=== PATIENT | male | born 1945 | race Caucasian/White ===

== ENCOUNTER 2016-11-16 14:44 | Inpatient (IN) ==
[2016-11-16] MEDS ORDERED: Ipratropium/Albuterol Neb 3 ML IH ONE (16:00)
[2016-11-16] MEDS ORDERED: HYDROcodone BIT/Homatropine 5 MG TABLET PO ONE (16:01)
[2016-11-16] MEDS ORDERED: Vancomycin 1,000 MG in D5% in Water 250 ML IVPB ONE (16:01)
[2016-11-16] MEDS ORDERED: Piperacillin/Tazobactam 4.5 GM in D5% in Water (Mini-Bag+) 100 ML IVPB ONE (16:01)
[2016-11-16] MEDS ORDERED: methylPREDNISolone 125 MG/2 ML VIAL IVP ONE (16:03)
[2016-11-16] MEDS: 0.9 % Sodium Chloride 1,000 ML IVC SCH ×2 (17:09→23:54)
[2016-11-16 17:12] LABS: Eosinophils % 0.6 %; Hemoglobin 9.9 g/dL (12.9-16.9)
[2016-11-16 17:14] LABS: Basophils % 0.6 %; Immature Granulocytes % 6.1 % (0-4); Immature Platelets 1.9 % (1.1-6.1); Lymphocytes % 45.7 %; Monocytes % 6.1 %; Segmented Neutrophils % 40.9 %
[2016-11-16 17:15] LABS: VBG HCO3 29.8 mEq/L (21-27); VBG PH 7.42 pH Units (7.32-7.42)
[2016-11-16 17:24] LABS: Lymphocytes # 1.5 K/mcL (0.6-4.6); Mean Corpuscular HGB Conc 31.9 g/dL (31.6-35.5); Mean Corpuscular Hemoglobin 29.5 pg (28.0-33.3); Mean Corpuscular Volume 92.3 fL (83.0-100.0); Mean Platelet Volume 8.3 fL (9.4-12.4); Monocytes # 0.2 K/mcL (0.0-1.3); Neutrophils # 1.4 K/mcL (1.6-8.9); Red Blood Count 3.36 M/mcL (4.19-5.50); Red Cell Distribution Width 18.1 % (11.5-14.5)
[2016-11-16 17:26] LABS: Alanine Aminotransferase 15 Units/L (0-55); Albumin 2.7 g/dL (3.5-5.0); Albumin/Globulin Ratio 0.9 (1.1-2.2); Alkaline Phosphatase 59 Units/L (38-126); Aspartate Amino Transferase 38 Units/L (5-34); BUN/Creatinine Ratio 18 (6-26); Bilirubin,Total 0.4 mg/dL (0.2-1.2); Blood Urea Nitrogen 14 mg/dL (8-26); Calcium 8.9 mg/dL (8.6-10.8); Carbon Dioxide 27 mEq/L (19-29); Chloride 101 mEq/L (98-109); Globulin 2.9 g/dL (2.4-3.5); Glucose 119 mg/dL (70-99); Osmolality,Calculated 282 (280-300); Potassium 4.7 mEq/L (3.5-4.5); Sodium 135 mEq/L (136-145); Total Protein 5.6 g/dL (6.0-8.3); eGFR For African Americans > 60 (> 60); eGFR For Non-African Americans > 60 (> 60)
[2016-11-16 17:44] LABS: Platelet Count 98 K/mcL (140-400)
[2016-11-16 17:48] LABS: Platelet Estimate Marked Decrease (Normal)
[2016-11-16] MEDS ORDERED: Naloxone 0.4 MG/ML INJ IVP PRN (21:03)
[2016-11-16] MEDS ORDERED: Ondansetron ODT 4 MG TAB.RAPDIS PO PRN (21:12)
[2016-11-16] MEDS ORDERED: Acetaminophen 325 MG TABLET PO PRN (21:12)
--- NOTE | 2016-11-16 21:25 | Internal Med History&Physical ---
<Arlette Beal - Last Filed: 11/16/16 22:18> Date of Encounter: 11/16/16 Time of Encounter: 21:23 Assessment and Plan (1) HCAP (healthcare-associated pneumonia) Current visit: Yes Status: Acute Patient with increased reductive cough, shortness of breath, chills, sweats. She does them immunosuppressed with CLL or blood cells elevated above his baseline to only 3.3, low-grade fever at 99. CT of the chest showed lobar consolidation in bilateral lower lobes, centrilobular small tree-in-bud nodules scattered throughout the lungs. called in the cancer Center and pneumonia is considered HCAP. Initiated on broad-spectrum antibiotics with vancomycin and Zosyn, will add Levaquin and Tamiflu Influenza PCR ordered IV fluids 0.9 at 125 mL per hour DuoNeb treatments 4 times a day Albuterol nebulizer every 2 when necessary Titrate O2 to maintain oxygen saturation greater than 90% Respiratory therapy consultation for CPAP as patient has diagnosis of sleep apnea De-escalate antibiotics once results of Flu PCR and cultures return (2) Sepsis Current visit: Yes Status: Acute Patient meets sepsis criteria with source of infection being pneumonia, tachycardia, and tachypnea. He should not is maintaining blood pressures 110s to 120s. Blood cultures, sputum cultures, and urine cultures were drawn and sent. Lactic acid was drawn and was normal at 1.2. Fluids were initiated at 125 mL per hour. Initiated on broad-spectrum antibiotics with vancomycin and Zosyn, will add Levaquin and Tamiflu Influenza PCR ordered. De-escalate antibiotics and tamiflu once PCR and cultures are back. Qualifiers: Sepsis type: sepsis due to unspecified organism Qualified Code(s): A41.9 - Sepsis, unspecified organism (3) Cough Current visit: No Status: Acute Patient has chronic worsening cough. Follows with Dr. marleni KIRBY before as an outpatient and has chronic bronchiectasis. The cause could be in April 2016 showed bronchiectasis with extensive mucopurulent secretions throughout the tracheobronchial tree. Bronchoalveolar lavage showed extensive reactive changes , no evidence of malignancy or infection. Pre-bronchoscopy from showed extensive reactive changes, BAL and transbronchial biopsy negative for malignancy and showed acute and chronic inflammation. continue home doses of spiriva, guaifenisin, Duoneb QID Albuterol nebulizer Q2 PRN titrate O2 to maintain saturation > 90%. (4) Bronchiectasis Current visit: No Status: Chronic Patient has chronic worsening cough. Follows with Dr. marleni KIRBY before as an outpatient and has chronic bronchiectasis. The cause could be in April 2016 showed bronchiectasis with extensive mucopurulent secretions throughout the tracheobronchial tree. Bronchoalveolar lavage showed extensive reactive changes , no evidence of malignancy or infection. Repeat bronchoscopy from 09/07 showed extensive reactive changes, BAL and transbronchial biopsy negative for malignancy and showed acute and chronic inflammation. Per the patient and family, there have been discussions about referral to [facility] or [facility] pulmonology for further work up and/or treatment. Continue home doses of spiriva, guaifenisin, Duoneb QID Albuterol nebulizer Q2 PRN titrate O2 to maintain saturation > 90%. Will put in consult to Pulmonology. Qualifiers: Bronchiectasis type: with acute exacerbation Qualified Code(s): J47.1 - Bronchiectasis with (acute) exacerbation (5) CLL (chronic lymphocytic leukemia) Current visit: No Status: Chronic Follows with Medical Oncology as an outpatient. Per oncology note: Diagnosed in 1995. Observation from [id number]. FCR 8 cycles completed in April 2003 Bone marrow biopsy November 2004 of the cytogenetic remission. Flow cytometry November 2008 showed monoclonal kappa lymphocytosis. Bendamustine plus Rituxan 4 cycles 02/07/2010-06/08/2010. Bendamustine plus Rituxan:10/23/2011-01/15/2012. Chlorambucil 0.8 mg/m day 1 and day 15 every 28 days from 10/11/2013-12/30/2013. Stopped due to intolerance with thrombocytopenia. Ibrutinib 420 mg by mouth daily started 02/11/2014. Stopped November 2014 due to disease progression. Completed 8 cycles of Obinutuzumab plus chlorambucil regimen 01/22-07/12/16. Tolerated treatment well with no unexpected side effects. Chlorambucil was stopped after 1 dose due to profound cytopenia with prolonged myelosuppression. Obinutuzumab has been on hold after completing 8 cycles on 07/12/16 with stable disease status. Gets IVIG monthly for hypoglobulinemia. Most recent CT neck, chest, abdomen, pelvis 11/05/16 showed: Stable scattered, small neck nodes. Unchanged versus previous. Diffuse mediastinal and hilar lymphadenopathy. Slightly decreased versus previous. Increase, scattered nodularity seen throughout bilateral lungs felt to indicate post inflammatory/infectious change. Increased abdominal/pelvic ascites. Stable, diffuse adenopathy throughout abdomen and pelvis. Stable splenomegaly. (6) Neutropenia Current visit: No Status: Chronic Patient has WBC of 3.3, increasing. Qualifiers: Neutropenia type: secondary to cancer chemotherapy Qualified Code(s): D70.1 - Agranulocytosis secondary to cancer chemotherapy (7) Obstructive sleep apnea of adult Current visit: No Status: Chronic Respiratory therapy consulted for CPAP (8) DVT prophylaxis Current visit: Yes Status: Acute Up to chair BID anti-embolic stockings Heparin 5,000u SQ BID Internal Medicine - H&P: HPI Chief complaint: cough, shortness of breath Admitted From: Emergency Dept Plans for Post Hospital Care: Transfer Shelter Facility History of present illness: Mr. Saravia is a 71 year old male with coronary artery disease, history of prostate cancer status post prostatectomy, CLL, hypo-gammaglobulinemia, and chronic bronchiolitis was sent to the emergency department today from the cancer center with increased cough and shortness of breath. Patient reports chronic cough, has been going on since November. He requires 3-4 L of oxygen at home. He notes increased shortness of breath and increased coughing over the last week. He also reports chills and sweats. He reports some lightheadedness in the last few days. He denies any chest pain, palpitations. He denies any abdominal pain, nausea, diarrhea. His chronic cough has been worsening over time, interferes with his daily life, he has been losing weight. He follows with Dr. Mtz in pulmonology as an outpatient, and with the cancer center for his CLL and hypogamaglobulinemia. t the 05/16/2016 showed bronchiectasis with extensive mucopurulent secretions throughout the tracheobronchial tree. Bronchoalveolar lavage showed extensive reactive changes, no evidence of malignancy or infection. Repeat bronchoscopy in August showed extensive reactive changes. BAL and transbronchial biopsy were negative for malignancy and showed acute and chronic inflammation. Evaluation in the emergency department today showed patient was tachycardic with heart rate in [id number], he was dyspneic and tachypneic. He had low-grade fever of 99, in the setting of immunosuppression. CT of the chest was obtained which showed lobar consolidation in bilateral lower lobes, centrilobular small tree-in-bud nodules scattered throughout the lungs have progressed compatible with worsening pneumonia, thoracic adenopathy compatible with lymphoma, moderate ascites and splenomegaly and upper abdominal lymphadenopathy. Patient met sepsis criteria with source of infection, tachycardia and tachypnea. Lactic acid was normal at 1.2. Blood cultures, urine cultures and sputum cultures were drawn and sent. He was initiated on broad-spectrum antibiotics with Zosyn and for vancomycin. He was started on IV fluids at 125mL/hr and given breathing treatments. On exam , patient is alert and oriented, in no acute distress. He reports his cough is improved with the breathing treatments. He continues to be tachypneic with respiratory rate in the 20s to 30s. He is satting 95-98% on 4 L nasal cannula. Heart has regular rate and rhythm. He is mildly diaphoretic. Past Med Surg Social Fam HX - Past Medical History Medical history: arthritis, cancer (CLL), COPD, coronary artery disease, GERD, hyperlipidemia, hypertension, malignancy, myocardial infarction, osteoporosis Psychiatric history: anxiety - Past Surgical History Surgical History: angioplasty/stent (Cardiac stents 2000 2004 2010), cancer surgery (Radical prostatectomy 1994.), cataract, herniorrhaphy, prostatectomy, other (Left lower lobe resection for noncaseating granulomatous disease. Tonsillectomy adenoidectomy. Penile implant 1995 removed 2000.) - Social History Smoking Status: Former smoker Smokeless Tobacco Status: No Alcohol use: none Drug use: none Occupational status: retired Current living situation: Home - Independent - Family History Mother Adopted: No Family Member Ethnicity: Non- Living Status: Hx Family Cardiac Disorders: Yes Father Family Member Ethnicity: Non- Living Status: Hx Family Cardiac Disorders: Yes Internal Medicine - H&P: Meds Aspirin [Adult Low Dose Aspirin EC] 81 mg PO DAILY 11/28/15 [History] Atorvastatin Calcium [Lipitor] 40 mg PO HS 11/28/15 [History] Cholecalciferol (D-3) [Vitamin D] 2,000 unit PO HS 11/28/15 [History] Ondansetron [Zofran] 1 tab PO Q8HR PRN #90 tablet 01/13/16 [Rx] Prochlorperazine Maleate [Compazine] 1 tab PO Q6HR PRN #60 tablet 01/13/16 [Rx] Lactose-Reduced Food [Ensure High Protein] 237 ml PO TID 02/13/16 [History] Albuterol Sulfate [Albuterol Inhaler] 2 puff IH Q4HR PRN 02/15/16 [History] Ipratropium/Albuterol Neb [Duoneb] 3 ml IH QID 02/15/16 [History] Ranitidine HCl [Zantac] 150 mg PO BID 02/15/16 [History] LORazepam [Ativan] 0.5 mg PO TID PRN #30 tablet 02/16/16 [Rx] Folic Acid 1 mg PO DAILY #90 tablet 04/04/16 [Rx] Guaifenesin/Codeine Phosphate [Guaifenesin-Codeine Syrup] 10 ml PO Q6H PRN #473 liquid 04/16/16 [Rx] Acetaminophen [Tylenol] 650 mg PO Q6HR PRN 05/16/16 [History] Calcium Carbonate/Vitamin D3 [Calcium 500-Vit D3 400 Tablet] 1 tab PO DAILY [History] Lidocaine Patch [Lidoderm 5% patch] 1 each TP DAILY 05/16/16 [History] Lidocaine/Prilocaine [Emla] 1 appl TP AD PRN 05/16/16 [History] Magic Mouthwash [Magic Mouthwash BLM] 7.5 ml PO TID PRN 05/16/16 [History] Metoprolol XL (24 HR) Succ [Toprol Xl] 12.5 mg PO DAILY 05/16/16 [History] Multivitamin [Multi-Day Vitamins] 1 tab PO DAILY 05/16/16 [History] Azelastine 0.1% Nasal Tennga [Astelin] 2 spray NS BID 08/28/16 [History] Ibrutinib [Imbruvica] 420 mg PO DAILY 08/28/16 [History] Petrolatum,White [Aloe [place]] 1 appl TP TID PRN 08/28/16 [History] Ubidecarenone [Coenzyme Q10] 100 mg PO DAILY 08/28/16 [History] Guaifenesin [Guaifenesin ER] 1,200 mg PO BID #60 tab.er.12h 11/09/16 [Rx] Cholecalciferol (Vitamin D3) [Vitamin D] 3,000 unit PO QAM 11/16/16 [History] Sod Chlor,Bicarb/Squeez Bottle [Neilmed Sinus Rinse Kit] 1 packet NS QID [History] Tiotropium [Spiriva] 18 mcg IH 0700 11/16/16 [History] Allergies flunisolide Adverse Reaction (Verified 11/16/16 19:48) See Comments va list naproxen [From Naprosyn] Adverse Reaction (Verified 11/16/16 19:48) See Comments va list All Systems PM: A 10-system review of systems was performed and is negative for pertinent findings except as documented above in the HPI. - Constitutional Constitutional: chills, fatigue, malaise, night sweats, weakness - EENT Eyes: no change in vision, no discharge, no pain, no photophobia Ears: no ear discharge, no ear pain, no tinnitus Nose, mouth and throat: no dysphagia, no nasal discharge, no neck pain, no sore throat - Cardiovascular Cardiovascular ROS IM: dyspnea, dyspnea on exertion, lightheadedness, no chest pain, no diaphoresis, no palpitations, no syncope - Respiratory Respiratory: cough, dyspnea, excessive phlegm production, no wheezing - Gastrointestinal Gastrointestinal: no abdominal pain, no diarrhea, no hematemesis, no hematochezia, no melena, no nausea, no vomiting - Musculoskeletal Musculoskeletal ROS IM: no numbness, no tingling - Integumentary Integumentary IM: no rash, no unusual bruising - Neurological Neurological ROS: no confusion, no convulsions, no focal weakness, no numbness, no tingling, no tremor(s) - Hematologic/Lymphatic Hematologic/Lymphatic: no easy bruising - Constitutional Vitals: Temp Pulse Resp BP Pulse Ox 99.1 F 103 20 114/64 95 11/16/16 14:50 11/16/16 20:14 11/16/16 20:59 11/16/16 20:59 11/16/16 20:14 General appearance: Present: A&O X 3 - Head Head exam: Present: atraumatic, normocephalic - Eye Eye exam: Present: PERRL, conjuntiva pink, sclera anicteric Pupils: Present: PERRL - Neck Neck exam general surgery: Present: supple, trachea midline. Absent: lymphadenopathy - Respiratory Respiratory exam: Present: accessory muscle use, rales, rhonchi, tachypnea. Absent: wheezes - Cardiovascular Cardiovascular exam: Present: RRR, +S1, +S2, systolic murmur. Absent: diastolic murmur, gallop, rubs - GI/Abdominal GI/Abdominal exam: Present: normal bowel sounds, soft, no peritoneal signs. Absent: distended, tenderness - Extremities Exam Extremities exam: Present: warm, radial pulses palpable and symetrical. Absent : calf tenderness, cyanotic, pedal edema - Neurological Exam Neurological exam: Present: CN II-XII intact, oriented X3, no focal deficits. Absent: facial droop, speech deficit - Skin Skin exam: Present: dry, intact Internal Med - H&P Results - Labs CBC & Chem 7: 11/16/16 17:03 11/16/16 17:03 Labs: All Lab Results (24 Hours) 11/16/16 11/16/16 11/16/16 Range/Units 17:03 17:03 17:03 WBC 3.3 L (4.3-11.1) K/mcL RBC 3.36 L (4.19-5.50) M/mcL Hgb 9.9 L (12.9-16.9) g/dL Hct 31.0 L (37.5-50.1) % MCV 92.3 (83.0-100.0) fL MCH 29.5 (28.0-33.3) pg MCHC 31.9 (31.6-35.5) g/dL RDW 18.1 H (11.5-14.5) % Plt Count 98 L (140-400) K/mcL MPV 8.3 L (9.4-12.4) fL Immature Gran % 6.1 H (0-4) % Seg Neutrophils % 40.9 % Lymphocytes % 45.7 % Monocytes % 6.1 % Eosinophils % 0.6 % Basophils % 0.6 % Neutrophils # 1.4 L (1.6-8.9) K/mcL Lymphocytes # 1.5 (0.6-4.6) K/mcL Monocytes # 0.2 (0.0-1.3) K/mcL Eosinophils # 0.0 (0.0-0.6) K/mcL Basophils # 0.0 (0.0-0.2) K/mcL Platelet Estimate Marked Decrease L (Normal) Immature Plt Fraction 1.9 (1.1-6.1) % VBG pH 7.42 (7.32-7.42) pH Units VBG pCO2 46 (41-51) mmHg VBG pO2 55 H (25-40) mmHg VBG HCO3 29.8 H (21-27) mEq/L Sodium 135 L (136-145) mEq/L Potassium 4.7 H (3.5-4.5) mEq/L Chloride 101 (98-109) mEq/L Carbon Dioxide 27 (19-29) mEq/L BUN 14 (8-26) mg/dL Creatinine 0.77 (0.72-1.25) mg/dL Est GFR ( Amer) > 60 (> 60) Est GFR (Non-Af Amer) > 60 (> 60) BUN/Creatinine Ratio 18 (6-26) Glucose 119 H (70-99) mg/dL Calculated Osmolality 282 (280-300) Lactic Acid (0.5-2.2) mmol/L Calcium 8.9 (8.6-10.8) mg/dL Total Bilirubin 0.4 (0.2-1.2) mg/dL AST 38 H (5-34) Units/L ALT 15 (0-55) Units/L Alkaline Phosphatase 59 (38-126) Units/L Serum Total Protein 5.6 L (6.0-8.3) g/dL Albumin 2.7 L (3.5-5.0) g/dL Globulin 2.9 (2.4-3.5) g/dL Albumin/Globulin Ratio 0.9 L (1.1-2.2) 11/16/16 Range/Units 17:13 WBC (4.3-11.1) K/mcL RBC (4.19-5.50) M/mcL Hgb (12.9-16.9) g/dL Hct (37.5-50.1) % MCV (83.0-100.0) fL MCH (28.0-33.3) pg MCHC (31.6-35.5) g/dL RDW (11.5-14.5) % Plt Count (140-400) K/mcL MPV (9.4-12.4) fL Immature Gran % (0-4) % Seg Neutrophils % % Lymphocytes % % Monocytes % % Eosinophils % % Basophils % % Neutrophils # (1.6-8.9) K/mcL Lymphocytes # (0.6-4.6) K/mcL Monocytes # (0.0-1.3) K/mcL Eosinophils # (0.0-0.6) K/mcL Basophils # (0.0-0.2) K/mcL Platelet Estimate (Normal) Immature Plt Fraction (1.1-6.1) % VBG pH (7.32-7.42) pH Units VBG pCO2 (41-51) mmHg VBG pO2 (25-40) mmHg VBG HCO3 (21-27) mEq/L Sodium (136-145) mEq/L Potassium (3.5-4.5) mEq/L Chloride (98-109) mEq/L Carbon Dioxide (19-29) mEq/L BUN (8-26) mg/dL Creatinine (0.72-1.25) mg/dL Est GFR ( Amer) (> 60) Est GFR (Non-Af Amer) (> 60) BUN/Creatinine Ratio (6-26) Glucose (70-99) mg/dL Calculated Osmolality (280-300) Lactic Acid 1.2 (0.5-2.2) mmol/L Calcium (8.6-10.8) mg/dL Total Bilirubin (0.2-1.2) mg/dL AST (5-34) Units/L ALT (0-55) Units/L Alkaline Phosphatase (38-126) Units/L Serum Total Protein (6.0-8.3) g/dL Albumin (3.5-5.0) g/dL Globulin (2.4-3.5) g/dL Albumin/Globulin Ratio (1.1-2.2) <Mario Waddell - Last Filed: 11/17/16 03:16> Date of Encounter: 11/17/16 All Systems PM: A 10-system review of systems was performed and is negative for pertinent findings except as documented above in the HPI. - Constitutional Vitals: Temp Pulse Resp BP Pulse Ox 98.7 F 91 19 105/58 93 L 11/16/16 23:20 11/16/16 23:20 11/16/16 23:20 11/16/16 23:20 11/16/16 23:20 General appearance: Present: mild distress, A&O X 3, answers questions appropriately - Eye Eye exam: Present: PERRL. Absent: scleral icterus - Neck Neck exam general surgery: Present: full ROM, supple - Respiratory Respiratory exam: Present: accessory muscle use, rales, respiratory distress ( mild), rhonchi, tachypnea. Absent: chest wall tenderness - Cardiovascular Cardiovascular exam: Present: RRR, +S1, +S2. Absent: systolic murmur - GI/Abdominal GI/Abdominal exam: Present: soft. Absent: tenderness - Extremities Exam Extremities exam: Present: full ROM, warm. Absent: tenderness Internal Med - H&P Results - Labs CBC & Chem 7: 11/16/16 17:03 11/16/16 17:03 - Diagnostic Studies CT scan - chest Status: image reviewed by me (BLL infiltrates noted ) - Attending Attestation I discussed the pt SOBOBA, PMH, ROS, lab data, and exam findings with Arlette Beal. I then saw and evaluated patient independently as well. Pt feels better now, but he is still a little tachypneic, SOB, and reports some subjective fevers and chills. His influenza testing came back negative, so I will stop Tamiflu. He reports to me a history of MRSA sepsis last year from an infected A-port . That A-prot was removed and he now has a new one on his left side of chest. I agree with his antibiotic choices, especially Vancomycin. Will follow his blood cultures closely. If +, he will need serial blood cultures and CARLOS. I do not appreciate a murmur on exam. Other than my comments above and noted exam findings, I agree with Arlette's assessment and plan.
[2016-11-16] MEDS ORDERED: Vancomycin 1,000 MG in D5% in Water 250 ML IVPB SCH (22:00)
[2016-11-16] MEDS ORDERED: *HR* HYDROmorphone (PF) 1 MG/ML SYRINGE IVP ONE (22:33)
[2016-11-16] MEDS: Ipratropium/Albuterol Neb 3 ML IH SCH (23:17)
[2016-11-16] MEDS: Levofloxacin 750 MG/150 ML 750 MG/150 ML BAG IVPB SCH (23:26)
--- NOTE | 2016-11-16 23:40 | Emergency Department Note ---
Disposition Clinical Impression: Pneumonia Qualifiers: Pneumonia type: due to unspecified organism Laterality: bilateral Lung location : unspecified part of lung Qualified Code(s): J18.9 - Pneumonia, unspecified organism Disposition: Admitted As Inpatient Condition: Fair General Adult HPI - General Chief complaint: ED Shortness of Breath/Dyspnea Stated complaint: cough, from cancer center Time Seen by Provider: 11/16/16 18:32 Source: patient Limitations: no limitations Nursing Notes Reviewed: Yes Vital Signs Reviewed: Yes - History of Present Illness HPI Narrative: 71-year-old male with multiple comorbidities who presents from the cancer center with complaints of ongoing dyspnea. 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 He has ongoing cancer, biologic immunotherapy treatments of the cancer center. Today at cough, bronchospasm, home health care nurse reports that his symptoms of been worsening for approximately one week. The [facility] was concerned about hypoxemia and sent the patient in for evaluation. He reports cough, fever, productive sputum for approximately one week. He does have history of MRSA septicemia. Pain Scale: 2 - Related Data Home Medications Medication Instructions Recorded Confirmed Aspirin [Adult Low Dose Aspirin EC] 81 mg PO DAILY 11/28/15 11/16/16 Atorvastatin Calcium [Lipitor] 40 mg PO HS 11/28/15 11/16/16 Cholecalciferol (D-3) [Vitamin D] 2,000 unit PO HS 11/28/15 11/16/16 Lactose-Reduced Food [Ensure High 237 ml PO TID 02/13/16 11/16/16 Protein] Albuterol Sulfate [Albuterol 2 puff IH Q4HR PRN 02/15/16 11/16/16 Inhaler] Ipratropium/Albuterol Neb [Duoneb] 3 ml IH QID 02/15/16 11/16/16 Ranitidine HCl [Zantac] 150 mg PO BID 02/15/16 11/16/16 Acetaminophen [Tylenol] 650 mg PO Q6HR PRN 05/16/16 11/16/16 Calcium Carbonate/Vitamin D3 1 tab PO DAILY 05/16/16 11/16/16 [Calcium 500-Vit D3 400 Tablet] Lidocaine Patch [Lidoderm 5% patch] 1 each TP DAILY 05/16/16 08/28/16 Lidocaine/Prilocaine [Emla] 1 appl TP AD PRN 05/16/16 11/16/16 Magic Mouthwash [Magic Mouthwash 7.5 ml PO TID PRN 05/16/16 11/16/16 BLM] Metoprolol XL (24 HR) Succ [Toprol 12.5 mg PO DAILY 05/16/16 11/16/16 Xl] Multivitamin [Multi-Day Vitamins] 1 tab PO DAILY 05/16/16 11/16/16 Azelastine 0.1% Nasal [place] 2 spray NS BID 08/28/16 11/16/16 [Astelin] Ibrutinib [Imbruvica] 420 mg PO DAILY 08/28/16 08/28/16 Petrolatum,White [Aloe [place]] 1 appl TP TID PRN 08/28/16 11/16/16 Ubidecarenone [Coenzyme Q10] 100 mg PO DAILY 08/28/16 11/16/16 Cholecalciferol (Vitamin D3) 3,000 unit PO QAM 11/16/16 11/16/16 [Vitamin D] Sod Chlor,Bicarb/Squeez Bottle 1 packet NS QID 11/16/16 11/16/16 [[employer] Sinus Rinse Kit] Tiotropium [Spiriva] 18 mcg IH 0700 11/16/16 11/16/16 Previous Rx's Medication Instructions Recorded Ondansetron [Zofran] 1 tab PO Q8HR PRN #90 tablet 01/13/16 Prochlorperazine Maleate 1 tab PO Q6HR PRN #60 tablet 01/13/16 [Compazine] LORazepam [Ativan] 0.5 mg PO TID PRN #30 tablet 02/16/16 Folic Acid 1 mg PO DAILY #90 tablet 04/04/16 Guaifenesin/Codeine Phosphate 10 ml PO Q6H PRN #473 liquid 04/16/16 [Guaifenesin-Codeine Syrup] Guaifenesin [Guaifenesin ER] 1,200 mg PO BID #60 tab.er.12h 11/09/16 Allergies Allergy/AdvReac Type Severity Reaction Status Date / Time flunisolide AdvReac See Verified 11/16/16 19:48 Comments naproxen [From Naprosyn] AdvReac See Verified 11/16/16 19:48 Comments All systems ED: reviewed and negative except as stated. Past Medical History - Past Medical History Medical history: Reports: arthritis, cancer (CLL), COPD, coronary artery disease , GERD, hyperlipidemia, hypertension, malignancy, myocardial infarction, osteoporosis Surgical history: Reports: angioplasty/stent (Cardiac stents 2000 2004 2010), cancer surgery (Radical prostatectomy 1994.), cataract, herniorrhaphy, prostatectomy, other (Left lower lobe resection for noncaseating granulomatous disease. Tonsillectomy adenoidectomy. Penile implant 1995 removed 2000.) Psychiatric history: Reports: anxiety - Social History Smoking Status: Former smoker Smokeless Tobacco Status: No Alcohol use: Reports: none Drug use: Reports: none Physical Exam Wheezing and rhonchi bilaterally - General Limitations: no limitations General appearance: alert, in no apparent distress - Head Head exam: atraumatic - Eye Eye exam: Present: normal appearance - Neck Neck exam: Present: normal inspection, full ROM - Chest Chest inspection: Present: normal inspection - Respiratory Respiratory exam: Present: other - Cardiovascular Cardiovascular exam: Present: tachycardia - Abdominal Exam Abdominal exam: Present: soft, Non-Tender - Extremities Exam Extremities exam: Present: normal inspection - Expanded Lower Extremity Exam Neurovascular/Tendon exam: Present: normal capillary refill - Back Exam Back exam: Present: normal inspection, full ROM - Neurological Exam Neurological exam: Present: alert, oriented X3, CN II-XII intact - Psychiatric Psychiatric exam: Present: normal affect - Skin Skin exam: Present: warm, dry Course Vital Signs Temperature 99.1 F 11/16/16 14:50 Pulse Rate 102 11/16/16 14:50 Respiratory Rate 22 11/16/16 14:50 Blood Pressure 125/72 11/16/16 14:50 O2 Sat by Pulse Oximetry 94 L 11/16/16 14:50 Temperature 98.7 F 11/16/16 23:20 Pulse Rate 91 11/16/16 23:20 Respiratory Rate 19 11/16/16 23:20 Blood Pressure 105/58 11/16/16 23:20 O2 Sat by Pulse Oximetry 93 L 11/16/16 23:20 Oxygen Delivery Oxygen Delivery Nasal Cannula Medical Decision Making - [facility] Narrative Medical decision making narrative: History of cancer therapy. Now with bronchospasm, concerning for pneumonia. CT of the chest shows bilateral infiltrates. Given possibility healthcare acquired pneumonia pancultures were obtained including flu specimen. Bronchodilators were administered. Steroids initiated. Broad-spectrum antibiotic coverage was initiated. 30 mL per kilo fluid bolus initiated. Patient had ongoing cough and loss expectorant as well as cough suppressant provided. Blood gas is not indicated to respiratory failure however there is concern for ongoing wheezing as well as pneumonia in the setting of complicated medical history. We will proceed with admission for antibiotic therapy. Cultures are pending. Discussed case with hospitalist team. - Lab Data Result diagrams: 11/16/16 17:03 11/16/16 17:03 Lab Results 11/16/16 11/16/16 11/16/16 Range/Units 17:03 17:03 17:03 WBC 3.3 L (4.3-11.1) K/mcL RBC 3.36 L (4.19-5.50) M/mcL Hgb 9.9 L (12.9-16.9) g/dL Hct 31.0 L (37.5-50.1) % MCV 92.3 (83.0-100.0) fL MCH 29.5 (28.0-33.3) pg MCHC 31.9 (31.6-35.5) g/dL RDW 18.1 H (11.5-14.5) % Plt Count 98 L (140-400) K/mcL MPV 8.3 L (9.4-12.4) fL Immature Gran % 6.1 H (0-4) % Seg Neutrophils % 40.9 % Lymphocytes % 45.7 % Monocytes % 6.1 % Eosinophils % 0.6 % Basophils % 0.6 % Neutrophils # 1.4 L (1.6-8.9) K/mcL Lymphocytes # 1.5 (0.6-4.6) K/mcL Monocytes # 0.2 (0.0-1.3) K/mcL Eosinophils # 0.0 (0.0-0.6) K/mcL Basophils # 0.0 (0.0-0.2) K/mcL Platelet Estimate Marked Decrease L (Normal) Immature Plt Fraction 1.9 (1.1-6.1) % VBG pH 7.42 (7.32-7.42) pH Units VBG pCO2 46 (41-51) mmHg VBG pO2 55 H (25-40) mmHg VBG HCO3 29.8 H (21-27) mEq/L Sodium 135 L (136-145) mEq/L Potassium 4.7 H (3.5-4.5) mEq/L Chloride 101 (98-109) mEq/L Carbon Dioxide 27 (19-29) mEq/L BUN 14 (8-26) mg/dL Creatinine 0.77 (0.72-1.25) mg/dL Est GFR ( Amer) > 60 (> 60) Est GFR (Non-Af Amer) > 60 (> 60) BUN/Creatinine Ratio 18 (6-26) Glucose 119 H (70-99) mg/dL Calculated Osmolality 282 (280-300) Lactic Acid (0.5-2.2) mmol/L Calcium 8.9 (8.6-10.8) mg/dL Total Bilirubin 0.4 (0.2-1.2) mg/dL AST 38 H (5-34) Units/L ALT 15 (0-55) Units/L Alkaline Phosphatase 59 (38-126) Units/L Serum Total Protein 5.6 L (6.0-8.3) g/dL Albumin 2.7 L (3.5-5.0) g/dL Globulin 2.9 (2.4-3.5) g/dL Albumin/Globulin Ratio 0.9 L (1.1-2.2) 11/16/16 Range/Units 17:13 WBC (4.3-11.1) K/mcL RBC (4.19-5.50) M/mcL Hgb (12.9-16.9) g/dL Hct (37.5-50.1) % MCV (83.0-100.0) fL MCH (28.0-33.3) pg MCHC (31.6-35.5) g/dL RDW (11.5-14.5) % Plt Count (140-400) K/mcL MPV (9.4-12.4) fL Immature Gran % (0-4) % Seg Neutrophils % % Lymphocytes % % Monocytes % % Eosinophils % % Basophils % % Neutrophils # (1.6-8.9) K/mcL Lymphocytes # (0.6-4.6) K/mcL Monocytes # (0.0-1.3) K/mcL Eosinophils # (0.0-0.6) K/mcL Basophils # (0.0-0.2) K/mcL Platelet Estimate (Normal) Immature Plt Fraction (1.1-6.1) % VBG pH (7.32-7.42) pH Units VBG pCO2 (41-51) mmHg VBG pO2 (25-40) mmHg VBG HCO3 (21-27) mEq/L Sodium (136-145) mEq/L Potassium (3.5-4.5) mEq/L Chloride (98-109) mEq/L Carbon Dioxide (19-29) mEq/L BUN (8-26) mg/dL Creatinine (0.72-1.25) mg/dL Est GFR ( Amer) (> 60) Est GFR (Non-Af Amer) (> 60) BUN/Creatinine Ratio (6-26) Glucose (70-99) mg/dL Calculated Osmolality (280-300) Lactic Acid 1.2 (0.5-2.2) mmol/L Calcium (8.6-10.8) mg/dL Total Bilirubin (0.2-1.2) mg/dL AST (5-34) Units/L ALT (0-55) Units/L Alkaline Phosphatase (38-126) Units/L Serum Total Protein (6.0-8.3) g/dL Albumin (3.5-5.0) g/dL Globulin (2.4-3.5) g/dL Albumin/Globulin Ratio (1.1-2.2)
[2016-11-17 02:17] LABS: 2009 H1N1 PCR NOT DETECTED (Not Detect); Influenza A PCR Negative (Negative); Influenza B PCR Negative (Negative)
[2016-11-17] MEDS: Piperacillin/Tazobactam 3.375 GM in D5% in Water (Mini-Bag+) 100 ML IVPB SCH ×3 (03:09→16:20)
[2016-11-17 03:45] LABS: Bilirubin,Urine Negative (Negative); Blood,Urine Negative (Negative); Clarity,Urine Clear (Clear); Color,Urine Yellow (Yellow); Glucose,Urine (UA) 500 mg/dL (Normal); Ketones,Urine Negative (Negative); Leukocyte Esterase,Urine Negative (Negative); Nitrite,Urine Negative (Negative); PH,Urine 6.5 pH Units (5.0-8.0); Protein,Urine Negative (Neg-Trace); Specific Gravity,Urine 1.017 (1.010-1.025); Urobilinogen,Urine Normal (Normal)
[2016-11-17 03:46] LABS: Hematocrit 25.9 % (37.5-50.1); Immature Platelets 2.1 % (1.1-6.1); Mean Corpuscular HGB Conc 31.7 g/dL (31.6-35.5); Mean Corpuscular Hemoglobin 29.7 pg (28.0-33.3); Mean Corpuscular Volume 93.8 fL (83.0-100.0); Mean Platelet Volume 9.4 fL (9.4-12.4); Red Blood Count 2.76 M/mcL (4.19-5.50); Red Cell Distribution Width 18.3 % (11.5-14.5)
[2016-11-17 03:47] LABS: Hemoglobin 8.2 g/dL (12.9-16.9); Platelet Count 83 K/mcL (140-400)
[2016-11-17 03:57] LABS: BUN/Creatinine Ratio 19 (6-26); Blood Urea Nitrogen 15 mg/dL (8-26); Calcium 8.3 mg/dL (8.6-10.8); Carbon Dioxide 25 mEq/L (19-29); Chloride 101 mEq/L (98-109); Glucose 231 mg/dL (70-99); Osmolality,Calculated 288 (280-300); Sodium 135 mEq/L (136-145); eGFR For African Americans > 60 (> 60); eGFR For Non-African Americans > 60 (> 60)
[2016-11-17 04:10] LABS: Lymphocytes # 1.7 K/mcL (0.6-4.6); Monocytes # 0.3 K/mcL (0.0-1.3); Neutrophils # 2.5 K/mcL (1.6-8.9); Platelet Estimate Decreased (Normal); Reactive Lymphocytes Present (Not Present); Toxic Granulation Present (Not Present)
[2016-11-17 04:11] LABS: Anisocytosis 1+ (Not Present)
[2016-11-17] MEDS: Ipratropium/Albuterol Neb 3 ML IH SCH ×5 (05:06→23:46)
[2016-11-17] MEDS: Vancomycin 1,000 MG in D5% in Water 250 ML IVPB SCH ×2 (05:08→16:20)
[2016-11-17] MEDS ORDERED: Tiotropium 18 MCG inhalation IH SCH (07:00)
[2016-11-17] MEDS ORDERED: Calcium 500-Vit D3 PO SCH (09:00)
[2016-11-17] MEDS: Folic Acid 1 MG TABLET PO SCH (09:17)
[2016-11-17] MEDS: Famotidine 20 MG TABLET PO SCH ×2 (09:17→16:30)
[2016-11-17] MEDS: Multivit/Ca/Min/Fe/FA 1 TAB TABLET PO SCH (09:17)
[2016-11-17] MEDS: Aspirin Enteric Coated 81 MG Tablet PO SCH (09:17)
[2016-11-17] MEDS: 0.9 % Sodium Chloride 1,000 ML IVC SCH (09:18)
[2016-11-17] MEDS: *HR* Heparin 5,000 UNIT/ML VIAL SQ SCH ×2 (09:19→20:41)
[2016-11-17] MEDS: Metoprolol XL (24 HR) Succ 25 MG TAB.ER.24H PO SCH ×2 (09:20→09:23)
[2016-11-17] MEDS: Azelastine 0.1% Nasal Spray 30 ML BOTTLE NS SCH ×3 (09:35→20:47)
[2016-11-17] MEDS: HYDROcodone BIT/Homatropine 5 MG TABLET PO SCH ×2 (10:31→20:41)
--- NOTE | 2016-11-17 10:43 | Pulmonology Consult Note ---
Date of Encounter: 11/17/16 Time of Encounter: 10:41 Assessment and Plan (1) Abnormal CT scan, chest Current Visit: Yes Status: Acute The abnormal chest CT findings are due to underlying CLL, bronchiectasis bronchiolitis and presumably acute bacterial pneumonia. The patient is obviously renal compromised and furthermore has documented hypogammaglobulinemia for which she receives replacement monthly immunoglobulin therapy. Perhaps it would be prudent to check immunoglobulin levels to ensure that he current dose of IVIG as appropriate. I agree with the provisions of care which include broad-spectrum antimicrobial agents pending the results of culture (sputum can be induced if necessary) and furthermore use of bronchodilator therapy as well as a flutter valve for enhanced pulmonary hygiene. Unfortunately, I do not think there is much else that can be provided for the care of this individual that will favorably impact on his overall quality of life. Code(s): R93.8 - Abnormal findings on diagnostic imaging of other specified body structures SNOMED Code(s): 366060932 History of Present Illness Consult date: 11/17/16 Chief complaint: Abnormal chest CT scan findings History of present illness: 71-year-old male has well-established history of CLL and concurrent hypogammaglobulinemia for which she reportedly receives monthly infusions of IVIG. Patient also has underlying bronchiectasis and bronchiolitis presumably related to hypogammaglobulinemia secondary to CLL. Patient has an extensive history of progressive declining clinical status, cough, chest congestion, anorexia fatigue. He has been plagued with recurrent respiratory infections despite of treatment with multiple antimicrobial agents. Patient was recently admitted to the hospital with complaints of progressive decline, cough chest congestion fatigue and anorexia. Repeat chest imaging revealed [place] mediastinal hilar adenopathy, other parenchymal findings suggestive of bronchiectasis bronchiolitis in new bibasilar airspace opacities. The patient is currently receiving empiric antibiotic therapy for treatment of presumptive pneumonia. Past Med Surg Social Fam HX - Past Medical History Medical history: arthritis, cancer, COPD, coronary artery disease, GERD, hyperlipidemia, hypertension, malignancy, myocardial infarction, osteoporosis Psychiatric history: anxiety - Past Surgical History Surgical History: angioplasty/stent, cancer surgery, cataract, herniorrhaphy, prostatectomy, other - Social History Smoking Status: Former smoker Smokeless Tobacco Status: No Alcohol use: none Drug use: none - Family History Mother Adopted: No Family Member Ethnicity: Non- Living Status: Hx Family Cardiac Disorders: Yes Father Family Member Ethnicity: Non- Living Status: Hx Family Cardiac Disorders: Yes Medications and Allergies Aspirin [Adult Low Dose Aspirin EC] 81 mg PO DAILY 11/28/15 [History] Atorvastatin Calcium [Lipitor] 40 mg PO HS 11/28/15 [History] Cholecalciferol (D-3) [Vitamin D] 2,000 unit PO HS 11/28/15 [History] Ondansetron [Zofran] 1 tab PO Q8HR PRN #90 tablet 01/13/16 [Rx] Prochlorperazine Maleate [Compazine] 1 tab PO Q6HR PRN #60 tablet 01/13/16 [Rx] Lactose-Reduced Food [Ensure High Protein] 237 ml PO TID 02/13/16 [History] Albuterol Sulfate [Albuterol Inhaler] 2 puff IH Q4HR PRN 02/15/16 [History] Ipratropium/Albuterol Neb [Duoneb] 3 ml IH QID 02/15/16 [History] Ranitidine HCl [Zantac] 150 mg PO BID 02/15/16 [History] LORazepam [Ativan] 0.5 mg PO TID PRN #30 tablet 02/16/16 [Rx] Folic Acid 1 mg PO DAILY #90 tablet 04/04/16 [Rx] Guaifenesin/Codeine Phosphate [Guaifenesin-Codeine Syrup] 10 ml PO Q6H PRN #473 liquid 04/16/16 [Rx] Acetaminophen [Tylenol] 650 mg PO Q6HR PRN 05/16/16 [History] Calcium Carbonate/Vitamin D3 [Calcium 500-Vit D3 400 Tablet] 1 tab PO DAILY [History] Lidocaine Patch [Lidoderm 5% patch] 1 each TP DAILY 05/16/16 [History] Lidocaine/Prilocaine [Emla] 1 appl TP AD PRN 05/16/16 [History] Magic Mouthwash [Magic Mouthwash BLM] 7.5 ml PO TID PRN 05/16/16 [History] Metoprolol XL (24 HR) Succ [Toprol Xl] 12.5 mg PO DAILY 05/16/16 [History] Multivitamin [Multi-Day Vitamins] 1 tab PO DAILY 05/16/16 [History] Azelastine 0.1% Nasal [place] [Astelin] 2 spray NS BID 08/28/16 [History] Ibrutinib [Imbruvica] 420 mg PO DAILY 08/28/16 [History] Petrolatum,White [Aloe [place]] 1 appl TP TID PRN 08/28/16 [History] Ubidecarenone [Coenzyme Q10] 100 mg PO DAILY 08/28/16 [History] Guaifenesin [Guaifenesin ER] 1,200 mg PO BID #60 tab.er.12h 11/09/16 [Rx] Cholecalciferol (Vitamin D3) [Vitamin D] 3,000 unit PO QAM 11/16/16 [History] Sod Chlor,Bicarb/Squeez Bottle [[employer] Sinus Rinse Kit] 1 packet NS QID [History] Tiotropium [Spiriva] 18 mcg IH 0700 11/16/16 [History] Allergies flunisolide Adverse Reaction (Verified 11/16/16 19:48) See Comments [facility] list naproxen [From Naprosyn] Adverse Reaction (Verified 11/16/16 19:48) See Comments [facility] list All Systems: A 10-system review of systems was performed and is negative for pertinent findings except as documented above in the HPI. - Constitutional Constitutional: as per HPI - Cardiovascular Cardiovascular: as per HPI - Respiratory Respiratory: as per HPI Physical Examination Vital Signs: Vital Signs, Last 4 Hours Temp Pulse Resp BP Pulse Ox 11/17/16 07:00 98.0 F 84 17 103/59 92 L General appearance: no acute distress, other (Debilitated chronically ill- appearing male) Eyes: nonicteric Mallampati (class): 2 Effort: mildly labored Auscultation: bilateral: diminished breath sounds (Crackles and rhonchi within the basilar lung zones) Cardiovascular: regular rate and rhythm Gastrointestinal: normoactive bowel sounds, non-distended Extremities: no cyanosis, no edema normal mental status, non-focal exam mood appropriate Results - Laboratory Findings CBC and BMP: 11/17/16 03:20 11/17/16 03:20 Abnormal lab findings: Abnormal lab results RBC 2.76 M/mcL (4.19-5.50) L 11/17/16 03:20 Hgb 8.2 g/dL (12.9-16.9) L D 11/17/16 03:20 Hct 25.9 % (37.5-50.1) L 11/17/16 03:20 RDW 18.3 % (11.5-14.5) H 11/17/16 03:20 Plt Count 83 K/mcL (140-400) L 11/17/16 03:20 Immature Gran % 6.1 % (0-4) H 11/16/16 17:03 Reactive Lymphocytes Present (Not Present) A 11/17/16 03:20 Toxic Granulation Present (Not Present) A 11/17/16 03:20 Platelet Estimate Decreased (Normal) L 11/17/16 03:20 Anisocytosis 1+ (Not Present) A 11/17/16 03:20 VBG pO2 55 mmHg (25-40) H 11/16/16 17:03 VBG HCO3 29.8 mEq/L (21-27) H 11/16/16 17:03 Sodium 135 mEq/L (136-145) L 11/17/16 03:20 Glucose 231 mg/dL (70-99) H 11/17/16 03:20 Calcium 8.3 mg/dL (8.6-10.8) L 11/17/16 03:20 AST 38 Units/L (5-34) H 11/16/16 17:03 Serum Total Protein 5.6 g/dL (6.0-8.3) L 11/16/16 17:03 Albumin 2.7 g/dL (3.5-5.0) L 11/16/16 17:03 Albumin/Globulin Ratio 0.9 (1.1-2.2) L 11/16/16 17:03 Urine Glucose (UA) 500 mg/dL (Normal) H 11/17/16 03:20 - Clinical Findings Intake & Output: Intake & Output 11/16/16 11/17/16 11/17/16 23:59 07:59 15:59 Intake Total 100 / 350 1350 / 1350 360 / 360 Output Total 750 / 750 400 / 400 Balance 100 / 350 600 / 600 -40 / -40 Weight 70.477 kg Consult Discharge Plan - Plan [facility]Primary Care Provider[facility] -
[2016-11-17] MEDS ORDERED: *HR* Metoprolol 5 MG/5 ML VIAL IVP ONE ×2 (17:30→17:34)
[2016-11-17] MEDS ORDERED: Furosemide 40 MG/4 ML VIAL IVP ONE (17:30)
--- NOTE | 2016-11-17 17:57 | Internal Med Progress Note ---
Date of Encounter: 11/17/16 Time of Encounter: 17:00 - Assessment and plan (1) Acute on chronic respiratory failure Current Visit: Yes Status: Acute Assessment and plan: Patient with increased productive cough, shortness of breath, chills, sweats. Patient has history of MRSA pneumonia in November 2015. Appreciate pulmonology input. Respiratory failure secondary to pneumonia, infected bronchiectasis, bronchiolitis, in the setting of underlying CLL and hypogammaglobulinemia. CT of the chest showed lobar consolidation in bilateral lower lobes, centrilobular small tree-in-bud nodules scattered throughout the lungs. Negative influenza test IV Levaquin and vancomycin DuoNeb every 4 hours Mucomyst nebs Mucinex Blood cultures taken. Check immunoglobulin levels. CPAP At bedtime. Patient has diagnoses of PABLO Qualifiers: Respiratory failure complication: hypoxia Qualified Code(s): J96.21 - Acute and chronic respiratory failure with hypoxia (2) Sepsis Current Visit: Yes Status: Acute Assessment and plan: Received IV fluid resuscitation. Continue empiric antibiotics. Blood cultures taken. Qualifiers: Sepsis type: sepsis due to unspecified organism Qualified Code(s): A41.9 - Sepsis, unspecified organism (3) Fluid overload Current Visit: Yes Status: Acute Assessment and plan: Patient became tachycardic (HR 133), lightheaded and in respiratory distress. Exam showed wheezes diffusely. SaO2 dropped to 88% and went up to 93 on 6 L nasal cannula. Stat EKG showed sinus tachycardia heart rate 133. He received IV furosemide 40 mg and IV Lopressor 5 mg. His respiratory distress resolved, heart rate 81, SaO2 went up. Echocardiogram in December 2013 showed LVEF 55%, mild LV diastolic dysfunction. Secondary to fluid Resuscitation. Stop IV fluids. laboratory monitor. 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 Qualifiers: Hypervolemia type: other Qualified Code(s): E87.79 - Other fluid overload (4) HCAP (healthcare-associated pneumonia) Current Visit: Yes Status: Acute Assessment and plan: Bacterial pneumonia. Plan as above. (5) COPD with acute exacerbation Current Visit: Yes Status: Acute Assessment and plan: Plan as above. (6) Bronchiectasis Current Visit: No Status: Chronic Assessment and plan: As above. Qualifiers: Bronchiectasis type: with acute exacerbation Qualified Code(s): J47.1 - Bronchiectasis with (acute) exacerbation (7) CLL (chronic lymphocytic leukemia) Current Visit: No Status: Chronic (8) Coronary artery disease Current Visit: No Status: Chronic Assessment and plan: Continue home meds. Stable. Qualifiers: Coronary Disease-Associated Artery/Lesion type: [place] artery [place] vs. transplanted heart: [place] heart Associated angina: without angina Qualified Code(s): I25.10 - Atherosclerotic heart disease of [place] coronary artery without angina pectoris (9) Hypogammaglobulinemia Current Visit: No Status: Chronic Assessment and plan: Check immunoglobulin levels. (10) Obstructive sleep apnea of adult Current Visit: No Status: Chronic Assessment and plan: cPAP at that time. - Subjective Interval history: heart rate went up to 130. pt feeling lightheaded. - Constitutional Vitals: Temp Pulse Resp BP Pulse Ox 97.6 F 84 16 100/61 97 11/17/16 16:48 11/17/16 16:48 11/17/16 17:20 11/17/16 17:20 11/17/16 17:20 General appearance: Present: cooperative, mild distress, A&O X 3, answers questions appropriately - Eye Eye exam: Present: PERRL, sclera anicteric - ENT ENT exam: Present: mucous membranes moist - Neck Neck exam general surgery: Present: supple, trachea midline. Absent: lymphadenopathy - Respiratory Respiratory exam: Present: decreased breath sounds, wheezes - Cardiovascular Cardiovascular exam: Present: tachycardia - GI/Abdominal GI/Abdominal exam: Present: normal bowel sounds, soft. Absent: distended, tenderness - Extremities Exam Extremities exam: Absent: pedal edema - Back Exam Back exam: Absent: CVA tenderness (L), CVA tenderness (R) - Neurological Exam Neurological exam: Present: alert, oriented X3. Absent: facial droop, speech deficit - Skin Skin exam: Present: dry Internal Medicine: Result - Labs CBC & Chem 7: 11/17/16 03:20 11/17/16 03:20 Labs: Short CBC 11/17/16 Range/Units 03:20 WBC 4.5 (4.3-11.1) K/mcL Hgb 8.2 L D (12.9-16.9) g/dL Hct 25.9 L (37.5-50.1) % Plt Count 83 L (140-400) K/mcL Neutrophils # 2.5 (1.6-8.9) K/mcL BMP 11/17/16 03:20 Sodium 135 L Potassium 4.0 Chloride 101 Carbon Dioxide 25 BUN 15 Creatinine 0.81 Glucose 231 H Calcium 8.3 L Urine 11/17/16 Range/Units 03:20 Urine Color Yellow (Yellow) Urine Clarity Clear (Clear) Urine pH 6.5 (5.0-8.0) pH Units Ur Specific [place] 1.017 (1.010-1.025) Urine Protein Negative (Neg-Trace) mg/dL Urine Glucose (UA) 500 H (Normal) mg/dL - VTE Documentation of Mechanical Device: Graduated compression elastic hosiery Consult Discharge Plan - Plan Referrals: [facility] [Primary Care Provider] -
[2016-11-17] MEDS: Cholecalciferol (D-3) 1,000 UNIT TABLET PO SCH (20:41)
[2016-11-17] MEDS: Acetylcysteine 10% 2 ML INHSOL IH SCH ×2 (20:55→23:46)
[2016-11-17] MEDS ORDERED: Budesonide Neb 0.5 MG/2 ML IH SCH (22:00)
[2016-11-17] MEDS: Levofloxacin 750 MG/150 ML 750 MG/150 ML BAG IVPB SCH (23:44)
[2016-11-18] MEDS: Piperacillin/Tazobactam 3.375 GM in D5% in Water (Mini-Bag+) 100 ML IVPB SCH ×3 (02:33→15:19)
[2016-11-18] MEDS: Acetylcysteine 10% 2 ML INHSOL IH SCH ×6 (04:18→23:00)
[2016-11-18] MEDS: Ipratropium/Albuterol Neb 3 ML IH SCH ×6 (04:18→23:00)
[2016-11-18] MEDS: Vancomycin 1,000 MG in D5% in Water 250 ML IVPB SCH (05:24)
[2016-11-18 05:52] LABS: Mean Corpuscular HGB Conc 30.9 g/dL (31.6-35.5); Red Cell Distribution Width 18.1 % (11.5-14.5)
[2016-11-18 05:55] LABS: Basophils % 0.7 %; Eosinophils # 0.1 K/mcL (0.0-0.6); Eosinophils % 3.6 %; Hematocrit 25.9 % (37.5-50.1); Immature Granulocytes % 1.4 % (0-4); Lymphocytes % 39.1 %; Mean Corpuscular Hemoglobin 29.6 pg (28.0-33.3); Mean Corpuscular Volume 95.9 fL (83.0-100.0); Mean Platelet Volume 9.3 fL (9.4-12.4); Monocytes # 0.1 K/mcL (0.0-1.3); Monocytes % 5.8 %; Neutrophils # 0.7 K/mcL (1.6-8.9); Segmented Neutrophils % 49.4 %
[2016-11-18 05:56] LABS: BUN/Creatinine Ratio 17 (6-26); Blood Urea Nitrogen 14 mg/dL (8-26); Calcium 8.4 mg/dL (8.6-10.8); Carbon Dioxide 32 mEq/L (19-29); Chloride 104 mEq/L (98-109); Glucose 104 mg/dL (70-99); Magnesium 1.5 mg/dL (1.6-2.6); Osmolality,Calculated 291 (280-300); Phosphorous 3.3 mg/dL (2.3-4.7); Potassium 3.9 mEq/L (3.5-4.5); Sodium 140 mEq/L (136-145); eGFR For African Americans > 60 (> 60); eGFR For Non-African Americans > 60 (> 60)
[2016-11-18 05:58] LABS: Lymphocytes # 0.6 K/mcL (0.6-4.6); Platelet Count 71 K/mcL (140-400)
[2016-11-18 06:00] LABS: Anisocytosis 1+ (Not Present); Platelet Estimate Decreased (Normal)
[2016-11-18] MEDS ORDERED: Magnesium Sulfate 1 GM in D5% in Water 100 ML IVPB ONE (08:10)
[2016-11-18] MEDS: Aspirin Enteric Coated 81 MG Tablet PO SCH (09:23)
[2016-11-18] MEDS: Metoprolol XL (24 HR) Succ 25 MG TAB.ER.24H PO SCH (09:23)
[2016-11-18] MEDS: HYDROcodone BIT/Homatropine 5 MG TABLET PO SCH ×2 (09:23→23:16)
[2016-11-18] MEDS: Azelastine 0.1% Nasal Spray 30 ML BOTTLE NS SCH ×2 (09:24→19:32)
[2016-11-18] MEDS: *HR* Heparin 5,000 UNIT/ML VIAL SQ SCH ×2 (09:24→18:11)
[2016-11-18] MEDS: Multivit/Ca/Min/Fe/FA 1 TAB TABLET PO SCH (09:24)
[2016-11-18] MEDS: Famotidine 20 MG TABLET PO SCH ×2 (09:24→15:20)
[2016-11-18] MEDS: Folic Acid 1 MG TABLET PO SCH (09:24)
--- NOTE | 2016-11-18 10:48 | Internal Med Progress Note ---
Date of Encounter: 11/18/16 Time of Encounter: 10:15 - Assessment and plan (1) Acute on chronic respiratory failure Current Visit: Yes Status: Acute Assessment and plan: Patient with increased productive cough, shortness of breath, chills, sweats. Patient has history of MRSA pneumonia in November 2015. Appreciate pulmonology input. Respiratory failure secondary to pneumonia, infected bronchiectasis, bronchiolitis, in the setting of underlying CLL and hypogammaglobulinemia. CT of the chest showed lobar consolidation in bilateral lower lobes, centrilobular small tree-in-bud nodules scattered throughout the lungs. Negative influenza test. blood cultures negative so far Requiring 5L high flow nansal cannula. IV Levaquin and vancomycin DuoNeb every 4 hours Mucomyst nebs Mucinex Check immunoglobulin levels. CPAP At bedtime. Patient has diagnoses of PABLO Qualifiers: Respiratory failure complication: hypoxia Qualified Code(s): J96.21 - Acute and chronic respiratory failure with hypoxia (2) Sepsis Current Visit: Yes Status: Acute Assessment and plan: Received IV fluid resuscitation. Continue empiric antibiotics. Blood cultures taken. Qualifiers: Sepsis type: sepsis due to unspecified organism Qualified Code(s): A41.9 - Sepsis, unspecified organism (3) HCAP (healthcare-associated pneumonia) Current Visit: Yes Status: Acute Assessment and plan: Bacterial pneumonia. Plan as above. (4) COPD with acute exacerbation Current Visit: Yes Status: Acute Assessment and plan: Plan as above. (5) Bronchiectasis Current Visit: No Status: Chronic Assessment and plan: As above. Qualifiers: Bronchiectasis type: with acute exacerbation Qualified Code(s): J47.1 - Bronchiectasis with (acute) exacerbation (6) CLL (chronic lymphocytic leukemia) Current Visit: No Status: Chronic Assessment and plan: WBC is 1.4 ANC 0.7. Neutropenic precautions. continue treating infection. (7) Coronary artery disease Current Visit: No Status: Chronic Assessment and plan: Continue home meds. Stable. Qualifiers: Coronary Disease-Associated Artery/Lesion type: [place] artery [place] vs. transplanted heart: [place] heart Associated angina: without angina Qualified Code(s): I25.10 - Atherosclerotic heart disease of [place] coronary artery without angina pectoris (8) Fluid overload Current Visit: Yes Status: Resolved Assessment and plan: Patient became tachycardic (HR 133), lightheaded and in respiratory distress. Exam showed wheezes diffusely. SaO2 dropped to 88% and went up to 93 on 6 L nasal cannula. Stat EKG showed sinus tachycardia heart rate 133. He received IV furosemide 40 mg and IV Lopressor 5 mg. His respiratory distress resolved, heart rate 81, SaO2 went up. Echocardiogram in December 2013 showed LVEF 55%, mild LV diastolic dysfunction. Secondary to fluid Resuscitation. 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 Qualifiers: Hypervolemia type: other Qualified Code(s): E87.79 - Other fluid overload (9) Hypogammaglobulinemia Current Visit: No Status: Chronic Assessment and plan: Check immunoglobulin levels. (10) Obstructive sleep apnea of adult Current Visit: No Status: Chronic Assessment and plan: cPAP at that time. - Subjective Interval history: Patient has no pain. he is still short of breath and requiring high flow nasal cannula 5L. - Constitutional Vitals: Temp Pulse Resp BP Pulse Ox 97.6 F 80 18 101/58 97 11/18/16 07:21 11/18/16 07:21 11/18/16 08:04 11/18/16 08:04 11/18/16 08:04 General appearance: Present: cooperative, mild distress, A&O X 3, answers questions appropriately - Eye Eye exam: Present: PERRL, sclera anicteric - Neck Neck exam general surgery: Present: supple, trachea midline. Absent: lymphadenopathy - Respiratory Respiratory exam: Present: rhonchi, wheezes - Cardiovascular Cardiovascular exam: Present: RRR - GI/Abdominal GI/Abdominal exam: Present: soft - Extremities Exam Extremities exam: Absent: pedal edema - Back Exam Back exam: Absent: CVA tenderness (L), CVA tenderness (R) - Skin Skin exam: Absent: rash Internal Medicine: Result - Labs CBC & Chem 7: 11/18/16 05:30 11/18/16 05:30 Labs: Short CBC 11/18/16 Range/Units 05:30 WBC 1.4 L D (4.3-11.1) K/mcL Hgb 8.0 L (12.9-16.9) g/dL Hct 25.9 L (37.5-50.1) % Plt Count 71 L (140-400) K/mcL Neutrophils # 0.7 L (1.6-8.9) K/mcL BMP 11/18/16 05:30 Sodium 140 Potassium 3.9 Chloride 104 Carbon Dioxide 32 H BUN 14 Creatinine 0.83 Glucose 104 H Calcium 8.4 L Cardiac Enzymes 11/17/16 11/18/16 11/18/16 Range/Units 17:45 00:10 05:30 Troponin I 0.00 0.01 0.01 (0-0.03) ng/mL - ABG Interpretation ABG results: PT/INR, D-dimer D-Dimer 1791 ng/mLFEU (0-500) H 11/17/16 17:45 - Impressions Impressions Chest X-Ray 11/17/16 17:44 IMPRESSION: Mild left basilar pneumonia and/or atelectasis. When the patient is able, a follow-up PA and lateral examination of the chest is recommended. D/ / Joselito Louis MD / Joselito Louis MD Interpreting Provider: Joselito Louis MD - VTE Documentation of Mechanical Device: Graduated compression elastic hosiery Consult Discharge Plan - Plan Referrals: [facility] [Primary Care Provider] -
--- NOTE | 2016-11-18 11:52 | Pulmonology Progress Note ---
Date of Encounter: 11/18/16 Time of Encounter: 11:40 Assessment and Plan (1) Abnormal CT scan, chest Current Visit: Yes Status: Acute The chest radiographic abnormalities are related to underlying CLL, bronchiectasis, bronchiolitis and bibasilar parenchymal infiltrates likely secondary to bacterial infection. I concur with the management of this patient from my perspective as provided by Dr. Guerin at all. The patient is to continue pulmonary hygiene measures including use of bronchodilator therapy, addition of flutter valve. I agree with the current antibiotic therapy as provided by Dr. Guerin. Overall, this patient has a poor prognosis in light of his underlying diseases, comorbidities and severely impaired performance status. Perhaps he would be a candidate to review his circumstance with the palliative care service. Code(s): R93.8 - Abnormal findings on diagnostic imaging of other specified body structures SNOMED Code(s): 146751839 Subjective Principal diagnosis: Abnormal chest CT scan Interval history: Earlier this morning, Mr. Elizalde developed worsening of his respiratory status for activities escalating FiO2 requirement) and tachycardia. Dr. Guerin provided additional interventions for treatment of possible mild hypervolemia and strokes notes an improvement of his respiratory status. The patient continues to note chest congestion and cough chest tightness. He has not expectorated purulent secretions more blood since hospitalization. Apparently, the secretion specimen was non-satisfactory for culture. Objective PUL Vital signs: Last Vital Signs Temp 97.6 F 11/18/16 07:21 Pulse 80 11/18/16 07:21 Resp 18 11/18/16 08:04 BP 101/58 11/18/16 08:04 Pulse Ox 97 11/18/16 08:04 General appearance: alert, other (Mildly to Mild use of accessory respiratory muscles (essentially unchanged in comparison to yesterday's exam)) Eyes: nonicteric ENT: oropharynx moist Neck: supple Auscultation: bilateral: diminished breath sounds, rhonchi Cardiovascular: regular rate and rhythm Gastrointestinal: normoactive bowel sounds Integumentary: normal Extremities: no cyanosis Musculoskeletal: no deformities Gait: normal posture Results - Laboratory Findings CBC and BMP: 11/18/16 05:30 11/18/16 05:30 PT/INR, D-dimer D-Dimer 1791 ng/mLFEU (0-500) H 11/17/16 17:45 Abnormal lab findings: Abnormal lab results WBC 1.4 K/mcL (4.3-11.1) L D 11/18/16 05:30 RBC 2.70 M/mcL (4.19-5.50) L 11/18/16 05:30 Hgb 8.0 g/dL (12.9-16.9) L 11/18/16 05:30 Hct 25.9 % (37.5-50.1) L 11/18/16 05:30 MCHC 30.9 g/dL (31.6-35.5) L 11/18/16 05:30 RDW 18.1 % (11.5-14.5) H 11/18/16 05:30 Plt Count 71 K/mcL (140-400) L 11/18/16 05:30 MPV 9.3 fL (9.4-12.4) L 11/18/16 05:30 Neutrophils # 0.7 K/mcL (1.6-8.9) L 11/18/16 05:30 Reactive Lymphocytes Present (Not Present) A 11/17/16 03:20 Toxic Granulation Present (Not Present) A 11/17/16 03:20 Platelet Estimate Decreased (Normal) L 11/18/16 05:30 Anisocytosis 1+ (Not Present) A 11/18/16 05:30 D-Dimer 1791 ng/mLFEU (0-500) H 11/17/16 17:45 VBG pO2 55 mmHg (25-40) H 11/16/16 17:03 VBG HCO3 29.8 mEq/L (21-27) H 11/16/16 17:03 Carbon Dioxide 32 mEq/L (19-29) H 11/18/16 05:30 Glucose 104 mg/dL (70-99) H 11/18/16 05:30 Calcium 8.4 mg/dL (8.6-10.8) L 11/18/16 05:30 Magnesium 1.5 mg/dL (1.6-2.6) L 11/18/16 05:30 AST 38 Units/L (5-34) H 11/16/16 17:03 Serum Total Protein 5.6 g/dL (6.0-8.3) L 11/16/16 17:03 Albumin 2.7 g/dL (3.5-5.0) L 11/16/16 17:03 Albumin/Globulin Ratio 0.9 (1.1-2.2) L 11/16/16 17:03 Urine Glucose (UA) 500 mg/dL (Normal) H 11/17/16 03:20 - Microbiology Findings Microbiology Findings: Microbiology, Last 48 Hours 11/17/16 03:20 Sputum Culture - Final Sputum - Clinical Findings Intake & Output: Intake & Output 11/17/16 11/18/16 11/18/16 23:59 07:59 15:59 Intake Total 2150 / 2150 100 / 100 360 / 360 Output Total 2680 / 2680 800 / 800 Balance -530 / -530 -700 / -700 360 / 360 Weight 71.1 kg - VTE Documentation of Mechanical Device: Graduated compression elastic hosiery Consult Discharge Plan - Plan Referrals: [facility] [Primary Care Provider] -
[2016-11-18] MEDS: Vancomycin 1,250 MG in D5% in Water 250 ML IVPB SCH (18:11)
[2016-11-18] MEDS: Cholecalciferol (D-3) 1,000 UNIT TABLET PO SCH (23:15)
[2016-11-18] MEDS: Levofloxacin 750 MG/150 ML 750 MG/150 ML BAG IVPB SCH (23:16)
[2016-11-19] MEDS: Piperacillin/Tazobactam 3.375 GM in D5% in Water (Mini-Bag+) 100 ML IVPB SCH ×3 (01:18→16:36)
[2016-11-19] MEDS: Acetylcysteine 10% 2 ML INHSOL IH SCH ×5 (03:22→20:44)
[2016-11-19] MEDS: Ipratropium/Albuterol Neb 3 ML IH SCH ×5 (03:22→20:44)
[2016-11-19] MEDS: Vancomycin 1,250 MG in D5% in Water 250 ML IVPB SCH ×2 (05:32→17:27)
[2016-11-19 06:33] LABS: Hemoglobin 7.7 g/dL (12.9-16.9)
[2016-11-19 06:35] LABS: Eosinophils # 0.1 K/mcL (0.0-0.6); Hematocrit 24.6 % (37.5-50.1); Lymphocytes # 0.6 K/mcL (0.6-4.6); Mean Corpuscular HGB Conc 31.3 g/dL (31.6-35.5); Mean Corpuscular Hemoglobin 29.8 pg (28.0-33.3); Mean Corpuscular Volume 95.3 fL (83.0-100.0); Mean Platelet Volume 9.3 fL (9.4-12.4); Red Blood Count 2.58 M/mcL (4.19-5.50); Red Cell Distribution Width 17.8 % (11.5-14.5)
[2016-11-19 06:43] LABS: Platelet Count 61 K/mcL (140-400)
[2016-11-19 06:50] LABS: BUN/Creatinine Ratio 18 (6-26); Blood Urea Nitrogen 15 mg/dL (8-26); Calcium 8.4 mg/dL (8.6-10.8); Carbon Dioxide 32 mEq/L (19-29); Chloride 103 mEq/L (98-109); Glucose 94 mg/dL (70-99); Magnesium 1.5 mg/dL (1.6-2.6); Osmolality,Calculated 289 (280-300); Potassium 4.2 mEq/L (3.5-4.5); Sodium 139 mEq/L (136-145); eGFR For African Americans > 60 (> 60); eGFR For Non-African Americans > 60 (> 60)
[2016-11-19 07:07] LABS: Hypersegmented Neutrophils Present (Not Present); Neutrophils # 0.8 K/mcL (1.6-8.9); Platelet Estimate Decreased (Normal); Toxic Granulation Present (Not Present)
[2016-11-19 07:08] LABS: Anisocytosis 1+ (Not Present); Macrocytosis Present (Not Present)
[2016-11-19] MEDS: Multivit/Ca/Min/Fe/FA 1 TAB TABLET PO SCH (10:26)
[2016-11-19] MEDS: *HR* Heparin 5,000 UNIT/ML VIAL SQ SCH ×2 (10:26→18:53)
[2016-11-19] MEDS: HYDROcodone BIT/Homatropine 5 MG TABLET PO SCH (10:27)
[2016-11-19] MEDS: Aspirin Enteric Coated 81 MG Tablet PO SCH (10:27)
[2016-11-19] MEDS: Famotidine 20 MG TABLET PO SCH ×2 (10:27→16:37)
[2016-11-19] MEDS: Folic Acid 1 MG TABLET PO SCH (10:27)
[2016-11-19] MEDS: Metoprolol XL (24 HR) Succ 25 MG TAB.ER.24H PO SCH (10:28)
[2016-11-19] MEDS: Azelastine 0.1% Nasal Spray 30 ML BOTTLE NS SCH ×2 (10:30→21:45)
[2016-11-19] MEDS ORDERED: Magnesium Sulfate 1 GM in D5% in Water 100 ML IVPB ONE (12:28)
[2016-11-19] MEDS ORDERED: *HR* LORazepam 0.5 MG TABLET PO PRN (12:29)
[2016-11-19] MEDS ORDERED: Sennosides/Docusate Sodium TABLET PO ONE (12:32)
[2016-11-19] MEDS ORDERED: Sennosides/Docusate Sodium TABLET PO PRN (12:32)
--- NOTE | 2016-11-19 14:52 | Electrocardiograph Report ---
[place] [id number] Test Date: 2016-11-17 Pat Name: Bradley Saravia Department: 112 Room: 2A Gender: M Parts Room Associate: : [id number] Requested By: Nanci Trejo Order Number: [id number] Reading MD: Bernard Eduardo Measurements Intervals [place] Rate: 142 P: 213 KS: 153 QRS: -18 QRSD: 104 T: 0 QT: 217 QTc: 299 Interpretive Statements SUPRAVENTRICULAR TACHYCARDIA NONSPECIFIC ST \T\ T-WAVE ABNORMALITY ABNORMAL RHYTHM ECG Electronically Signed On 11-19-2016 14:50:20 EST by Bernard Eduardo
--- NOTE | 2016-11-19 16:47 | Internal Med Progress Note ---
Date of Encounter: 11/19/16 Time of Encounter: 14:00 - Assessment and plan (1) Acute on chronic respiratory failure Current Visit: Yes Status: Acute Assessment and plan: Patient with increased productive cough, shortness of breath, chills, sweats. Patient has history of MRSA pneumonia in November 2015. Appreciate pulmonology input. Respiratory failure secondary to pneumonia, infected bronchiectasis, bronchiolitis, in the setting of underlying CLL and hypogammaglobulinemia. Required 5L high flow nasal cannula. CT of the chest showed lobar consolidation in bilateral lower lobes, centrilobular small tree-in-bud nodules scattered throughout the lungs. Negative influenza test. blood cultures negative so far Now tolerating 4L high flow nasal cannula with SAO2 96%. Continue to wean down oxygen to keep SaO2 between 88-90%. IV Levaquin and vancomycin DuoNeb every 4 hours Mucomyst nebs Mucinex Check immunoglobulin levels. CPAP At bedtime. Patient has diagnoses of PABLO Qualifiers: Respiratory failure complication: hypoxia Qualified Code(s): J96.21 - Acute and chronic respiratory failure with hypoxia (2) Sepsis Current Visit: Yes Status: Acute Assessment and plan: Received IV fluid resuscitation. Continue empiric antibiotics. Blood cultures taken. Qualifiers: Sepsis type: sepsis due to unspecified organism Qualified Code(s): A41.9 - Sepsis, unspecified organism (3) HCAP (healthcare-associated pneumonia) Current Visit: Yes Status: Acute Assessment and plan: Bacterial pneumonia. Plan as above. (4) COPD with acute exacerbation Current Visit: Yes Status: Acute Assessment and plan: Plan as above. (5) Bronchiectasis Current Visit: No Status: Chronic Assessment and plan: As above. Qualifiers: Bronchiectasis type: with acute exacerbation Qualified Code(s): J47.1 - Bronchiectasis with (acute) exacerbation (6) CLL (chronic lymphocytic leukemia) Current Visit: No Status: Chronic Assessment and plan: WBC is 1.4 ANC 0.7. Neutropenic precautions. continue treating infection. (7) Coronary artery disease Current Visit: No Status: Chronic Qualifiers: Coronary Disease-Associated Artery/Lesion type: [place] artery [place] vs. transplanted heart: [place] heart Associated angina: without angina Qualified Code(s): I25.10 - Atherosclerotic heart disease of [place] coronary artery without angina pectoris (8) Fluid overload Current Visit: Yes Status: Resolved Assessment and plan: resolved 11/17: Patient became tachycardic (HR 133), lightheaded and in respiratory distress. Exam showed wheezes diffusely. SaO2 dropped to 88% and went up to 93 on 6 L nasal cannula. Stat EKG showed sinus tachycardia heart rate 133. He received IV furosemide 40 mg and IV Lopressor 5 mg. His respiratory distress resolved, heart rate 81, SaO2 went up. Echocardiogram in December 2013 showed LVEF 55%, mild LV diastolic dysfunction. This is secondary to fluid Resuscitation. Qualifiers: Hypervolemia type: other Qualified Code(s): E87.79 - Other fluid overload (9) Hypogammaglobulinemia Current Visit: No Status: Chronic Assessment and plan: Check immunoglobulin levels. (10) Obstructive sleep apnea of adult Current Visit: No Status: Chronic Assessment and plan: cPAP at that time. - Subjective Interval history: Patient is coughing frequently. He is requiring high flow nasal cannula 4L. - Constitutional Vitals: Temp Pulse Resp BP Pulse Ox 97.9 F 87 18 110/64 96 11/19/16 15:42 11/19/16 15:42 11/19/16 16:06 11/19/16 15:42 11/19/16 16:06 General appearance: Present: cooperative, mild distress, A&O X 3, answers questions appropriately - Eye Eye exam: Present: PERRL, sclera anicteric - ENT ENT exam: Present: mucous membranes moist - Neck Neck exam general surgery: Present: supple, trachea midline. Absent: lymphadenopathy - Respiratory Respiratory exam: Present: decreased breath sounds, wheezes - Cardiovascular Cardiovascular exam: Present: RRR - GI/Abdominal GI/Abdominal exam: Present: normal bowel sounds, soft. Absent: distended, tenderness - Extremities Exam Extremities exam: Present: pedal edema - Back Exam Back exam: Absent: CVA tenderness (L), CVA tenderness (R) - Skin Skin exam: Present: dry Internal Medicine: Result - Labs CBC & Chem 7: 11/19/16 06:14 11/19/16 06:14 Labs: Short CBC 11/19/16 Range/Units 06:14 WBC 1.4 L (4.3-11.1) K/mcL Hgb 7.7 L (12.9-16.9) g/dL Hct 24.6 L (37.5-50.1) % Plt Count 61 L (140-400) K/mcL Neutrophils # 0.8 L (1.6-8.9) K/mcL BMP 11/19/16 06:14 Sodium 139 Potassium 4.2 Chloride 103 Carbon Dioxide 32 H BUN 15 Creatinine 0.83 Glucose 94 Calcium 8.4 L - ABG Interpretation ABG results: PT/INR, D-dimer D-Dimer 1791 ng/mLFEU (0-500) H 11/17/16 17:45 - VTE Documentation of Mechanical Device: Graduated compression elastic hosiery Consult Discharge Plan - Plan [facility]errals: [facility] [Primary Care Provider] -
--- NOTE | 2016-11-19 21:13 | Pulmonology Progress Note ---
Date of Encounter: 11/19/16 Time of Encounter: 08:15 Assessment and Plan (1) Acute on chronic respiratory failure Current Visit: Yes Status: Acute Keep SPO2 around 92% and treatment of pneumonia Qualifiers: Respiratory failure complication: hypoxia Qualified Code(s): J96.21 - Acute and chronic respiratory failure with hypoxia (2) Pulmonary infiltrates Current Visit: No Status: Acute This could be secondary to his underlying CLL or inflammatory versus infectious disease. He had bronchoscopy done and Dr. Mtz is follwing up with [facility] in [place] for his case to be reviewed with their specialist. Ideally patient will need open lung biopsy, however he is weak and this is invasive procedure. (3) Bronchiectasis Current Visit: No Status: Chronic Bronchial hygiene Qualifiers: Bronchiectasis type: with acute exacerbation Qualified Code(s): J47.1 - Bronchiectasis with (acute) exacerbation (4) CLL (chronic lymphocytic leukemia) Current Visit: No Status: Chronic Follow up with oncologist. Subjective Principal diagnosis: Abnormal chest CT scan Interval history: Patient feels slightly better Objective PUL Vital signs: Last Vital Signs Temp 97.8 F 11/19/16 20:54 Pulse 96 11/19/16 20:54 Resp 20 11/19/16 20:54 BP 110/67 11/19/16 20:54 Pulse Ox 99 11/19/16 20:54 General appearance: appears uncomfortable Eyes: nonicteric ENT: oropharynx dry Neck: supple Effort: mildly labored Auscultation: bilateral: rhonchi Percussion: bilateral: not dull Cardiovascular: regular rate and rhythm Gastrointestinal: normoactive bowel sounds Extremities: no cyanosis normal mental status, non-focal exam depressed Results - Laboratory Findings CBC and BMP: 11/19/16 06:14 11/19/16 06:14 PT/INR, D-dimer D-Dimer 1791 ng/mLFEU (0-500) H 11/17/16 17:45 Abnormal lab findings: Abnormal lab results WBC 1.4 K/mcL (4.3-11.1) L 11/19/16 06:14 RBC 2.58 M/mcL (4.19-5.50) L 11/19/16 06:14 Hgb 7.7 g/dL (12.9-16.9) L 11/19/16 06:14 Hct 24.6 % (37.5-50.1) L 11/19/16 06:14 MCHC 31.3 g/dL (31.6-35.5) L 11/19/16 06:14 RDW 17.8 % (11.5-14.5) H 11/19/16 06:14 Plt Count 61 K/mcL (140-400) L 11/19/16 06:14 MPV 9.3 fL (9.4-12.4) L 11/19/16 06:14 Neutrophils # 0.8 K/mcL (1.6-8.9) L 11/19/16 06:14 Hypersegmented Neuts Present (Not Present) A 11/19/16 06:14 Reactive Lymphocytes Present (Not Present) A 11/17/16 03:20 Toxic Granulation Present (Not Present) A 11/19/16 06:14 Platelet Estimate Decreased (Normal) L 11/19/16 06:14 Anisocytosis 1+ (Not Present) A 11/19/16 06:14 Macrocytosis Present (Not Present) A 11/19/16 06:14 D-Dimer 1791 ng/mLFEU (0-500) H 11/17/16 17:45 VBG pO2 55 mmHg (25-40) H 11/16/16 17:03 VBG HCO3 29.8 mEq/L (21-27) H 11/16/16 17:03 Carbon Dioxide 32 mEq/L (19-29) H 11/19/16 06:14 Calcium 8.4 mg/dL (8.6-10.8) L 11/19/16 06:14 Magnesium 1.5 mg/dL (1.6-2.6) L 11/19/16 06:14 AST 38 Units/L (5-34) H 11/16/16 17:03 Serum Total Protein 5.6 g/dL (6.0-8.3) L 11/16/16 17:03 Albumin 2.7 g/dL (3.5-5.0) L 11/16/16 17:03 Albumin/Globulin Ratio 0.9 (1.1-2.2) L 11/16/16 17:03 Urine Glucose (UA) 500 mg/dL (Normal) H 11/17/16 03:20 - Clinical Findings Intake & Output: Intake & Output 11/19/16 11/19/16 11/19/16 07:59 15:59 23:59 Intake Total 450 / 450 820 / 820 240 / 240 Output Total 770 / 770 Balance -320 / -320 820 / 820 240 / 240 Weight 72.03 kg - VTE Documentation of Mechanical Device: Graduated compression elastic hosiery Consult Discharge Plan - Plan Referrals: [facility] [Primary Care Provider] -
[2016-11-19] MEDS: Cholecalciferol (D-3) 1,000 UNIT TABLET PO SCH (21:44)
[2016-11-20] MEDS: Ipratropium/Albuterol Neb 3 ML IH SCH ×7 (00:07→23:14)
[2016-11-20] MEDS: Acetylcysteine 10% 2 ML INHSOL IH SCH ×7 (00:07→23:13)
[2016-11-20] MEDS: Piperacillin/Tazobactam 3.375 GM in D5% in Water (Mini-Bag+) 100 ML IVPB SCH ×2 (00:25→09:28)
[2016-11-20] MEDS: Vancomycin 1,250 MG in D5% in Water 250 ML IVPB SCH (05:14)
[2016-11-20 05:15] LABS: BUN/Creatinine Ratio 15 (6-26); Blood Urea Nitrogen 12 mg/dL (8-26); Calcium 8.4 mg/dL (8.6-10.8); Carbon Dioxide 32 mEq/L (19-29); Chloride 99 mEq/L (98-109); Glucose 93 mg/dL (70-99); Magnesium 1.8 mg/dL (1.6-2.6); Osmolality,Calculated 281 (280-300); Potassium 4.1 mEq/L (3.5-4.5); Sodium 136 mEq/L (136-145); eGFR For African Americans > 60 (> 60); eGFR For Non-African Americans > 60 (> 60)
[2016-11-20 05:17] LABS: Basophils % 0.9 %; Hemoglobin 8.3 g/dL (12.9-16.9); Mean Platelet Volume 9.7 fL (9.4-12.4); Monocytes % 5.1 %; Red Cell Distribution Width 17.9 % (11.5-14.5)
[2016-11-20 05:18] LABS: Eosinophils # 0.1 K/mcL (0.0-0.6); Eosinophils % 3.2 %; Hematocrit 26.7 % (37.5-50.1); Immature Granulocytes % 1.4 % (0-4); Immature Platelets 2.4 % (1.1-6.1); Lymphocytes % 38.7 %; Mean Corpuscular HGB Conc 31.1 g/dL (31.6-35.5); Mean Corpuscular Hemoglobin 29.5 pg (28.0-33.3); Monocytes # 0.1 K/mcL (0.0-1.3); Neutrophils # 1.1 K/mcL (1.6-8.9); Red Blood Count 2.81 M/mcL (4.19-5.50); Segmented Neutrophils % 50.7 %
[2016-11-20 05:24] LABS: Lymphocytes # 0.9 K/mcL (0.6-4.6); Platelet Count 80 K/mcL (140-400)
[2016-11-20 06:17] LABS: Platelet Estimate Marked Decrease (Normal)
[2016-11-20] MEDS: *HR* Heparin 5,000 UNIT/ML VIAL SQ SCH ×2 (06:28→18:45)
[2016-11-20] MEDS: Famotidine 20 MG TABLET PO SCH ×2 (06:28→17:11)
[2016-11-20] MEDS: Azelastine 0.1% Nasal Spray 30 ML BOTTLE NS SCH ×2 (09:30→21:57)
[2016-11-20] MEDS: Aspirin Enteric Coated 81 MG Tablet PO SCH (09:30)
[2016-11-20] MEDS: Multivit/Ca/Min/Fe/FA 1 TAB TABLET PO SCH (09:30)
[2016-11-20] MEDS: Metoprolol XL (24 HR) Succ 25 MG TAB.ER.24H PO SCH (09:30)
[2016-11-20] MEDS: Folic Acid 1 MG TABLET PO SCH (09:30)
--- NOTE | 2016-11-20 09:35 | Internal Med Progress Note ---
<MichelAjith cevallos - Last Filed: 11/20/16 11:42> Date of Encounter: 11/20/16 Time of Encounter: 09:34 - Assessment and plan (1) Acute on chronic respiratory failure Current Visit: Yes Status: Acute Assessment and plan: Acute pneumonia versus lymphoproliferative disorder. Patient does have a history of MRSA pneumonia. Patient had bronchoscopy in August which was nondiagnostic and attempts are being made as an outpatient to set the patient up with a specialist at the [facility] in [place]. Clinically appears to be gradually improving although his chronic cough is essentially unchanged. Continue IV antibiotics at this time. Qualifiers: Respiratory failure complication: hypoxia Qualified Code(s): J96.21 - Acute and chronic respiratory failure with hypoxia (2) HCAP (healthcare-associated pneumonia) Current Visit: Yes Status: Acute Assessment and plan: Patient has recent hospitalizations and concern for pneumonia. Continue broad- spectrum antibiotics with vancomycin and Zosyn. Blood cultures were negative and sputum culture did not be except ability requirements. (3) Sepsis Current Visit: Yes Status: Acute Assessment and plan: Received IV fluid resuscitation. Continue empiric antibiotics as discussed above. Blood cultures no growth to date. Qualifiers: Sepsis type: sepsis due to unspecified organism Qualified Code(s): A41.9 - Sepsis, unspecified organism (4) CLL (chronic lymphocytic leukemia) Current Visit: No Status: Chronic Assessment and plan: Is currently not undergoing therapy at this time. Blood counts appear stable. Continue to monitor. (5) Coronary artery disease Current Visit: No Status: Chronic Assessment and plan: Stable. Continue aspirin. Qualifiers: Coronary Disease-Associated Artery/Lesion type: [place] artery [place] vs. transplanted heart: [place] heart Associated angina: without angina Qualified Code(s): I25.10 - Atherosclerotic heart disease of [place] coronary artery without angina pectoris (6) Hypogammaglobulinemia Current Visit: No Status: Chronic Assessment and plan: Patient receives monthly IVIG infusions at the cancer center. Patient is due for his next infusion tomorrow. We will tentatively plan for this. - Subjective Interval history: Continued examined bedside. Patient states that he feels improved. He does report a productive cough that is gradually improving. Denies any fever, chills. - Constitutional Vitals: Temp Pulse Resp BP Pulse Ox 97.7 F 96 18 104/60 97 11/20/16 06:46 11/20/16 06:46 02/28/17 08:01 11/20/16 06:46 11/20/16 08:01 General appearance: Present: cooperative, A&O X 3, no acute distress, answers questions appropriately - Respiratory Respiratory exam: Present: rhonchi (Bilaterally), wheezes (Bilaterally). Absent : tachypnea - Cardiovascular Cardiovascular exam: Present: RRR. Absent: gallop, rubs, systolic murmur - GI/Abdominal GI/Abdominal exam: Present: normal bowel sounds, soft. Absent: distended, tenderness - Extremities Exam Extremities exam: Absent: pedal edema, tenderness - Neurological Exam Neurological exam: Present: alert, CN II-XII intact, oriented X3, no focal deficits Internal Medicine: Result - Labs CBC & Chem 7: 11/20/16 04:49 11/20/16 04:49 Labs: Short CBC 11/20/16 Range/Units 04:49 WBC 2.2 L D (4.3-11.1) K/mcL Hgb 8.3 L (12.9-16.9) g/dL Hct 26.7 L (37.5-50.1) % Plt Count 80 L (140-400) K/mcL Neutrophils # 1.1 L (1.6-8.9) K/mcL BMP 11/20/16 04:49 Sodium 136 Potassium 4.1 Chloride 99 Carbon Dioxide 32 H BUN 12 Creatinine 0.81 Glucose 93 Calcium 8.4 L - ABG Interpretation ABG results: PT/INR, D-dimer D-Dimer 1791 ng/mLFEU (0-500) H 11/17/16 17:45 - VTE Documentation of Mechanical Device: Graduated compression elastic hosiery Consult Discharge Plan - Plan Referrals: [facility] [Primary Care Provider] - <Ethan Talbot H - Last Filed: 11/20/16 13:57> Date of Encounter: 11/20/16 - Constitutional Vitals: Temp Pulse Resp BP Pulse Ox 98.1 F 97 18 103/63 91 L 11/20/16 10:52 11/20/16 10:52 11/20/16 10:52 11/20/16 10:52 11/20/16 10:52 Internal Medicine: Result - Labs CBC & Chem 7: 11/20/16 04:49 11/20/16 04:49 Labs: Short CBC 11/20/16 Range/Units 04:49 WBC 2.2 L D (4.3-11.1) K/mcL Hgb 8.3 L (12.9-16.9) g/dL Hct 26.7 L (37.5-50.1) % Plt Count 80 L (140-400) K/mcL Neutrophils # 1.1 L (1.6-8.9) K/mcL BMP 11/20/16 04:49 Sodium 136 Potassium 4.1 Chloride 99 Carbon Dioxide 32 H BUN 12 Creatinine 0.81 Glucose 93 Calcium 8.4 L - ABG Interpretation ABG results: PT/INR, D-dimer D-Dimer 1791 ng/mLFEU (0-500) H 11/17/16 17:45 - Attending Attestation acute hypoxia 2ry to sepsis amy to HCAP present upon admission in the setting of immunodificiency /immunoglobulin deficiency continue Vancomycin day 4 for Hx of MRSA in sputum start cefepime and levaquin discontinue zosyn IgG level pending. consider IgG infusion I examined this patient and my medical decision-making was reviewed with the COP/PA/Advanced Practice Nurse/Resident Physician. I agree with the documented findings, disposition and treatment plan as described except to the extent set forth below.
--- NOTE | 2016-11-20 13:35 | Pulmonology Progress Note ---
Date of Encounter: 11/20/16 Time of Encounter: 07:50 Assessment and Plan (1) Acute on chronic respiratory failure Current Visit: Yes Status: Acute Keep SPO2 around 92% and treatment of pneumonia Qualifiers: Respiratory failure complication: hypoxia Qualified Code(s): J96.21 - Acute and chronic respiratory failure with hypoxia (2) Pulmonary infiltrates Current Visit: No Status: Acute This could be secondary to his underlying CLL or inflammatory versus infectious disease. He had bronchoscopy done and Dr. Mtz is follwing up with [facility] in [place] for his case to be reviewed with their specialist. Ideally patient will need open lung biopsy, however he is weak and this is invasive procedure. 11/20 No new recommendations, as above. (3) Bronchiectasis Current Visit: No Status: Chronic Bronchial hygiene Qualifiers: Bronchiectasis type: with acute exacerbation Qualified Code(s): J47.1 - Bronchiectasis with (acute) exacerbation (4) CLL (chronic lymphocytic leukemia) Current Visit: No Status: Chronic Follow up with oncologist. Subjective Principal diagnosis: Abnormal chest CT scan Interval history: Patient feels has nausea today Objective PUL Vital signs: Last Vital Signs Temp 98.1 F 11/20/16 10:52 Pulse 97 11/20/16 10:52 Resp 18 11/20/16 10:52 BP 103/63 11/20/16 10:52 Pulse Ox 91 L 11/20/16 10:52 General appearance: appears uncomfortable ENT: oropharynx dry Neck: supple Auscultation: bilateral: rhonchi Percussion: bilateral: not dull Cardiovascular: regular rate and rhythm Gastrointestinal: normoactive bowel sounds Extremities: no cyanosis normal mental status, non-focal exam depressed Results - Laboratory Findings CBC and BMP: 11/20/16 04:49 11/20/16 04:49 PT/INR, D-dimer D-Dimer 1791 ng/mLFEU (0-500) H 11/17/16 17:45 Abnormal lab findings: Abnormal lab results WBC 2.2 K/mcL (4.3-11.1) L D 11/20/16 04:49 RBC 2.81 M/mcL (4.19-5.50) L 11/20/16 04:49 Hgb 8.3 g/dL (12.9-16.9) L 11/20/16 04:49 Hct 26.7 % (37.5-50.1) L 11/20/16 04:49 MCHC 31.1 g/dL (31.6-35.5) L 11/20/16 04:49 RDW 17.9 % (11.5-14.5) H 11/20/16 04:49 Plt Count 80 K/mcL (140-400) L 11/20/16 04:49 Neutrophils # 1.1 K/mcL (1.6-8.9) L 11/20/16 04:49 Hypersegmented Neuts Present (Not Present) A 11/19/16 06:14 Reactive Lymphocytes Present (Not Present) A 11/17/16 03:20 Toxic Granulation Present (Not Present) A 11/19/16 06:14 Platelet Estimate Marked Decrease (Normal) L 11/20/16 04:49 Anisocytosis 1+ (Not Present) A 11/19/16 06:14 Macrocytosis Present (Not Present) A 11/19/16 06:14 D-Dimer 1791 ng/mLFEU (0-500) H 11/17/16 17:45 VBG pO2 55 mmHg (25-40) H 11/16/16 17:03 VBG HCO3 29.8 mEq/L (21-27) H 11/16/16 17:03 Carbon Dioxide 32 mEq/L (19-29) H 11/20/16 04:49 Calcium 8.4 mg/dL (8.6-10.8) L 11/20/16 04:49 AST 38 Units/L (5-34) H 11/16/16 17:03 Serum Total Protein 5.6 g/dL (6.0-8.3) L 11/16/16 17:03 Albumin 2.7 g/dL (3.5-5.0) L 11/16/16 17:03 Albumin/Globulin Ratio 0.9 (1.1-2.2) L 11/16/16 17:03 Urine Glucose (UA) 500 mg/dL (Normal) H 11/17/16 03:20 Vancomycin Trough 21.6 mcg/mL (10-20) H* 11/20/16 04:49 - Clinical Findings Intake & Output: Intake & Output 02/27/17 02/28/17 02/28/17 23:59 07:59 15:59 Intake Total 340 / 340 360 / 360 450 / 450 Output Total 0 / 0 Balance 340 / 340 360 / 360 450 / 450 - VTE Documentation of Mechanical Device: Graduated compression elastic hosiery Consult Discharge Plan - Plan [facility]: [facility] [Primary Care Provider[facility] -
[2016-11-20] MEDS: Levofloxacin 750 MG/150 ML 750 MG/150 ML BAG IVPB SCH (15:07)
[2016-11-20] MEDS ORDERED: Vancomycin 1 EACH in D5% in Water 250 ML IVPB PRN (17:00)
[2016-11-20] MEDS: Cefepime HCl 2,000 MG in D5% in Water (Mini-Bag+) 100 ML IVPB SCH (17:11)
[2016-11-20] MEDS: Vancomycin 1,000 MG in D5% in Water 250 ML IVPB SCH (18:46)
[2016-11-20] MEDS: Cholecalciferol (D-3) 1,000 UNIT TABLET PO SCH (21:54)
[2016-11-21] MEDS: Acetylcysteine 10% 2 ML INHSOL IH SCH ×5 (04:29→20:03)
[2016-11-21] MEDS: Ipratropium/Albuterol Neb 3 ML IH SCH ×6 (04:29→23:11)
[2016-11-21 05:14] LABS: Basophils % 0.9 %; Mean Corpuscular Volume 94.3 fL (83.0-100.0)
[2016-11-21 05:16] LABS: Eosinophils # 0.1 K/mcL (0.0-0.6); Eosinophils % 2.3 %; Hematocrit 26.3 % (37.5-50.1); Hemoglobin 8.4 g/dL (12.9-16.9); Immature Granulocytes % 1.4 % (0-4); Immature Platelets 2.5 % (1.1-6.1); Lymphocytes # 0.9 K/mcL (0.6-4.6); Mean Corpuscular HGB Conc 31.9 g/dL (31.6-35.5); Mean Corpuscular Hemoglobin 30.1 pg (28.0-33.3); Mean Platelet Volume 9.7 fL (9.4-12.4); Monocytes # 0.1 K/mcL (0.0-1.3); Monocytes % 4.7 %; Red Blood Count 2.79 M/mcL (4.19-5.50); Red Cell Distribution Width 18.1 % (11.5-14.5); Segmented Neutrophils % 47.7 %
[2016-11-21 05:17] LABS: Platelet Count 74 K/mcL (140-400)
[2016-11-21 05:25] LABS: BUN/Creatinine Ratio 16 (6-26); Blood Urea Nitrogen 12 mg/dL (8-26); Calcium 8.5 mg/dL (8.6-10.8); Carbon Dioxide 33 mEq/L (19-29); Chloride 98 mEq/L (98-109); Glucose 85 mg/dL (70-99); Osmolality,Calculated 279 (280-300); Potassium 4.2 mEq/L (3.5-4.5); Sodium 135 mEq/L (136-145); eGFR For African Americans > 60 (> 60); eGFR For Non-African Americans > 60 (> 60)
[2016-11-21 06:10] LABS: Platelet Estimate Decreased (Normal)
[2016-11-21] MEDS: Cefepime HCl 2,000 MG in D5% in Water (Mini-Bag+) 100 ML IVPB SCH ×2 (06:19→18:50)
[2016-11-21] MEDS: Vancomycin 1,000 MG in D5% in Water 250 ML IVPB SCH ×2 (06:22→19:38)
[2016-11-21] MEDS: *HR* Heparin 5,000 UNIT/ML VIAL SQ SCH ×2 (06:22→18:55)
[2016-11-21 07:24] LABS: Immunoglobulin A 30 mg/dL (68-408); Immunoglobulin G 449 mg/dL (768-1632); Immunoglobulin G Subclass 1 270 mg/dL (240-1118); Immunoglobulin G Subclass 2 154 mg/dL (124-549); Immunoglobulin G Subclass 3 23 mg/dL (21-134); Immunoglobulin G Subclass 4 9 mg/dL (1-123); Immunoglobulin M <5 mg/dL (35-263)
[2016-11-21] MEDS: Metoprolol XL (24 HR) Succ 25 MG TAB.ER.24H PO SCH (07:53)
[2016-11-21] MEDS: Folic Acid 1 MG TABLET PO SCH (07:56)
[2016-11-21] MEDS: Aspirin Enteric Coated 81 MG Tablet PO SCH (07:56)
[2016-11-21] MEDS: Famotidine 20 MG TABLET PO SCH ×2 (07:56→15:39)
[2016-11-21] MEDS: Multivit/Ca/Min/Fe/FA 1 TAB TABLET PO SCH (07:56)
[2016-11-21] MEDS: Levofloxacin 750 MG/150 ML 750 MG/150 ML BAG IVPB SCH (07:56)
[2016-11-21] MEDS: Azelastine 0.1% Nasal Spray 30 ML BOTTLE NS SCH ×2 (07:58→21:29)
[2016-11-21] MEDS ORDERED: Levofloxacin 750 MG/150 ML 750 MG/150 ML BAG IVPB SCH (09:00)
--- NOTE | 2016-11-21 09:14 | Internal Med Progress Note ---
<Ajith Vazquez - Last Filed: 11/21/16 09:10> Date of Encounter: 11/21/16 Time of Encounter: 09:10 - Assessment and plan (1) Acute on chronic respiratory failure Current Visit: Yes Status: Acute Assessment and plan: Acute pneumonia versus lymphoproliferative disorder. Clinically appears to be gradually improving although his chronic cough is essentially unchanged. Continue IV antibiotics with vancomycin cefepime, Levaquin at this time. Patient takes home infusions through his port so we can continue IV antibiotics at home Qualifiers: Respiratory failure complication: hypoxia Qualified Code(s): J96.21 - Acute and chronic respiratory failure with hypoxia (2) HCAP (healthcare-associated pneumonia) Current Visit: Yes Status: Acute Assessment and plan: Patient has recent hospitalizations and concern for pneumonia. Continue broad- spectrum antibiotics with vancomycin, cefepime, Levaquin as discussed above as the patient is immunocompromised with decreased IgG. Blood cultures were negative and sputum culture did not meet acceptability requirements. (3) Sepsis Current Visit: Yes Status: Acute Assessment and plan: Patient was tachycardic and On presentation. Received IV fluid resuscitation. Continue empiric antibiotics as discussed above. Blood cultures no growth to date. Qualifiers: Sepsis type: sepsis due to unspecified organism Qualified Code(s): A41.9 - Sepsis, unspecified organism (4) CLL (chronic lymphocytic leukemia) Current Visit: No Status: Chronic Assessment and plan: Is currently not undergoing chemotherapy at this time. Blood counts appear stable. Continue to monitor. (5) Hypogammaglobulinemia Current Visit: No Status: Chronic Assessment and plan: IgG levels are low at 449. Patient receives monthly IVIG infusions at the cancer center. Patient is due for his next infusion tomorrow. Unfortunately the patient is not able to receive this as an inpatient, we will coordinate with the cancer Center to set patient up to receive this once discharged. (6) Coronary artery disease Current Visit: No Status: Chronic Assessment and plan: Stable. Continue aspirin. Qualifiers: Coronary Disease-Associated Artery/Lesion type: [place] artery [place] vs. transplanted heart: [place] heart Associated angina: without angina Qualified Code(s): I25.10 - Atherosclerotic heart disease of [place] coronary artery without angina pectoris (7) DVT prophylaxis Current Visit: Yes Status: Acute Assessment and plan: Peppard 5000 units subcutaneous twice a day. - Subjective Interval history: Continued examined bedside. Patient states that his shortness of breath and cough improved. Denies any fever, chills. - Constitutional Vitals: Temp Pulse Resp BP Pulse Ox 98.1 F 81 24 95/60 94 L 11/21/16 06:53 11/21/16 06:53 11/21/16 06:53 11/21/16 06:53 11/21/16 06:53 General appearance: Present: cooperative, A&O X 3, no acute distress, answers questions appropriately - Respiratory Respiratory exam: Present: rhonchi (Diffuse bilaterally). Absent: respiratory distress, wheezes - Cardiovascular Cardiovascular exam: Present: RRR. Absent: gallop, rubs, systolic murmur - GI/Abdominal GI/Abdominal exam: Present: normal bowel sounds, soft. Absent: distended, tenderness - Extremities Exam Extremities exam: Absent: pedal edema, tenderness - Neurological Exam Neurological exam: Present: alert, CN II-XII intact, oriented X3, no focal deficits Internal Medicine: Result - Labs CBC & Chem 7: 11/21/16 05:03 11/21/16 05:03 Labs: Short CBC 11/21/16 Range/Units 05:03 WBC 2.1 L (4.3-11.1) K/mcL Hgb 8.4 L (12.9-16.9) g/dL Hct 26.3 L (37.5-50.1) % Plt Count 74 L (140-400) K/mcL Neutrophils # 1.0 L (1.6-8.9) K/mcL BMP 11/21/16 05:03 Sodium 135 L Potassium 4.2 Chloride 98 Carbon Dioxide 33 H BUN 12 Creatinine 0.76 Glucose 85 Calcium 8.5 L - ABG Interpretation ABG results: PT/INR, D-dimer D-Dimer 1791 ng/mLFEU (0-500) H 11/17/16 17:45 - VTE Documentation of Mechanical Device: Graduated compression elastic hosiery Consult Discharge Plan - Plan [facility]errals: [facility] [Primary Care Provider] - ([place] [employer] PCP will follow up with the patient at home once discharged) <Ethan Talbot H - Last Filed: 11/21/16 10:52> Date of Encounter: 11/21/16 - Constitutional Vitals: Temp Pulse Resp BP Pulse Ox 98.1 F 81 24 95/60 94 L 11/21/16 06:53 11/21/16 06:53 11/21/16 06:53 11/21/16 06:53 11/21/16 06:53 Internal Medicine: Result - Labs CBC & Chem 7: 11/21/16 05:03 11/21/16 05:03 Labs: Short CBC 11/21/16 Range/Units 05:03 WBC 2.1 L (4.3-11.1) K/mcL Hgb 8.4 L (12.9-16.9) g/dL Hct 26.3 L (37.5-50.1) % Plt Count 74 L (140-400) K/mcL Neutrophils # 1.0 L (1.6-8.9) K/mcL BMP 11/21/16 05:03 Sodium 135 L Potassium 4.2 Chloride 98 Carbon Dioxide 33 H BUN 12 Creatinine 0.76 Glucose 85 Calcium 8.5 L - ABG Interpretation ABG results: PT/INR, D-dimer D-Dimer 1791 ng/mLFEU (0-500) H 11/17/16 17:45 - Attending Attestation vancomycin day 6 cefepim day 2 levaquin start solumedrol may dicharge in the morning if stable to get his IVIG and then to go to a rehab facility if he quilifies for one. PO/OT ordered I examined this patient and my medical decision-making was reviewed with the FINANCIAL COMPLIANCE MANAGER/PA/Advanced Practice Nurse/Resident Physician. I agree with the documented findings, disposition and treatment plan as described except to the extent set forth below.
[2016-11-21] MEDS: MethylPREDNISolone 40 MG/ML VIAL IVP SCH ×2 (11:43→15:39)
--- NOTE | 2016-11-21 12:00 | Electrocardiograph Report ---
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
[2016-11-21] MEDS: Cholecalciferol (D-3) 1,000 UNIT TABLET PO SCH (21:30)
[2016-11-22] MEDS: MethylPREDNISolone 40 MG/ML VIAL IVP SCH ×4 (03:13→23:28)
[2016-11-22] MEDS: Ipratropium/Albuterol Neb 3 ML IH SCH ×6 (03:50→21:28)
[2016-11-22 04:39] LABS: Hemoglobin 8.2 g/dL (12.9-16.9); Mean Platelet Volume 10.1 fL (9.4-12.4)
[2016-11-22 04:40] LABS: Hematocrit 25.6 % (37.5-50.1); Mean Corpuscular Hemoglobin 30.4 pg (28.0-33.3); Mean Corpuscular Volume 94.8 fL (83.0-100.0); Red Cell Distribution Width 17.6 % (11.5-14.5)
[2016-11-22 04:52] LABS: BUN/Creatinine Ratio 21 (6-26); Blood Urea Nitrogen 16 mg/dL (8-26); Calcium 8.5 mg/dL (8.6-10.8); Carbon Dioxide 31 mEq/L (19-29); Chloride 102 mEq/L (98-109); Glucose 109 mg/dL (70-99); Osmolality,Calculated 292 (280-300); Potassium 4.6 mEq/L (3.5-4.5); Sodium 140 mEq/L (136-145); eGFR For African Americans > 60 (> 60); eGFR For Non-African Americans > 60 (> 60)
[2016-11-22 05:02] LABS: Platelet Count 61 K/mcL (140-400)
[2016-11-22 05:24] LABS: Anisocytosis 1+ (Not Present); Hypersegmented Neutrophils Present (Not Present); Lymphocytes # 0.7 K/mcL (0.6-4.6); Neutrophils # 0.9 K/mcL (1.6-8.9); Platelet Estimate Marked Decrease (Normal); Reactive Lymphocytes Present (Not Present); Toxic Vacuolation Present (Not Present)
[2016-11-22] MEDS: Multivit/Ca/Min/Fe/FA 1 TAB TABLET PO SCH (07:56)
[2016-11-22] MEDS: Folic Acid 1 MG TABLET PO SCH (07:56)
[2016-11-22] MEDS: Levofloxacin 750 MG/150 ML 750 MG/150 ML BAG IVPB SCH (07:56)
[2016-11-22] MEDS: Famotidine 20 MG TABLET PO SCH ×2 (07:56→16:19)
[2016-11-22] MEDS: Aspirin Enteric Coated 81 MG Tablet PO SCH (07:56)
[2016-11-22] MEDS: Cefepime HCl 2,000 MG in D5% in Water (Mini-Bag+) 100 ML IVPB SCH ×2 (07:58→18:21)
[2016-11-22] MEDS: Azelastine 0.1% Nasal Spray 30 ML BOTTLE NS SCH ×3 (07:58→23:28)
[2016-11-22] MEDS: Metoprolol XL (24 HR) Succ 25 MG TAB.ER.24H PO SCH (07:58)
[2016-11-22] MEDS: *HR* Heparin 5,000 UNIT/ML VIAL SQ SCH ×2 (07:59→18:21)
--- NOTE | 2016-11-22 11:24 | Internal Med Progress Note ---
<MichelAjith cevallos - Last Filed: 11/22/16 11:27> Date of Encounter: 11/22/16 Time of Encounter: 11:17 - Assessment and plan (1) Acute on chronic respiratory failure Current Visit: Yes Status: Acute Assessment and plan: Acute pneumonia versus lymphoproliferative disorder. Clinically stable today, patient does have significant dyspnea conversationally. Continue IV antibiotics with vancomycin cefepime, Levaquin at this time. Patient takes home infusions through his port so we can continue IV antibiotics at home or at ECF. Patient would likely benefit from stay at ECF. Qualifiers: Respiratory failure complication: hypoxia Qualified Code(s): J96.21 - Acute and chronic respiratory failure with hypoxia (2) HCAP (healthcare-associated pneumonia) Current Visit: Yes Status: Acute Assessment and plan: Patient has recent hospitalizations and concern for pneumonia. Continue broad- spectrum antibiotics with vancomycin, cefepime, Levaquin as discussed above as the patient is immunocompromised with decreased IgG. Blood cultures were negative and sputum culture did not meet acceptability requirements. (3) Sepsis Current Visit: Yes Status: Acute Assessment and plan: Patient was tachycardic and tachypneic on presentation. Received IV fluid resuscitation. Continue empiric antibiotics as discussed above. Blood cultures no growth to date. Qualifiers: Sepsis type: sepsis due to unspecified organism Qualified Code(s): A41.9 - Sepsis, unspecified organism (4) CLL (chronic lymphocytic leukemia) Current Visit: No Status: Chronic Assessment and plan: Is currently not undergoing chemotherapy at this time. Blood counts appear stable. Continue to monitor. (5) Hypogammaglobulinemia Current Visit: No Status: Chronic Assessment and plan: IgG levels are low at 449. Patient receives monthly IVIG infusions at the cancer center. Patient is due for his next infusion tomorrow. Unfortunately the patient is not able to receive this as an inpatient, we will coordinate with the cancer Center to set patient up to receive this once discharged. (6) Coronary artery disease Current Visit: No Status: Chronic Assessment and plan: Stable. Continue aspirin. Qualifiers: Coronary Disease-Associated Artery/Lesion type: [place] artery [place] vs. transplanted heart: [place] heart Associated angina: without angina Qualified Code(s): I25.10 - Atherosclerotic heart disease of [place] coronary artery without angina pectoris (7) DVT prophylaxis Current Visit: Yes Status: Acute Assessment and plan: Peppard 5000 units subcutaneous twice a day. - Subjective Interval history: Continued examined bedside. Patient states that his shortness of breath and cough improved but gets significantly fatigued when moving from the bed to the chair. Denies any fever, chills. - Constitutional Vitals: Temp Pulse Resp BP Pulse Ox 97.9 F 86 16 113/68 95 11/22/16 07:44 11/22/16 07:44 11/22/16 11:01 11/22/16 07:44 11/22/16 11:01 General appearance: Present: cooperative, A&O X 3, no acute distress, answers questions appropriately - Respiratory Respiratory exam: Present: respiratory distress (mild), rhonchi, tachypnea - Cardiovascular Cardiovascular exam: Present: RRR. Absent: gallop, rubs, systolic murmur - Extremities Exam Extremities exam: Absent: pedal edema, tenderness - Neurological Exam Neurological exam: Present: alert, CN II-XII intact, oriented X3, no focal deficits Internal Medicine: Result - Labs CBC & Chem 7: 11/22/16 04:15 11/22/16 04:15 Labs: Short CBC 11/22/16 Range/Units 04:15 WBC 1.6 L (4.3-11.1) K/mcL Hgb 8.2 L (12.9-16.9) g/dL Hct 25.6 L (37.5-50.1) % Plt Count 61 L (140-400) K/mcL Neutrophils # 0.9 L (1.6-8.9) K/mcL BMP 11/22/16 04:15 Sodium 140 Potassium 4.6 H Chloride 102 Carbon Dioxide 31 H BUN 16 Creatinine 0.78 Glucose 109 H Calcium 8.5 L - ABG Interpretation ABG results: PT/INR, D-dimer D-Dimer 1791 ng/mLFEU (0-500) H 11/17/16 17:45 - VTE Documentation of Mechanical Device: Graduated compression elastic hosiery Consult Discharge Plan - Plan [facility]errals: [facility] [Primary Care Provider] - ([place] [employer], [place] PCP will follow up with the patient at home once discharged... [facility] Tab Norman MD [Partnered Physician] - 11/30/16 2:30 pm <Ethan Talbot H - Last Filed: 11/22/16 15:22> Date of Encounter: 11/22/16 - Constitutional Vitals: Temp Pulse Resp BP Pulse Ox 97.9 F 86 16 113/68 95 11/22/16 07:44 11/22/16 07:44 11/22/16 11:01 11/22/16 07:44 11/22/16 11:01 Internal Medicine: Result - Labs CBC & Chem 7: 11/22/16 04:15 11/22/16 04:15 Labs: Short CBC 11/22/16 Range/Units 04:15 WBC 1.6 L (4.3-11.1) K/mcL Hgb 8.2 L (12.9-16.9) g/dL Hct 25.6 L (37.5-50.1) % Plt Count 61 L (140-400) K/mcL Neutrophils # 0.9 L (1.6-8.9) K/mcL BMP 11/22/16 04:15 Sodium 140 Potassium 4.6 H Chloride 102 Carbon Dioxide 31 H BUN 16 Creatinine 0.78 Glucose 109 H Calcium 8.5 L - ABG Interpretation ABG results: PT/INR, D-dimer D-Dimer 1791 ng/mLFEU (0-500) H 11/17/16 17:45 - Attending Attestation day 7 of antibiotics, vanc , cefepime and levaquin I examined this patient and my medical decision-making was reviewed with the [employer] SKI MAKER/PA/Advanced Practice Nurse/Resident Physician. I agree with the documented findings, disposition and treatment plan as described except to the extent set forth below.
[2016-11-22] MEDS: Cholecalciferol (D-3) 1,000 UNIT TABLET PO SCH (20:34)
[2016-11-23] MEDS: Ipratropium/Albuterol Neb 3 ML IH SCH ×3 (03:55→16:35)
[2016-11-23] MEDS: Cefepime HCl 2,000 MG in D5% in Water (Mini-Bag+) 100 ML IVPB SCH (06:08)
[2016-11-23] MEDS: *HR* Heparin 5,000 UNIT/ML VIAL SQ SCH (06:14)
[2016-11-23] MEDS: Famotidine 20 MG TABLET PO SCH (06:16)
[2016-11-23] MEDS: Folic Acid 1 MG TABLET PO SCH (09:32)
[2016-11-23] MEDS: Aspirin Enteric Coated 81 MG Tablet PO SCH (09:32)
[2016-11-23] MEDS: Levofloxacin 750 MG/150 ML 750 MG/150 ML BAG IVPB SCH (09:33)
[2016-11-23] MEDS: Multivit/Ca/Min/Fe/FA 1 TAB TABLET PO SCH (09:33)
[2016-11-23] MEDS: Metoprolol XL (24 HR) Succ 25 MG TAB.ER.24H PO SCH (09:33)
[2016-11-23] MEDS: MethylPREDNISolone 40 MG/ML VIAL IVP SCH (09:33)
[2016-11-23] MEDS: Azelastine 0.1% Nasal Spray 30 ML BOTTLE NS SCH (09:34)
--- NOTE | 2016-11-23 10:49 | Discharge Summary ---
Date of Encounter: 11/23/16 Time of Encounter: 10:47 - Discharge Diagnosis (1) Acute on chronic respiratory failure Priority: Primary Status: Acute Comments: Acute on chronic hypoxic respiratory failure secondary to acute COPD exacerbation from sepsis due to healthcare associated pneumonia possibly MRSA pneumonia he grew MRSA in sputum in the past in the setting of immunosuppression Qualifiers: Respiratory failure complication: hypoxia Qualified Code(s): J96.21 - Acute and chronic respiratory failure with hypoxia (2) HCAP (healthcare-associated pneumonia) Priority: Primary Status: Acute (3) Sepsis Priority: Primary Status: Acute Qualifiers: Sepsis type: sepsis due to unspecified organism Qualified Code(s): A41.9 - Sepsis, unspecified organism (4) Fluid overload Priority: Secondary Status: Resolved Qualifiers: Hypervolemia type: other Qualified Code(s): E87.79 - Other fluid overload (5) CLL (chronic lymphocytic leukemia) Priority: Secondary Status: Chronic (6) Coronary artery disease Priority: Secondary Status: Chronic Qualifiers: Coronary Disease-Associated Artery/Lesion type: absent[place] artery [place] vs. transplanted heart: absent[place] heart Associated angina: without angina Qualified Code(s): I25.10 - Atherosclerotic heart disease of [place] coronary artery without angina pectoris (7) GERD (gastroesophageal reflux disease) Priority: Secondary Status: Chronic Qualifiers: Esophagitis presence: without esophagitis Qualified Code(s): K21.9 - Gastro -esophageal reflux disease without esophagitis (8) Gout Priority: Secondary Status: Chronic Qualifiers: Gout site: unspecified site Encounter type: subsequent encounter Chronicity: chronic Presence of tophus: without tophus Qualified Code(s): T56.0X1D - Toxic effect of lead and its compounds, accidental (unintentional), subsequent encounter; [id number] - Lead-induced chronic gout, unspecified site, without tophus (tophi) (9) Hypogammaglobulinemia, acquired Priority: Secondary Status: Chronic Comments: IgG levels are low at 449. Patient receives monthly IVIG infusions at the cancer center. Next appointment is scheduled for November 30 (10) Neutropenia Priority: Secondary Status: Chronic Comments: Secondary to CLL Qualifiers: Neutropenia type: secondary to cancer chemotherapy Qualified Code(s): D70.1 - Agranulocytosis secondary to cancer chemotherapy (11) Pancytopenia Priority: Secondary Status: Chronic - Discharge Medications Prescriptions: LORazepam [Ativan] 0.5 mg PO TID PRN #30 tablet PRN Reason: Anxiety PredniSONE 10 mg PO DAILY 20 Days Home Medications: Aspirin [Adult Low Dose Aspirin EC] 81 mg PO DAILY 11/28/15 [History] Atorvastatin Calcium [Lipitor] 40 mg PO HS 11/28/15 [History] Cholecalciferol (D-3) [Vitamin D] 2,000 unit PO HS 11/28/15 [History] Ondansetron [Zofran] 1 tab PO Q8HR PRN #90 tablet 01/13/16 [Rx] Prochlorperazine Maleate [Compazine] 1 tab PO Q6HR PRN #60 tablet 01/13/16 [Rx] Lactose-Reduced Food [Ensure High Protein] 237 ml PO TID 02/13/16 [History] Albuterol Sulfate [Albuterol Inhaler] 2 puff IH Q4HR PRN 02/15/16 [History] Ipratropium/Albuterol Neb [Duoneb] 3 ml IH QID 02/15/16 [History] Ranitidine HCl [Zantac] 150 mg PO BID 02/15/16 [History] Folic Acid 1 mg PO DAILY #90 tablet 04/04/16 [Rx] Guaifenesin/Codeine Phosphate [Guaifenesin-Codeine Syrup] 10 ml PO Q6H PRN #473 liquid 04/16/16 [Rx] Acetaminophen [Tylenol] 650 mg PO Q6HR PRN 05/16/16 [History] Calcium Carbonate/Vitamin D3 [Calcium 500-Vit D3 400 Tablet] 1 tab PO DAILY [History] Lidocaine Patch [Lidoderm 5% patch] 1 each TP DAILY 05/16/16 [History] Lidocaine/Prilocaine [Emla] 1 appl TP AD PRN 05/16/16 [History] Magic Mouthwash [Magic Mouthwash BLM] 7.5 ml PO TID PRN 05/16/16 [History] Metoprolol XL (24 HR) Succ [Toprol Xl] 12.5 mg PO DAILY 05/16/16 [History] Multivitamin [Multi-Day Vitamins] 1 tab PO DAILY 05/16/16 [History] Azelastine 0.1% Nasal [place] [Astelin] 2 spray NS BID 08/28/16 [History] Ibrutinib [Imbruvica] 420 mg PO DAILY 08/28/16 [History] Petrolatum,White [Aloe [place]] 1 appl TP TID PRN 08/28/16 [History] Ubidecarenone [Coenzyme Q10] 100 mg PO DAILY 08/28/16 [History] Guaifenesin [Guaifenesin ER] 1,200 mg PO BID #60 tab.er.12h 11/09/16 [Rx] Cholecalciferol (Vitamin D3) [Vitamin D3] 3,000 unit PO QAM 11/16/16 [History] Sod Chlor,Bicarb/Squeez Bottle [Neilmed Sinus Rinse Kit] 1 packet NS QID [History] Tiotropium [Spiriva] 18 mcg IH 0700 11/16/16 [History] LORazepam [Ativan] 0.5 mg PO TID PRN #30 tablet 11/23/16 [Rx] PredniSONE 10 mg PO DAILY 20 Days 11/23/16 [Rx] Allergies/Adverse Reactions: Allergies flunisolide Adverse Reaction (Verified 11/16/16 19:48) See Comments [facility] list naproxen [From Naprosyn] Adverse Reaction (Verified 11/16/16 19:48) See Comments [facility] list Procedures/tests Complete & Pending: Procedures Performed prior 72 hours Category Date Time Status ECG 12 lead ECG [ECG] Routine Y 11/20/16 21:20 Completed Date of admission: 11/16/16 21:03 Primary care physician: PCP [facility] Consults: 11/16/16 22:07 Consult to Pulmonology [CONS] Routine Consulting Provider: [facility] [place] Reason for Consult: Chronic bronchiectasis, admitted with HCAP Call Completed: No 11/16/16 22:08 Consult to Nutrition [CONS] Routine Comment: Consulting Provider: NUTRITION Reason for Dietary Consult: Supplemental Nutrition 11/17/16 00:30 Consult to Nutrition [CONS] Routine Comment: Consulting Provider: NUTRITION Reason for Dietary Consult: MST Score 11/18/16 08:00 Consult to Respiratory Therapy [CONS] Routine Reason for Consult: pulmonary toileting Call Completed: No 11/21/16 10:49 Consult to Occupational Therapy [CONS] Routine Comment: Evaluate, develop and implement POC Consult to Physical Therapy [CONS] Routine Comment: Evaluate, develop and implement POC 11/22/16 15:14 Consult to Palliative Care [CONS] Routine Comment: Consulting Provider: Palliative Care Jennifer - Patient Status Disposition: Transfer SNF Condition: Fair Overall status at discharge: patient is progressing back to baseline - Discharge Instructions Follow Up With: [facility] [Primary Care Provider] - (Patient will follow up with PCP at the [facility]) Tab Norman MD [Partnered Physician] - 11/30/16 2:30 pm Forms: ED Satisfaction Letter Additional Instructions: Follow with primary care physician within the next 7 days. Continue oxygen therapy, continue prednisone taper. Follow with oncology to receive his monthly dose of IVIG. Neutropenic diet, no salads or uncooked food - Diet and Activity Activity: increase activity as tolerated Diet: low fat, low cholesterol (Neutropenic diet, no salads or uncooked food) Hospital course: Mr. Saravia is a 71 year old male with coronary artery disease, history of prostate cancer status post prostatectomy, CLL, hypo-gammaglobulinemia requiring monthly IVIG, and chronic bronchiolitis was sent to the emergency department from the cancer center with increased cough and shortness of breath. Patient reported a chronic cough. He required 3-4 L of oxygen at home. He noted increased shortness of breath and increased coughing over the last week prior to admission. He also reported chills and sweats with lightheadedness in the last few days. He follows with Dr. Mtz in pulmonology as an outpatient, and with the [facility] center for his CLL and hypogamaglobulinemia. CT scan of the chest on showed bronchiectasis with extensive mucopurulent secretions throughout the tracheobronchial tree. Bronchoalveolar lavage showed extensive reactive changes, no evidence of malignancy or infection. Repeat bronchoscopy in August showed extensive reactive changes. BAL and transbronchial biopsy were negative for malignancy and showed acute and chronic inflammation. CT of the chest was obtained which showed lobar consolidation in bilateral lower lobes, centrilobular small tree-in-bud nodules scattered throughout the lungs have progressed compatible with worsening pneumonia, thoracic adenopathy compatible with lymphoma, moderate ascites and splenomegaly and upper abdominal lymphadenopathy. Patient met sepsis criteria with source of infection, tachycardia and tachypnea. Lactic acid was normal at 1.2. He was initiated on broad-spectrum antibiotics with Zosyn and for vancomycin as he grew MRSA in sputum in the past. The patient was started on Solu-Medrol IV, Zosyn was switched to cefepime, Levaquin was started and vancomycin was continued. The patient has completed 7 days of antibiotics, feels better and is ready to be discharged to an extended care facility. The patient is a DNR CC arrest . The patient was maintained on neutropenic precautions as his neutrophils were 0.9. Remained pancytopenic what blood cell count 1.6 hemoglobin stable at 8.2 and platelets 61. - Time Spent with Patient Total time spent providing and/or coordinating discharge services: Greater than 30 minutes (40 minutes) - Constitutional Vitals: Temp Pulse Resp BP Pulse Ox 97.8 F 75 22 116/63 96 11/23/16 06:58 11/23/16 06:58 11/23/16 06:58 11/23/16 06:58 11/23/16 09:47 General appearance: Present: cachectic, cooperative, A&O X 3, no acute distress , answers questions appropriately - Head Head exam: Present: atraumatic, normocephalic - Eye Eye exam: Present: PERRL, conjuntiva pink, sclera anicteric Pupils: Present: PERRL - Neck Neck exam general surgery: Present: supple, trachea midline. Absent: lymphadenopathy - Respiratory Respiratory exam: Present: decreased breath sounds (Very diminished breath sounds), CTAB. Absent: accessory muscle use, rales, rhonchi, wheezes - Cardiovascular Cardiovascular exam: Present: RRR, +S1, +S2. Absent: diastolic murmur, gallop, rubs, systolic murmur - GI/Abdominal GI/Abdominal exam: Present: normal bowel sounds, soft, no peritoneal signs. Absent: distended, tenderness - Extremities Exam Extremities exam: Present: warm, radial pulses palpable and symetrical. Absent : calf tenderness, cyanotic, pedal edema - Neurological Exam Neurological exam: Present: CN II-XII intact, oriented X3, no focal deficits. Absent: pronater drift, facial droop, speech deficit - Skin Skin exam: Present: dry, intact - VTE Documentation of Mechanical Device: Graduated compression elastic hosiery
[2016-11-23] MEDS ORDERED: Vancomycin 1,500 MG in D5% in Water 250 ML IVPB ONE (11:00)
--- NOTE | 2016-11-23 11:04 | Physician Discharge Referral ---
ExtendedCare Referral Info Provider in Charge after Transfer: PCP Institutional Level of Care: Skilled - Diagnosis (1) Acute on chronic respiratory failure Status: Acute (2) HCAP (healthcare-associated pneumonia) Status: Acute (3) Sepsis Status: Acute (4) Fluid overload Status: Resolved (5) CLL (chronic lymphocytic leukemia) Status: Chronic (6) Coronary artery disease Status: Chronic (7) GERD (gastroesophageal reflux disease) Status: Chronic (8) Gout Status: Chronic (9) Hypogammaglobulinemia, acquired Status: Chronic (10) Neutropenia Status: Chronic (11) Pancytopenia Status: Chronic - Transfer Medications Prescriptions: LORazepam [Ativan] 0.5 mg PO TID PRN #30 tablet PRN Reason: Anxiety PredniSONE 10 mg PO DAILY 20 Days Home Medications: Aspirin [Adult Low Dose Aspirin EC] 81 mg PO DAILY 11/28/15 [History] Atorvastatin Calcium [Lipitor] 40 mg PO HS 11/28/15 [History] Cholecalciferol (D-3) [Vitamin D] 2,000 unit PO HS 11/28/15 [History] Ondansetron [Zofran] 1 tab PO Q8HR PRN #90 tablet 01/13/16 [Rx] Prochlorperazine Maleate [Compazine] 1 tab PO Q6HR PRN #60 tablet 01/13/16 [Rx] Lactose-Reduced Food [Ensure High Protein] 237 ml PO TID 02/13/16 [History] Albuterol Sulfate [Albuterol Inhaler] 2 puff IH Q4HR PRN 02/15/16 [History] Ipratropium/Albuterol Neb [Duoneb] 3 ml IH QID 02/15/16 [History] Ranitidine HCl [Zantac] 150 mg PO BID 02/15/16 [History] Folic Acid 1 mg PO DAILY #90 tablet 04/04/16 [Rx] Guaifenesin/Codeine Phosphate [Guaifenesin-Codeine Syrup] 10 ml PO Q6H PRN #473 liquid 04/16/16 [Rx] Acetaminophen [Tylenol] 650 mg PO Q6HR PRN 05/16/16 [History] Calcium Carbonate/Vitamin D3 [Calcium 500-Vit D3 400 Tablet] 1 tab PO DAILY [History] Lidocaine Patch [Lidoderm 5% patch] 1 each TP DAILY 05/16/16 [History] Lidocaine/Prilocaine [Emla] 1 appl TP AD PRN 05/16/16 [History] Magic Mouthwash [Magic Mouthwash BLM] 7.5 ml PO TID PRN 05/16/16 [History] Metoprolol XL (24 HR) Succ [Toprol Xl] 12.5 mg PO DAILY 05/16/16 [History] Multivitamin [Multi-Day Vitamins] 1 tab PO DAILY 05/16/16 [History] Azelastine 0.1% Nasal [place] [Astelin] 2 spray NS BID 08/28/16 [History] Ibrutinib [Imbruvica] 420 mg PO DAILY 08/28/16 [History] Petrolatum,White [Aloe [place]] 1 appl TP TID PRN 08/28/16 [History] Ubidecarenone [Coenzyme Q10] 100 mg PO DAILY 08/28/16 [History] Guaifenesin [Guaifenesin ER] 1,200 mg PO BID #60 tab.er.12h 11/09/16 [Rx] Cholecalciferol (Vitamin D3) [Vitamin D3] 3,000 unit PO QAM 11/16/16 [History] Sod Chlor,Bicarb/Squeez Bottle [Neilmed Sinus Rinse Kit] 1 packet NS QID [History] Tiotropium [Spiriva] 18 mcg IH 0700 11/16/16 [History] LORazepam [Ativan] 0.5 mg PO TID PRN #30 tablet 11/23/16 [Rx] PredniSONE 10 mg PO DAILY 20 Days 11/23/16 [Rx] Allergies/Adverse Reactions: Allergies flunisolide Adverse Reaction (Verified 11/16/16 19:48) See Comments va list naproxen [From Naprosyn] Adverse Reaction (Verified 11/16/16 19:48) See Comments va list - Respiratory Orders Oxygen / L per min (3 L continuously) Smoking Cessation: Smoking cessation has been advised. For more information, call the [place] Tobacco Quit Line at 8-983-PWHG-NOW. - Advance Directives Code Status: DNR-Arrest - Rehabiliation Orders Rehab Orders: Evaluation for Physical Therapy - Treatments List/Other: Follow with primary care physician within the next 7 days. Continue oxygen therapy, continue prednisone taper. Follow with oncology to receive his monthly dose of IVIG. Neutropenic diet, no salads or uncooked food CERTIFICATION: I certify that the transfer of the above named patient to an Extended Care Facility is necessary for the continuing treatment of the diagnosis listed. The above information is true and accurate reflection of patient's current condition. Confidential - Redisclosure prohibited without a patient's written consent.
[2016-11-23 11:08] VITALS: BP 126/70
--- NOTE | 2016-11-23 13:19 | Palliative - Consult Note ---
Date of Encounter: 11/23/16 Time of Encounter: 10:00 - Assessment and Plan (1) Dyspnea Current Visit: Yes Status: Acute Assessment and plan: The patient has chronic dyspnea which is severe and at rest. Patient does meet hospice criteria for this. Patient is not interested in hospice at this time but now understands what fits in the chart of his illness. Qualifiers: Dyspnea type: unspecified Qualified Code(s): R06.00 - Dyspnea, unspecified (2) Goals of care, counseling/discussion Current Visit: Yes Status: Acute Assessment and plan: CODE STATUS is DNR CCA, patient is okay with short-term intubation and he supposedly has discussed this with his son who understands that he would not want to have a trach or a PEG tube placed. The patient admitted although that he had given a great deal of thought to cardiac arrest he had never considered the possibility of his lungs becoming such a problem that she would require intubation. He is therefore considering possible changes in his CODE STATUS but will discuss this further with his family. (3) COPD with acute exacerbation Current Visit: Yes Status: Acute Assessment and plan: The patient has completed treatment for COPD and healthcare acquired pneumonia and will be transferred to [facility] for pulmonary rehabilitation. (4) Full code status Current Visit: No Status: Acute Assessment and plan: The patient's CODE STATUS had already been changed to DNR CCA patient request. States that he had not previously considered the possibility of his breathing requiring intubation. He still okay with this, but does not wish to have long- term intubation would not want to have a tracheostomy or a PEG tube placed. He assures me that he is discussing this with his son who is his medical power of criminal attorney. He is also reconsidering whether or not he wishes to be intubated in the event of sitting breathing but will discuss this further with his pain with his family. (5) CLL (chronic lymphocytic leukemia) Current Visit: No Status: Chronic Palliative-CN HPI - Data of Consult Patient: new to practice Requesting Physician: Ethan Talbot Primary Care Provider[facility] - Consult Narrative Palliative Care/Comfort Measures: Palliative care Reason for consult: Goals of care, CODE STATUS, hospice questions. History of present illness: Mr. Saravia is a 71 year old male Was originally admitted for healthcare associated pneumonia, sepsis bronchiectasis. The patient had a history of a worsening cough had been followed for bronchiectasis in the past. His bronchoscopy had shown extensive mucopurulent secretions throughout the tracheobronchial tree. These were positive for inflammation but negative for malignancy. Abdomen discussions in the past about transfer to [facility] or [facility] for further workup. She states that this time he is still conflicted about this. Patient states that he has been fighting this since early 1999 when he was diagnosed with CLL. He has been through multiple rounds of chemotherapy for this seemed to be doing well as of approximately a month ago. Over the last year he has been having a great deal of difficulty more and more with his breathing. He lives at home with a caregiver through the OR providing his care. Noticed that over the last year and worse over the last 6 months is getting more and more short of breath with less and less and less exertion. So taking him much longer to recover from shortness of breath spells. Last couple of months even gets breathless at rest and with talking a small amount. Although this does wax and wane, it has definitely worsened over the last several months. The patient is deathly showing a downward course with this. Patient is on 4 L of oxygen at home. Cough is not associated with any pain, however he can cough so hard that he feels like he vomits up flame this is definitely flame, and not vomitus. He states he does not have any diarrhea but does have constipation with bowel movements approximately every 3-4 days and then stool come out. Lately he has been coughing bringing up sputum now having what he refers to as a tickle in his throat that causes him to cough and makes him quite short of breath. The patient also has a history of prostate cancer, is post-prostatectomy CLL as already mentioned which appears to be his time. He also has hypogammaglobulinemia which requires monthly IVIG L as the chronic bronchial bronchiolitis. The patient has finished his antibiotics out at this point in time is felt to be stable to go out for rehabilitation at a [facility]. This is been arranged and the patient will be discharged today. Of care was consult regarding goals of care and CODE STATUS. The patient opted leave his CODE STATUS where it is, he does have a medical power of criminal attorney his son Adal who lives in [place] sure his me that he has discussed his desires with his son. Please see the assessment and plan. CC: Ethan H Kam-[place]velle Shortness of breath, cough Past Med Surg Social Fam HX - Past Medical History Medical history: arthritis, cancer, COPD, coronary artery disease, GERD, hyperlipidemia, hypertension, malignancy, myocardial infarction, osteoporosis Psychiatric history: anxiety - Past Surgical History Surgical History: angioplasty/stent, cancer surgery, cataract, herniorrhaphy, prostatectomy, other - Social History Smoking Status: Former smoker Smokeless Tobacco Status: No Alcohol use: none Drug use: none - Family History Mother Adopted: No Family Member Ethnicity: Non- Living Status: Hx Family Cardiac Disorders: Yes Father Family Member Ethnicity: Non- Living Status: Hx Family Cardiac Disorders: Yes Medications and Allergies Aspirin [Adult Low Dose Aspirin EC] 81 mg PO DAILY 11/28/15 [History] Atorvastatin Calcium [Lipitor] 40 mg PO HS 11/28/15 [History] Cholecalciferol (D-3) [Vitamin D] 2,000 unit PO HS 11/28/15 [History] Ondansetron [Zofran] 1 tab PO Q8HR PRN #90 tablet 01/13/16 [Rx] Prochlorperazine Maleate [Compazine] 1 tab PO Q6HR PRN #60 tablet 01/13/16 [Rx] Lactose-Reduced Food [Ensure High Protein] 237 ml PO TID 02/13/16 [History] Albuterol Sulfate [Albuterol Inhaler] 2 puff IH Q4HR PRN 02/15/16 [History] Ipratropium/Albuterol Neb [Duoneb] 3 ml IH QID 02/15/16 [History] Ranitidine HCl [Zantac] 150 mg PO BID 02/15/16 [History] Folic Acid 1 mg PO DAILY #90 tablet 04/04/16 [Rx] Guaifenesin/Codeine Phosphate [Guaifenesin-Codeine Syrup] 10 ml PO Q6H PRN #473 liquid 04/16/16 [Rx] Acetaminophen [Tylenol] 650 mg PO Q6HR PRN 05/16/16 [History] Calcium Carbonate/Vitamin D3 [Calcium 500-Vit D3 400 Tablet] 1 tab PO DAILY [History] Lidocaine Patch [Lidoderm 5% patch] 1 each TP DAILY 05/16/16 [History] Lidocaine/Prilocaine [Emla] 1 appl TP AD PRN 05/16/16 [History] Magic Mouthwash [Magic Mouthwash BLM] 7.5 ml PO TID PRN 05/16/16 [History] Metoprolol XL (24 HR) Succ [Toprol Xl] 12.5 mg PO DAILY 05/16/16 [History] Multivitamin [Multi-Day Vitamins] 1 tab PO DAILY 05/16/16 [History] Azelastine 0.1% Nasal [place] [Astelin] 2 spray NS BID 08/28/16 [History] Ibrutinib [Imbruvica] 420 mg PO DAILY 08/28/16 [History] Petrolatum,White [Aloe [place]] 1 appl TP TID PRN 08/28/16 [History] Ubidecarenone [Coenzyme Q10] 100 mg PO DAILY 08/28/16 [History] Guaifenesin [Guaifenesin ER] 1,200 mg PO BID #60 tab.er.12h 11/09/16 [Rx] Cholecalciferol (Vitamin D3) [Vitamin D3] 3,000 unit PO QAM 11/16/16 [History] Sod Chlor,Bicarb/Squeez Bottle [Neilmed Sinus Rinse Kit] 1 packet NS QID [History] Tiotropium [Spiriva] 18 mcg IH 0700 11/16/16 [History] LORazepam [Ativan] 0.5 mg PO TID PRN #30 tablet 11/23/16 [Rx] PredniSONE 10 mg PO DAILY 20 Days 11/23/16 [Rx] Allergies flunisolide Adverse Reaction (Verified 11/16/16 19:48) See Comments [facility] list naproxen [From Naprosyn] Adverse Reaction (Verified 11/16/16 19:48) See Comments [facility] list - Constitutional Constitutional ROS PAL: decreased appetite, anorexia - EENT Eyes: no discharge, no pain Ears: no ear discharge, no ear pain Ears, nose, mouth, throat: no mouth pain, no nasal congestion, no neck pain, no nose pain - Cardiovascular Cardiovascular ROS: dyspnea on exertion, no chest pain, no chest pain at rest, no chest pain with activity, no edema - Respiratory Respiratory: cough, dyspnea, dyspnea on exertion, chest congestion, excessive phlegm production, change in phlegm color, no pain on inspiration, no pain with cough - Gastrointestinal Gastrointestinal: constipation, nausea, vomiting (With coughing), no diarrhea - Genitourinary Genitourinary ROS male: no urinary frequency, no urinary hesitancy, no urinary incontinence - Musculoskeletal Musculoskeletal ROS IM: muscle weakness (His overall weakness secondary to his breathing), no myalgias, no neck pain - Integumentary ROS Integumentary: no rash, no skin pain, no skin ulcer - Neurological Neurological ROS: no behavioral changes, no burning sensations, no disequilibrium, no dizziness, no focal weakness - Psychiatric Psychiatric general PM: no change in appetite, no depression, no homicidal ideation, no hopelessness, no suicidal ideation - Endocrine Endocrine IM: other (No thyroid or diabetes issues.) Palliative Care-Exam - Constitutional Vitals: Temp Pulse Resp BP Pulse Ox 97.6 F 98 22 126/70 95 11/23/16 11:03 11/23/16 11:03 11/23/16 11:03 11/23/16 11:03 11/23/16 11:03 General appearance: Present: mild distress (secondary to shortness of breath). Absent: no acute distress - Eye Eye exam: Present: EOMI, normal appearance, PERRL - ENT ENT exam: Present: mucous membranes moist, normal exam, normal oropharynx - Respiratory Respiratory exam: Present: decreased breath sounds. Absent: accessory muscle use, chest wall tenderness - Cardiovascular Cardiovascular exam: Present: RRR - GI/Abdominal Exam GI/Abdominal exam: Present: normal bowel sounds, soft. Absent: tenderness - Extremities Exam Extremities exam: Present: normal inspection. Absent: pedal edema, tenderness - Neurological Exam Neurological exam: Present: alert, CN II-XII intact, oriented X3 - Psychiatric Psychiatric exam: Present: normal affect, normal mood. Absent: agitated, anxious - Skin Skin exam: Present: dry, warm Internal Medicine - CN: Reslt - Labs CBC & Chem 7: 11/22/16 04:15 11/22/16 04:15 - ABG Interpretation ABG results: PT/INR, D-dimer D-Dimer 1791 ng/mLFEU (0-500) H 11/17/16 17:45 Consult Discharge Plan - Plan Instructions: Lorazepam (By mouth), Prednisone (By mouth), Sepsis (DC), Pneumonia (DC) Additional Instructions: Follow with primary care physician within the next 7 days. Continue oxygen therapy, continue prednisone taper. Follow with oncology to receive his monthly dose of IVIG. Neutropenic diet, no salads or uncooked food [facility]errals: [facility] Care Provider[facility] - (Patient will follow up with PCP at the [facility]) Tab Norman MD [Partnered Physician] - 11/30/16 2:30 pm Prescriptions: LORazepam [Ativan] 0.5 mg PO TID PRN #30 tablet PRN Reason: Anxiety PredniSONE 10 mg PO DAILY 20 Days Palliative Quality Palliative Quality: Screen for Code Status: Yes, Screen for Goals of Care: Yes, Screen for Pain: Yes, If Pain Regimen Started, Initiate Bowel Regimen: NA, Screen for Nausea/Vomitting: Yes
[2016-11-23] MEDS ORDERED: Aminoglycoside Consult 1 EACH MC ONE (16:54)
== END 2016-11-23 16:55 | DRG 871 ==
LOC: EMEROO 14:44 → 2ANU 14:44 → SUATTDRO 21:03 → 2ANU 22:50
PROVIDERS: ADMIT Pediatrics; ATTEND Internal Medicine

== ENCOUNTER 2016-12-14 09:01 | Inpatient (IN) ==
[2016-12-14 09:39] LABS: Hemoglobin 10.6 g/dL (12.9-16.9); Red Cell Distribution Width 18.7 % (11.5-14.5)
[2016-12-14 09:40] LABS: Hematocrit 33.5 % (37.5-50.1); Immature Platelets 4.1 % (1.1-6.1); Mean Corpuscular HGB Conc 31.6 g/dL (31.6-35.5); Mean Corpuscular Hemoglobin 30.6 pg (28.0-33.3); Mean Corpuscular Volume 96.8 fL (83.0-100.0); Mean Platelet Volume 9.7 fL (9.4-12.4); Red Blood Count 3.46 M/mcL (4.19-5.50)
[2016-12-14 09:41] LABS: Eosinophils # 0.1 K/mcL (0.0-0.6)
[2016-12-14 09:42] LABS: Prothrombin Time 10.5 Seconds (9.4-12.1)
[2016-12-14 09:44] LABS: Activated Partial Thrombo Time 32.6 Seconds (26.0-36.0)
[2016-12-14 09:48] LABS: BUN/Creatinine Ratio 16 (6-26); Blood Urea Nitrogen 13 mg/dL (8-26); Calcium 10.1 mg/dL (8.6-10.8); Carbon Dioxide 31 mEq/L (19-29); Chloride 100 mEq/L (98-109); Glucose 92 mg/dL (70-99); Osmolality,Calculated 288 (280-300); Sodium 139 mEq/L (136-145); eGFR For African Americans > 60 (> 60); eGFR For Non-African Americans > 60 (> 60)
[2016-12-14] MEDS ORDERED: Aminoglycoside Consult 1 EACH MC ONE (09:48)
--- NOTE | 2016-12-14 09:54 | Emergency Department Note ---
Disposition Clinical Impression: Healthcare-associated pneumonia Interstitial edema Qualifiers: Edema type: unspecified Qualified Code(s): R60.9 - Edema, unspecified Disposition: Admitted As Inpatient Condition: Fair Referrals: NO,PCP [Primary Care Provider] - Forms: ED Satisfaction Letter General Adult HPI - General Chief complaint: ED Chest Pain Stated complaint: chest pain Time Seen by Provider: 12/14/16 09:09 Source: patient, EMS Mode of arrival: EMS Limitations: no limitations Nursing Notes Reviewed: Yes Vital Signs Reviewed: Yes - History of Present Illness HPI Narrative: 71-year-old male history of CAD, CLL last treatment in June 2016, previous admission for pneumonia with placement in nursing facility for rehabilitation who presents to the ER with chief complaint of shortness of breath, concern for vital signs at home. Patient reports that he was checking his blood pressure and heart rate this morning and noticed that his heart rate Going up his blood pressure Going down. He reports that when he woke up he had a little bit of chest pain that resolved but he felt weak as well. Patient reports that he was just recently sent home after a stent at the rehabilitation facility. He reports that he continue to have a cough with yellow sputum production. He denies a history of DVT or PE. His last treatment with chemotherapy was in June 2016 for his CLL. No sick contacts. No other complaints. Pt Subjective Complaint: Shortness of breath Onset (ago): hour(s) Location: chest Radiation: non-radiation Pain Severity: mild Pain Scale: 1 Improves with: nothing Worsens with: nothing Associated symptoms: Reports: chest pain (Now resolved), cough (Productive), shortness of breath. Denies: nausea/vomiting Treatments Prior to Arrival: none - Related Data Home Medications Medication Instructions Recorded Confirmed Aspirin [Adult Low Dose Aspirin EC] 81 mg PO DAILY 11/28/15 12/14/16 Atorvastatin Calcium [Lipitor] 40 mg PO HS 11/28/15 12/14/16 Lactose-Reduced Food [Ensure High 237 ml PO TID 02/13/16 12/14/16 Protein] Albuterol Sulfate [Albuterol 2 puff IH Q4HR PRN 02/15/16 12/14/16 Inhaler] Ipratropium/Albuterol Neb [Duoneb] 3 ml IH QID 02/15/16 12/14/16 Ranitidine HCl [Zantac] 150 mg PO BID 02/15/16 12/14/16 Acetaminophen [Tylenol] 650 mg PO Q6HR PRN 05/16/16 12/14/16 Calcium Carbonate/Vitamin D3 1 tab PO DAILY 05/16/16 12/14/16 [Calcium 500-Vit D3 400 Tablet] Lidocaine Patch [Lidoderm 5% patch] 1 each TP DAILY 05/16/16 12/14/16 Lidocaine/Prilocaine [Emla] 1 appl TP AD PRN 05/16/16 12/14/16 Magic Mouthwash [Magic Mouthwash 7.5 ml PO TID PRN 05/16/16 12/14/16 BLM] Metoprolol XL (24 HR) Succ [Toprol 12.5 mg PO DAILY 05/16/16 12/14/16 Xl] Multivitamin [Multi-Day Vitamins] 1 tab PO DAILY 05/16/16 12/14/16 Azelastine 0.1% Nasal [place] 2 spray NS BID 08/28/16 12/14/16 [Astelin] Ibrutinib [Imbruvica] 420 mg PO DAILY 08/28/16 12/14/16 Petrolatum,White [Aloe [place]] 1 appl TP TID PRN 08/28/16 12/14/16 Ubidecarenone [Coenzyme Q10] 100 mg PO DAILY 08/28/16 12/14/16 Tiotropium [Spiriva] 2 puff IH DAILY 11/16/16 12/14/16 Cholecalciferol (Vitamin D3) 3,000 unit PO HS 12/03/16 12/14/16 [Vitamin D3] Previous Rx's Medication Instructions Recorded Ondansetron [Zofran] 1 tab PO Q8HR PRN #90 tablet 01/13/16 Prochlorperazine Maleate 1 tab PO Q6HR PRN #60 tablet 01/13/16 [Compazine] Folic Acid 1 mg PO DAILY #90 tablet 04/04/16 Guaifenesin [Guaifenesin ER] 1,200 mg PO BID #60 tab.er.12h 11/09/16 LORazepam [Ativan] 0.5 mg PO TID PRN #30 tablet 11/23/16 PredniSONE 10 mg PO DAILY 20 Days 11/23/16 Allergies Allergy/AdvReac Type Severity Reaction Status Date / Time flunisolide AdvReac See Verified 11/16/16 19:48 Comments naproxen [From Naprosyn] AdvReac See Verified 11/16/16 19:48 Comments All systems ED: reviewed and negative except as stated. Constitutional: Denies: fever Cardiovascular: Reports: chest pain Respiratory: Reports: cough, dyspnea. Denies: wheezes Gastrointestinal: Denies: abdominal pain, nausea, vomiting, diarrhea Musculoskeletal: Denies: neck pain Past Medical History - Past Medical History Attestation: Yes The following information was validated with the patient. Source: patient Medical history: Reports: arthritis, cancer, COPD, coronary artery disease, GERD , hyperlipidemia, hypertension, malignancy, myocardial infarction, osteoporosis Surgical history: Reports: angioplasty/stent, cancer surgery, cataract, herniorrhaphy, prostatectomy, other Psychiatric history: Reports: anxiety - Social History Smoking Status: Former smoker Smokeless Tobacco Status: No Alcohol use: Reports: none Drug use: Reports: none Physical Exam - General Limitations: no limitations General appearance: alert, in no apparent distress - Head Head exam: atraumatic, normocephalic, normal inspection - Eye Eye exam: Present: normal appearance, EOMI - ENT ENT exam: normal exam - Neck Neck exam: Present: normal inspection - Chest Chest inspection: Present: normal inspection, symmetric chest wall rise - Respiratory Respiratory exam: Present: other (Patient is to tachypnic on exam with belly breathing. Coarse breath sounds on the right.) - Cardiovascular Cardiovascular exam: Present: regular rate, normal rhythm, normal heart sounds - Abdominal Exam Abdominal exam: Present: soft, Non-Tender. Absent: tenderness - Extremities Exam Extremities exam: Present: normal inspection, full ROM - Expanded Upper Extremity Exam Shoulder exam: Present: normal inspection, full ROM Arm exam: Present: normal inspection, full ROM Elbow exam: Present: normal inspection, full ROM Forearm/Wrist exam: Present: normal inspection, full ROM Hand exam: Present: normal inspection, full ROM - Expanded Lower Extremity Exam Hip/Pelvis exam: Present: normal inspection, full ROM Upper leg exam: Present: normal inspection, full ROM Knee exam: Present: normal inspection, full ROM Lower leg exam: Present: normal inspection, full ROM Ankle exam: Present: normal inspection, full ROM Foot/toe exam: Present: normal inspection, full ROM - Neurological Exam Neurological exam: Present: alert - Psychiatric Psychiatric exam: Present: normal affect, normal mood - Skin Skin exam: Present: warm, dry, intact, normal color Course Course Narrative: Patient seen and examined. Vital signs reviewed. He is to Make in the room with O2 sat 95-96% on his usual 4 L. We will get an EKG as well as a chest x- ray. Suspicion for PE given his malignancy. We will obtain a CT of the chest once his renal function comes back. - Reevaluation(s) Reevaluation #1: Discussed results of imaging and lab with the patient and family. Vital Signs Temperature 97.5 F L 12/14/16 09:02 Pulse Rate 100 12/14/16 09:02 Respiratory Rate 36 12/14/16 09:02 Blood Pressure 100/68 12/14/16 09:02 O2 Sat by Pulse Oximetry 96 12/14/16 09:02 Temperature 97.5 F L 12/14/16 09:02 Pulse Rate 89 12/14/16 12:00 Respiratory Rate 28 12/14/16 12:00 Blood Pressure 98/65 12/14/16 12:00 O2 Sat by Pulse Oximetry 99 12/14/16 12:00 Oxygen Delivery Oxygen Delivery Nasal Cannula Medical Decision Making - MDM Narrative Medical decision making narrative: 71-year-old male presents to the ER due to shortness of breath and productive cough. History of CLL last chemotherapy was in June. He reports productive cough with yellow sputum. He is satting well here on 4 L nasal cannula. Patient is to tachypneic in the department. CTA demonstrates no PE however there is some interstitial edema. Patient given 20 mg of Lasix. He has been slightly hypotensive here. We also covered him with HCAP Antibiotics. Patient admitted to the hospitalist service for further management. - Lab Data Lab results reviewed: Yes I reviewed the patient's lab results. Result diagrams: 12/14/16 09:29 12/14/16 09:29 Lab Results 12/14/16 12/14/16 12/14/16 Range/Units 09:29 09:29 09:29 WBC 3.0 L (4.3-11.1) K/mcL RBC 3.46 L (4.19-5.50) M/mcL Hgb 10.6 L (12.9-16.9) g/dL Hct 33.5 L (37.5-50.1) % MCV 96.8 (83.0-100.0) fL MCH 30.6 (28.0-33.3) pg MCHC 31.6 (31.6-35.5) g/dL RDW 18.7 H (11.5-14.5) % Plt Count 64 L (140-400) K/mcL MPV 9.7 (9.4-12.4) fL Seg Neutrophils % 14.0 % Lymphocytes % 84.0 % Eosinophils % 2.0 % Neutrophils # 0.4 L (1.6-8.9) K/mcL Lymphocytes # 2.5 (0.6-4.6) K/mcL Eosinophils # 0.1 (0.0-0.6) K/mcL Reactive Lymphocytes Present A (Not Present) Platelet Estimate Decreased L (Normal) Immature Plt Fraction 4.1 (1.1-6.1) % Macrocytosis Present A (Not Present) PT 10.5 (9.4-12.1) Seconds INR 1.0 APTT 32.6 (26.0-36.0) Seconds Sodium 139 (136-145) mEq/L Potassium 4.0 (3.5-4.5) mEq/L Chloride 100 (98-109) mEq/L Carbon Dioxide 31 H (19-29) mEq/L BUN 13 (8-26) mg/dL Creatinine 0.83 (0.72-1.25) mg/dL Est GFR ( Amer) > 60 (> 60) Est GFR (Non-Af Amer) > 60 (> 60) BUN/Creatinine Ratio 16 (6-26) Glucose 92 (70-99) mg/dL Calculated Osmolality 288 (280-300) Calcium 10.1 (8.6-10.8) mg/dL Troponin I (0-0.03) ng/mL B-Natriuretic Peptide (0-100) pg/mL 12/14/16 12/14/16 Range/Units 09:29 09:29 WBC (4.3-11.1) K/mcL RBC (4.19-5.50) M/mcL Hgb (12.9-16.9) g/dL Hct (37.5-50.1) % MCV (83.0-100.0) fL MCH (28.0-33.3) pg MCHC (31.6-35.5) g/dL RDW (11.5-14.5) % Plt Count (140-400) K/mcL MPV (9.4-12.4) fL Seg Neutrophils % % Lymphocytes % % Eosinophils % % Neutrophils # (1.6-8.9) K/mcL Lymphocytes # (0.6-4.6) K/mcL Eosinophils # (0.0-0.6) K/mcL Reactive Lymphocytes (Not Present) Platelet Estimate (Normal) Immature Plt Fraction (1.1-6.1) % Macrocytosis (Not Present) PT (9.4-12.1) Seconds INR APTT (26.0-36.0) Seconds Sodium (136-145) mEq/L Potassium (3.5-4.5) mEq/L Chloride (98-109) mEq/L Carbon Dioxide (19-29) mEq/L BUN (8-26) mg/dL Creatinine (0.72-1.25) mg/dL Est GFR ( Amer) (> 60) Est GFR (Non-Af Amer) (> 60) BUN/Creatinine Ratio (6-26) Glucose (70-99) mg/dL Calculated Osmolality (280-300) Calcium (8.6-10.8) mg/dL Troponin I 0.01 (0-0.03) ng/mL B-Natriuretic Peptide 112 H (0-100) pg/mL - Radiology Data Radiology results reviewed: Yes I reviewed the patient's radiology results. Chest X-Ray 12/14/16 09:12 IMPRESSION: 1. Left-sided chest port unchanged in position. 2. Relatively unchanged prominence of the interstitial markings bilaterally possibly due to COPD. 3. Mild bibasilar opacification, which may represent atelectasis versus airspace disease. D/ / Trevon Duvall MD / Trevon Duvall MD Interpreting Provider: Trevon Duvall MD Chest CTA 12/14/16 09:51 IMPRESSION: 1. No acute pulmonary embolism. 2. Extensive mediastinal and bilateral hilar lymphadenopathy with minimal increased since the recent CT scan 11/16/2016. Upper abdominal lymphadenopathy is partially assessed. 3. Increased bilateral interstitial markings could be due to interstitial edema, but could also be lymphangitic spread of tumor. 4. Trace pleural effusions. Large abdominal ascites. D/ / Khris Arrieta MD / Khris Arrieta MD Interpreting Provider: Khris Arrieta MD - EKG Data EKG #1 EKG attestation: Yes I reviewed and interpreted this EKG. EKG results narrative: EKG demonstrates normal sinus rhythm with a rate of 98 bpm. Normal axis. VT interval 147 QRS duration 107 QTc 386 T wave flattening in lead 3. No ST elevations or depressions. No acute ischemic findings. No significant changes from previous EKG dated 11/20/16. S.B.A.[facility] - [place] Situation: Demographics, MOA Background: Presenting Complaint, Relevant PMH, Meds, & Allergies Assessment: Vital Signs, Course and respsone to treatment, Exam Concerns, Patient/Family Expectation, Pertinant Lab Results, Outstanding Labs Recommendation: Barrier(s) to disposition, Recommendation based on pending studies, treatments, or consults S.B.A.RIza Report Given to: Jackeline Mitchell Repor Time: 12:34 Attestation Statement - Attestation Attestation: I personally interviewed and examined this patient and my medical decision- making was reviewed with the ED Resident Physician, Dr. Tellez. I agree with the documented findings, disposition and treatment plan as described in the documentation. Patient is a 71-year-old white male with a history of CLL and prior pneumonia who presents to the emergency department with shortness of breath and productive cough. Patient on 4 L nasal cannula oxygen at all times. Patient was tachycardic and hypoxic on arrival to the emergency department. Patient with mild respiratory distress on arrival with conversational dyspnea and frequent hoarse sounding cough. Patient also has been complaining of intermittent chest pain although here he is mostly experiencing discomfort associated with his harsh coughing. Patient's laboratory evaluation is fairly unremarkable. Will obtain CT imaging to rule out PE as patient's symptoms and vital signs are concerning for such with his history of CLL. CT scan is negative for PE, CT does show extensive mediastinal lymphadenopathy, and interstitial edema. No evidence of pleural effusion. Troponin negative, EKG unchanged from prior. We will admit patient for further evaluation and treatment of his current respiratory distress. We will treat with diuretics and cover with antibiotics.
[2016-12-14 09:56] LABS: Platelet Count 64 K/mcL (140-400)
[2016-12-14 10:07] LABS: Lymphocytes # 2.5 K/mcL (0.6-4.6); Neutrophils # 0.4 K/mcL (1.6-8.9)
[2016-12-14 10:08] LABS: Platelet Estimate Decreased (Normal); Reactive Lymphocytes Present (Not Present)
[2016-12-14 10:09] LABS: Macrocytosis Present (Not Present)
[2016-12-14] MEDS ORDERED: Furosemide 20 MG/2 ML VIAL IVP ONE (11:06)
[2016-12-14] MEDS ORDERED: Levofloxacin 750 MG/150 ML 750 MG/150 ML BAG IVPB ONE (11:07)
[2016-12-14] MEDS ORDERED: Piperacillin/Tazobactam 3.375 GM in D5% in Water (Mini-Bag+) 100 ML IVPB ONE (11:07)
[2016-12-14] MEDS ORDERED: Vancomycin 1,000 MG in D5% in Water 250 ML IVPB ONE (11:07)
[2016-12-14] MEDS ORDERED: Naloxone 0.4 MG/ML INJ IVP PRN (15:15)
[2016-12-14] MEDS ORDERED: MAGIC MOUTHWASH PO PRN (15:20)
[2016-12-14] MEDS ORDERED: *HR* LORazepam 0.5 MG TABLET PO PRN (15:20)
[2016-12-14] MEDS ORDERED: Acetaminophen 325 MG TABLET PO PRN (15:20)
[2016-12-14] MEDS ORDERED: Ondansetron ODT 4 MG TAB.RAPDIS PO PRN (15:20)
[2016-12-14] MEDS ORDERED: Albuterol 2.5 MG/3 ML NEBULIZER IH PRN (15:29)
[2016-12-14] MEDS ORDERED: Piperacillin/Tazobactam 3.375 GM in D5% in Water (Mini-Bag+) 100 ML IVPB SCH ×2 (16:00→19:00)
[2016-12-14] MEDS ORDERED: Vancomycin 1,000 MG in D5% in Water 250 ML IVPB SCH ×2 (16:00→23:00)
[2016-12-14] MEDS: Ipratropium/Albuterol Neb 3 ML IH SCH ×2 (16:19→20:15)
[2016-12-14] MEDS: *HR* Heparin 5,000 UNIT/ML VIAL SQ SCH (18:50)
--- NOTE | 2016-12-14 20:23 | Internal Med History&Physical ---
<Arlette Beal - Last Filed: 12/15/16 00:57> Date of Encounter: 12/14/16 Time of Encounter: 20:22 Assessment and Plan (1) Chest pain Current visit: Yes Status: Acute Patient reporting bilateral shoulder pain with left arm numbness on and off earlier today. EKG showed sinus tachycardia. Troponin 0.01. CTA negative for PE, but showed increased interstitial fluid. BNP elevated to 112. 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 Qualifiers: Chest pain type: other chest pain Qualified Code(s): R07.89 - Other chest pain; R07.8 - Other chest pain (2) Congestive heart failure Current visit: Yes Status: Acute Patient with increased interstitial fluid seen on CTA, BNP elevated to 112 from 26. No history of CHF. Patient given 20mg IVP lasix to diurese fluid Echocardiogram tomorrow. Qualifiers: Congestive heart failure type: unspecified congestive heart failure type Congestive heart failure chronicity: unspecified congestive heart failure chronicity Qualified Code(s): I50.9 - Heart failure, unspecified (3) Chronic respiratory failure Current visit: Yes Status: Acute Follows with Dr. Mtz as an outpatient and has chronic bronchiectasis. Bronchoscopy in April 2016 showed bronchiectasis with extensive mucopurulent secretions throughout the tracheobronchial tree. Bronchoalveolar lavage showed extensive reactive changes, no evidence of malignancy or infection. Second bronchoscopy from 08/2016 showed extensive reactive changes, BAL and transbronchial biopsy negative for malignancy and showed acute and chronic inflammation. Patient has an appointment with pulmonology at [facility] in early January. continue home doses of spiriva, guaifenisin, Duoneb QID Albuterol nebulizer Q2 PRN titrate O2 to maintain saturation > 90%. Qualifiers: Respiratory failure complication: hypoxia Qualified Code(s): J96.11 - Chronic respiratory failure with hypoxia (4) Obstructive sleep apnea of adult Current visit: No Status: Chronic Respiratory therapy consulted for CPAP (5) CLL (chronic lymphocytic leukemia) Current visit: No Status: Chronic Follows with Medical Oncology as an outpatient. Per oncology note: Diagnosed in 1995. Observation from [id number]. FCR 8 cycles completed in April 2003 Bone marrow biopsy November 2004 of the cytogenetic remission. Flow cytometry November 2008 showed monoclonal kappa lymphocytosis. Bendamustine plus Rituxan 4 cycles 02/07/2010-06/08/2010. Bendamustine plus Rituxan:10/23/2011-01/15/2012. Chlorambucil 0.8 mg/m day 1 and day 15 every 28 days from 10/11/2013-12/30/2013. Stopped due to intolerance with thrombocytopenia. Ibrutinib 420 mg by mouth daily started 02/11/2014. Stopped November 2014 due to disease progression. Completed 8 cycles of Obinutuzumab plus chlorambucil regimen 01/22-07/12/16. Tolerated treatment well with no unexpected side effects. Chlorambucil was stopped after 1 dose due to profound cytopenia with prolonged myelosuppression. Obinutuzumab has been on hold after completing 8 cycles on 07/12/16 with stable disease status. Gets IVIG monthly for hypoglobulinemia. Most recent CT neck, chest, abdomen, pelvis 11/05/16 showed: Stable scattered, small neck nodes. Unchanged versus previous. Diffuse mediastinal and hilar lymphadenopathy. Slightly decreased versus previous. Increase, scattered nodularity seen throughout bilateral lungs felt to indicate post inflammatory/infectious change. Increased abdominal/pelvic ascites. Stable, diffuse adenopathy throughout abdomen and pelvis. Stable splenomegaly. (6) Ascites Current visit: Yes Status: Acute CT Chest showed large ascites in abdomen, likely malignant and related to patient's CLL. Qualifiers: Ascites type: malignant Qualified Code(s): R18.0 - Malignant ascites (7) DVT prophylaxis Current visit: No Status: Acute ambulate with assistance anti-embolic stockings. PLT count 64, consistent with previous results. Heparin 5000u SQ BID Internal Medicine - H&P: HPI Chief complaint: SOB, cough, Admitted From: Emergency Dept Plans for Post Hospital Care: Home History of present illness: Mr. Saravia is a 71 year old male with coronary artery disease, history of prostate cancer status post prostatectomy, CLL, hypo-gammaglobulinemia, and chronic bronchiolitis presented to the emergency department today from home with complaints of low blood pressure and elevated heart rate, as well as increased sputum production. He reports he had some pain in bilateral shoulders as well as left arm numbness, and so decided to call the squad. He also endorses chills, sweats, weakness and fatigue, though these are chronic. He follows with Dr. Mtz as an outpatient for his bronchiectasis and he requires 4 L of oxygen at home. He denies any chest pain, palpitations, abdominal pain, nausea, diarrhea. His chronic cough has been worsening over time, interferes with his daily life, he has been losing weight. He follows with the cancer center for his CLL and hypogamaglobulinemia. Evaluation in the ED included a CXR which showed unchanged prominence of bilateral interstitial markings, mild bibasilar opacification atelectasis vs. airspace disease. CT of the chest was negative for PE and showed increased bilateral interstitial markings could be due to interstitial edema or lymphangitic spread of tumor, as well as persistent Lymphadenopathy, and large abdominal ascites. Lactic acid was normal at 1.4. BNP elevated to 112 from previous of 26. WBC at baseline of 3.0, Plt at baseline of 64. EKG showed sinsu tach, Troponin was negative at 0.01. Blood cultures were drawn and sent. He was initiated on broad -spectrum antibiotics with Zosyn and vancomycin. He was given breathing treatments, a small dose of lasix. On exam, patient is alert and oriented, in no acute distress. He reports his cough, shortness of breath and sputum production are near baseline for him. He is satting 95-98% on 4 L nasal cannula, which is his baseline. Heart has regular rate and rhythm. Past Med Surg Social Fam HX - Past Medical History Medical history: arthritis, cancer, COPD, coronary artery disease, GERD, hyperlipidemia, hypertension, malignancy, myocardial infarction, osteoporosis Psychiatric history: anxiety - Past Surgical History Surgical History: angioplasty/stent, cancer surgery, cataract, herniorrhaphy, prostatectomy, other - Social History Smoking Status: Former smoker Smokeless Tobacco Status: No Alcohol use: none Drug use: none - Family History Mother Adopted: No Family Member Ethnicity: Non- Living Status: Hx Family Cardiac Disorders: Yes Father Family Member Ethnicity: Non- Living Status: Hx Family Cardiac Disorders: Yes Internal Medicine - H&P: Meds Aspirin [Adult Low Dose Aspirin EC] 81 mg PO DAILY 11/28/15 [History] Atorvastatin Calcium [Lipitor] 40 mg PO HS 11/28/15 [History] Ondansetron [Zofran] 1 tab PO Q8HR PRN #90 tablet 01/13/16 [Rx] Prochlorperazine Maleate [Compazine] 1 tab PO Q6HR PRN #60 tablet 01/13/16 [Rx] Lactose-Reduced Food [Ensure High Protein] 237 ml PO TID 02/13/16 [History] Albuterol Sulfate [Albuterol Inhaler] 2 puff IH Q4HR PRN 02/15/16 [History] Ipratropium/Albuterol Neb [Duoneb] 3 ml IH QID 02/15/16 [History] Ranitidine HCl [Zantac] 150 mg PO BID 02/15/16 [History] Folic Acid 1 mg PO DAILY #90 tablet 04/04/16 [Rx] Acetaminophen [Tylenol] 650 mg PO Q6HR PRN 05/16/16 [History] Calcium Carbonate/Vitamin D3 [Calcium 500-Vit D3 400 Tablet] 1 tab PO DAILY [History] Lidocaine Patch [Lidoderm 5% patch] 1 each TP DAILY 05/16/16 [History] Lidocaine/Prilocaine [Emla] 1 appl TP AD PRN 05/16/16 [History] Magic Mouthwash [Magic Mouthwash BLM] 7.5 ml PO TID PRN 05/16/16 [History] Metoprolol XL (24 HR) Succ [Toprol Xl] 12.5 mg PO DAILY 05/16/16 [History] Multivitamin [Multi-Day Vitamins] 1 tab PO DAILY 05/16/16 [History] Azelastine 0.1% Nasal [place] [Astelin] 2 spray NS BID 08/28/16 [History] Ibrutinib [Imbruvica] 420 mg PO DAILY 08/28/16 [History] Petrolatum,White [Aloe [place]] 1 appl TP TID PRN 08/28/16 [History] Ubidecarenone [Coenzyme Q10] 100 mg PO DAILY 08/28/16 [History] Guaifenesin [Guaifenesin ER] 1,200 mg PO BID #60 tab.er.12h 11/09/16 [Rx] Tiotropium [Spiriva] 2 puff IH DAILY 11/16/16 [History] LORazepam [Ativan] 0.5 mg PO TID PRN #30 tablet 11/23/16 [Rx] PredniSONE 10 mg PO DAILY 20 Days 11/23/16 [Rx] Cholecalciferol (Vitamin D3) [Vitamin D3] 3,000 unit PO HS 12/03/16 [History] Allergies flunisolide Adverse Reaction (Verified 11/16/16 19:48) See Comments va list naproxen [From Naprosyn] Adverse Reaction (Verified 11/16/16 19:48) See Comments va list All Systems PM: A 10-system review of systems was performed and is negative for pertinent findings except as documented above in the HPI. - Constitutional Constitutional: chills, night sweats, no fever(s) - EENT Eyes: no change in vision, no discharge, no pain, no photophobia Ears: no ear discharge, no ear pain, no tinnitus Nose, mouth and throat: no dysphagia, no nasal discharge, no neck pain, no sore throat - Cardiovascular Cardiovascular ROS IM: no chest pain, no diaphoresis, no dyspnea, no lightheadedness, no palpitations, no syncope - Respiratory Respiratory: cough (chronic), dyspnea (chronic), dyspnea on exertion, excessive phlegm production, no wheezing - Gastrointestinal Gastrointestinal: no abdominal pain, no diarrhea, no hematemesis, no hematochezia, no melena, no nausea, no vomiting - Musculoskeletal Musculoskeletal ROS IM: numbness (left arm), no tingling - Integumentary Integumentary IM: no rash, no unusual bruising - Neurological Neurological ROS: numbness (left arm), no confusion, no convulsions, no focal weakness, no tingling, no tremor(s) - Hematologic/Lymphatic Hematologic/Lymphatic: no easy bruising - Constitutional Vitals: Temp Pulse Resp BP Pulse Ox 98.9 F 102 22 104/62 97 12/14/16 19:26 12/14/16 19:26 12/14/16 19:26 12/14/16 19:26 12/14/16 19:26 General appearance: Present: A&O X 3, pleasant, no acute distress - Head Head exam: Present: atraumatic, normocephalic - Eye Eye exam: Present: PERRL, conjuntiva pink, sclera anicteric Pupils: Present: PERRL - Neck Neck exam general surgery: Present: supple, trachea midline. Absent: lymphadenopathy - Respiratory Respiratory exam: Present: rhonchi. Absent: accessory muscle use, rales, wheezes - Cardiovascular Cardiovascular exam: Present: RRR, +S1, +S2. Absent: diastolic murmur, gallop, rubs, systolic murmur - GI/Abdominal GI/Abdominal exam: Present: hernia (left lateral abdominal), normal bowel sounds , soft, no peritoneal signs. Absent: distended, tenderness - Extremities Exam Extremities exam: Present: warm, radial pulses palpable and symetrical. Absent : calf tenderness, cyanotic, pedal edema - Neurological Exam Neurological exam: Present: CN II-XII intact, oriented X3, no focal deficits. Absent: facial droop, speech deficit - Skin Skin exam: Present: dry, intact Internal Med - H&P Results - Labs CBC & Chem 7: 12/14/16 09:29 12/14/16 09:29 Labs: Cardiac Enzymes All Lab Results (24 Hours) 12/14/16 12/14/16 12/14/16 Range/Units 09:29 09:29 09:29 WBC (4.3-11.1) K/mcL RBC 3.46 L (4.19-5.50) M/mcL Hgb 10.6 L (12.9-16.9) g/dL Hct 33.5 L (37.5-50.1) % MCV 96.8 (83.0-100.0) fL MCH 30.6 (28.0-33.3) pg MCHC 31.6 (31.6-35.5) g/dL RDW 18.7 H (11.5-14.5) % Plt Count 64 L (140-400) K/mcL MPV 9.7 (9.4-12.4) fL Seg Neutrophils % 14.0 % Lymphocytes % 84.0 % Eosinophils % 2.0 % Neutrophils # 0.4 L (1.6-8.9) K/mcL Lymphocytes # 2.5 (0.6-4.6) K/mcL Eosinophils # 0.1 (0.0-0.6) K/mcL Reactive Lymphocytes Present A (Not Present) Platelet Estimate Decreased L (Normal) Immature Plt Fraction 4.1 (1.1-6.1) % Macrocytosis Present A (Not Present) Smear Path Review See Below PT 10.5 (9.4-12.1) Seconds INR 1.0 APTT 32.6 (26.0-36.0) Seconds Sodium 139 (136-145) mEq/L Potassium 4.0 (3.5-4.5) mEq/L Chloride 100 (98-109) mEq/L Carbon Dioxide 31 H (19-29) mEq/L BUN 13 (8-26) mg/dL Creatinine 0.83 (0.72-1.25) mg/dL Est GFR ( Amer) > 60 (> 60) Est GFR (Non-Af Amer) > 60 (> 60) BUN/Creatinine Ratio 16 (6-26) Glucose 92 (70-99) mg/dL Calculated Osmolality 288 (280-300) Lactic Acid (0.5-2.2) mmol/L Calcium 10.1 (8.6-10.8) mg/dL Troponin I (0-0.03) ng/mL B-Natriuretic Peptide (0-100) pg/mL 12/14/16 12/14/16 12/14/16 Range/Units 09:29 09:29 16:00 WBC (4.3-11.1) K/mcL RBC (4.19-5.50) M/mcL Hgb (12.9-16.9) g/dL Hct (37.5-50.1) % MCV (83.0-100.0) fL MCH (28.0-33.3) pg MCHC (31.6-35.5) g/dL RDW (11.5-14.5) % Plt Count (140-400) K/mcL MPV (9.4-12.4) fL Seg Neutrophils % % Lymphocytes % % Eosinophils % % Neutrophils # (1.6-8.9) K/mcL Lymphocytes # (0.6-4.6) K/mcL Eosinophils # (0.0-0.6) K/mcL Reactive Lymphocytes (Not Present) Platelet Estimate (Normal) Immature Plt Fraction (1.1-6.1) % Macrocytosis (Not Present) Smear Path Review PT (9.4-12.1) Seconds INR APTT (26.0-36.0) Seconds Sodium (136-145) mEq/L Potassium (3.5-4.5) mEq/L Chloride (98-109) mEq/L Carbon Dioxide (19-29) mEq/L BUN (8-26) mg/dL Creatinine (0.72-1.25) mg/dL Est GFR ( Amer) (> 60) Est GFR (Non-Af Amer) (> 60) BUN/Creatinine Ratio (6-26) Glucose (70-99) mg/dL Calculated Osmolality (280-300) Lactic Acid (0.5-2.2) mmol/L Calcium (8.6-10.8) mg/dL Troponin I 0.01 0.02 (0-0.03) ng/mL B-Natriuretic Peptide 112 H (0-100) pg/mL 12/14/16 Range/Units 19:50 WBC (4.3-11.1) K/mcL RBC (4.19-5.50) M/mcL Hgb (12.9-16.9) g/dL Hct (37.5-50.1) % MCV (83.0-100.0) fL MCH (28.0-33.3) pg MCHC (31.6-35.5) g/dL RDW (11.5-14.5) % Plt Count (140-400) K/mcL MPV (9.4-12.4) fL Seg Neutrophils % % Lymphocytes % % Eosinophils % % Neutrophils # (1.6-8.9) K/mcL Lymphocytes # (0.6-4.6) K/mcL Eosinophils # (0.0-0.6) K/mcL Reactive Lymphocytes (Not Present) Platelet Estimate (Normal) Immature Plt Fraction (1.1-6.1) % Macrocytosis (Not Present) Smear Path Review PT (9.4-12.1) Seconds INR APTT (26.0-36.0) Seconds Sodium (136-145) mEq/L Potassium (3.5-4.5) mEq/L Chloride (98-109) mEq/L Carbon Dioxide (19-29) mEq/L BUN (8-26) mg/dL Creatinine (0.72-1.25) mg/dL Est GFR ( Amer) (> 60) Est GFR (Non-Af Amer) (> 60) BUN/Creatinine Ratio (6-26) Glucose (70-99) mg/dL Calculated Osmolality (280-300) Lactic Acid 1.4 (0.5-2.2) mmol/L Calcium (8.6-10.8) mg/dL Troponin I (0-0.03) ng/mL B-Natriuretic Peptide (0-100) pg/mL - Diagnostic Studies Chest x-ray Additional comments: Chest X-Ray 12/14/16 09:12 IMPRESSION: 1. Left-sided chest port unchanged in position. 2. Relatively unchanged prominence of the interstitial markings bilaterally possibly due to COPD. 3. Mild bibasilar opacification, which may represent atelectasis versus airspace disease. D/ / Trevon Duvall MD / Trevon Duvall MD Interpreting Provider: Trevon Duvall MD CT scan - chest Additional comments: Chest CTA 12/14/16 09:51 IMPRESSION: 1. No acute pulmonary embolism. 2. Extensive mediastinal and bilateral hilar lymphadenopathy with minimal increased since the recent CT scan 11/16/2016. Upper abdominal lymphadenopathy is partially assessed. 3. Increased bilateral interstitial markings could be due to interstitial edema, but could also be lymphangitic spread of tumor. 4. Trace pleural effusions. Large abdominal ascites. D/ / Khris Arrieta MD / Khris Arrieta MD Interpreting Provider: Khris Arrieta MD <Zander Del Valle - Last Filed: 12/15/16 05:02> Internal Medicine - H&P: HPI History of present illness: Mr. Saravia is a 71 year old male All Systems PM: A 10-system review of systems was performed and is negative for pertinent findings except as documented above in the HPI. - Constitutional Vitals: Temp Pulse Resp BP Pulse Ox 98.2 F 97 16 108/65 97 12/15/16 04:18 12/15/16 04:18 12/15/16 04:18 12/15/16 04:18 12/15/16 04:18 Internal Med - H&P Results - Labs CBC & Chem 7: 12/14/16 09:29 12/14/16 09:29 Labs: Cardiac Enzymes 12/14/16 12/14/16 Range/Units 16:00 21:34 Troponin I 0.02 0.02 (0-0.03) ng/mL - Attending Attestation I examined this patient and my medical decision-making was reviewed with the EMERGENCY RESPONSE COORDINATOR/PA/Advanced Practice Nurse/Resident Physician. I agree with the documented findings, disposition and treatment plan as described except to the extent set forth below. No evidence of pneumonia, continue current management. Continue with antibiotics. Oxygen therapy.
[2016-12-14] MEDS: Famotidine 20 MG TABLET PO SCH (22:01)
[2016-12-14] MEDS: Azelastine 0.1% Nasal Spray 30 ML BOTTLE NS SCH (22:13)
[2016-12-15] MEDS ORDERED: *HR* Enoxaparin 40 MG/0.4 ML SYRINGE SQ SCH (06:00)
[2016-12-15] MEDS: *HR* Heparin 5,000 UNIT/ML VIAL SQ SCH ×2 (06:12→17:04)
[2016-12-15 07:52] LABS: Basophils % 0.6 %; Eosinophils # 0.1 K/mcL (0.0-0.6); Eosinophils % 3.6 %; Hematocrit 27.5 % (37.5-50.1); Hemoglobin 8.9 g/dL (12.9-16.9); Immature Granulocytes % 0.6 % (0-4); Immature Platelets 4.9 % (1.1-6.1); Lymphocytes # 2.8 K/mcL (0.6-4.6); Lymphocytes % 78.7 %; Mean Corpuscular HGB Conc 32.4 g/dL (31.6-35.5); Mean Corpuscular Volume 95.8 fL (83.0-100.0); Mean Platelet Volume 10.7 fL (9.4-12.4); Monocytes # 0.1 K/mcL (0.0-1.3); Monocytes % 3.9 %; Neutrophils # 0.5 K/mcL (1.6-8.9); Red Blood Count 2.87 M/mcL (4.19-5.50); Red Cell Distribution Width 18.8 % (11.5-14.5); Segmented Neutrophils % 12.6 %
[2016-12-15 08:01] LABS: Platelet Count 56 K/mcL (140-400)
[2016-12-15 08:06] LABS: BUN/Creatinine Ratio 14 (6-26); Blood Urea Nitrogen 14 mg/dL (8-26); Calcium 9.5 mg/dL (8.6-10.8); Carbon Dioxide 34 mEq/L (19-29); Chloride 98 mEq/L (98-109); Glucose 80 mg/dL (70-99); Osmolality,Calculated 283 (280-300); Potassium 4.1 mEq/L (3.5-4.5); Sodium 137 mEq/L (136-145); eGFR For African Americans > 60 (> 60); eGFR For Non-African Americans > 60 (> 60)
[2016-12-15] MEDS: predniSONE 10 MG TABLET PO SCH (08:27)
[2016-12-15] MEDS: Famotidine 20 MG TABLET PO SCH ×2 (08:27→19:57)
[2016-12-15] MEDS: Folic Acid 1 MG TABLET PO SCH (08:27)
[2016-12-15] MEDS: Aspirin Enteric Coated 81 MG Tablet PO SCH (08:27)
[2016-12-15] MEDS: Metoprolol XL (24 HR) Succ 25 MG TAB.ER.24H PO SCH (08:27)
[2016-12-15] MEDS: Multivit/Ca/Min/Fe/FA 1 TAB TABLET PO SCH (08:28)
[2016-12-15] MEDS: Azelastine 0.1% Nasal Spray 30 ML BOTTLE NS SCH ×2 (08:30→19:57)
--- NOTE | 2016-12-15 08:54 | Internal Med Progress Note ---
<Radha Fang - Last Filed: 12/15/16 14:20> Date of Encounter: 12/15/16 Time of Encounter: 08:51 - Assessment and plan (1) Congestive heart failure Current Visit: Yes Status: Acute Assessment and plan: Patient with increased interstitial fluid seen on CTA, BNP elevated to 112 from 26. Patient given 20mg IVP lasix to diurese fluid. ECHO 12/15/15: LVEF 55%, mildly dilated LV, normal LV systolic function. Mild LV diastolic dysfunction. Normal RV structure and function. Moderately dilated LA. No significant valvular dysfunction. Patient has diffuse rhonchi/rales in the setting of chronic lung disease. State lower extremity edema yesterday, no edema noted on exam today. ECHO: LVEF 50-55%. Regional Wall motion abnormalities: mild inferior, basal inferior and mid inferior lateral rose were hypokinetic Mild LV diastolic dysfunction, normal RV, Mild MR Plan: -Will get Nuc Med Stress Test Qualifiers: Congestive heart failure type: unspecified congestive heart failure type Congestive heart failure chronicity: unspecified congestive heart failure chronicity Qualified Code(s): I50.9 - Heart failure, unspecified (2) Chest pain Current Visit: Yes Status: Acute Assessment and plan: Patient denies chest pain currently. Troponins 0.01, 0.02, 0.02. CTA negative for PE, EKG on admission sinus tach. Patient has had a regular rate overnight. Most likely pain related to CHF exacerbation in the setting of elevated BNP, increased interstitial fluid on CTA vs ACS. Plan: -Nuc Med stress test -Continue cardiac monitoring. Qualifiers: Chest pain type: other chest pain Qualified Code(s): R07.89 - Other chest pain; R07.8 - Other chest pain (3) Chronic respiratory failure Current Visit: Yes Status: Acute Assessment and plan: Patient states that [facility] who has Agent [place] exposure. He follows with Dr. Mtz as an outpatient and has chronic bronchiectasis. Bronchoscopy in April 2016 showed bronchiectasis with extensive mucopurulent secretions throughout the tracheobronchial tree. Bronchoalveolar lavage showed extensive reactive changes, no evidence of malignancy or infection. Second bronchoscopy from 08/2016 showed extensive reactive changes, BAL and transbronchial biopsy negative for malignancy and showed acute and chronic inflammation. Patient has an appointment with pulmonology at [facility] in early January. Plan: -Continue home doses of spiriva, guaifenisin, -Duoneb QID -Albuterol nebulizer Q2 PRN -Titrate O2 to maintain saturation > 90%. Qualifiers: Respiratory failure complication: hypoxia Qualified Code(s): J96.11 - Chronic respiratory failure with hypoxia (4) CLL (chronic lymphocytic leukemia) Current Visit: No Status: Chronic Assessment and plan: Follows with Medical Oncology as an outpatient. Per oncology note: Diagnosed in 1995. Observation from 1204-3035. FCR 8 cycles completed in April 2003. Bone marrow biopsy November 2004 of the cytogenetic remission. Flow cytometry November 2008 showed monoclonal kappa lymphocytosis. Bendamustine plus Rituxan 4 cycles 02/07/2010-06/08/2010. Bendamustine plus Rituxan:10/23/2011-01/15/2012. Chlorambucil 0.8 mg/m day 1 and day 15 every 28 days from 10/11/2013-12/30/2013. Stopped due to intolerance with thrombocytopenia. Ibrutinib 420 mg by mouth daily started 02/11/2014. Stopped November 2014 due to disease progression. Completed 8 cycles of Obinutuzumab plus chlorambucil regimen 01/22-07/12/16. Tolerated treatment well with no unexpected side effects. Chlorambucil was stopped after 1 dose due to profound cytopenia with prolonged myelosuppression. Obinutuzumab has been on hold after completing 8 cycles on with stable disease status. Gets IVIG monthly for hypoglobulinemia. Most recent CT neck, chest, abdomen, pelvis 11/05/16 showed Stable scattered, small neck nodes. Unchanged versus previous. Diffuse mediastinal and hilar lymphadenopathy. Slightly decreased versus previous. Increase, scattered nodularity seen throughout bilateral lungs felt to indicate post inflammatory/ infectious change. Increased abdominal/pelvic ascites. Stable, diffuse adenopathy throughout abdomen and pelvis. Stable splenomegaly. (5) Obstructive sleep apnea of adult Current Visit: No Status: Chronic Assessment and plan: CPAP at night (6) Ascites Current Visit: Yes Status: Acute Assessment and plan: CT chest showed ascites in abdomen, although has been present on prior CT. Most likely secondary to CLL. Qualifiers: Ascites type: malignant Qualified Code(s): R18.0 - Malignant ascites (7) DVT prophylaxis Current Visit: No Status: Acute Assessment and plan: Hep SQ - Subjective Interval history: Patient seen and examined. States that his palpitations started while he was at rest yesterday, but have resolved. He states that he has chronic SOB secondary to lung disease resulting from Agent [place] exposure. He also notes that he has CLL. He states that he had pneumonia a month ago that he was treated for. He did have lower leg swelling yesterday. He denies chest pain, abdominal pain, fevers. - Constitutional Vitals: Temp Pulse Resp BP Pulse Ox 98.4 F 88 18 100/64 96 12/15/16 07:04 12/15/16 07:04 12/15/16 07:04 12/15/16 07:04 12/15/16 07:04 General appearance: Present: A&O X 3, pleasant, no acute distress, answers questions appropriately - Head Head exam: Present: atraumatic, normocephalic - Eye Eye exam: Present: EOMI, PERRL, conjuntiva pink, sclera anicteric Pupils: Present: PERRL - Neck Neck exam general surgery: Present: lymphadenopathy, supple, trachea midline. Absent: tenderness - Respiratory Respiratory exam: Present: rales, rhonchi. Absent: accessory muscle use, respiratory distress - Cardiovascular Cardiovascular exam: Present: RRR, +S1, +S2. Absent: diastolic murmur, gallop, rubs, systolic murmur - GI/Abdominal GI/Abdominal exam: Present: normal bowel sounds, soft, no peritoneal signs. Absent: distended, tenderness - Extremities Exam Extremities exam: Present: warm, radial pulses palpable and symetrical. Absent : calf tenderness, cyanotic, pedal edema - Neurological Exam Neurological exam: Present: alert, oriented X3, no focal deficits. Absent: motor sensory deficit, facial droop, speech deficit - Psychiatric Psychiatric exam: Present: normal affect, normal mood - Skin Skin exam: Present: dry, intact Internal Medicine: Result - Labs CBC & Chem 7: 12/15/16 06:33 12/15/16 06:33 Labs: Short CBC 12/15/16 Range/Units 06:33 WBC 3.6 L (4.3-11.1) K/mcL Hgb 8.9 L D (12.9-16.9) g/dL Hct 27.5 L (37.5-50.1) % Plt Count 56 L (140-400) K/mcL Neutrophils # 0.5 L (1.6-8.9) K/mcL BMP 12/15/16 06:33 Sodium 137 Potassium 4.1 Chloride 98 Carbon Dioxide 34 H BUN 14 Creatinine 1.01 Glucose 80 Calcium 9.5 Cardiac Enzymes 12/14/16 12/14/16 Range/Units 16:00 21:34 Troponin I 0.02 0.02 (0-0.03) ng/mL - ABG Interpretation ABG results: PT/INR, D-dimer PT 10.5 Seconds (9.4-12.1) 12/14/16 09:29 Consult Discharge Plan - Plan Referrals: NO,PCP [Primary Care Provider] - <Floyd Butler - Last Filed: 12/15/16 16:43> - Assessment and plan (1) Acute and chronic respiratory failure with hypoxia Current Visit: Yes Status: Acute Assessment and plan: Supportive care and oxygen supplementation. (2) Congestive heart failure Current Visit: Yes Status: Acute Qualifiers: Congestive heart failure type: diastolic Congestive heart failure chronicity: acute on chronic Qualified Code(s): I50.33 - Acute on chronic diastolic (congestive) heart failure (3) Bronchiectasis Current Visit: No Status: Chronic Qualifiers: Bronchiectasis type: with acute exacerbation Qualified Code(s): J47.1 - Bronchiectasis with (acute) exacerbation (4) Coronary artery disease Current Visit: No Status: Chronic Qualifiers: Coronary Disease-Associated Artery/Lesion type: [place] artery [place] vs. transplanted heart: [place] heart Associated angina: without angina Qualified Code(s): I25.10 - Atherosclerotic heart disease of [place] coronary artery without angina pectoris (5) Chest pain Current Visit: Yes Status: Acute Qualifiers: Chest pain type: other chest pain Qualified Code(s): R07.89 - Other chest pain; R07.8 - Other chest pain (6) CLL (chronic lymphocytic leukemia) Current Visit: No Status: Chronic - Constitutional Vitals: Temp Pulse Resp BP Pulse Ox 98.3 F 92 18 96/61 100 12/15/16 11:00 12/15/16 11:00 12/15/16 16:25 12/15/16 11:00 12/15/16 16:25 Internal Medicine: Result - Labs CBC & Chem 7: 12/15/16 06:33 12/15/16 06:33 Labs: Short CBC 12/15/16 Range/Units 06:33 WBC 3.6 L (4.3-11.1) K/mcL Hgb 8.9 L D (12.9-16.9) g/dL Hct 27.5 L (37.5-50.1) % Plt Count 56 L (140-400) K/mcL Neutrophils # 0.5 L (1.6-8.9) K/mcL BMP 12/15/16 06:33 Sodium 137 Potassium 4.1 Chloride 98 Carbon Dioxide 34 H BUN 14 Creatinine 1.01 Glucose 80 Calcium 9.5 Cardiac Enzymes 12/14/16 Range/Units 21:34 Troponin I 0.02 (0-0.03) ng/mL - ABG Interpretation ABG results: PT/INR, D-dimer PT 10.5 Seconds (9.4-12.1) 12/14/16 09:29 - Attending Attestation I examined this patient and my medical decision-making was reviewed with the Resident Physician on 12/15/16. I agree with the documented findings, disposition and treatment plan as described except to the extent set forth below. Mr. Saravia is currently is currently admitted for acute exac CHF and chest pain. He is moderate to high risk due to potential for worsening cardiac and respiratory status. Mr Saravia is feeling OK. He has no new symptoms. He is coughing but is chronic. No GI symptoms. Exam Alert. comfortable Heart reg Rhonchi present I/P 1. Acute on chronic resp failure 2. Bronchiectasis 3. Chest pain - hypokinetic area on echo - stress ordered 4. CLL Further diagnoses and plan as above.
[2016-12-15] MEDS: Ipratropium/Albuterol Neb 3 ML IH SCH ×4 (10:09→23:31)
[2016-12-15] MEDS: Tiotropium 18 MCG inhalation IH SCH (10:10)
--- NOTE | 2016-12-15 10:25 | ECHO - Doppler Report ---
Echocardiogram Name: Bradley Saravia Date of Study: 12/15/2016 Date: 1945 Ht: 66.0 in Medical Record#: [id number] Age: 71 Wt: 158.0 lb Gender: Male BSA: 1.81 Order #: [id number] Location: [facility] Room #: 2A14 Reading Physician: Ajith Prater MD, [facility] Awning Maker And Installer: Umm Avendano Ordering Physician: Arlette Beal CNP Primary Physician: [facility] Indications: Congestive heart failure Impressions: LVEF 50-55%. There are regional wall motion abnormalities, see diagram below. Mild left ventricular diastolic dysfunction. Normal right ventricular size and function. Moderate-severely dilated left atrium. Mild mitral regurgitation. No evidence of pulmonary hypertension. Borderline dilated aortic root, measuring 4.0 cm at the sinuses of Valsalva. Left Ventricular Wall Motion: Rest Echo Findings The mid inferior, basal inferior and mid inferior lateral rose were hypokinetic. All other wall segments showed normal motion. Findings: Study Quality * Technically adequate exam. ECG Findings * Normal sinus rhythm. Left Ventricle * LVEF 50-55%. There are regional wall motion abnormalities, see diagram below. * Normal LV chamber size and wall thickness. * Mild left ventricular diastolic dysfunction. Right Ventricle * Normal right ventricular size and function. Left Atrium * Moderate-severely dilated left atrium. Right Atrium * Normal right atrial size. Aorta * Borderline dilated aortic root, measuring 4.0 cm at the sinuses of Valsalva. Pericardium * There is no pericardial effusion present. IVC * The IVC is not well evaluated. Aortic Valve * Aortic valve not well visualized. Appears trileaflet. * No aortic stenosis. * Trace aortic regurgitation. Mitral Valve * Normal mitral valve structure. * No mitral stenosis. * Mild mitral regurgitation. Tricuspid Valve * Normal tricuspid valve structure. * No tricuspid stenosis. * Trace tricuspid regurgitation. * No evidence of pulmonary hypertension. Pulmonic Valve * Pulmonic valve not well visualized. * No pulmonic stenosis. * Trace pulmonic regurgitation. History Hypertension Hypercholesteremia Years 20 Packs 1 History of CAD/PTCA Myocardial Infarction Congestive Heart Failure 12/15/2015 a Previous Echo was performed. Measurements: BP: 100/ 64 2D Normal Values RVIDd: 3.80 cm IVSd: .90 cm 0.6 - 1.0 cm LVIDd: 5.10 cm 3.7 - 5.6 cm LVPWd: 1.10 cm 0.6 - 1.1 cm LVIDs: 3.10 cm 1.5 - 3.6 cm AO: 4.00 cm < 4.0 cm LA volume: 81 Mitral Valve Peak E:.87 m/sec Peak A:1.12 m/sec E/A Ratio:0.8 Peak E' Lat Yusef:6.43 cm/s Peak E' Med Yusef:6.24 cm/s E/E' Lat Ratio:13.5 E/E' Med Ratio:13.9 Tricuspid Valve TV Regurg Peak Grad: 27.00mmHg TV Regurg Peak Yusef: 2.62m/sec Updated by Ajith Prater MD, [facility] on 12/15/2016 10:18:37 AM electronically signed on 12/15/2016 10:19:29 AM with status of Final Wall Motion Kamara: 1=Normal, 2=Hypokinesis, 3=Akinesis, 4=Dyskinesis, 5=Aneurysmal, 6=Hyperkinetic, X=Not Visualized (Blank)=Missing
[2016-12-15] MEDS: CALCIUM CARBONATE PO SCH (10:41)
[2016-12-15] MEDS: VITAMIN D3 PO SCH (10:41)
[2016-12-15] MEDS: Levofloxacin 750 MG/150 ML 750 MG/150 ML BAG IVPB SCH (11:07)
[2016-12-16] MEDS: Ipratropium/Albuterol Neb 3 ML IH SCH ×5 (04:36→23:24)
[2016-12-16] MEDS: *HR* Heparin 5,000 UNIT/ML VIAL SQ SCH ×2 (05:02→17:22)
[2016-12-16] MEDS ORDERED: Regadenoson 0.4 MG/5 ML SYRINGE IVP ONE (06:42)
--- NOTE | 2016-12-16 07:38 | Electrocardiograph Report ---
[place] [id number] Test Date: 2016-12-14 Pat Name: Bradley Saravia Department: 104 Room: 2A Gender: M Vending Manager: GEORGETTE : 1945 Requested By: Regino Tellez Order Number: [id number] Reading MD: Palomo Capps MD Measurements Intervals [place] Rate: 98 P: 37 DC: 147 QRS: -19 QRSD: 107 T: 32 QT: 331 QTc: 386 Interpretive Statements SINUS RHYTHM Electronically Signed On 12-16-2016 7:36:08 EDT by Palomo Capps MD
[2016-12-16 07:50] LABS: Hemoglobin 8.6 g/dL (12.9-16.9); Mean Corpuscular Volume 96.4 fL (83.0-100.0)
[2016-12-16 07:52] LABS: Hematocrit 26.7 % (37.5-50.1); Immature Platelets 3.1 % (1.1-6.1); Lymphocytes # 1.4 K/mcL (0.6-4.6); Mean Corpuscular HGB Conc 32.2 g/dL (31.6-35.5); Mean Platelet Volume 10.6 fL (9.4-12.4); Red Blood Count 2.77 M/mcL (4.19-5.50); Red Cell Distribution Width 18.3 % (11.5-14.5)
[2016-12-16 07:58] LABS: Platelet Count 49 K/mcL (140-400)
[2016-12-16 08:00] LABS: BUN/Creatinine Ratio 16 (6-26); Blood Urea Nitrogen 16 mg/dL (8-26); Calcium 9.6 mg/dL (8.6-10.8); Carbon Dioxide 33 mEq/L (19-29); Chloride 101 mEq/L (98-109); Glucose 93 mg/dL (70-99); Osmolality,Calculated 293 (280-300); Potassium 4.1 mEq/L (3.5-4.5); Sodium 141 mEq/L (136-145); eGFR For African Americans > 60 (> 60); eGFR For Non-African Americans > 60 (> 60)
[2016-12-16 08:20] LABS: Anisocytosis 1+ (Not Present); Macrocytosis Present (Not Present); Monocytes # 0.2 K/mcL (0.0-1.3); Neutrophils # 0.5 K/mcL (1.6-8.9); Platelet Estimate Decreased (Normal)
--- NOTE | 2016-12-16 09:10 | Internal Med Progress Note ---
<Radha Fang - Last Filed: 12/16/16 14:09> Date of Encounter: 12/16/16 Time of Encounter: 12:31 - Assessment and plan (1) Abnormal stress test Current Visit: Yes Status: Acute Assessment and plan: Patient denies chest pain currently. Troponins 0.01, 0.02, 0.02. CTA negative for PE, EKG on admission sinus tach. Patient has had a regular rate since admission. Echo 12/15: EF 50-55%, regional wall motion abnormalities (mid inferior, basal inferior and mid inferior lateral rose hypokinetic), mild diastolic dysfunction , moderate-severely dilated left atrium, mild MR, borderline dilated aortic root , 4.0 cm. Patient had abnormal stress test today. Gated EF 63%. Small-moderate sized, moderate intensity, predominantly reversible perfusion defect consistent with moderate reversible ischemia in basal mid inferolateral wall. Cardiology has evaluated the patient. Given his complicated medical status with CLL, low platelet count, hgb with preserved EF they recommend medical management at this time. Plan: -Continue Aspiring and metoprolol -Start Imdur 30mg daily (2) Chest pain Current Visit: Yes Status: Acute Assessment and plan: See above Qualifiers: Chest pain type: other chest pain Qualified Code(s): R07.89 - Other chest pain; R07.8 - Other chest pain (3) Congestive heart failure Current Visit: Yes Status: Acute Assessment and plan: Patient with increased interstitial fluid seen on CTA, BNP elevated to 112 from 26. Patient given 20mg IVP lasix to diurese fluid. ECHO 12/15/15: LVEF 55%, mildly dilated LV, normal LV systolic function. Mild LV diastolic dysfunction. Normal RV structure and function. Moderately dilated LA. No significant valvular dysfunction. Patient has diffuse rhonchi/rales in the setting of chronic lung disease. No lower extremity edema. ECHO: LVEF 50-55%. Regional Wall motion abnormalities: mild inferior, basal inferior and mid inferior lateral rose were hypokinetic Mild LV diastolic dysfunction, normal RV, Mild MR Nuc Med stress test positive, cardiology is evaluating patient. Plan: -Continue medical therapy Qualifiers: Congestive heart failure type: diastolic Congestive heart failure chronicity: acute on chronic Qualified Code(s): I50.33 - Acute on chronic diastolic (congestive) heart failure (4) Chronic respiratory failure Current Visit: Yes Status: Acute Assessment and plan: Patient states that [facility] is a [facility] who has Agent [place] exposure. He follows with Dr. Mtz as an outpatient and has chronic bronchiectasis. Bronchoscopy in April 2016 showed bronchiectasis with extensive mucopurulent secretions throughout the tracheobronchial tree. Bronchoalveolar lavage showed extensive reactive changes, no evidence of malignancy or infection. Second bronchoscopy from 08/2016 showed extensive reactive changes, BAL and transbronchial biopsy negative for malignancy and showed acute and chronic inflammation. Patient has an appointment with pulmonology at [facility] in early January. Plan: -Continue home doses of spiriva, guaifenisin, -Duoneb QID -Albuterol nebulizer Q2 PRN -Titrate O2 to maintain saturation > 90%. Qualifiers: Respiratory failure complication: hypoxia Qualified Code(s): J96.11 - Chronic respiratory failure with hypoxia (5) CLL (chronic lymphocytic leukemia) Current Visit: No Status: Chronic Assessment and plan: Follows with Medical Oncology as an outpatient. Per oncology note: Diagnosed in 1995. Observation from [id number]. FCR 8 cycles completed in April 2003. Bone marrow biopsy November 2004 of the cytogenetic remission. Flow cytometry November 2008 showed monoclonal kappa lymphocytosis. Bendamustine plus Rituxan 4 cycles 02/07/2010-06/08/2010. Bendamustine plus Rituxan:10/23/2011-01/15/2012. Chlorambucil 0.8 mg/m day 1 and day 15 every 28 days from 10/11/2013-12/30/2013. Stopped due to intolerance with thrombocytopenia. Ibrutinib 420 mg by mouth daily started 02/11/2014. Stopped November 2014 due to disease progression. Completed 8 cycles of Obinutuzumab plus chlorambucil regimen 01/22-07/12/16. Tolerated treatment well with no unexpected side effects. Chlorambucil was stopped after 1 dose due to profound cytopenia with prolonged myelosuppression. Obinutuzumab has been on hold after completing 8 cycles on with stable disease status. Gets IVIG monthly for hypoglobulinemia. Most recent CT neck, chest, abdomen, pelvis 11/05/16 showed Stable scattered, small neck nodes. Unchanged versus previous. Diffuse mediastinal and hilar lymphadenopathy. Slightly decreased versus previous. Increase, scattered nodularity seen throughout bilateral lungs felt to indicate post inflammatory/ infectious change. Increased abdominal/pelvic ascites. Stable, diffuse adenopathy throughout abdomen and pelvis. Stable splenomegaly. (6) Obstructive sleep apnea of adult Current Visit: No Status: Chronic Assessment and plan: CPAP at night (7) Ascites Current Visit: Yes Status: Acute Assessment and plan: CT chest showed ascites in abdomen, although has been present on prior CT. Most likely secondary to CLL. Qualifiers: Ascites type: malignant Qualified Code(s): R18.0 - Malignant ascites (8) DVT prophylaxis Current Visit: No Status: Acute Assessment and plan: Hep SQ - Subjective Interval history: Patient seen and examined. He has mild SOB with a productive cough. He denies chest pain, abdominal pain, fevers. - Constitutional Vitals: Temp Pulse Resp BP Pulse Ox 98.4 F 82 18 91/52 96 12/16/16 07:00 12/16/16 07:00 12/16/16 07:00 12/16/16 07:00 12/16/16 07:00 General appearance: Present: A&O X 3, pleasant, no acute distress, answers questions appropriately - Head Head exam: Present: atraumatic, normocephalic - Eye Eye exam: Present: EOMI, PERRL, conjuntiva pink, sclera anicteric Pupils: Present: PERRL - Respiratory Respiratory exam: Present: rales, rhonchi. Absent: accessory muscle use, respiratory distress - Cardiovascular Cardiovascular exam: Present: RRR, +S1, +S2. Absent: diastolic murmur, gallop, rubs, systolic murmur - GI/Abdominal GI/Abdominal exam: Present: normal bowel sounds, soft, no peritoneal signs. Absent: distended, tenderness - Extremities Exam Extremities exam: Present: normal capillary refill, warm, radial pulses palpable and symetrical. Absent: calf tenderness, cyanotic, pedal edema - Neurological Exam Neurological exam: Present: oriented X3, no focal deficits. Absent: facial droop, speech deficit - Psychiatric Psychiatric exam: Present: normal affect, normal mood - Skin Skin exam: Present: dry, intact Internal Medicine: Result - Labs CBC & Chem 7: 12/16/16 07:14 12/16/16 07:14 Labs: Short CBC 12/16/16 Range/Units 07:14 WBC 2.2 L (4.3-11.1) K/mcL Hgb 8.6 L (12.9-16.9) g/dL Hct 26.7 L (37.5-50.1) % Plt Count 49 L (140-400) K/mcL Neutrophils # 0.5 L (1.6-8.9) K/mcL BMP 12/16/16 07:14 Sodium 141 Potassium 4.1 Chloride 101 Carbon Dioxide 33 H BUN 16 Creatinine 0.98 Glucose 93 Calcium 9.6 - ABG Interpretation ABG results: PT/INR, D-dimer PT 10.5 Seconds (9.4-12.1) 12/14/16 09:29 Consult Discharge Plan - Plan Referrals: NO,PCP [Primary Care Provider] - <Floyd Butler - Last Filed: 12/16/16 15:22> - Assessment and plan (1) Acute and chronic respiratory failure with hypoxia Current Visit: Yes Status: Acute (2) Congestive heart failure Current Visit: Yes Status: Acute Qualifiers: Congestive heart failure type: diastolic Congestive heart failure chronicity: acute on chronic Qualified Code(s): I50.33 - Acute on chronic diastolic (congestive) heart failure (3) Bronchiectasis Current Visit: No Status: Chronic Qualifiers: Bronchiectasis type: with acute exacerbation Qualified Code(s): J47.1 - Bronchiectasis with (acute) exacerbation (4) Coronary artery disease Current Visit: No Status: Chronic Qualifiers: Coronary Disease-Associated Artery/Lesion type: [place] artery [place] vs. transplanted heart: [place] heart Associated angina: with stable angina Qualified Code(s): I25.118 - Atherosclerotic heart disease of [place] coronary artery with other forms of angina pectoris (5) Chest pain Current Visit: Yes Status: Acute Qualifiers: Chest pain type: other chest pain Qualified Code(s): R07.89 - Other chest pain; R07.8 - Other chest pain (6) CLL (chronic lymphocytic leukemia) Current Visit: No Status: Chronic - Constitutional Vitals: Temp Pulse Resp BP Pulse Ox 98.4 F 82 18 91/52 96 12/16/16 07:00 12/16/16 07:00 12/16/16 07:00 12/16/16 07:00 12/16/16 07:00 Internal Medicine: Result - Labs CBC & Chem 7: 12/16/16 07:14 12/16/16 07:14 Labs: Short CBC 12/16/16 Range/Units 07:14 WBC 2.2 L (4.3-11.1) K/mcL Hgb 8.6 L (12.9-16.9) g/dL Hct 26.7 L (37.5-50.1) % Plt Count 49 L (140-400) K/mcL Neutrophils # 0.5 L (1.6-8.9) K/mcL BMP 12/16/16 07:14 Sodium 141 Potassium 4.1 Chloride 101 Carbon Dioxide 33 H BUN 16 Creatinine 0.98 Glucose 93 Calcium 9.6 - ABG Interpretation ABG results: PT/INR, D-dimer PT 10.5 Seconds (9.4-12.1) 12/14/16 09:29 - Attending Attestation I examined this patient and my medical decision-making was reviewed with the Resident Physician on 12/16/16. I agree with the documented findings, disposition and treatment plan as described except to the extent set forth below. Mr. Saravia is currently admitted for acute exac CHF and chest pain. He has abnl stress test today. He is moderate to high risk due to potential for worsening respiratory and cardiac issues. Mr. Saravia is back from stress test. It was abnormal. Medical management to be pursued. Overall he feels about the same. Still with some dyspnea. No fever or chills. No worsening of cough. Exam Alert. Comfortable Heart reg Rhonchi bilaterally. Rales in bases I/P 1. Resp failure 2. CHF 3. CAD with abnl stress test - appreciate cardiology input. 4. CLL Further diagnoses and plan as above. Possible discharge tomorrow.
[2016-12-16] MEDS: Tiotropium 18 MCG inhalation IH SCH (10:32)
[2016-12-16] MEDS: Azelastine 0.1% Nasal Spray 30 ML BOTTLE NS SCH ×2 (12:04→21:53)
[2016-12-16] MEDS: CALCIUM CARBONATE PO SCH (12:04)
[2016-12-16] MEDS: VITAMIN D3 PO SCH (12:04)
[2016-12-16] MEDS: Famotidine 20 MG TABLET PO SCH ×2 (12:04→21:53)
--- NOTE | 2016-12-16 12:20 | Nuclear Medicine Stress Report ---
Regadenoson Nuclear Stress Name: Bradley Saravia Date of Study: 12/16/2016 Date: 1945 Ht: 66.0 in Medical Record#: [id number] Age: 71 Wt: 158.0 lb Gender: Male Order #: [id number] Location: [facility] Room: [facility] Supervising Provider: Edgardo Prabhakar CNP Reading Physician: Ajith Prater MD, [facility] Ordering Physician: Floyd Butler DO Primary Care Physician: [facility] Stress Technologist: Shaila Henao RRT,[facility] Aircraft Design Engineer: Giovanny Charles Indications: Shortness of breath Impression: No significant ECG changes with regadenoson. Gated LVEF = 63%. There is a small-medium sized, moderate intensity, predominantly reversible perfusion defect in the basal-mid inferolateral wall. Findings are consistent with moderate reversible ischemia in the basal-mid inferolateral wall. Abnormal results were discussed with the ordering physician. History: Hypertension Hypercholesteremia Prior PCI Stress Test Summary: Stress Test Type: Treadmill Regadenoson 0.4mg/5ml given IV Baseline Information: Initial Heart Rate: 87 Blood Pressure: 102/54 Stress Information: Test Terminated Due to (primary): As per protocol Maximum Blood Pressure: 108/50 Maximum Heart Rate: 100 Percent Maximum Heart Rate Achieved: 67 Double Product: [id number] Symptoms: Shortness of breath Nuclear Summary: SPECT myocardial perfusion imaging using [id number] Sestamibi given intravenously was performed at rest and following cardiac stress testing. The resting images were obtained following initial dose of 10.0 mCi. Following stress an additional dose of 30.8 mCi was given at peak exercise or 30 seconds post regadenoson infusion. Findings: Stress Note * Resting ECG demonstrated sinus rhythm, moderate IVCD. * No baseline arrhythmias were noted. * Patient had no chest pain during stress. * Occasional PACs noted during stress. * No significant ECG changes with regadenoson. Hemodynamic responses * Normal hemodynamic responses to pharmacologic stress. Study Quality * Study quality is good. Gated EF % * Gated LVEF = 63%. Left Ventricle * The left ventricle is not dilated. * There is a small-medium sized, moderate intensity, predominantly reversible perfusion defect in the basal-mid inferolateral wall. * Findings are consistent with moderate reversible ischemia in the basal-mid inferolateral wall. * All other segmental perfusion normal in rest and stress. TID * No evidence of transient ischemic dilatation. Updated by Ajith Prater MD, [facility] on 12/16/2016 12:14:37 PM electronically signed on 12/16/2016 12:15:11 PM with status of Final
[2016-12-16] MEDS: Multivit/Ca/Min/Fe/FA 1 TAB TABLET PO SCH (12:23)
[2016-12-16] MEDS: Metoprolol XL (24 HR) Succ 25 MG TAB.ER.24H PO SCH (12:23)
[2016-12-16] MEDS: predniSONE 10 MG TABLET PO SCH (12:23)
[2016-12-16] MEDS: Aspirin Enteric Coated 81 MG Tablet PO SCH (12:23)
[2016-12-16] MEDS: Levofloxacin 750 MG/150 ML 750 MG/150 ML BAG IVPB SCH (12:24)
[2016-12-16] MEDS: Folic Acid 1 MG TABLET PO SCH (12:24)
--- NOTE | 2016-12-16 12:28 | Cardiology Consult Note ---
Date of Encounter: 12/16/16 Time of Encounter: 12:24 Assessment and Plan (1) Abnormal stress test Current Visit: Yes Status: Acute Stress test resulted--Gated EF 63%. Small-moderate sized, moderate intensity, predominantly reversible perfusion defect consistent with moderate reversible ischemia in basal mid inferolateral wall. Echo--EF 50-55%, regional wall motion abnormalities (mid inferior, basal inferior and mid inferior lateral rose hypokinetic), mild diastolic dysfunction , moderate-severely dilated left atrium, mild MR, borderline dilated aortic root , 4.0 cm. Hx of CAD and PCI in remote past. Pt reports bilateral shoulder pain prior to admission, none since. Complicated by his CLL with pancytopenia--platelet count is only 49. Chronic anemia, HGB 8.6. Pt is DNR-CCA, although reports he is willing to revoke code status in order to have LHC. Given his platelet count, anemia, and preserved EF, would recommend medical management as initial treatment. He is on ASA, Statin, BB. Will add Imdur. Will discuss with Dr. Prater and have him discuss with pt as well. (2) Coronary artery disease Current Visit: No Status: Chronic Hx of PCI in remote past. ASA, Statin, BB. Add Imdur. Qualifiers: Coronary Disease-Associated Artery/Lesion type: [place] artery [place] vs. transplanted heart: [place] heart Associated angina: without angina Qualified Code(s): I25.10 - Atherosclerotic heart disease of [place] coronary artery without angina pectoris Discussion w patient/family: The assessment and plan as outlined above was discussed with the patient and/or family members who expressed understanding and agreement. All questions were answered. Thank you for involving us in the care of your patient. Please call with any questions. I will discuss all the above with Dr. Prater and make changes as necessary. History of Present Illness Consult date: 12/16/16 Requesting physician: Floyd Butler Consult reason: Abnormal stress Chief complaint: shoulder pain History of present illness: Mr. 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 He presented to ED with complaints of low blood pressure and elevated heart rate, as well as increased sputum production, pain in bilateral shoulders as well as left arm numbness, and so decided to call the squad. Follows with Dr. Mtz as an outpatient for his bronchiectasis and he requires 4 L of oxygen at home. He follows with the cancer center for his CLL and hypogamaglobulinemia. Evaluation in the ED included a CXR which showed unchanged prominence of bilateral interstitial markings, mild bibasilar opacification atelectasis vs. airspace disease. CT of the chest was negative for PE. Echo resulted--EF 50-55%, regional wall motion abnormalities (mid inferior, basal inferior and mid inferior lateral rose hypokinetic), mild diastolic dysfunction, moderate-severely dilated left atrium, mild MR, borderline dilated aortic root, 4.0 cm. Stress test resulted--Gated EF 63%. Small-moderate sized, moderate intensity, predominantly reversible perfusion defect consistent with moderate reversible ischemia in basal mid inferolateral wall. Past Med Surg Social Fam HX - Past Medical History Medical history: arthritis, cancer, COPD, coronary artery disease, GERD, hyperlipidemia, hypertension, malignancy, myocardial infarction, osteoporosis Psychiatric history: anxiety - Past Surgical History Surgical History: angioplasty/stent, cancer surgery, cataract, herniorrhaphy, prostatectomy, other - Social History Smoking Status: Former smoker Smokeless Tobacco Status: No Alcohol use: none Drug use: none - Family History Mother Adopted: No Family Member Ethnicity: Non- Living Status: Hx Family Cardiac Disorders: Yes Father Family Member Ethnicity: Non- Living Status: Hx Family Cardiac Disorders: Yes Medications and Allergies Aspirin [Adult Low Dose Aspirin EC] 81 mg PO DAILY 11/28/15 [History] Atorvastatin Calcium [Lipitor] 40 mg PO HS 11/28/15 [History] Ondansetron [Zofran] 1 tab PO Q8HR PRN #90 tablet 01/13/16 [Rx] Prochlorperazine Maleate [Compazine] 1 tab PO Q6HR PRN #60 tablet 01/13/16 [Rx] Lactose-Reduced Food [Ensure High Protein] 237 ml PO TID 02/13/16 [History] Albuterol Sulfate [Albuterol Inhaler] 2 puff IH Q4HR PRN 02/15/16 [History] Ipratropium/Albuterol Neb [Duoneb] 3 ml IH QID 02/15/16 [History] Ranitidine HCl [Zantac] 150 mg PO BID 02/15/16 [History] Folic Acid 1 mg PO DAILY #90 tablet 04/04/16 [Rx] Acetaminophen [Tylenol] 650 mg PO Q6HR PRN 05/16/16 [History] Calcium Carbonate/Vitamin D3 [Calcium 500-Vit D3 400 Tablet] 1 tab PO DAILY [History] Lidocaine Patch [Lidoderm 5% patch] 1 each TP DAILY 05/16/16 [History] Lidocaine/Prilocaine [Emla] 1 appl TP AD PRN 05/16/16 [History] Magic Mouthwash [Magic Mouthwash BLM] 7.5 ml PO TID PRN 05/16/16 [History] Metoprolol XL (24 HR) Succ [Toprol Xl] 12.5 mg PO DAILY 05/16/16 [History] Multivitamin [Multi-Day Vitamins] 1 tab PO DAILY 05/16/16 [History] Azelastine 0.1% Nasal [place] [Astelin] 2 spray NS BID 08/28/16 [History] Ibrutinib [Imbruvica] 420 mg PO DAILY 08/28/16 [History] Petrolatum,White [Aloe [place]] 1 appl TP TID PRN 08/28/16 [History] Ubidecarenone [Coenzyme Q10] 100 mg PO DAILY 08/28/16 [History] Guaifenesin [Guaifenesin ER] 1,200 mg PO BID #60 tab.er.12h 11/09/16 [Rx] Tiotropium [Spiriva] 2 puff IH DAILY 11/16/16 [History] LORazepam [Ativan] 0.5 mg PO TID PRN #30 tablet 11/23/16 [Rx] PredniSONE 10 mg PO DAILY 20 Days 11/23/16 [Rx] Cholecalciferol (Vitamin D3) [Vitamin D3] 3,000 unit PO HS 12/03/16 [History] Allergies flunisolide Adverse Reaction (Verified 11/16/16 19:48) See Comments va list naproxen [From Naprosyn] Adverse Reaction (Verified 11/16/16 19:48) See Comments va list All Systems Review: A 10-system review of systems was performed and is negative for pertinent findings except as documented above in the HPI. - Cardiovascular Cardiovascular: as per HPI, dyspnea at rest, dyspnea on exertion, radiating jaw , neck or arm pain - Respiratory Respiratory: cough, dyspnea Physical Examination Vital Signs Temp Pulse Resp BP Pulse Ox 12/16/16 07:00 98.4 F 82 18 91/52 96 12/16/16 04:36 19 97 12/16/16 03:54 98.2 F 86 19 110/55 97 12/16/16 00:04 98.3 F 92 18 134/53 92 L 12/15/16 23:32 20 97 12/15/16 20:10 98 F 92 20 102/63 97 12/15/16 20:07 98 12/15/16 17:09 97.8 F 86 18 98/59 99 12/15/16 16:25 18 100 Intake and Output 12/15/16 12/16/16 12/16/16 23:59 07:59 15:59 Intake Total 0 / 0 Output Total 1000 / 1000 Balance -1000 / -1000 Intake: Oral 0 / 0 Output: Urine 1000 / 1000 Other: Weight 72.1 kg Patient Weight 12/16/16 23:59 Weight 72.1 kg General: Conversant, No Apparent Distress HEENT: Atraumatic, Normocephaly, Mucus Membranes Moist Neck: No JVD, Normal carotid pulses Cardiac: Reg Rate and Rhythm, Normal S1 and S2, No Murmur Lungs: Other (rhonchi, wheezes) Neuro: Alert and responsive, No focal deficits noted Abdomen: Soft, Non-Tender Skin: No rashes noted on visualized skin Musculoskeletal: No Chest Wall Tenderness Extremities: No Clubbing, No Cyanosis, No Edema, Normal Pulses Results 12/16/16 07:14 12/16/16 07:14 Lab Results 12/16/16 12/16/16 07:14 07:14 WBC 2.2 L Hgb 8.6 L Hct 26.7 L Plt Count 49 L Sodium 141 Potassium 4.1 Chloride 101 Carbon Dioxide 33 H BUN 16 Creatinine 0.98 Glucose 93 Calcium 9.6 Short CBC 12/16/16 Range/Units 07:14 WBC 2.2 L (4.3-11.1) K/mcL Hgb 8.6 L (12.9-16.9) g/dL Hct 26.7 L (37.5-50.1) % Plt Count 49 L (140-400) K/mcL Neutrophils # 0.5 L (1.6-8.9) K/mcL BMP 12/16/16 Range/Units 07:14 Sodium 141 (136-145) mEq/L Potassium 4.1 (3.5-4.5) mEq/L Chloride 101 (98-109) mEq/L Carbon Dioxide 33 H (19-29) mEq/L BUN 16 (8-26) mg/dL Creatinine 0.98 (0.72-1.25) mg/dL Glucose 93 (70-99) mg/dL Calcium 9.6 (8.6-10.8) mg/dL Active Medications Acetaminophen (Tylenol) 650 mg PO Q6HR PRN PRN Reason: Pain Stop: 06/15/17 15:21 Albuterol Sulfate (Proventil Neb) 2.5 mg IH Q2H PRN PRN Reason: Shortness Of Breath/Wheezing Stop: 06/15/17 15:30 Albuterol/Ipratropium (Duoneb) 3 ml IH QIDR ELVIRA PRN Reason: Protocol Stop: 06/16/17 17:01 Last Admin: 12/16/16 10:38 Dose: Not Given Aspirin (Aspirin Ec) 81 mg PO DAILY [facility] Stop: 06/16/17 09:01 Last Admin: 12/15/16 08:27 Dose: 81 mg Atorvastatin Calcium (Lipitor) 40 mg PO HS [facility] Stop: 06/15/17 21:01 Last Admin: 12/15/16 19:57 Dose: 40 mg Azelastine HCl (Astelin) 2 spray NS BID [facility] Stop: 06/15/17 21:01 Last Admin: 12/16/16 12:04 Dose: Not Given Famotidine (Pepcid) 20 mg PO BID [facility] Stop: 06/15/17 21:01 Last Admin: 12/16/16 12:04 Dose: Not Given Folic Acid (Folic Acid) 1 mg PO DAILY [facility] Stop: 06/16/17 09:01 Last Admin: 12/15/16 08:27 Dose: 1 mg Guaifenesin (Mucinex) 1,200 mg PO BID [facility] Stop: 06/15/17 21:01 Last Admin: 12/16/16 12:04 Dose: Not Given Heparin Sodium (Porcine) (Heparin) 5,000 unit SQ Q12HCO [facility] Stop: 06/15/17 18:01 Last Admin: 03/26/17 05:02 Dose: 5,000 unit Levofloxacin/Dextrose (Levaquin 750mg/150 Ml) 750 mg in 150 mls @ 100 mls/hr IVPB Q24H ELVIRA PRN Reason: Protocol Stop: 06/16/17 12:01 Last Admin: 12/15/16 11:07 Dose: 100 mls/hr Lidocaine HCl (Lidoderm 5% Patch) 1 each TP DAILY PRN PRN Reason: Moderate Pain Stop: 06/16/17 09:01 Lorazepam (Ativan) 0.5 mg PO TID PRN PRN Reason: Anxiety Stop: 06/15/17 15:21 Metoprolol Succinate (Toprol Xl) 12.5 mg PO DAILY [facility] Stop: 06/16/17 09:01 Last Admin: 12/15/16 08:27 Dose: 12.5 mg Multivitamins/Calcium (Thera M Plus) 1 tab PO DAILY [facility] Stop: 06/16/17 09:01 Last Admin: 12/15/16 08:28 Dose: 1 tab Naloxone HCl (Narcan) 0.4 mg IVP Q2MIN PRN PRN Reason: Opioid Reversal Stop: 06/15/17 15:16 Ondansetron HCl (Zofran Odt) 8 mg PO Q8HR PRN PRN Reason: Nausea Pharmacy Profile Note (Patient Taking Own Medication) 0 each PO DAILY [facility] Stop: 06/16/17 09:01 Last Admin: 12/16/16 12:04 Dose: Not Given Pharmacy Profile Note (Patient Taking Own Medication) 0 each PO TID PRN PRN Reason: Mouth Sores Prednisone (Prednisone) 10 mg PO DAILY [facility] Stop: 06/16/17 09:01 Last Admin: 12/15/16 08:27 Dose: 10 mg Prochlorperazine Maleate (Compazine) 10 mg PO Q6HR PRN PRN Reason: Nausea Stop: 06/15/17 15:21 Tiotropium [place] (Spiriva) 18 mcg IH DAILY ELVIRA PRN Reason: Protocol Stop: 06/16/17 09:01 Last Admin: 12/16/16 10:32 Dose: Not Given - Imaging and Cardiology Stress Test: report reviewed Echo: report reviewed - EKG Interpretation EKG results cardiology: other (24 hour tele AVG HR 87, SR.) Consult Discharge Plan - Plan Referrals: NO,PCP [Primary Care Provider] -
[2016-12-17] MEDS ORDERED: *HR* Amiodarone 200 MG TABLET PO ONE (01:54)
[2016-12-17] MEDS ORDERED: *HR* Amiodarone 150 MG/3 ML VIAL IVPB ONE (01:57)
[2016-12-17] MEDS ORDERED: 0.9 % Sodium Chloride 1,000 ML ONE (01:57)
[2016-12-17] MEDS ORDERED: 0.9 % Sodium Chloride 500 ML ONE (01:57)
[2016-12-17] MEDS ORDERED: Amiodarone 150 MG in D5% in Water 100 ML IVPB ONE ×2 (01:59→02:15)
[2016-12-17] MEDS ORDERED: methylPREDNISolone 125 MG/2 ML VIAL IVP ONE (02:42)
[2016-12-17] MEDS: Ipratropium/Albuterol Neb 3 ML IH SCH ×5 (04:26→23:11)
[2016-12-17] MEDS: *HR* Heparin 5,000 UNIT/ML VIAL SQ SCH ×2 (05:25→16:48)
[2016-12-17 05:44] LABS: Hemoglobin 8.4 g/dL (12.9-16.9); Red Cell Distribution Width 18.4 % (11.5-14.5)
[2016-12-17 05:46] LABS: Basophils % 0.9 %; Eosinophils # 0.1 K/mcL (0.0-0.6); Eosinophils % 3.6 %; Hematocrit 26.9 % (37.5-50.1); Immature Granulocytes % 0.9 % (0-4); Lymphocytes # 1.3 K/mcL (0.6-4.6); Lymphocytes % 58.2 %; Mean Corpuscular HGB Conc 31.2 g/dL (31.6-35.5); Mean Corpuscular Hemoglobin 30.7 pg (28.0-33.3); Mean Corpuscular Volume 98.2 fL (83.0-100.0); Mean Platelet Volume 9.8 fL (9.4-12.4); Monocytes # 0.4 K/mcL (0.0-1.3); Monocytes % 17.3 %; Neutrophils # 0.4 K/mcL (1.6-8.9); Red Blood Count 2.74 M/mcL (4.19-5.50); Segmented Neutrophils % 19.1 %
[2016-12-17 06:01] LABS: Alanine Aminotransferase 25 Units/L (0-55); Albumin 2.6 g/dL (3.5-5.0); Albumin/Globulin Ratio 1.2 (1.1-2.2); Alkaline Phosphatase 57 Units/L (38-126); Aspartate Amino Transferase 47 Units/L (5-34); BUN/Creatinine Ratio 18 (6-26); Bilirubin,Total 0.4 mg/dL (0.2-1.2); Blood Urea Nitrogen 17 mg/dL (8-26); Calcium 8.9 mg/dL (8.6-10.8); Carbon Dioxide 31 mEq/L (19-29); Chloride 104 mEq/L (98-109); Globulin 2.1 g/dL (2.4-3.5); Glucose 97 mg/dL (70-99); Magnesium 1.4 mg/dL (1.6-2.6); Osmolality,Calculated 289 (280-300); Sodium 139 mEq/L (136-145); Total Protein 4.7 g/dL (6.0-8.3); eGFR For African Americans > 60 (> 60); eGFR For Non-African Americans > 60 (> 60)
[2016-12-17 06:03] LABS: Platelet Count 50 K/mcL (140-400)
[2016-12-17 06:05] LABS: Platelet Estimate Decreased (Normal)
[2016-12-17 06:07] LABS: Poikilocytosis 1+ (Not Present)
--- NOTE | 2016-12-17 08:16 | Internal Med Progress Note ---
<Radha Fang - Last Filed: 12/17/16 09:34> Date of Encounter: 12/17/16 Time of Encounter: 08:16 - Assessment and plan (1) Abnormal stress test Current Visit: Yes Status: Acute Assessment and plan: Patient denies chest pain currently. Troponins 0.01, 0.02, 0.02. CTA negative for PE, EKG on admission sinus tach. Patient has had a regular rate since admission. Echo 12/15: EF 50-55%, regional wall motion abnormalities (mid inferior, basal inferior and mid inferior lateral rose hypokinetic), mild diastolic dysfunction , moderate-severely dilated left atrium, mild MR, borderline dilated aortic root , 4.0 cm. Patient had abnormal stress test today. Gated EF 63%. Small-moderate sized, moderate intensity, predominantly reversible perfusion defect consistent with moderate reversible ischemia in basal mid inferolateral wall. Cardiology has evaluated the patient. Given his complicated medical status with CLL, low platelet count, hgb with preserved EF they recommend medical management at this time. 12/17: Overnight the patient had an episode of tachycardia with HR sustained in the 140's. The patient states he had been coughing, but was otherwise asymptomatic at the time. The hospitalist overnight assessed the patient and pushed 150mg IVPB and 125mg methylprednisone. It also appears that imdur was discontinued at that time as well. Patient remains asymptomatic this morning. Have asked Cardio to re-evaluate tele strips and provide recommendations. Patient may discharge this afternoon, otherwise anticipate discharge tomorrow. Plan: -Continue Aspiring and metoprolol -Continue Imdur 30mg daily per Cardiology recommendations. (2) Chest pain Current Visit: Yes Status: Acute Assessment and plan: See above Qualifiers: Chest pain type: other chest pain Qualified Code(s): R07.89 - Other chest pain; R07.8 - Other chest pain (3) Congestive heart failure Current Visit: Yes Status: Acute Assessment and plan: Patient with increased interstitial fluid seen on CTA, BNP elevated to 112 from 26. Patient given 20mg IVP lasix to diurese fluid. ECHO 12/15/15: LVEF 55%, mildly dilated LV, normal LV systolic function. Mild LV diastolic dysfunction. Normal RV structure and function. Moderately dilated LA. No significant valvular dysfunction. Patient has diffuse rhonchi/rales in the setting of chronic lung disease. No lower extremity edema. ECHO: LVEF 50-55%. Regional Wall motion abnormalities: mild inferior, basal inferior and mid inferior lateral rose were hypokinetic Mild LV diastolic dysfunction, normal RV, Mild MR Nuc Med stress test positive, cardiology is recommends medical management Plan: -Continue medical therapy Qualifiers: Congestive heart failure type: diastolic Congestive heart failure chronicity: acute on chronic Qualified Code(s): I50.33 - Acute on chronic diastolic (congestive) heart failure (4) Chronic respiratory failure Current Visit: Yes Status: Acute Assessment and plan: Patient states that [facility] is [facility] who has [place] exposure. He follows with Dr. Mtz as an outpatient and has chronic bronchiectasis. Bronchoscopy in April 2016 showed bronchiectasis with extensive mucopurulent secretions throughout the tracheobronchial tree. Bronchoalveolar lavage showed extensive reactive changes, no evidence of malignancy or infection. Second bronchoscopy from 08/2016 showed extensive reactive changes, BAL and transbronchial biopsy negative for malignancy and showed acute and chronic inflammation. Patient has an appointment with pulmonology at [facility] in early January. Plan: -Continue home doses of spiriva, guaifenisin, -Duoneb QID -Albuterol nebulizer Q2 PRN -Titrate O2 to maintain saturation > 90%. Qualifiers: Respiratory failure complication: hypoxia Qualified Code(s): J96.11 - Chronic respiratory failure with hypoxia (5) CLL (chronic lymphocytic leukemia) Current Visit: No Status: Chronic Assessment and plan: Follows with Medical Oncology as an outpatient. Per oncology note: Diagnosed in 1995. Observation from [id number]. FCR 8 cycles completed in April 2003. Bone marrow biopsy November 2004 of the cytogenetic remission. Flow cytometry November 2008 showed monoclonal kappa lymphocytosis. Bendamustine plus Rituxan 4 cycles 02/07/2010-06/08/2010. Bendamustine plus Rituxan:10/23/2011-01/15/2012. Chlorambucil 0.8 mg/m day 1 and day 15 every 28 days from 10/11/2013-12/30/2013. Stopped due to intolerance with thrombocytopenia. Ibrutinib 420 mg by mouth daily started 02/11/2014. Stopped November 2014 due to disease progression. Completed 8 cycles of Obinutuzumab plus chlorambucil regimen 01/22-07/12/16. Tolerated treatment well with no unexpected side effects. Chlorambucil was stopped after 1 dose due to profound cytopenia with prolonged myelosuppression. Obinutuzumab has been on hold after completing 8 cycles on with stable disease status. Gets IVIG monthly for hypoglobulinemia. Most recent CT neck, chest, abdomen, pelvis 11/05/16 showed Stable scattered, small neck nodes. Unchanged versus previous. Diffuse mediastinal and hilar lymphadenopathy. Slightly decreased versus previous. Increase, scattered nodularity seen throughout bilateral lungs felt to indicate post inflammatory/ infectious change. Increased abdominal/pelvic ascites. Stable, diffuse adenopathy throughout abdomen and pelvis. Stable splenomegaly. (6) Obstructive sleep apnea of adult Current Visit: No Status: Chronic Assessment and plan: CPAP at night (7) Ascites Current Visit: Yes Status: Acute Assessment and plan: CT chest showed ascites in abdomen, although has been present on prior CT. Most likely secondary to CLL. Qualifiers: Ascites type: malignant Qualified Code(s): R18.0 - Malignant ascites (8) DVT prophylaxis Current Visit: No Status: Acute Assessment and plan: Hep SQ - Subjective Interval history: Patient seen and examined. He has mild SOB with a productive cough. Discussed the event he had overnight with tachycardia (HR sustained in the 140's). The patient states that he was having trouble sleeping at that time because every time he laid down he began to cough. He had just sat up on the edge of the bed when he was told his HR was high. He states he had no symptoms at that time (no chest pain, palpitations, nausea, diaphoresis). He denies chest pain, abdominal pain, fevers. - Constitutional Vitals: Temp Pulse Resp BP Pulse Ox 98.1 F 89 19 108/57 95 12/17/16 07:52 12/17/16 07:52 12/17/16 07:52 12/17/16 07:52 12/17/16 07:52 General appearance: Present: cooperative, A&O X 3, pleasant, no acute distress, answers questions appropriately - Head Head exam: Present: atraumatic, normocephalic - Eye Eye exam: Present: PERRL, conjuntiva pink, sclera anicteric Pupils: Present: PERRL - Respiratory Respiratory exam: Present: rales, rhonchi. Absent: accessory muscle use, respiratory distress, tachypnea - Cardiovascular Cardiovascular exam: Present: RRR, +S1, +S2. Absent: diastolic murmur, gallop, rubs, systolic murmur - GI/Abdominal GI/Abdominal exam: Present: normal bowel sounds, soft, no peritoneal signs. Absent: distended, tenderness - Extremities Exam Extremities exam: Present: warm, radial pulses palpable and symetrical. Absent : calf tenderness, cyanotic, pedal edema - Neurological Exam Neurological exam: Present: oriented X3, no focal deficits. Absent: motor sensory deficit, facial droop, speech deficit - Psychiatric Psychiatric exam: Present: normal affect, normal mood - Skin Skin exam: Present: dry, intact. Absent: cyanosis, diaphoretic, erythema Internal Medicine: Result - Labs CBC & Chem 7: 12/17/16 05:22 12/17/16 05:22 Labs: Short CBC 12/16/16 12/17/16 Range/Units 07:14 05:22 WBC 2.2 L (4.3-11.1) K/mcL Hgb 8.4 L (12.9-16.9) g/dL Hct 26.9 L (37.5-50.1) % Plt Count 50 L (140-400) K/mcL Neutrophils # 0.5 L 0.4 L (1.6-8.9) K/mcL BMP 12/17/16 05:22 Sodium 139 Potassium 4.0 Chloride 104 Carbon Dioxide 31 H BUN 17 Creatinine 0.92 Glucose 97 Calcium 8.9 Liver Function 12/17/16 Range/Units 05:22 Total Bilirubin 0.4 (0.2-1.2) mg/dL AST 47 H (5-34) Units/L ALT 25 (0-55) Units/L Alkaline Phosphatase 57 (38-126) Units/L Albumin 2.6 L (3.5-5.0) g/dL - ABG Interpretation ABG results: PT/INR, D-dimer PT 10.5 Seconds (9.4-12.1) 12/14/16 09:29 - Impressions Impressions Chest X-Ray 12/17/16 02:04 IMPRESSION: Mild pulmonary edema. D/ / Mitchell Hoang MD / Mitchell Hoang MD Interpreting Provider: Mitchell Hoang MD Consult Discharge Plan - Plan [facility]errals: [facility]Primary Care Provider[facility] - <Floyd Butler A - Last Filed: 12/17/16 14:28> - Assessment and plan (1) Acute and chronic respiratory failure with hypoxia Current Visit: Yes Status: Acute (2) Congestive heart failure Current Visit: Yes Status: Acute Qualifiers: Congestive heart failure type: diastolic Congestive heart failure chronicity: acute on chronic Qualified Code(s): I50.33 - Acute on chronic diastolic (congestive) heart failure (3) Bronchiectasis Current Visit: No Status: Chronic Qualifiers: Bronchiectasis type: with acute exacerbation Qualified Code(s): J47.1 - Bronchiectasis with (acute) exacerbation (4) Coronary artery disease Current Visit: No Status: Chronic Qualifiers: Coronary Disease-Associated Artery/Lesion type: [place] artery [place] vs. transplanted heart: [place] heart Associated angina: with stable angina Qualified Code(s): I25.118 - Atherosclerotic heart disease of [place] coronary artery with other forms of angina pectoris (5) Chest pain Current Visit: Yes Status: Acute Qualifiers: Chest pain type: other chest pain Qualified Code(s): R07.89 - Other chest pain; R07.8 - Other chest pain (6) CLL (chronic lymphocytic leukemia) Current Visit: No Status: Chronic (7) SVT (supraventricular tachycardia) Current Visit: Yes Status: Resolved - Constitutional Vitals: Temp Pulse Resp BP Pulse Ox 98.2 F 90 18 111/54 94 L 12/17/16 11:53 12/17/16 11:53 12/17/16 11:53 12/17/16 11:53 12/17/16 11:53 Internal Medicine: Result - Labs CBC & Chem 7: 12/17/16 05:22 12/17/16 05:22 Labs: Short CBC 12/17/16 Range/Units 05:22 WBC 2.2 L (4.3-11.1) K/mcL Hgb 8.4 L (12.9-16.9) g/dL Hct 26.9 L (37.5-50.1) % Plt Count 50 L (140-400) K/mcL Neutrophils # 0.4 L (1.6-8.9) K/mcL BMP 12/17/16 05:22 Sodium 139 Potassium 4.0 Chloride 104 Carbon Dioxide 31 H BUN 17 Creatinine 0.92 Glucose 97 Calcium 8.9 Liver Function 12/17/16 Range/Units 05:22 Total Bilirubin 0.4 (0.2-1.2) mg/dL AST 47 H (5-34) Units/L ALT 25 (0-55) Units/L Alkaline Phosphatase 57 (38-126) Units/L Albumin 2.6 L (3.5-5.0) g/dL - ABG Interpretation ABG results: PT/INR, D-dimer PT 10.5 Seconds (9.4-12.1) 12/14/16 09:29 - Impressions Impressions Chest X-Ray 12/17/16 02:04 IMPRESSION: Mild pulmonary edema. D/ / Mitchell Hoang MD / Mitchell Hoang MD Interpreting Provider: Mitchell Hoang MD - Attending Attestation I examined this patient and my medical decision-making was reviewed with the Resident Physician on 12/17/16. I agree with the documented findings, disposition and treatment plan as described except to the extent set forth below. Mr. Saravia is currently admitted for chest pain and acute exac diastolic heart failure. He is moderate to high risk due to potential for worsening respiratory and cardiac status. Mr. Saravia had episode of SVT last night. Amio given and converted. No further issues. No further chest pain. Coughing a lot but related to his bronchiectasis. No fever or chills. Exam Alert. Comfortable Heart reg - not tachy Rhonchi bilaterally Abd soft I/P 1. SVT - resolved 2. Abnl stress test - medical management 3. Remove carty Further diagnoses and plan as above. Anticipate d/c in next 24 -48 hours.
[2016-12-17] MEDS ORDERED: Isosorbide MONOnitrate (24 HR) 30 MG TAB.ER.24H PO SCH (09:00)
[2016-12-17] MEDS: Famotidine 20 MG TABLET PO SCH ×2 (09:10→19:59)
[2016-12-17] MEDS: Folic Acid 1 MG TABLET PO SCH (09:10)
[2016-12-17] MEDS: predniSONE 10 MG TABLET PO SCH (09:10)
[2016-12-17] MEDS: Multivit/Ca/Min/Fe/FA 1 TAB TABLET PO SCH (09:10)
[2016-12-17] MEDS: Aspirin Enteric Coated 81 MG Tablet PO SCH (09:10)
[2016-12-17] MEDS: VITAMIN D3 PO SCH (09:11)
[2016-12-17] MEDS: CALCIUM CARBONATE PO SCH (09:11)
[2016-12-17] MEDS: Metoprolol XL (24 HR) Succ 25 MG TAB.ER.24H PO SCH (09:11)
[2016-12-17] MEDS: Azelastine 0.1% Nasal Spray 30 ML BOTTLE NS SCH ×2 (09:11→23:47)
[2016-12-17] MEDS ORDERED: Magnesium Sulfate 2 GM in D5% in Water 100 ML IVPB ONE (10:34)
[2016-12-17] MEDS: Tiotropium 18 MCG inhalation IH SCH (10:40)
[2016-12-17] MEDS ORDERED: levoFLOXacin 500 MG TABLET PO SCH (10:45)
[2016-12-17] MEDS: levoFLOXacin 500 MG TABLET PO SCH (11:05)
--- NOTE | 2016-12-17 12:37 | Cardiology Progress Note ---
Date of Encounter: 12/17/16 Time of Encounter: 11:45 Assessment and Plan (1) SVT (supraventricular tachycardia) Current Visit: Yes Status: Acute EKG reviewed with Dr. Villavicencio- AYAAN, HR 138bpm. Reports history of tachycardia. No reason to continue amiodarone. Continue beta-rogerio and increase as tolerated. Magnesium being replaced. Out-pt follow-up will be scheduled by [facility]. (2) Abnormal stress test Current Visit: Yes Status: Acute Per cardiology: Stress test resulted--Gated EF 63%. Small-moderate sized, moderate intensity, predominantly reversible perfusion defect consistent with moderate reversible ischemia in basal mid inferolateral wall. Echo--EF 50-55%, regional wall motion abnormalities (mid inferior, basal inferior and mid inferior lateral rsoe hypokinetic), mild diastolic dysfunction , moderate-severely dilated left atrium, mild MR, borderline dilated aortic root , 4.0 cm. Hx of CAD and PCI in remote past. Pt reports bilateral shoulder pain prior to admission, none since. Atypical pain. Complicated by his CLL with pancytopenia--platelet count is only 49. Chronic anemia, HGB 8.6. Pt is DNR-CCA. Given platelet count, anemia, and preserved EF, would recommend medical management as initial treatment. He is on ASA, Statin, BB. Imdur added. Denies recurrent pain. (3) Coronary artery disease Current Visit: No Status: Chronic Hx of PCI in remote past. ASA, Statin, BB. Add Imdur. Qualifiers: Coronary Disease-Associated Artery/Lesion type: [place] artery [place] vs. transplanted heart: [place] heart Associated angina: with stable angina Qualified Code(s): I25.118 - Atherosclerotic heart disease of [place] coronary artery with other forms of angina pectoris Discussion w patient/family: The assessment and plan as outlined above was discussed with the patient and/or family members who expressed understanding and agreement. All questions were answered. Thank you for involving us in the care of your patient. Please call with any questions. Subjective Principal diagnosis: SVT, abnormal stress Interval history: Cardiology reconsulted for tachycardia early this morning. He received amiodarone and converted to NSR. He reports history of tachycardia in the past and he had SVT during recent hospitalization. he was asymptomatic. Objective Vital Signs, Last 4 Hours Temp Pulse Resp BP Pulse Ox 12/17/16 11:53 98.2 F 90 18 111/54 94 L 12/17/16 09:14 90 L General: Conversant, No Apparent Distress HEENT: Atraumatic, Normocephaly, Mucus Membranes Moist Neck: No JVD, Normal carotid pulses Cardiac: Reg Rate and Rhythm, Normal S1 and S2, No Murmur Lungs: Other (Respirations labored, rhonci and wheezes scattered throughout. ) Neuro: Alert and responsive, No focal deficits noted Abdomen: Soft, Non-Tender Skin: No rashes noted on visualized skin Musculoskeletal: No Chest Wall Tenderness Extremities: No Clubbing, No Cyanosis, No Edema, Normal Pulses Results 12/17/16 05:22 12/17/16 05:22 Lab Results 12/17/16 12/17/16 05:22 05:22 WBC 2.2 L Hgb 8.4 L Hct 26.9 L Plt Count 50 L Sodium 139 Potassium 4.0 Chloride 104 Carbon Dioxide 31 H BUN 17 Creatinine 0.92 Glucose 97 Calcium 8.9 Magnesium 1.4 L Total Bilirubin 0.4 AST 47 H ALT 25 Alkaline Phosphatase 57 - Imaging and Cardiology Stress Test: report reviewed Echo: report reviewed - EKG Interpretation EKG results cardiology: personally reviewed (Reviewed with Dr. Villavicencio, svt, HR [address] changes.), other (24 hour telemetry review shows avg hr 89bpm. Maximum HR was [address] No SVT or afib seen.) Consult Discharge Plan - Plan Referrals: [facility] [Non-Partnered Physician] -
[2016-12-17] MEDS ORDERED: Metoprolol XL (24 HR) Succ 25 MG TAB.ER.24H PO ONE (13:00)
[2016-12-18] MEDS: Ipratropium/Albuterol Neb 3 ML IH SCH ×2 (04:07→10:14)
[2016-12-18] MEDS: *HR* Heparin 5,000 UNIT/ML VIAL SQ SCH (06:01)
[2016-12-18 07:13] VITALS: BP 114/68
[2016-12-18 07:45] LABS: Alanine Aminotransferase 30 Units/L (0-55); Albumin 2.6 g/dL (3.5-5.0); Albumin/Globulin Ratio 1.2 (1.1-2.2); Alkaline Phosphatase 56 Units/L (38-126); Aspartate Amino Transferase 47 Units/L (5-34); BUN/Creatinine Ratio 25 (6-26); Bilirubin,Total 0.3 mg/dL (0.2-1.2); Blood Urea Nitrogen 21 mg/dL (8-26); Carbon Dioxide 32 mEq/L (19-29); Chloride 104 mEq/L (98-109); Globulin 2.2 g/dL (2.4-3.5); Glucose 87 mg/dL (70-99); Magnesium 1.6 mg/dL (1.6-2.6); Osmolality,Calculated 296 (280-300); Potassium 4.2 mEq/L (3.5-4.5); Sodium 142 mEq/L (136-145); Total Protein 4.8 g/dL (6.0-8.3); eGFR For African Americans > 60 (> 60); eGFR For Non-African Americans > 60 (> 60)
--- NOTE | 2016-12-18 08:19 | Electrocardiograph Report ---
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
[2016-12-18] MEDS: Famotidine 20 MG TABLET PO SCH (08:42)
[2016-12-18] MEDS: levoFLOXacin 500 MG TABLET PO SCH (08:42)
[2016-12-18] MEDS: Multivit/Ca/Min/Fe/FA 1 TAB TABLET PO SCH (08:43)
[2016-12-18] MEDS: Azelastine 0.1% Nasal Spray 30 ML BOTTLE NS SCH (08:43)
[2016-12-18] MEDS: predniSONE 10 MG TABLET PO SCH (08:43)
[2016-12-18] MEDS: Aspirin Enteric Coated 81 MG Tablet PO SCH (08:43)
[2016-12-18] MEDS: Folic Acid 1 MG TABLET PO SCH (08:43)
[2016-12-18] MEDS ORDERED: Metoprolol XL (24 HR) Succ 25 MG TAB.ER.24H PO SCH (09:00)
--- NOTE | 2016-12-18 10:29 | Discharge Summary ---
Date of Encounter: 12/18/16 Time of Encounter: 10:18 - Discharge Diagnosis (1) Abnormal stress test Priority: Primary Status: Acute (2) SVT (supraventricular tachycardia) Priority: Primary Status: Resolved (3) Coronary artery disease Priority: Secondary Status: Chronic Qualifiers: Coronary Disease-Associated Artery/Lesion type: [place] artery [place] vs. transplanted heart: [place] heart Associated angina: with stable angina Qualified Code(s): I25.118 - Atherosclerotic heart disease of [place] coronary artery with other forms of angina pectoris - Discharge Medications Prescriptions: Isosorbide MONOnitrate (24 HR) [Imdur] 30 mg PO DAILY 30 Days Levofloxacin [Levaquin] 500 mg PO DAILY #14 tablet Metoprolol XL (24 HR) Succ [Toprol Xl] 25 mg PO DAILY #60 tab.er.24h PredniSONE 10 mg PO DAILY 10 Days Home Medications: Aspirin [Adult Low Dose Aspirin EC] 81 mg PO DAILY 11/28/15 [History] Atorvastatin Calcium [Lipitor] 40 mg PO HS 11/28/15 [History] Ondansetron [Zofran] 1 tab PO Q8HR PRN #90 tablet 01/13/16 [Rx] Prochlorperazine Maleate [Compazine] 1 tab PO Q6HR PRN #60 tablet 01/13/16 [Rx] Lactose-Reduced Food [Ensure High Protein] 237 ml PO TID 02/13/16 [History] Albuterol Sulfate [Albuterol Inhaler] 2 puff IH Q4HR PRN 02/15/16 [History] Ipratropium/Albuterol Neb [Duoneb] 3 ml IH QID 02/15/16 [History] Ranitidine HCl [Zantac] 150 mg PO BID 02/15/16 [History] Folic Acid 1 mg PO DAILY #90 tablet 04/04/16 [Rx] Acetaminophen [Tylenol] 650 mg PO Q6HR PRN 05/16/16 [History] Calcium Carbonate/Vitamin D3 [Calcium 500-Vit D3 400 Tablet] 1 tab PO DAILY [History] Lidocaine Patch [Lidoderm 5% patch] 1 each TP DAILY 05/16/16 [History] Lidocaine/Prilocaine [Emla] 1 appl TP AD PRN 05/16/16 [History] Magic Mouthwash [Magic Mouthwash BLM] 7.5 ml PO TID PRN 05/16/16 [History] Multivitamin [Multi-Day Vitamins] 1 tab PO DAILY 05/16/16 [History] Azelastine 0.1% Nasal [place] [Astelin] 2 spray NS BID 08/28/16 [History] Ibrutinib [Imbruvica] 420 mg PO DAILY 08/28/16 [History] Petrolatum,White [[place]] 1 appl TP TID PRN 08/28/16 [History] Ubidecarenone [Coenzyme Q10] 100 mg PO DAILY 08/28/16 [History] Guaifenesin [Guaifenesin ER] 1,200 mg PO BID #60 tab.er.12h 11/09/16 [Rx] Tiotropium [Spiriva] 2 puff IH DAILY 11/16/16 [History] LORazepam [Ativan] 0.5 mg PO TID PRN #30 tablet 11/23/16 [Rx] Cholecalciferol (Vitamin D3) [Vitamin D3] 3,000 unit PO HS 12/03/16 [History] Isosorbide MONOnitrate (24 HR) [Imdur] 30 mg PO DAILY 30 Days 12/18/16 [Rx] Levofloxacin [Levaquin] 500 mg PO DAILY #14 tablet 12/18/16 [Rx] Metoprolol XL (24 HR) Succ [Toprol Xl] 25 mg PO DAILY #60 tab.er.24h 12/18/16 [ Rx] PredniSONE 10 mg PO DAILY 10 Days 12/18/16 [Rx] Allergies/Adverse Reactions: Allergies flunisolide Adverse Reaction (Verified 11/16/16 19:48) See Comments [facility] list naproxen [From Naprosyn] Adverse Reaction (Verified 11/16/16 19:48) See Comments [facility] list Procedures/tests Complete & Pending: Procedures Performed prior 72 hours Category Date Time Status NM talat perf SPECT multi [NM] Routine Exams 12/15/16 11:59 Taken ECG 12 lead ECG [ECG] Routine Y 12/16/16 Completed EV echocardiogram Routine Y 12/15/16 21:06 Completed SP pharm nuclear stress Routine Y 12/15/16 11:58 Completed Date of admission: 12/14/16 15:15 [facility] care physician: [facility] Consults: 12/16/16 12:40 Consult to Cardiology [CONS] Routine Comment: Consulting Provider: Arlyn Rodriguez Reason for Consult: Postive Stress Test Time Notified: 12:00 Call Completed: Yes 12/18/16 08:44 PT [Consult to Physical Therapy] [CONS] Routine Comment: Evaluate, develop and implement POC 12/18/16 08:45 OT [Consult to Occupational Therapy] [CONS] Routine Comment: Evaluate, develop and implement POC Discharging clinician: Torie Glasgow Anticipated date of discharge: 12/18/16 - Patient Status Disposition: Home, Self-Care Condition: Fair Functional capacity at discharge: uses cane/walker Overall status at discharge: patient is back to baseline - Discharge Instructions Instructions: Pneumonia (DC) Follow Up With: [facility] [Primary Care Provider] - (Patient is a [employer], PCP will follow up with patient ) - Diet and Activity Activity: resume usual activities as tolerated, wear oxygen at all times Diet: advance to your usual diet Interval History: Mr. 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 He presented to ED with complaints of low blood pressure and elevated heart rate, as well as increased sputum production, pain in bilateral shoulders as well as left arm numbness, and so decided to call the squad. Follows with Dr. Mtz as an outpatient for his bronchiectasis and he requires 4 L of oxygen at home. He follows with the cancer center for his CLL and hypogamaglobulinemia. Evaluation in the ED included a CXR which showed unchanged prominence of bilateral interstitial markings, mild bibasilar opacification atelectasis vs. airspace disease. CT of the chest was negative for PE. Echo resulted--EF 50-55%, regional wall motion abnormalities (mid inferior, basal inferior and mid inferior lateral rose hypokinetic), mild diastolic dysfunction, moderate-severely dilated left atrium, mild MR, borderline dilated aortic root, 4.0 cm. Stress test resulted--Gated EF 63%. Small-moderate sized, moderate intensity, predominantly reversible perfusion defect consistent with moderate reversible ischemia in basal mid inferolateral wall. cardio was consulted, Given his platelet count, anemia, and preserved EF, cardiology recommend medical management as initial treatment. He is on ASA, Statin, BB. have added Imdur. BP remained stable, he had pne episode of SVT with HR of 138, reasssesed by cardio and metoprolol was increased. HR stable at the time of discharge.He will follow-up in cardiology clinic in 1-2 weeks. he also has f/u with Dr. Owens for his bronchiectasis and referral to [facility]. He is being discharged in stable condition today. Hospital course: Mr. Saravia is a 71 year old male Time spent discussing smoking cessation with patient: more than 10 minutes - Time Spent with Patient Total time spent providing and/or coordinating discharge services: Greater than 30 minutes - Constitutional Vitals: Temp Pulse Resp BP Pulse Ox 98.0 F 88 18 114/68 96 12/18/16 07:00 12/18/16 07:00 12/18/16 07:00 12/18/16 07:00 12/18/16 08:48 General appearance: Present: cooperative, A&O X 3, pleasant, no acute distress, answers questions appropriately Exam: HEENT: Atraumatic, Normocephaly, Mucus Membranes Moist Neck: No JVD, Normal carotid pulses Cardiac: Reg Rate and Rhythm, Normal S1 and S2, No Murmur Lungs: Occasional wheezing bilateral. Neuro: Alert and responsive, No focal deficits noted Abdomen: Soft, Non-Tender Skin: No rashes noted on visualized skin Musculoskeletal: No Chest Wall Tenderness Extremities: No Clubbing, No Cyanosis, No Edema, Normal Pulses - VTE Documentation of Mechanical Device: Graduated compression elastic hosiery
== END 2016-12-18 12:09 | disposition home or self-care (01) | DRG 291 ==
LOC: EMEROO 09:01 → 2ANU 09:01
PROVIDERS: ADMIT Nurse Practitioner Acute Care; ATTEND Internal Medicine

== ENCOUNTER 2017-01-06 00:50 | Inpatient (IN) ==
[2017-01-06 01:38] LABS: Basophils % 0.1 %; Mean Corpuscular Volume 98.8 fL (83.0-100.0); Nucleated Red Blood Cells 0.1 /100 WBC (0); Red Cell Distribution Width 17.8 % (11.5-14.5); Segmented Neutrophils % 10.1 %
[2017-01-06 01:40] LABS: Immature Granulocytes % 1.1 % (0-4); Immature Platelets 3.5 % (1.1-6.1); Lymphocytes % 76.9 %; Mean Corpuscular HGB Conc 31.3 g/dL (31.6-35.5); Mean Corpuscular Hemoglobin 30.9 pg (28.0-33.3); Mean Platelet Volume 9.6 fL (9.4-12.4); Monocytes # 2.7 K/mcL (0.0-1.3); Monocytes % 11.8 %; Neutrophils # 2.3 K/mcL (1.6-8.9); Red Blood Count 3.24 M/mcL (4.19-5.50)
[2017-01-06 01:41] LABS: Lymphocytes # 17.8 K/mcL (0.6-4.6); Platelet Count 73 K/mcL (140-400)
[2017-01-06 01:43] LABS: Prothrombin Time 11.1 Seconds (9.4-12.1)
[2017-01-06 01:46] LABS: Activated Partial Thrombo Time 29.3 Seconds (26.0-36.0)
[2017-01-06 01:53] LABS: Albumin 3.1 g/dL (3.5-5.0); Albumin/Globulin Ratio 1.5 (1.1-2.2); Bilirubin,Direct 0.2 mg/dL (0.0-0.5); Bilirubin,Indirect 0.3 mg/dL (0.0-1.2); Bilirubin,Total 0.5 mg/dL (0.2-1.2); Globulin 2.1 g/dL (2.4-3.5); Total Protein 5.2 g/dL (6.0-8.3)
[2017-01-06 01:55] LABS: Alanine Aminotransferase 50 Units/L (0-55); Albumin/Globulin Ratio 1.4 (1.1-2.2); Alkaline Phosphatase 57 Units/L (38-126); Aspartate Amino Transferase 50 Units/L (5-34); BUN/Creatinine Ratio 35 (6-26); Bilirubin,Total 0.5 mg/dL (0.2-1.2); Blood Urea Nitrogen 28 mg/dL (8-26); Calcium 9.1 mg/dL (8.6-10.8); Carbon Dioxide 36 mEq/L (19-29); Chloride 97 mEq/L (98-109); Globulin 2.2 g/dL (2.4-3.5); Glucose 158 mg/dL (70-99); Lipase 29 Units/L (8-78); Osmolality,Calculated 297 (280-300); Potassium 4.8 mEq/L (3.5-4.5); Sodium 139 mEq/L (136-145); Total Protein 5.2 g/dL (6.0-8.3); eGFR For African Americans > 60 (> 60); eGFR For Non-African Americans > 60 (> 60)
[2017-01-06 01:56] LABS: Bilirubin,Urine Negative (Negative); Blood,Urine Large (Negative); Clarity,Urine Cloudy (Clear); Color,Urine Dark Yellow (Yellow); Glucose,Urine (UA) Normal (Normal); Ketones,Urine Negative (Negative); Leukocyte Esterase,Urine Small (Negative); Nitrite,Urine Negative (Negative); PH,Urine 6.5 pH Units (5.0-8.0); Protein,Urine 100 mg/dL (Neg-Trace); Specific Gravity,Urine 1.023 (1.010-1.025); Urobilinogen,Urine Normal (Normal)
[2017-01-06 01:58] LABS: Platelet Estimate Decreased (Normal)
[2017-01-06 01:59] LABS: Bacteria,Urine None Seen per hpf (None-Few)
[2017-01-06 02:00] LABS: Smudge Cells Present (Not Present)
[2017-01-06 02:01] LABS: Anisocytosis 1+ (Not Present); Macrocytosis Present (Not Present)
[2017-01-06 02:06] LABS: RBC,Urine TNTC per hpf (0-3)
[2017-01-06 02:07] LABS: Calcium Oxalate Crystals,Urine Present; Squamous Epithelial Cell,Urine Few per lpf (None-Few); Yeast,Urine Many per hpf (None Seen)
[2017-01-06] MEDS ORDERED: Piperacillin/Tazobactam 3.375 GM in D5% in Water (Mini-Bag+) 100 ML IVPB ONE (02:29)
[2017-01-06] MEDS ORDERED: Vancomycin 1,000 MG in D5% in Water 250 ML IVPB ONE (02:29)
[2017-01-06] MEDS: Pantoprazole 40 MG in 0.9 % Sodium Chloride Mini Bag 100 ML IVC SCH ×5 (02:31→23:16)
--- NOTE | 2017-01-06 02:48 | Emergency Department Note ---
Disposition Clinical Impression: Lymphoma, small lymphocytic, HCAP (healthcare-associated pneumonia) Pneumonia Qualifiers: Pneumonia type: due to unspecified organism Laterality: bilateral Lung location : lower lobe of lung Qualified Code(s): J18.9 - Pneumonia, unspecified organism Hematemesis Qualifiers: Nausea presence: with nausea Qualified Code(s): K92.0 - Hematemesis Disposition: Admitted As Inpatient Condition: Fair Time of Disposition: 02:53 General Adult HPI - General Chief complaint: ED Nausea/Vomiting/Diarrhea Stated complaint: N/V (Blood In Emesis) Time Seen by Provider: 01/06/17 00:57 Source: patient, EMS Limitations: no limitations Nursing Notes Reviewed: Yes Vital Signs Reviewed: Yes - History of Present Illness HPI Narrative: Patient presents by EMS to our facility for evaluation dark-colored emesis. Several months prior to coming to our ER today. Patient has multiple other medical conditions and is currently been being treated at the [facility] for pneumonia. No other acute issues noted this time. Patient stable. Paperwork transported with him. No complications during transport. Onset (ago): Just WINDOWS ARCHITECT Radiation: non-radiation Pain Severity: mild Pain Scale: 0 Treatments Prior to Arrival: none - Related Data Home Medications Medication Instructions Recorded Confirmed Aspirin [Adult Low Dose Aspirin EC] 81 mg PO DAILY 11/28/15 12/26/16 Atorvastatin Calcium [Lipitor] 40 mg PO HS 11/28/15 12/26/16 Lactose-Reduced Food [Ensure High 237 ml PO TID 02/13/16 12/26/16 Protein] Albuterol Sulfate [Albuterol 2 puff IH Q4HR PRN 02/15/16 12/26/16 Inhaler] Ipratropium/Albuterol Neb [Duoneb] 3 ml IH QID 02/15/16 12/26/16 Ranitidine HCl [Zantac] 150 mg PO BID 02/15/16 12/26/16 Acetaminophen [Tylenol] 650 mg PO Q6HR PRN 05/16/16 12/26/16 Calcium Carbonate/Vitamin D3 1 tab PO DAILY 05/16/16 12/26/16 [Calcium 500-Vit D3 400 Tablet] Magic Mouthwash [Magic Mouthwash 7.5 ml PO TID PRN 05/16/16 12/26/16 BLM] Multivitamin [Multi-Day Vitamins] 1 tab PO DAILY 05/16/16 12/26/16 Azelastine 0.1% Nasal [place] 2 spray NS BID 08/28/16 12/26/16 [Astelin] Petrolatum,White [Aloe [place]] 1 appl TP TID PRN 08/28/16 12/26/16 Ubidecarenone [Coenzyme Q10] 100 mg PO DAILY 08/28/16 12/26/16 Tiotropium [Spiriva] 1 cap IH DAILY 11/16/16 12/26/16 Cholecalciferol (Vitamin D3) 3,000 unit PO HS 12/03/16 12/26/16 [Vitamin D3] Tamsulosin [Flomax] 0.8 mg PO DAILY 12/28/16 12/28/16 Previous Rx's Medication Instructions Recorded Folic Acid 1 mg PO DAILY #90 tablet 04/04/16 Guaifenesin [Guaifenesin ER] 1,200 mg PO BID #60 tab.er.12h 11/09/16 LORazepam [Ativan] 0.5 mg PO TID PRN #30 tablet 11/23/16 Isosorbide MONOnitrate (24 HR) 30 mg PO DAILY 30 Days 12/18/16 [Imdur] Metoprolol XL (24 HR) Succ [Toprol 25 mg PO DAILY #60 tab.er.24h 12/18/16 Xl] PredniSONE 10 mg PO DAILY 10 Days 12/18/16 Venetoclax [Venclexta Starting 1 each PO AD #1 tab.ds.pk 12/26/16 Pack] Allopurinol [Zyloprim] 300 mg PO DAILY #30 tablet 12/28/16 Allergies Allergy/AdvReac Type Severity Reaction Status Date / Time flunisolide AdvReac See Verified 11/16/16 19:48 Comments naproxen [From Naprosyn] AdvReac See Verified 11/16/16 19:48 Comments All systems ED: reviewed and negative except as stated. Constitutional: Denies: fever, chills Cardiovascular: Denies: chest pain, palpitations, dyspnea on exertion Respiratory: Denies: cough, dyspnea, wheezes, hemoptysis, sputum production Gastrointestinal: Reports: nausea, vomiting, hematemesis. Denies: abdominal pain, hematochezia Genitourinary: Denies: dysuria, frequency Musculoskeletal: Denies: back pain, neck pain Neurological: Denies: headache Past Medical History - Past Medical History Attestation: Yes The following information was validated with the patient. Source: patient, old records reviewed Medical history: Reports: arthritis, cancer, COPD, coronary artery disease, GERD , hyperlipidemia, hypertension, liver disease, malignancy, myocardial infarction , osteoporosis Surgical history: Reports: angioplasty/stent, cancer surgery, cataract, herniorrhaphy, prostatectomy, other Psychiatric history: Reports: anxiety - Social History Smoking Status: Former smoker Smokeless Tobacco Status: No Alcohol use: Reports: none Drug use: Reports: none Physical Exam - General Limitations: no limitations General appearance: alert - Head Head exam: atraumatic, normocephalic, normal inspection - Chest Chest inspection: Present: normal inspection, symmetric chest wall rise. Absent : tenderness - Respiratory Respiratory exam: Present: normal lung sounds bilaterally. Absent: respiratory distress, wheezes, accessory muscle use - Cardiovascular Cardiovascular exam: Present: regular rate, normal rhythm, normal heart sounds - Abdominal Exam Abdominal exam: Present: soft, Non-Tender, normal bowel sounds, other (Mild distention with fluid). Absent: tenderness, distention, guarding, rebound, rigidity, Escalona's sign, Rovsing's sign, tenderness at McBurney's Point - Extremities Exam Extremities exam: Present: normal inspection - Neurological Exam Neurological exam: Present: alert, oriented X3, CN II-XII intact - Psychiatric Psychiatric exam: Present: normal affect - Skin Skin exam: Present: warm, dry, intact, normal color Course Course Narrative: patient seen and examined at the time of arrival. See history of present illness. 71-year-old with what is described as hematemesis. Patient is currently being treated at the [facility] for pneumonia and urinary tract infection. Sent over here today with several episodes of emesis with dark brown color. Patient has multiple medical issues including being treated at this time for leukemia and lymphoma with chemotherapy. Patient also has fluid inside of his abdomen with unknown liver pathology. No other complaints at this time for the patient except that he just does not feel well. Patient is stable vital signs on presentation. Workup and treatment course to be completed. Physical exam patient is mentating appropriately answering questions. Lungs are clear heart is regular. Has port in the left chest wall is stable and no signs of redness. Abdomen is distended but no acute peritoneal -like symptoms no guarding no rigidity. There is positive. Patient moves extremities without any difficulty as a Peterson catheter in place. No other acute findings during my initial evaluation and treatment course. Patient will be evaluated for septic-like presentation. Patient to have CT of the chest and abdomen, urinalysis, EKG, labs, blood cultures, troponin ammonia and liver function test. Patient does have a slight color jaundice to the skin. Otherwise no other acute issues. Disposition will most likely be medical admission for definitive management. Etiology of this time is unknown. We will continue to monitor. Protonic, octreotide, fluids to be given as needed. We will continue to monitor his treatment course is completed - Reevaluation(s) Reevaluation #1: Patient found to have bilateral pneumonia that is persistent with interval progression. IV vancomycin and Zosyn added on for healthcare acquired pneumonia. Patient's urine is stable the rest of his labs appear to be within normal limits. Multiple derangements noted but at least at baseline. Patient is stable admission process to be completed at this time with what appears to be pneumonia that is failing treatment along with underlying possible hematemesis. Patient will be observed here in the emergency room and admission process is completed Time: 02:49 Reevaluation #2: Patient discussed with the hospitalist Dr. Humphrey. We reviewed the patient's presentation symptoms of medical intervention. He had no other recommendations at this time. Patient will be admitted for what appears to be coffee-ground emesis along with bilateral pneumonia and chronic lymphoma and leukemia. Otherwise no other acute abnormalities noted this point. We will continue to monitor as treatment course is completed. Patient will be observed here in the emergency room until admission is completed Time: 03:59 Vital Signs Temperature 98.5 F 01/06/17 00:52 Pulse Rate 97 01/06/17 00:52 Respiratory Rate 20 01/06/17 00:52 Blood Pressure 110/74 01/06/17 00:52 O2 Sat by Pulse Oximetry 92 01/06/17 00:52 Temperature 98.5 F 01/06/17 00:52 Pulse Rate 88 01/06/17 03:37 Respiratory Rate 20 01/06/17 03:37 Blood Pressure 135/85 01/06/17 03:37 O2 Sat by Pulse Oximetry 91 01/06/17 03:37 Oxygen Delivery Oxygen Delivery Nasal Cannula Medical Decision Making - MDM Narrative Medical decision making narrative: Bilateral pneumonia, hematemesis, lymphoma, leukemia, chemotherapy treatment - Medical Records Medical records reviewed: Yes I reviewed the patient's medical records. - Lab Data Lab results reviewed: Yes I reviewed the patient's lab results. Result diagrams: 01/06/17 01:30 01/06/17 01:30 Lab Results 01/06/17 01/06/17 01/06/17 Range/Units 01:30 01:30 01:30 WBC 23.1 H (4.3-11.1) K/mcL RBC 3.24 L (4.19-5.50) M/mcL Hgb 10.0 L (12.9-16.9) g/dL Hct 32.0 L (37.5-50.1) % MCV 98.8 (83.0-100.0) fL MCH 30.9 (28.0-33.3) pg MCHC 31.3 L (31.6-35.5) g/dL RDW 17.8 H (11.5-14.5) % Plt Count 73 L (140-400) K/mcL MPV 9.6 (9.4-12.4) fL Immature Gran % 1.1 (0-4) % Seg Neutrophils % 10.1 % Lymphocytes % 76.9 % Monocytes % 11.8 % Eosinophils % 0.0 % Basophils % 0.1 % Neutrophils # 2.3 (1.6-8.9) K/mcL Lymphocytes # 17.8 H (0.6-4.6) K/mcL Monocytes # 2.7 H (0.0-1.3) K/mcL Eosinophils # 0.0 (0.0-0.6) K/mcL Basophils # 0.0 (0.0-0.2) K/mcL Nucleated RBCs/100 WBC 0.1 H (0) /100 WBC Smudge Cells Present A (Not Present) Platelet Estimate Decreased L (Normal) Immature Plt Fraction 3.5 (1.1-6.1) % Anisocytosis 1+ A (Not Present) Macrocytosis Present A (Not Present) PT 11.1 (9.4-12.1) Seconds INR 1.0 APTT 29.3 (26.0-36.0) Seconds Sodium 139 (136-145) mEq/L Potassium 4.8 H (3.5-4.5) mEq/L Chloride 97 L (98-109) mEq/L Carbon Dioxide 36 H (19-29) mEq/L BUN 28 H (8-26) mg/dL Creatinine 0.80 (0.72-1.25) mg/dL Est GFR ( Amer) > 60 (> 60) Est GFR (Non-Af Amer) > 60 (> 60) BUN/Creatinine Ratio 35 H (6-26) Glucose 158 H (70-99) mg/dL Calculated Osmolality 297 (280-300) Calcium 9.1 (8.6-10.8) mg/dL Total Bilirubin 0.5 (0.2-1.2) mg/dL Direct Bilirubin (0.0-0.5) mg/dL Indirect Bilirubin (0.0-1.2) mg/dL AST 50 H (5-34) Units/L ALT 50 (0-55) Units/L Alkaline Phosphatase 57 (38-126) Units/L Ammonia (18-72) mcmol/L Serum Total Protein 5.2 L (6.0-8.3) g/dL Albumin 3.0 L (3.5-5.0) g/dL Globulin 2.2 L (2.4-3.5) g/dL Albumin/Globulin Ratio 1.4 (1.1-2.2) Lipase 29 (8-78) Units/L Urine Color (Yellow) Urine Clarity (Clear) Urine pH (5.0-8.0) pH Units Ur Specific [place] (1.010-1.025) Urine Protein (Neg-Trace) mg/dL Urine Glucose (UA) (Normal) mg/dL Urine Ketones (Negative) mg/dL Urine Blood (Negative) Urine Nitrite (Negative) Urine Bilirubin (Negative) Urine Urobilinogen (Normal) mg/dL Ur Leukocyte Esterase (Negative) Urine Microscopic RBC (0-3) per hpf Urine Microscopic WBC (0-3) per hpf Ur Squamous Epith Cells (None-Few) per lpf Calcium Oxalate Crystal Urine Bacteria (None-Few) per hpf Hyaline Casts Urine Yeast (None Seen) per hpf Ur Culture Indicated? (NO) 01/06/17 01/06/17 01/06/17 Range/Units 01:30 01:30 01:35 WBC (4.3-11.1) K/mcL RBC (4.19-5.50) M/mcL Hgb (12.9-16.9) g/dL Hct (37.5-50.1) % MCV (83.0-100.0) fL MCH (28.0-33.3) pg MCHC (31.6-35.5) g/dL RDW (11.5-14.5) % Plt Count (140-400) K/mcL MPV (9.4-12.4) fL Immature Gran % (0-4) % Seg Neutrophils % % Lymphocytes % % Monocytes % % Eosinophils % % Basophils % % Neutrophils # (1.6-8.9) K/mcL Lymphocytes # (0.6-4.6) K/mcL Monocytes # (0.0-1.3) K/mcL Eosinophils # (0.0-0.6) K/mcL Basophils # (0.0-0.2) K/mcL Nucleated RBCs/100 WBC (0) /100 WBC Smudge Cells (Not Present) Platelet Estimate (Normal) Immature Plt Fraction (1.1-6.1) % Anisocytosis (Not Present) Macrocytosis (Not Present) PT (9.4-12.1) Seconds INR APTT (26.0-36.0) Seconds Sodium (136-145) mEq/L Potassium (3.5-4.5) mEq/L Chloride (98-109) mEq/L Carbon Dioxide (19-29) mEq/L BUN (8-26) mg/dL Creatinine (0.72-1.25) mg/dL Est GFR ( Amer) (> 60) Est GFR (Non-Af Amer) (> 60) BUN/Creatinine Ratio (6-26) Glucose (70-99) mg/dL Calculated Osmolality (280-300) Calcium (8.6-10.8) mg/dL Total Bilirubin 0.5 (0.2-1.2) mg/dL Direct Bilirubin 0.2 (0.0-0.5) mg/dL Indirect Bilirubin 0.3 (0.0-1.2) mg/dL AST 50 H (5-34) Units/L ALT 51 (0-55) Units/L Alkaline Phosphatase 57 (38-126) Units/L Ammonia 48 (18-72) mcmol/L Serum Total Protein 5.2 L (6.0-8.3) g/dL Albumin 3.1 L (3.5-5.0) g/dL Globulin 2.1 L (2.4-3.5) g/dL Albumin/Globulin Ratio 1.5 (1.1-2.2) Lipase (8-78) Units/L Urine Color Dark Yellow (Yellow) Urine Clarity Cloudy A (Clear) Urine pH 6.5 (5.0-8.0) pH Units Ur Specific [place] 1.023 (1.010-1.025) Urine Protein 100 H (Neg-Trace) mg/dL Urine Glucose (UA) Normal (Normal) mg/dL Urine Ketones Negative (Negative) mg/dL Urine Blood Large H (Negative) Urine Nitrite Negative (Negative) Urine Bilirubin Negative (Negative) Urine Urobilinogen Normal (Normal) mg/dL Ur Leukocyte Esterase Small H (Negative) Urine Microscopic RBC TNTC H (0-3) per hpf Urine Microscopic WBC 5-15 H (0-3) per hpf Ur Squamous Epith Cells Few (None-Few) per lpf Calcium Oxalate Crystal Present Urine Bacteria None Seen (None-Few) per hpf Hyaline Casts Test Not Performed Urine Yeast Many H (None Seen) per hpf Ur Culture Indicated? YES A (NO) - Radiology Data Radiology results reviewed: Yes I reviewed the patient's radiology results. CT of the chest and abdomen show interval progression of bilateral pneumonia or pleural effusion. No other acute pathology - EKG Data EKG #1 EKG attestation: Yes I reviewed and interpreted this EKG. EKG shows normal: sinus rhythm, axis, intervals, QRS complexes, ST-T waves Rate: tachycardia Rhythm: NSR, PVC's [place]/QRS: normal When compared to previous EKG there are: no significant changes Interpretation: no acute changes, unchanged when compared to prior tracing (date ) () Attestation Statement - Attestation Attestation: I, Leon Aviles MD, personally evaluated this patient and discussed their management with the resident physician. I reviewed the resident's note and agree with the documented findings, medical decision making, and plan of care. 71-year-old male transferred here from the local [facility] for further evaluation of upper GI bleed. Patient was an inpatient at the [place] and being treated for pneumonia and UTI. This evening he had some vomiting of some dark brown coffee ground emesis. No bright red blood. Patient reports that he vomited about 4 times since 8 PM and it was brown liquid. On examination patient is a well-developed well-nourished elderly male in no acute distress. He is alert and oriented 3 and answers questions appropriately. There is no cyanosis or diaphoresis. He does appear somewhat pale. Breath sounds are equal bilaterally. Heart regular rate and rhythm. Abdomen is soft with bowel sounds present. Distended with ascites. Labs reviewed. CT of the chest shows bilateral pleural effusions which have developed since previous CT with increasing bilateral lower lobe pneumonia. Bilateral upper lobe groundglass opacities which may represent edema, infection , or inflammation. Grossly stable adenopathy. CT of the abdomen showed a large volume of ascites with diffuse body wall edema liver nodularity suggests cirrhosis. Splenomegaly could be caused by portal hypertension or leukemia. Grossly stable adenopathy. The hospitalist, Dr. Humphrey, was consulted and accepted admission of the patient.
[2017-01-06] MEDS ORDERED: Ondansetron 4 MG/2 ML VIAL IV ONE (03:57)
[2017-01-06] MEDS ORDERED: Ketorolac 30 MG/ML VIAL IVP PRN (04:19)
[2017-01-06] MEDS ORDERED: *HR* Morphine 2 MG/ML SYRINGE IVP PRN (04:19)
[2017-01-06] MEDS ORDERED: Pantoprazole 80 MG in 0.9 % Sodium Chloride 50 ML IVPB ONE (04:19)
[2017-01-06] MEDS ORDERED: Naloxone 0.4 MG/ML INJ IVP PRN (04:19)
[2017-01-06] MEDS ORDERED: Octreotide 50 MCG/ML SYRINGE IVP ONE (04:19)
[2017-01-06] MEDS ORDERED: Ondansetron 4 MG/2 ML VIAL IVP PRN (04:19)
[2017-01-06] MEDS ORDERED: 0.9 % Sodium Chloride 1,000 ML IVC SCH (04:30)
--- NOTE | 2017-01-06 05:11 | Internal Med History&Physical ---
<Mook Aragon - Last Filed: 01/06/17 05:20> Date of Encounter: 01/06/17 Time of Encounter: 04:30 Assessment and Plan (1) Hematemesis Current visit: Yes Status: Acute - With coffee ground emesis. - Likely secondary esophageal varcies - IV protonix and octreotide. - NPO. - Will consult general surgery for EGD. - Closely monitor H&H. Qualifiers: Nausea presence: with nausea Qualified Code(s): K92.0 - Hematemesis; R11.0 - Nausea (2) Healthcare-associated pneumonia Current visit: Yes Status: Acute - CT chest showed bilateral lower lobe pneumonia with bilateral pleural effusion. - Continue vancomycin and Zosyn and add levofloxacin for broader coverage given patient is immunocomprised (chemo & hypo-gammaglobulinemia). Will de-escalate later based on clinical and culture result. (3) Cirrhosis of liver Current visit: Yes Status: Chronic - CT A/P showed liver nodularity with large volume of ascites. - Liver cirrhosis and associated portal hypertension likely causes esophageal varices which can contribute to his current coffee ground emesis. - Will check viral hepatitis panel. Qualifiers: Hepatic cirrhosis type: unspecified hepatic cirrhosis Ascites presence: with ascites Qualified Code(s): K74.60 - Unspecified cirrhosis of liver (4) Anemia Current visit: No Status: Acute - Hgb 10.0 today, stable from previous one at 10.1 on 12/28/16. - Likely secondary to CLL. - Closely monitor H&H. Qualifiers: Anemia type: unspecified type Qualified Code(s): D64.9 - Anemia, unspecified (5) UTI (urinary tract infection) Current visit: Yes Status: Acute - UA found small leukocyte esterase with 5-15 WBC. - Pending urine culture. - Continue current antibiotic regimen. Qualifiers: Urinary tract infection type: site unspecified Hematuria presence: with hematuria Qualified Code(s): N39.0 - Urinary tract infection, site not specified; R31.9 - Hematuria, unspecified (6) Ascites Current visit: No Status: Acute - Malignant ascites vs. cirrhotic - Patient may benefit from diagnostic and therapeutic paracentesis. Qualifiers: Ascites type: malignant Qualified Code(s): R18.0 - Malignant ascites (7) CLL (chronic lymphocytic leukemia) Current visit: No Status: Chronic - Patient has been seeing Dr. Norman with Venetoclax started on 12/27/16 for CLL/SLL progression Internal Medicine - H&P: HPI Chief complaint: Hematemesis Admitted From: Emergency Dept Plans for Post Hospital Care: Home History of present illness: Mr. Saravia is a 71 year old male with PMH of CAD s/p multiple PCIs in remote past , hx of prostate ca s/p prostatectomy, CLL on chemotherapy, hypo- gammaglobulinemia, and chronic bronchiolitis on home O2. Patient had sudden onset of nausea and vomiting of coffee ground emesis at 8 pm last night and was sent from [place] to [place] ED. Patient also has worsening ascites but patient reports no known diagnosis of cirrhosis nor paracentesis. Patient also has worsening bilateral lower extremity edema. Patient denies abdominal pain, chest pain, dyspnea, lightheadedness, syncope, fever, chills, diarrhea, hematochezia, melena, hematuria, dysuria. Patient denies frequent alcohol use or diagnosis of viral hepatitis. Patient still wants "normal" resuscitation and he also mentions his son has the paper work about his code status. Past Med Surg Social Fam HX - Past Medical History Medical history: arthritis, cancer, COPD, coronary artery disease, GERD, hyperlipidemia, hypertension, liver disease, malignancy, myocardial infarction, osteoporosis Psychiatric history: anxiety - Past Surgical History Surgical History: angioplasty/stent, cancer surgery, cataract, herniorrhaphy, prostatectomy, other - Social History Smoking Status: Former smoker Smokeless Tobacco Status: No Alcohol use: none Drug use: none - Family History Mother Adopted: No Family Member Ethnicity: Non- Living Status: Hx Family Cardiac Disorders: Yes Father Family Member Ethnicity: Non- Living Status: Hx Family Cardiac Disorders: Yes Internal Medicine - H&P: Meds Aspirin [Adult Low Dose Aspirin EC] 81 mg PO DAILY 11/28/15 [History] Atorvastatin Calcium [Lipitor] 40 mg PO HS 11/28/15 [History] Lactose-Reduced Food [Ensure High Protein] 237 ml PO TID 02/13/16 [History] Albuterol Sulfate [Albuterol Inhaler] 2 puff IH Q4HR PRN 02/15/16 [History] Ipratropium/Albuterol Neb [Duoneb] 3 ml IH QID 02/15/16 [History] Ranitidine HCl [Zantac] 150 mg PO BID 02/15/16 [History] Folic Acid 1 mg PO DAILY #90 tablet 04/04/16 [Rx] Acetaminophen [Tylenol] 650 mg PO Q6HR PRN 05/16/16 [History] Calcium Carbonate/Vitamin D3 [Calcium 500-Vit D3 400 Tablet] 1 tab PO DAILY [History] Magic Mouthwash [Magic Mouthwash BLM] 7.5 ml PO TID PRN 05/16/16 [History] Multivitamin [Multi-Day Vitamins] 1 tab PO DAILY 05/16/16 [History] Azelastine 0.1% Nasal [place] [Astelin] 2 spray NS BID 08/28/16 [History] Petrolatum,White [[place]] 1 appl TP TID PRN 08/28/16 [History] Ubidecarenone [Coenzyme Q10] 100 mg PO DAILY 08/28/16 [History] Tiotropium [Spiriva] 1 cap IH DAILY 11/16/16 [History] Cholecalciferol (Vitamin D3) [Vitamin D3] 3,000 unit PO HS 12/03/16 [History] Isosorbide MONOnitrate (24 HR) [Imdur] 30 mg PO DAILY 30 Days 12/18/16 [Rx] Metoprolol XL (24 HR) Succ [Toprol Xl] 25 mg PO DAILY #60 tab.er.24h 12/18/16 [ Rx] PredniSONE 10 mg PO DAILY 10 Days 12/18/16 [Rx] Venetoclax [Venclexta Starting Pack] 1 each PO AD #1 tab.ds.pk 12/26/16 [Rx] Tamsulosin [Flomax] 0.4 mg PO DAILY 12/28/16 [History] Guaifenesin [Guaifenesin ER] mg PO BID 01/06/17 [History] Allergies flunisolide Adverse Reaction (Verified 11/16/16 19:48) See Comments va list naproxen [From Naprosyn] Adverse Reaction (Verified 11/16/16 19:48) See Comments va list All Systems PM: A 10-system review of systems was performed and is negative for pertinent findings except as documented above in the HPI. - Constitutional Constitutional: anorexia, fatigue, weight loss, no chills, no fever(s) - EENT Eyes: no change in vision Ears: no decreased hearing Nose, mouth and throat: no dysphagia, no odynophagia - Cardiovascular Cardiovascular ROS IM: edema, no chest pain, no lightheadedness, no palpitations , no syncope - Respiratory Respiratory: cough, excessive phlegm production (Most time clear but occasional landa color.), no dyspnea, no hemoptysis - Gastrointestinal Gastrointestinal: as per HPI - Genitourinary Genitourinary ROS male: no difficulty urinating, no dysuria, no hematuria - Musculoskeletal Musculoskeletal ROS IM: no arthralgias, no myalgias - Integumentary Integumentary IM: skin ulcer (tailbone area per patient), no pruritus, no rash - Neurological Neurological ROS: no focal weakness, no numbness, no tingling - Hematologic/Lymphatic Hematologic/Lymphatic: easy bruising, no easy bleeding - Constitutional Vitals: Temp Pulse Resp BP Pulse Ox 98.5 F 88 20 135/85 91 01/06/17 00:52 01/06/17 03:37 01/06/17 03:37 01/06/17 03:37 01/06/17 03:37 General appearance: Present: cooperative, A&O X 3, no acute distress, answers questions appropriately - Head Head exam: Present: atraumatic, normocephalic - Eye Eye exam: Present: PERRL, conjuntiva pink, sclera anicteric - Neck Neck exam general surgery: Present: supple, trachea midline. Absent: lymphadenopathy - Respiratory Respiratory exam: Present: rales (Bibasilar), wheezes (few). Absent: accessory muscle use, rhonchi - Cardiovascular Cardiovascular exam: Present: RRR, +S1, +S2. Absent: diastolic murmur, gallop, rubs, systolic murmur - GI/Abdominal GI/Abdominal exam: Present: distended (Positive wave test), normal bowel sounds , soft, no peritoneal signs. Absent: tenderness - Extremities Exam Extremities exam: Present: pedal edema (Moderate BLE edema), warm, radial pulses palpable and symetrical. Absent: calf tenderness, cyanotic - Neurological Exam Neurological exam: Present: CN II-XII intact, oriented X3, no focal deficits. Absent: pronater drift, facial droop, speech deficit - Skin Skin exam: Present: dry, warm Internal Med - H&P Results - Labs CBC & Chem 7: 01/06/17 01:30 01/06/17 01:30 <IsaiahTrever Dalton - Last Filed: 01/06/17 08:34> Date of Encounter: 01/06/17 Internal Medicine - H&P: HPI Admitted From: Emergency Dept Plans for Post Hospital Care: Home History of present illness: Mr. Saravia is a 71 year old male [facility] patient significant history of CAD/ PTCAstents/AMIs, PAD, h/o DVT, hypertension, dyslipidemia, prostate cancer s/p TURP, non-Hodgkin's lymphoma/chronic lymphocytic leukemia B-cell type, undergoing chemotherapy and radiation therapy, non-familial hypogammaglobulinemia, COPD/chronic hypoxic respiratory failure/bronchiectasis on home oxygen therapy, PABLO, hypothyroidism, osteoarthritis/hyperuricemia/gout arthropathy, osteoporosis, CKD III, former smoker, etc. Patient was admitted to [facility] as a hospital transfer from the [facility] presenting via EMS services with reports of blood in emesis and episodic nausea and vomiting. He presents up from the [place] hospital. Admitted for management of health-care associated pneumonia. In their care the patient had episodes of coffee-ground emesis. Transfer was completed to expedite subspecialty intervention if warranted. Evaluations also revealed evidence for a large volume ascites in a patient with no prior history of liver pathology. However given his known diffuse history of CLL and non-Hodgkin's lymphoma as well as prostate CA malignancies potential for malignant ascites is high. He does not present acutely septic or toxic and the parents decreasing concern for possible spontaneous bacterial peritonitis/ascites in the setting of long- standing hypogammaglobulinemia. The patient is currently continuing on chemotherapy under the guidance of his oncology team for his lymphoid malignancies and hypogammaglobulinemia. Findings in the ED: Vital signs are stable. Patient was afebrile. Resting hypoxia at 91-92% noted on 2 L per nasal cannula. WBC 23.1 hemoglobin 10 platelets 73,000. RDW 17.8. Differential showed an increase in lymphocytes and monocytes. PT 11.1 INR 1 PTT 29.3. Comprehensive metabolic panel noted a potassium of 4.8. Chloride 97. Carbon dioxide 36. BUN 28 creatinine 0.8. Glucose 158 osm 297. LFTs noted a AST of 50. Albumin 3.0 protein 5.2. Lipase 29. Preliminary impressions suggest coffee-ground emesis/hematemesis secondary to acute upper gastrointestinal bleed. 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 Healthcare associated pneumonia and urinary tract infections coincide with this transfer. At the time of presentation dictation however does not meet serious/sepsis criteria upon admission. Absolute neutrophil count 2.3 with a percentage of segmented neutrophils at 10.1 is of concern. 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 The patient presents at increased risk for further acute clinical decline, and morbidity. Workup and treatments will proceed comprehensively. The patient was visited and interviewed and examined. I examined this patient and my medical decision-making was reviewed with the PRINTING SCREEN ASSEMBLER/PA/Advanced Practice Nurse/Resident Physician, Dr. Mook Aragon. For this encounter, I have reviewed the documentation, treatment plan, and medical decision making. Cumulative laboratory and radiographic database was reviewed and considered and discussed. I agree with the documented findings, disposition and treatment plan as described except to the extent set forth below. Given the patient's presenting concerns, past medical history, clinical findings and symptoms, he is admitted at this time to undergo further evaluation and disposition. Orders written. Past Med Surg Social Fam HX - Past Medical History Source: old records reviewed Medical history: arthritis (Osteoarthritis. Gout. Lumbar spinal stenosis. Spondylosis without myelopathy or radiculopathy, lumbar.), cancer (Non-Hodgkin' s lymphoma. Chronic lymphocytic leukemia B-cell type.), cirrhosis, CHF ( Diastolic congestive heart failure.), COPD (Bronchiectasis. Chronic respiratory failure with hypoxia. Obstructive sleep apnea. Dependence on supplemental oxygen therapy.), coronary artery disease, DVT, GERD, hyperlipidemia, hypertension, liver disease, malignancy, myocardial infarction, osteoporosis, peripheral artery disease, renal disease (CK D stage III.), SVT, thyroid disease, other (Nonfamilial hypogammaglobulinemia. Iron deficiency anemia.) Psychiatric history: anxiety, other - Past Surgical History Surgical History: angioplasty/stent, cancer surgery, cataract, herniorrhaphy, prostatectomy, other - Social History Smoking Status: Former smoker Smokeless Tobacco Status: No Alcohol use: none, unknown Drug use: none, unknown Occupational status: retired Current living situation: Home, With Family Activity Level: Independent ambulation, Mostly sedentary Recent Out of Country Travel Within the Last 8 Weeks: No Exposure or Possible Exposure to Illness During Travel: No All Systems PM: A 10-system review of systems was performed and is negative for pertinent findings except as documented above in the HPI. - Constitutional Constitutional: as per HPI - EENT Eyes: as per HPI Ears: as per HPI Nose, mouth and throat: as per HPI - Cardiovascular Cardiovascular ROS IM: as per HPI - Respiratory Respiratory: as per HPI - Gastrointestinal Gastrointestinal: as per HPI - Genitourinary Genitourinary ROS male: as per HPI - Musculoskeletal Musculoskeletal ROS IM: as per HPI - Integumentary Integumentary IM: as per HPI - Neurological Neurological ROS: as per HPI - Psychiatric Psychiatric: as per HPI - Endocrine Endocrine IM: as per HPI - Hematologic/Lymphatic Hematologic/Lymphatic: as per HPI - Allergic/Immunologic Allergic/Immunologic: as per HPI - Constitutional Vitals: Temp Pulse Resp BP Pulse Ox 98.1 F 88 16 128/78 100 01/06/17 07:14 01/06/17 07:14 01/06/17 07:14 01/06/17 07:14 01/06/17 07:14 Vital Signs Temp Pulse Resp BP Pulse Ox 01/06/17 07:14 98.1 F 88 16 128/78 100 01/06/17 05:50 98.2 F 90 17 123/75 93 01/06/17 05:09 18 127/93 01/06/17 03:37 88 20 135/85 91 01/06/17 02:03 69 20 125/82 94 01/06/17 00:58 92 01/06/17 00:52 98.5 F 97 20 110/74 92 Intake and Output 01/05/17 01/06/17 01/06/17 23:59 07:59 15:59 Intake Total 200 / 200 Output Total 500 / 500 Balance -300 / -300 Intake: IV Fluids 200 / 200 Protonix 40 MG In 0.9 % 100 / 100 Sodium Chloride (Mini-Bag +) 100 ML @ 20 mls/hr IVC .Q5H COUNTS INCLUDE 234 BEDS AT THE [facility] Rx#: [id number] Zosyn 3.375 GM In 100 / 100 Dextrose 5% (Minibag+) 100 ML 100 ML @ 25 mls/hr IVPB ONCE ONE Rx#: [id number] Oral 0 / 0 Output: Catheter 500 / 500 Other: Stool Characteristics Normal for Patient Weight 84.056 kg Patient Weight 01/06/17 23:59 Weight 84.056 kg Internal Med - H&P Results - Labs CBC & Chem 7: 01/06/17 05:08 01/06/17 01:30 Labs: Short CBC 01/06/17 Range/Units 05:08 Hgb 9.7 L (12.9-16.9) g/dL Hct 31.0 L (37.5-50.1) % Short CBC 01/06/17 01/06/17 Range/Units 05:08 01:30 WBC 23.1 H (4.3-11.1) K/mcL Hgb 9.7 L 10.0 L (12.9-16.9) g/dL Hct 31.0 L 32.0 L (37.5-50.1) % Plt Count 73 L (140-400) K/mcL Neutrophils # 2.3 (1.6-8.9) K/mcL BMP 01/06/17 Range/Units 01:30 Sodium 139 (136-145) mEq/L Potassium 4.8 H (3.5-4.5) mEq/L Chloride 97 L (98-109) mEq/L Carbon Dioxide 36 H (19-29) mEq/L BUN 28 H (8-26) mg/dL Creatinine 0.80 (0.72-1.25) mg/dL Glucose 158 H (70-99) mg/dL Calcium 9.1 (8.6-10.8) mg/dL Liver Function 01/06/17 01/06/17 Range/Units 01:30 01:30 Total Bilirubin 0.5 0.5 (0.2-1.2) mg/dL Direct Bilirubin 0.2 (0.0-0.5) mg/dL AST 50 H 50 H (5-34) Units/L ALT 51 50 (0-55) Units/L Alkaline Phosphatase 57 57 (38-126) Units/L Albumin 3.1 L 3.0 L (3.5-5.0) g/dL Urine 01/06/17 Range/Units 01:35 Urine Color Dark Yellow (Yellow) Urine Clarity Cloudy A (Clear) Urine pH 6.5 (5.0-8.0) pH Units Ur Specific [place] 1.023 (1.010-1.025) Urine Protein 100 H (Neg-Trace) mg/dL Urine Glucose (UA) Normal (Normal) mg/dL Abnormal lab results WBC 23.1 K/mcL (4.3-11.1) H 01/06/17 01:30 RBC 3.24 M/mcL (4.19-5.50) L 01/06/17 01:30 Hgb 9.7 g/dL (12.9-16.9) L 01/06/17 05:08 Hct 31.0 % (37.5-50.1) L 01/06/17 05:08 MCHC 31.3 g/dL (31.6-35.5) L 01/06/17 01:30 RDW 17.8 % (11.5-14.5) H 01/06/17 01:30 Plt Count 73 K/mcL (140-400) L 01/06/17 01:30 Lymphocytes # 17.8 K/mcL (0.6-4.6) H 01/06/17 01:30 Monocytes # 2.7 K/mcL (0.0-1.3) H 01/06/17 01:30 Nucleated RBCs/100 WBC 0.1 /100 WBC (0) H 01/06/17 01:30 Smudge Cells Present (Not Present) A 01/06/17 01:30 Platelet Estimate Decreased (Normal) L 01/06/17 01:30 Anisocytosis 1+ (Not Present) A 01/06/17 01:30 Macrocytosis Present (Not Present) A 01/06/17 01:30 Potassium 4.8 mEq/L (3.5-4.5) H 01/06/17 01:30 Chloride 97 mEq/L (98-109) L 01/06/17 01:30 Carbon Dioxide 36 mEq/L (19-29) H 01/06/17 01:30 BUN 28 mg/dL (8-26) H 01/06/17 01:30 BUN/Creatinine Ratio 35 (6-26) H 01/06/17 01:30 Glucose 158 mg/dL (70-99) H 01/06/17 01:30 AST 50 Units/L (5-34) H 01/06/17 01:30 Serum Total Protein 5.2 g/dL (6.0-8.3) L 01/06/17 01:30 Albumin 3.0 g/dL (3.5-5.0) L 01/06/17 01:30 Globulin 2.2 g/dL (2.4-3.5) L 01/06/17 01:30 Urine Clarity Cloudy (Clear) A 01/06/17 01:35 Urine Protein 100 mg/dL (Neg-Trace) H 01/06/17 01:35 Urine Blood Large (Negative) H 01/06/17 01:35 Ur Leukocyte Esterase Small (Negative) H 01/06/17 01:35 Urine Microscopic RBC TNTC per hpf (0-3) H 01/06/17 01:35 Urine Microscopic WBC 5-15 per hpf (0-3) H 01/06/17 01:35 Urine Yeast Many per hpf (None Seen) H 01/06/17 01:35 Ur Culture Indicated? YES (NO) A 01/06/17 01:35 Laboratory Results WBC 23.1 K/mcL (4.3-11.1) H 01/06/17 01:30 RBC 3.24 M/mcL (4.19-5.50) L 01/06/17 01:30 Hgb 9.7 g/dL (12.9-16.9) L 01/06/17 05:08 Hct 31.0 % (37.5-50.1) L 01/06/17 05:08 MCV 98.8 fL (83.0-100.0) 01/06/17 01:30 MCH 30.9 pg (28.0-33.3) 01/06/17 01:30 MCHC 31.3 g/dL (31.6-35.5) L 01/06/17 01:30 RDW 17.8 % (11.5-14.5) H 01/06/17 01:30 Plt Count 73 K/mcL (140-400) L 01/06/17 01:30 MPV 9.6 fL (9.4-12.4) 01/06/17 01:30 Immature Gran % 1.1 % (0-4) 01/06/17 01:30 Seg Neutrophils % 10.1 % 01/06/17 01:30 Lymphocytes % 76.9 % 01/06/17 01:30 Monocytes % 11.8 % 01/06/17 01:30 Eosinophils % 0.0 % 01/06/17 01:30 Basophils % 0.1 % 01/06/17 01:30 Neutrophils # 2.3 K/mcL (1.6-8.9) 01/06/17 01:30 Lymphocytes # 17.8 K/mcL (0.6-4.6) H 01/06/17 01:30 Monocytes # 2.7 K/mcL (0.0-1.3) H 01/06/17 01:30 Eosinophils # 0.0 K/mcL (0.0-0.6) 01/06/17 01:30 Basophils # 0.0 K/mcL (0.0-0.2) 01/06/17 01:30 Nucleated RBCs/100 WBC 0.1 /100 WBC (0) H 01/06/17 01:30 Smudge Cells Present (Not Present) A 01/06/17 01:30 Platelet Estimate Decreased (Normal) L 01/06/17 01:30 Immature Plt Fraction 3.5 % (1.1-6.1) 01/06/17 01:30 Anisocytosis 1+ (Not Present) A 01/06/17 01:30 Macrocytosis Present (Not Present) A 01/06/17 01:30 PT 11.1 Seconds (9.4-12.1) 01/06/17 01:30 INR 1.0 01/06/17 01:30 APTT 29.3 Seconds (26.0-36.0) 01/06/17 01:30 Sodium 139 mEq/L (136-145) 01/06/17 01:30 Potassium 4.8 mEq/L (3.5-4.5) H 01/06/17 01:30 Chloride 97 mEq/L (98-109) L 01/06/17 01:30 Carbon Dioxide 36 mEq/L (19-29) H 01/06/17 01:30 BUN 28 mg/dL (8-26) H 01/06/17 01:30 Creatinine 0.80 mg/dL (0.72-1.25) 01/06/17 01:30 Est GFR ( Amer) > 60 (> 60) 01/06/17 01:30 Est GFR (Non-Af Amer) > 60 (> 60) 01/06/17 01:30 BUN/Creatinine Ratio 35 (6-26) H 01/06/17 01:30 Glucose 158 mg/dL (70-99) H 01/06/17 01:30 Calculated Osmolality 297 (280-300) 01/06/17 01:30 Calcium 9.1 mg/dL (8.6-10.8) 01/06/17 01:30 Total Bilirubin 0.5 mg/dL (0.2-1.2) 01/06/17 01:30 Direct Bilirubin 0.2 mg/dL (0.0-0.5) 01/06/17 01:30 Indirect Bilirubin 0.3 mg/dL (0.0-1.2) 01/06/17 01:30 AST 50 Units/L (5-34) H 01/06/17 01:30 ALT 50 Units/L (0-55) 01/06/17 01:30 Alkaline Phosphatase 57 Units/L (38-126) 01/06/17 01:30 Ammonia 48 mcmol/L (18-72) 01/06/17 01:30 Serum Total Protein 5.2 g/dL (6.0-8.3) L 01/06/17 01:30 Albumin 3.0 g/dL (3.5-5.0) L 01/06/17 01:30 Globulin 2.2 g/dL (2.4-3.5) L 01/06/17 01:30 Albumin/Globulin Ratio 1.4 (1.1-2.2) 01/06/17 01:30 Lipase 29 Units/L (8-78) 01/06/17 01:30 Urine Color Dark Yellow (Yellow) 01/06/17 01:35 Urine Clarity Cloudy (Clear) A 01/06/17 01:35 Urine pH 6.5 pH Units (5.0-8.0) 01/06/17 01:35 Ur Specific [place] 1.023 (1.010-1.025) 01/06/17 01:35 Urine Protein 100 mg/dL (Neg-Trace) H 01/06/17 01:35 Urine Glucose (UA) Normal mg/dL (Normal) 01/06/17 01:35 Urine Ketones Negative mg/dL (Negative) 01/06/17 01:35 Urine Blood Large (Negative) H 01/06/17 01:35 Urine Nitrite Negative (Negative) 01/06/17 01:35 Urine Bilirubin Negative (Negative) 01/06/17 01:35 Urine Urobilinogen Normal mg/dL (Normal) 01/06/17 01:35 Ur Leukocyte Esterase Small (Negative) H 01/06/17 01:35 Urine Microscopic RBC TNTC per hpf (0-3) H 01/06/17 01:35 Urine Microscopic WBC 5-15 per hpf (0-3) H 01/06/17 01:35 Ur Squamous Epith Cells Few per lpf (None-Few) 01/06/17 01:35 Calcium Oxalate Crystal Present 01/06/17 01:35 Urine Bacteria None Seen per hpf (None-Few) 01/06/17 01:35 Hyaline Casts Test Not Performed 01/06/17 01:35 Urine Yeast Many per hpf (None Seen) H 01/06/17 01:35 Ur Culture Indicated? YES (NO) A 01/06/17 01:35 Blood Type O NEGATIVE 01/06/17 05:08 Antibody Screen NEGATIVE 01/06/17 05:08 Impressions Abdomen/Pelvis CT 01/06/17 01:14 IMPRESSION: 1. Large volume of ascites with diffuse body wall edema. 2. Liver nodularity suggests cirrhosis. Splenomegaly could be caused by portal hypertension or leukemia. 3. Grossly stable adenopathy. D/ / Allen Carpio MD / Allen Carpio MD Interpreting Provider: Allen Carpio MD Chest CT 01/06/17 01:14 IMPRESSION: 1. Bilateral pleural effusions have developed with increasing bilateral lower lobe pneumonia. 2. Bilateral upper lobe ground-glass opacities may represent edema, infection or inflammation. 3. Grossly stable adenopathy. D/ / Allen Carpio MD / Allen Carpio MD Interpreting Provider: Allen Carpio MD - Attending Attestation My signature below is to certify that this patient is under my care and that I, or the Resident Physician working with me, has had a [id number] encounter with this patient.
[2017-01-06] MEDS: Octreotide 400 MCG in 0.9 % Sodium Chloride 100 ML IVC SCH ×2 (06:28→21:29)
[2017-01-06] MEDS ORDERED: Vancomycin 1,250 MG in D5% in Water 250 ML IVPB SCH (07:00)
[2017-01-06 07:07] LABS: Hemoglobin 9.7 g/dL (12.9-16.9)
[2017-01-06] MEDS ORDERED: Ipratropium/Albuterol Neb 3 ML IH PRN (07:48)
[2017-01-06] MEDS ORDERED: Albumin 25% 25gram/100mL 25 GM/100 ML IV.SOLN IVPB ONE (07:56)
[2017-01-06] MEDS: Metoprolol XL (24 HR) Succ 25 MG TAB.ER.24H PO SCH (09:42)
[2017-01-06] MEDS: Furosemide 40 MG/4 ML VIAL IVP SCH ×2 (09:42→17:01)
[2017-01-06] MEDS: Levofloxacin 750 MG/150 ML 750 MG/150 ML BAG IVPB SCH (09:43)
--- NOTE | 2017-01-06 10:02 | Oncology Inp Consult Note ---
Date of Encounter: 01/06/17 Time of Encounter: 09:00 Assessment and Plan (1) CLL (chronic lymphocytic leukemia) Status: Chronic Assessment and plan: Patient with adverse cytogenetic features on treatment with venetoclax, held due to hospitalization to [facility] for pneumonia. He has hx of gammaglobulin anemia, and had received IVIG, last dose in November 2016. Will be scheduled to receive IVIG next week. Coffee ground vomitus, hemoglobin hematocrit at his baseline range at his direct Aysha was negative in the past. Monitor for signs of bleeding GI intervention for endoscopy is necessary. Consider paracentesis and fluid analysis, for comfort Pneumonia, bilateral, immunosuppression started antibiotics at the [facility] on levofloxacin. Adenopathy likely from CLL and unchanged in imaging. He is on home oxygen history of bronchiectasis. MIld hyperkalemia, no evidence of tumor lysis in labs Will continue to follow. Patient was discussed above plan of care bedside. - Data of Consult Requesting Physician: Nanci Trejo Primary Care Provider: [facility]CP [facility] - Consult Narrative Reason for consult: CLL, anemia, hematemesis History of present illness: Mr. 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 Infection/pneumonia. Patient was transferred here as he had coffee ground vomitus for further evaluation. Patient reports that he had 3 such episodes. He has not moved his bowels since Saturday and denies any melena. Denies any abdominal pain. A CT scan of the abdomen that did not show any worsening lymphadenopathy but has arthritis,? liver cirrhosis. History of COPD, bronchitis, bronchiectasis on home oxygen. Is fatigued, denies SOB. Hgb around 8-10gms, today at 9.7gm. He reports no further episodes of vomiting. He had received last dose of IVIG 12/07/16 Past Med Surg Social Fam HX - Past Medical History Medical history: arthritis (Osteoarthritis. Gout. Lumbar spinal stenosis. Spondylosis without myelopathy or radiculopathy, lumbar.), cancer (Non-Hodgkin' s lymphoma. Chronic lymphocytic leukemia B-cell type.), cirrhosis, CHF ( Diastolic congestive heart failure.), COPD (Bronchiectasis. Chronic respiratory failure with hypoxia. Obstructive sleep apnea. Dependence on supplemental oxygen therapy.), coronary artery disease, DVT, GERD, hyperlipidemia, hypertension, liver disease, malignancy, myocardial infarction, osteoporosis, peripheral artery disease, renal disease (CK D stage III.), SVT, thyroid disease, other (Nonfamilial hypogammaglobulinemia. Iron deficiency anemia.) Psychiatric history: anxiety, other - Past Surgical History Surgical History: angioplasty/stent, cancer surgery, cataract, herniorrhaphy, prostatectomy, other - Social History Smoking Status: Former smoker Smokeless Tobacco Status: No Alcohol use: none, unknown Drug use: none, unknown - Family History Mother Adopted: No Family Member Ethnicity: Non- Living Status: Hx Family Cardiac Disorders: Yes Father Family Member Ethnicity: Non- Living Status: Hx Family Cardiac Disorders: Yes Medications and Allergies Aspirin [Adult Low Dose Aspirin EC] 81 mg PO DAILY 11/28/15 [History] Atorvastatin Calcium [Lipitor] 40 mg PO HS 11/28/15 [History] Lactose-Reduced Food [Ensure High Protein] 237 ml PO TID 02/13/16 [History] Albuterol Sulfate [Albuterol Inhaler] 2 puff IH Q4HR PRN 02/15/16 [History] Ipratropium/Albuterol Neb [Duoneb] 3 ml IH QID 02/15/16 [History] Ranitidine HCl [Zantac] 150 mg PO BID 02/15/16 [History] Folic Acid 1 mg PO DAILY #90 tablet 04/04/16 [Rx] Acetaminophen [Tylenol] 650 mg PO Q6HR PRN 05/16/16 [History] Calcium Carbonate/Vitamin D3 [Calcium 500-Vit D3 400 Tablet] 1 tab PO DAILY [History] Magic Mouthwash [Magic Mouthwash BLM] 7.5 ml PO TID PRN 05/16/16 [History] Multivitamin [Multi-Day Vitamins] 1 tab PO DAILY 05/16/16 [History] Azelastine 0.1% Nasal [place] [Astelin] 2 spray NS BID 08/28/16 [History] Petrolatum,White [Aloe [place]] 1 appl TP TID PRN 08/28/16 [History] Ubidecarenone [Coenzyme Q10] 100 mg PO DAILY 08/28/16 [History] Tiotropium [Spiriva] 1 cap IH DAILY 11/16/16 [History] Cholecalciferol (Vitamin D3) [Vitamin D3] 3,000 unit PO HS 12/03/16 [History] Isosorbide MONOnitrate (24 HR) [Imdur] 30 mg PO DAILY 30 Days 12/18/16 [Rx] Metoprolol XL (24 HR) Succ [Toprol Xl] 25 mg PO DAILY #60 tab.er.24h 12/18/16 [ Rx] PredniSONE 10 mg PO DAILY 10 Days 12/18/16 [Rx] Venetoclax [Venclexta Starting Pack] 1 each PO AD #1 tab.ds.pk 12/26/16 [Rx] Tamsulosin [Flomax] 0.4 mg PO DAILY 12/28/16 [History] Guaifenesin [Guaifenesin ER] mg PO BID 01/06/17 [History] Allergies flunisolide Adverse Reaction (Verified 11/16/16 19:48) See Comments [facility] list naproxen [From Naprosyn] Adverse Reaction (Verified 11/16/16 19:48) See Comments [facility] list Review of systems: as in HPI Oncology - Exam - Constitutional Vitals: Temp Pulse Resp BP Pulse Ox 98.1 F 88 16 128/78 100 01/06/17 07:14 01/06/17 07:14 01/06/17 07:14 01/06/17 07:14 01/06/17 07:14 General appearance: mild distress, obese - Head Head exam: Present: atraumatic - Eye Eye exam: Present: EOMI - ENT ENT exam: Present: mucous membranes moist - Neck Neck exam: Present: full ROM - Respiratory Respiratory exam: Present: CTAB - Cardiovascular Cardiovascular exam: Present: +S1, +S2 - GI/Abdominal GI/Abdominal exam: Present: distended, normal bowel sounds, soft Additional comments: bruising - Extremities Exam Extremities exam: Present: pedal edema - Neurological Exam Neurological exam: Present: alert, CN II-XII intact, oriented X3, no focal deficits - Psychiatric Psychiatric exam: Present: normal affect Oncology - Results - Labs Labs: Short CBC 01/06/17 Range/Units 05:08 Hgb 9.7 L (12.9-16.9) g/dL Hct 31.0 L (37.5-50.1) % - Imaging and Cardiology CT scan - chest Status: image reviewed by me CT scan - abdomen Status: image reviewed by me Consult Discharge Plan - Plan [facility]: [facility] [Primary Care Provider] -
[2017-01-06 10:29] LABS: Hemoglobin 9.7 g/dL (12.9-16.9)
--- NOTE | 2017-01-06 12:42 | General Surgery Consult Note ---
Date of Encounter: 01/06/17 Time of Encounter: 12:40 Assessment and Plan (1) Coffee ground emesis Current Visit: Yes Status: Acute Currently the patient does not show any signs of hemodynamic instability in the form of hypotension or tachycardia. He does not have any further emesis since his arrival. I discussed with the patient that I do not perform banding for therapy of esophageal varices therefore I would consider waiting until Dr Giuseppe zamora for a potential banding procedure. He is in agreement. History of Present Illness Consult date: 01/06/17 (Coffee-ground emesis) History of present illness: This is a 71-year-old male presents to the hospital from an outlying facility with coffee-ground emesis. He has a known history of cirrhosis and esophageal varices. He states that he has not vomited since his arrival at [place]. He denies any abdominal pain. He does admit to being bloated however he feels is likely due to his cirrhosis and the fluid on his abdomen. Past Med Surg Social Fam HX - Past Medical History Medical history: arthritis (Osteoarthritis. Gout. Lumbar spinal stenosis. Spondylosis without myelopathy or radiculopathy, lumbar.), cancer (Non-Hodgkin' s lymphoma. Chronic lymphocytic leukemia B-cell type.), cirrhosis, CHF ( Diastolic congestive heart failure.), COPD (Bronchiectasis. Chronic respiratory failure with hypoxia. Obstructive sleep apnea. Dependence on supplemental oxygen therapy.), coronary artery disease, DVT, GERD, hyperlipidemia, hypertension, liver disease, malignancy, myocardial infarction, osteoporosis, peripheral artery disease, renal disease (CK D stage III.), SVT, thyroid disease, other (Nonfamilial hypogammaglobulinemia. Iron deficiency anemia.) Psychiatric history: anxiety, other - Past Surgical History Surgical History: angioplasty/stent, cancer surgery, cataract, herniorrhaphy, prostatectomy, other - Social History Smoking Status: Former smoker Smokeless Tobacco Status: No Alcohol use: none, unknown Drug use: none, unknown - Family History Mother Adopted: No Family Member Ethnicity: Non- Living Status: Hx Family Cardiac Disorders: Yes Father Family Member Ethnicity: Non- Living Status: Hx Family Cardiac Disorders: Yes Medications and Allergies Aspirin [Adult Low Dose Aspirin EC] 81 mg PO DAILY 11/28/15 [History] Atorvastatin Calcium [Lipitor] 40 mg PO HS 11/28/15 [History] Lactose-Reduced Food [Ensure High Protein] 237 ml PO TID 02/13/16 [History] Albuterol Sulfate [Albuterol Inhaler] 2 puff IH Q4HR PRN 02/15/16 [History] Ipratropium/Albuterol Neb [Duoneb] 3 ml IH QID 02/15/16 [History] Ranitidine HCl [Zantac] 150 mg PO BID 02/15/16 [History] Folic Acid 1 mg PO DAILY #90 tablet 04/04/16 [Rx] Acetaminophen [Tylenol] 650 mg PO Q6HR PRN 05/16/16 [History] Calcium Carbonate/Vitamin D3 [Calcium 500-Vit D3 400 Tablet] 1 tab PO DAILY [History] Magic Mouthwash [Magic Mouthwash BLM] 7.5 ml PO TID PRN 05/16/16 [History] Multivitamin [Multi-Day Vitamins] 1 tab PO DAILY 05/16/16 [History] Azelastine 0.1% Nasal [place] [Astelin] 2 spray NS BID 08/28/16 [History] Petrolatum,White [Aloe [place]] 1 appl TP TID PRN 08/28/16 [History] Ubidecarenone [Coenzyme Q10] 100 mg PO DAILY 08/28/16 [History] Tiotropium [Spiriva] 1 cap IH DAILY 11/16/16 [History] Cholecalciferol (Vitamin D3) [Vitamin D3] 3,000 unit PO HS 12/03/16 [History] Isosorbide MONOnitrate (24 HR) [Imdur] 30 mg PO DAILY 30 Days 12/18/16 [Rx] Metoprolol XL (24 HR) Succ [Toprol Xl] 25 mg PO DAILY #60 tab.er.24h 12/18/16 [ Rx] PredniSONE 10 mg PO DAILY 10 Days 12/18/16 [Rx] Venetoclax [Venclexta Starting Pack] 1 each PO AD #1 tab.ds.pk 12/26/16 [Rx] Tamsulosin [Flomax] 0.4 mg PO DAILY 12/28/16 [History] Guaifenesin [Guaifenesin ER] mg PO BID 01/06/17 [History] Allergies flunisolide Adverse Reaction (Verified 11/16/16 19:48) See Comments [facility] list naproxen [From Naprosyn] Adverse Reaction (Verified 11/16/16 19:48) See Comments [facility] list Review of Systems All systems PM: reviewed and no additional remarkable complaints except as stated All systems PM: A 10-system review of systems was performed and is negative for pertinent findings except as documented above in the HPI. General Surgery Exam Initial Vital Signs Temp Pulse Resp BP Pulse Ox 98.5 F 97 20 110/74 92 01/06/17 00:52 01/06/17 00:52 01/06/17 00:52 01/06/17 00:52 01/06/17 00:52 - General physical appearance no distress - Eyes PERRL - Neck trachea midline - Cardiovascular Cardiovascular exam: Present: NR - Abdomen Abdomen general surgery: Present: soft, distended - Integumentary Integumentary general surgery: Present: no abnormal pigmentation - Musculoskeletal Present: normal posture Exam Initial Vital Signs Temp Pulse Resp BP Pulse Ox 98.5 F 97 20 110/74 92 01/06/17 00:52 01/06/17 00:52 01/06/17 00:52 01/06/17 00:52 01/06/17 00:52 Results - Labs 01/06/17 10:20 01/06/17 01:30 Abnormal lab results WBC 23.1 K/mcL (4.3-11.1) H 01/06/17 01:30 RBC 3.24 M/mcL (4.19-5.50) L 01/06/17 01:30 Hgb 9.7 g/dL (12.9-16.9) L 01/06/17 10:20 Hct 31.0 % (37.5-50.1) L 01/06/17 10:20 MCHC 31.3 g/dL (31.6-35.5) L 01/06/17 01:30 RDW 17.8 % (11.5-14.5) H 01/06/17 01:30 Plt Count 73 K/mcL (140-400) L 01/06/17 01:30 Lymphocytes # 17.8 K/mcL (0.6-4.6) H 01/06/17 01:30 Monocytes # 2.7 K/mcL (0.0-1.3) H 01/06/17 01:30 Nucleated RBCs/100 WBC 0.1 /100 WBC (0) H 01/06/17 01:30 Smudge Cells Present (Not Present) A 01/06/17 01:30 Platelet Estimate Decreased (Normal) L 01/06/17 01:30 Anisocytosis 1+ (Not Present) A 01/06/17 01:30 Macrocytosis Present (Not Present) A 01/06/17 01:30 Potassium 4.8 mEq/L (3.5-4.5) H 01/06/17 01:30 Chloride 97 mEq/L (98-109) L 01/06/17 01:30 Carbon Dioxide 36 mEq/L (19-29) H 01/06/17 01:30 BUN 28 mg/dL (8-26) H 01/06/17 01:30 BUN/Creatinine Ratio 35 (6-26) H 01/06/17 01:30 Glucose 158 mg/dL (70-99) H 01/06/17 01:30 AST 50 Units/L (5-34) H 01/06/17 01:30 Serum Total Protein 5.2 g/dL (6.0-8.3) L 01/06/17 01:30 Albumin 3.0 g/dL (3.5-5.0) L 01/06/17 01:30 Globulin 2.2 g/dL (2.4-3.5) L 01/06/17 01:30 Urine Clarity Cloudy (Clear) A 01/06/17 01:35 Urine Protein 100 mg/dL (Neg-Trace) H 01/06/17 01:35 Urine Blood Large (Negative) H 01/06/17 01:35 Ur Leukocyte Esterase Small (Negative) H 01/06/17 01:35 Urine Microscopic RBC TNTC per hpf (0-3) H 01/06/17 01:35 Urine Microscopic WBC 5-15 per hpf (0-3) H 01/06/17 01:35 Urine Yeast Many per hpf (None Seen) H 01/06/17 01:35 Ur Culture Indicated? YES (NO) A 01/06/17 01:35 All other labs normal. Consult Discharge Plan - Plan [facility]errals: [facility] [Primary Care Provider] -
[2017-01-06] MEDS: Piperacillin/Tazobactam 3.375 GM in D5% in Water (Mini-Bag+) 100 ML IVPB SCH ×2 (15:26→23:19)
[2017-01-06] MEDS: Vancomycin 1,250 MG in D5% in Water 250 ML IVPB SCH (17:01)
[2017-01-06] MEDS ORDERED: VENETOCLAX PO SCH (18:00)
[2017-01-06 18:09] LABS: Hematocrit 28.9 % (37.5-50.1)
[2017-01-06] MEDS: VENETOCLAX 10 MG PO SCH (19:01)
[2017-01-06 21:55] LABS: Hematocrit 28.8 % (37.5-50.1); Hemoglobin 8.9 g/dL (12.9-16.9)
[2017-01-07] MEDS: Pantoprazole 40 MG in 0.9 % Sodium Chloride Mini Bag 100 ML IVC SCH ×5 (04:24→21:33)
[2017-01-07 04:44] LABS: Hematocrit 27.7 % (37.5-50.1); Hemoglobin 8.6 g/dL (12.9-16.9); Mean Corpuscular Hemoglobin 31.5 pg (28.0-33.3); Mean Corpuscular Volume 101.5 fL (83.0-100.0); Red Blood Count 2.73 M/mcL (4.19-5.50); Red Cell Distribution Width 17.9 % (11.5-14.5)
[2017-01-07 04:51] LABS: Platelet Count 39 K/mcL (140-400)
[2017-01-07] MEDS: Vancomycin 1,250 MG in D5% in Water 250 ML IVPB SCH ×2 (04:55→17:54)
[2017-01-07 04:56] LABS: Alanine Aminotransferase 40 Units/L (0-55); Albumin 2.9 g/dL (3.5-5.0); Albumin/Globulin Ratio 1.6 (1.1-2.2); Alkaline Phosphatase 48 Units/L (38-126); Aspartate Amino Transferase 39 Units/L (5-34); BUN/Creatinine Ratio 32 (6-26); Blood Urea Nitrogen 31 mg/dL (8-26); Chloride 94 mEq/L (98-109); Globulin 1.8 g/dL (2.4-3.5); Glucose 100 mg/dL (70-99); Magnesium 1.8 mg/dL (1.6-2.6); Osmolality,Calculated 293 (280-300); Potassium 4.2 mEq/L (3.5-4.5); Sodium 138 mEq/L (136-145); Total Protein 4.7 g/dL (6.0-8.3); eGFR For African Americans > 60 (> 60); eGFR For Non-African Americans > 60 (> 60)
[2017-01-07 05:03] LABS: Carbon Dioxide 41 mEq/L (19-29)
[2017-01-07 05:19] LABS: Lymphocytes # 5.9 K/mcL (0.6-4.6); Monocytes # 0.2 K/mcL (0.0-1.3); Neutrophils # 1.9 K/mcL (1.6-8.9); Platelet Estimate Marked Decrease (Normal); Smudge Cells Present (Not Present)
[2017-01-07 05:20] LABS: Basophilic Stippling 1+ (Not Present); Hypochromasia Present (Not Present); Polychromasia 1+ (Not Present)
[2017-01-07] MEDS: Furosemide 40 MG/4 ML VIAL IVP SCH ×2 (08:49→17:53)
[2017-01-07] MEDS: Levofloxacin 750 MG/150 ML 750 MG/150 ML BAG IVPB SCH (09:01)
[2017-01-07] MEDS: Metoprolol XL (24 HR) Succ 25 MG TAB.ER.24H PO SCH (09:10)
[2017-01-07 10:09] LABS: Hepatitis A Antibody IgM Nonreactive (Nonreactive); Hepatitis B Core IgM Nonreactive (Nonreactive); Hepatitis B Surface Antigen Nonreactive (Nonreactive); Hepatitis C Virus Antibody Nonreactive (Nonreactive)
[2017-01-07] MEDS: Piperacillin/Tazobactam 3.375 GM in D5% in Water (Mini-Bag+) 100 ML IVPB SCH ×2 (10:41→15:52)
--- NOTE | 2017-01-07 11:03 | Internal Med Progress Note ---
Date of Encounter: 01/07/17 Time of Encounter: 10:00 - Assessment and plan (1) Healthcare-associated pneumonia Current Visit: Yes Status: Acute Assessment and plan: On broad-spectrum antibiotics. Moderate risk for complications. (2) Anemia Current Visit: Yes Status: Acute Assessment and plan: Acute on chronic. Likely related to hematemesis. Hemoglobin 8.6 today. We will continue to monitor. Qualifiers: Anemia type: unspecified type Qualified Code(s): D64.9 - Anemia, unspecified (3) Ascites Current Visit: No Status: Chronic Assessment and plan: Consider paracentesis after acute conditions stabilize. Qualifiers: Ascites type: other type Qualified Code(s): R18.8 - Other ascites (4) Cirrhosis of liver Current Visit: Yes Status: Chronic Assessment and plan: supportive care. Will start patient on thiamine, folic acid. Qualifiers: Hepatic cirrhosis type: unspecified hepatic cirrhosis Ascites presence: with ascites Qualified Code(s): K74.60 - Unspecified cirrhosis of liver (5) CLL (chronic lymphocytic leukemia) Current Visit: Yes Status: Chronic Assessment and plan: Oncology consulted on patient. Will follow recommendations. (6) Hematemesis Current Visit: Yes Status: Acute Qualifiers: Nausea presence: with nausea Qualified Code(s): K92.0 - Hematemesis; R11.0 - Nausea (7) UTI (urinary tract infection) Current Visit: Yes Status: Acute Assessment and plan: Urine culture growing yeast species. Patient asymptomatic. Will hold off on any antifungal agents at this time. Qualifiers: Urinary tract infection type: site unspecified Hematuria presence: with hematuria Qualified Code(s): N39.0 - Urinary tract infection, site not specified; R31.9 - Hematuria, unspecified (8) DVT prophylaxis Current Visit: No Status: Acute (9) COPD (chronic obstructive pulmonary disease) Current Visit: No Status: Chronic Assessment and plan: On bronchodilator nebs as needed. Will continue. Qualifiers: COPD type: chronic bronchitis Chronic bronchitis type: mucopurulent Qualified Code(s): J41.1 - Mucopurulent chronic bronchitis - Subjective Interval history: Patient is awake and alert. Doing well overall. No new episodes of hematemesis. No chest pain. Complains of some shortness of breath. - Constitutional Vitals: Temp Pulse Resp BP Pulse Ox 97.9 F 74 16 99/60 93 04/17/17 06:50 01/07/17 06:50 01/07/17 06:50 01/07/17 06:50 01/07/17 06:50 General appearance: Present: cooperative, mild distress, A&O X 3, answers questions appropriately - Respiratory Respiratory exam: Present: prolonged expiratory phase, wheezes. Absent: accessory muscle use, rales, rhonchi - Cardiovascular Cardiovascular exam: Present: RRR, +S1, +S2. Absent: diastolic murmur, gallop, rubs, systolic murmur - GI/Abdominal GI/Abdominal exam: Present: normal bowel sounds, soft, no peritoneal signs. Absent: distended, tenderness - Extremities Exam Extremities exam: Present: warm, radial pulses palpable and symetrical. Absent : calf tenderness, cyanotic, pedal edema - Neurological Exam Neurological exam: Present: alert, oriented X3, no focal deficits. Absent: facial droop, speech deficit - Skin Skin exam: Present: dry, intact, pallor Internal Medicine: Result - Labs CBC & Chem 7: 01/07/17 04:15 01/07/17 04:15 Labs: Short CBC 01/06/17 01/06/17 01/07/17 Range/Units 18:04 21:50 04:15 WBC 7.9 D (4.3-11.1) K/mcL Hgb 9.0 L 8.9 L 8.6 L (12.9-16.9) g/dL Hct 28.9 L 28.8 L 27.7 L (37.5-50.1) % Plt Count 39 L (140-400) K/mcL Neutrophils # 1.9 (1.6-8.9) K/mcL BMP 01/07/17 04:15 Sodium 138 Potassium 4.2 Chloride 94 L Carbon Dioxide 41 H* BUN 31 H Creatinine 0.97 Glucose 100 H Calcium 9.0 Liver Function 01/07/17 Range/Units 04:15 Total Bilirubin 1.0 D (0.2-1.2) mg/dL AST 39 H (5-34) Units/L ALT 40 (0-55) Units/L Alkaline Phosphatase 48 (38-126) Units/L Albumin 2.9 L (3.5-5.0) g/dL - ABG Interpretation ABG results: PT/INR, D-dimer PT 11.1 Seconds (9.4-12.1) 01/06/17 01:30 - VTE Documentation of Mechanical Device: Intermittent pneumatic compression device Consult Discharge Plan - Plan [facility]errals: [facility] [Primary Care Provider] - - Attending Attestation This document has been at least partially created by [employer] recognition technology by Dr. Chau. Errors in grammar, wording or other phrases may exist. If errors are found after the documentation is signed, they will be addressed individually in the addendum section of this document when appropriate.
--- NOTE | 2017-01-07 11:44 | Gastroenterology Consult Note ---
<Ajith Salcido Unique - Last Filed: 01/07/17 11:40> Date of Encounter: 01/07/17 Time of Encounter: 10:30 - Assessment and plan (1) Anemia Current Visit: Yes Status: Acute Assessment and plan: Secondary to hematemesis. Hgb stable. Hgb 8.9 on admission and this AM 8.6. Continue to monitor CBC and transfuse PRBC as needed. Qualifiers: Anemia type: unspecified type Qualified Code(s): D64.9 - Anemia, unspecified (2) Ascites Current Visit: No Status: Chronic Qualifiers: Ascites type: other type Qualified Code(s): R18.8 - Other ascites (3) Hematemesis Current Visit: Yes Status: Acute Assessment and plan: Concern for esophageal varices. Plan for EGD tomorrow, keep NPO at midnight. Will need platelet transfusion to keep Plts >50 for procedure. Qualifiers: Nausea presence: with nausea Qualified Code(s): K92.0 - Hematemesis; R11.0 - Nausea (4) Cirrhosis of liver Current Visit: Yes Status: Chronic Assessment and plan: Noted on CT with large volume of ascites. May require paracentesis. No alcohol use. Complete liver workup with ultrasound and EGD. Qualifiers: Hepatic cirrhosis type: unspecified hepatic cirrhosis Ascites presence: with ascites Qualified Code(s): K74.60 - Unspecified cirrhosis of liver (5) Thrombocytopenia Current Visit: No Status: Chronic Assessment and plan: Secondary to cirrhosis. Transfuse Plts to keep >50 for EGD tomorrow. (6) CLL (chronic lymphocytic leukemia) Current Visit: Yes Status: Chronic - Time Spent With Patient Total time spent is greater than 50% in coordination of care (as documented) at patient's floor/unit and/or counseling patient: GI History of Present Illness - Data of Consult Patient: new to practice Consult date: 01/07/17 Requesting Physician: Frantz Chau MD - Consult Narrative Reason for consult: Hematemesis History of present illness: Mr. Saravia is a 71 year old male with PMHx of COPD, CAD, GERD, HLD, HTN, cirrhosis , CLL, prostates cancer s/p prostatectomy, MA, who [facility] He was started on IV Protonix and Octreotide. CT A/P with subtle nodularity of liver suggestive of cirrhosis, large volume of ascites. Hgb on admission was 10 and this AM Hgb 8.6. Pt with no known diagnosis of cirrhosis or paracentesis. He denies fever, chills, chest pain, abdominal pain, diarrhea, hematochezia, or melena. He denies alcohol use. No further episodes of hematemesis. Procedures: EGD 10/22/2008 Dr. Thayer NSAIDs: ASA Anticoagulation: None Past Med Surg Social Fam HX - Past Medical History Medical history: arthritis (Osteoarthritis. Gout. Lumbar spinal stenosis. Spondylosis without myelopathy or radiculopathy, lumbar.), cancer (Non-Hodgkin' s lymphoma. Chronic lymphocytic leukemia B-cell type.), cirrhosis, CHF ( Diastolic congestive heart failure.), COPD (Bronchiectasis. Chronic respiratory failure with hypoxia. Obstructive sleep apnea. Dependence on supplemental oxygen therapy.), coronary artery disease, DVT, GERD, hyperlipidemia, hypertension, liver disease, malignancy, myocardial infarction, osteoporosis, peripheral artery disease, renal disease (CK D stage III.), SVT, thyroid disease, other (Nonfamilial hypogammaglobulinemia. Iron deficiency anemia.) Psychiatric history: anxiety, other - Past Surgical History Surgical History: angioplasty/stent, cancer surgery, cataract, herniorrhaphy, prostatectomy, other - Social History Smoking Status: Former smoker Smokeless Tobacco Status: No Alcohol use: none, unknown Drug use: none, unknown - Family History Mother Adopted: No Family Member Ethnicity: Non- Living Status: Hx Family Cardiac Disorders: Yes Father Family Member Ethnicity: Non- Living Status: Hx Family Cardiac Disorders: Yes - Gastrointestinal Gastrointestinal: Present: as per HPI - Constitutional Constitutional: as per HPI - EENT Eyes: as per HPI Ears: Present: as per HPI Nose, mouth and throat: Present: as per HPI - Cardiovascular Cardiovascular ROS: Present: as per HPI - Respiratory Respiratory IM: Present: as per HPI - Genitourinary Genitourinary: Absent: change in color, Urinary frequency - Neurological ROS Neurological GI: Present: as per HPI - Hematologic/Lymphatic Hematologic/Lymphatic pediatric: Present: as per HPI - Musculoskeletal Musculoskeletal ROS GI: Present: as per HPI - Integumentary Integumentary GI: Present: as per HPI - Psychiatric ROS Psychiatric GI: Present: as per HPI - Endocrine Endocrine IM: Present: as per HPI - Constitutional Vitals: Temp Pulse Resp BP Pulse Ox 98.3 F 81 20 92/60 93 01/07/17 11:00 01/07/17 11:00 01/07/17 11:00 01/07/17 11:00 01/07/17 11:00 General appearance: Present: cooperative, A&O X 3, no acute distress, answers questions appropriately - Head Head exam: Present: atraumatic, normocephalic - Eye Eye exam: Present: normal appearance, sclera anicteric - ENT ENT exam: Present: mucous membranes dry - Neck Neck exam general surgery: Present: normal inspection, trachea midline - Respiratory Respiratory exam: Present: wheezes. Absent: rales, rhonchi - Cardiovascular Cardiovascular exam: Present: RRR, +S1, +S2 - GI/Abdominal GI/Abdominal exam: Present: soft, no peritoneal signs. Absent: distended, firm , guarding, tenderness - Rectal Rectal exam: Present: deferred - Extremities Exam Extremities exam: Present: warm - Neurological Exam Neurological exam: Present: no focal deficits - Psychiatric Psychiatric exam: Present: normal affect, normal mood - Skin Skin exam: Present: dry, intact, normal color, warm Results - Labs CBC & Chem 7: 01/07/17 04:15 01/07/17 04:15 Labs: Last Result Calcium 9.0 mg/dL (8.6-10.8) 01/07/17 04:15 Entire Visit Hgb 8.6 g/dL (12.9-16.9) L 01/07/17 04:15 Hct 27.7 % (37.5-50.1) L 01/07/17 04:15 PT 11.1 Seconds (9.4-12.1) 01/06/17 01:30 Total Bilirubin 1.0 mg/dL (0.2-1.2) D 01/07/17 04:15 AST 39 Units/L (5-34) H 01/07/17 04:15 ALT 40 Units/L (0-55) 01/07/17 04:15 Ammonia 48 mcmol/L (18-72) 01/06/17 01:30 Lipase 29 Units/L (8-78) 01/06/17 01:30 - ABG ABG results: PT/INR, D-dimer PT 11.1 Seconds (9.4-12.1) 01/06/17 01:30 Consult Discharge Plan - Plan [facility]errals: [facility]Primary Care Provider[facility] - <Sarath Chin - Last Filed: 01/07/17 17:40> Date of Encounter: 01/07/17 Time of Encounter: 15:00 - Time Spent With Patient Total time spent is greater than 50% in coordination of care (as documented) at patient's floor/unit and/or counseling patient: GI History of Present Illness - Data of Consult Requesting Physician: Frantz Chau MD - Consult Narrative History of present illness: Mr. Saravia is a 71 year old male - Constitutional Vitals: Temp Pulse Resp BP Pulse Ox 98.3 F 81 20 102/62 94 01/07/17 15:29 01/07/17 15:29 01/07/17 15:29 01/07/17 15:29 01/07/17 15:29 Results - Labs CBC & Chem 7: 01/07/17 04:15 01/07/17 04:15 Labs: Last Result Calcium 9.0 mg/dL (8.6-10.8) 01/07/17 04:15 Entire Visit Hgb 8.6 g/dL (12.9-16.9) L 01/07/17 04:15 Hct 27.7 % (37.5-50.1) L 01/07/17 04:15 PT 11.1 Seconds (9.4-12.1) 01/06/17 01:30 Total Bilirubin 1.0 mg/dL (0.2-1.2) D 01/07/17 04:15 AST 39 Units/L (5-34) H 01/07/17 04:15 ALT 40 Units/L (0-55) 01/07/17 04:15 Ammonia 48 mcmol/L (18-72) 01/06/17 01:30 Lipase 29 Units/L (8-78) 01/06/17 01:30 - ABG ABG results: PT/INR, D-dimer PT 11.1 Seconds (9.4-12.1) 01/06/17 01:30 - Attending Attestation I examined this patient and my medical decision-making was reviewed with the PERFORMANCE MANAGEMENT CONSULTANT/PA/Advanced Practice Nurse/Resident Physician. I agree with the documented findings, disposition and treatment plan as described except to the extent set forth below.
[2017-01-07] MEDS: Octreotide 400 MCG in 0.9 % Sodium Chloride 100 ML IVC SCH (14:22)
[2017-01-07] MEDS: VENETOCLAX 10 MG PO SCH (18:11)
--- NOTE | 2017-01-07 21:31 | Electrocardiograph Report ---
[place] [id number] Test Date: 2017-01-06 Pat Name: Bradley Saravia Department: 104 Room: 3A12 Gender: M Emergency Medcl Emt: : 1945 Requested By: Frantz Chau Order Number: [id number] Reading MD: Palomo Capps MD Measurements Intervals [place] Rate: 102 P: 2 ND: 166 QRS: -15 QRSD: 104 T: 10 QT: 320 QTc: 379 Interpretive Statements SINUS TACHYCARDIA WITH OCCASIONAL SUPRAVENTRICULAR PREMATURE COMPLEXES Poor R wave progression Electronically Signed On 01-07-2017 21:29:26 EDT by Palomo Capps MD
[2017-01-08] MEDS: Piperacillin/Tazobactam 3.375 GM in D5% in Water (Mini-Bag+) 100 ML IVPB SCH ×3 (01:58→17:09)
[2017-01-08] MEDS: Pantoprazole 40 MG in 0.9 % Sodium Chloride Mini Bag 100 ML IVC SCH ×2 (02:48→09:24)
[2017-01-08] MEDS: Vancomycin 1,250 MG in D5% in Water 250 ML IVPB SCH ×2 (04:45→17:08)
[2017-01-08] MEDS: Octreotide 400 MCG in 0.9 % Sodium Chloride 100 ML IVC SCH ×2 (05:22→22:16)
[2017-01-08] MEDS ORDERED: Levofloxacin 750 MG/150 ML 750 MG/150 ML BAG IVPB SCH (07:00)
[2017-01-08] MEDS: Folic Acid 1 MG TABLET PO SCH ×2 (09:10→09:28)
[2017-01-08] MEDS: Chlorhexidine Rinse 15 ML MOUTHWASH MM SCH ×2 (09:11→09:27)
[2017-01-08] MEDS: Metoprolol XL (24 HR) Succ 25 MG TAB.ER.24H PO SCH (09:11)
[2017-01-08] MEDS: Furosemide 40 MG/4 ML VIAL IVP SCH ×2 (09:12→17:11)
[2017-01-08] MEDS: Thiamine (B-1) 100 MG TABLET PO SCH ×2 (09:21→09:28)
[2017-01-08 09:39] LABS: Hematocrit 25.7 % (37.5-50.1); Hemoglobin 8.3 g/dL (12.9-16.9); Immature Platelets 4.1 % (1.1-6.1); Mean Corpuscular HGB Conc 32.3 g/dL (31.6-35.5); Mean Corpuscular Hemoglobin 31.4 pg (28.0-33.3); Mean Corpuscular Volume 97.3 fL (83.0-100.0); Mean Platelet Volume 10.2 fL (9.4-12.4); Red Blood Count 2.64 M/mcL (4.19-5.50); Red Cell Distribution Width 17.5 % (11.5-14.5)
[2017-01-08] MEDS: Tiotropium 18 MCG inhalation IH SCH (09:43)
[2017-01-08] MEDS ORDERED: *HR* Propofol 200 MG/20 ML VIAL IVP ONE (10:00)
[2017-01-08] MEDS ORDERED: 0.9 % Sodium Chloride 250 ML ONE (12:12)
--- NOTE | 2017-01-08 13:29 | Anesthesia Evaluation PreOp ---
Date of Encounter: 01/08/17 Time of Encounter: 13:27 - Past History Planned Operation: EGD Cardiac History: OR, HTN, Hyperlipidemia, Cardiac Stent (stents x 3) Pulmonary History: Former smoker (quit 17 years ago, smoked for 20 years), COPD (O2 dependent), PABLO Dx, Other (chronic respiratory failure with hypoxia) GLASS[employer] SELECTOR History: Other (lumbar spinal stenosis) Other Medical History: Hepatic (cirrhosis), Renal (stage 3 CKD), Diabetes Type II, GERD, Other (non-Hodgkin's lymphoma, CLL S/P chemo) Anesthesia History: Past Anesthesia Alcohol Use: none Drug use: none Medications and Allergies Aspirin [Adult Low Dose Aspirin EC] 81 mg PO DAILY 11/28/15 [History] Atorvastatin Calcium [Lipitor] 40 mg PO HS 11/28/15 [History] Lactose-Reduced Food [Ensure High Protein] 237 ml PO TID 02/13/16 [History] Albuterol Sulfate [Albuterol Inhaler] 2 puff IH Q4HR PRN 02/15/16 [History] Ipratropium/Albuterol Neb [Duoneb] 3 ml IH QID 02/15/16 [History] Ranitidine HCl [Zantac] 150 mg PO BID 02/15/16 [History] Folic Acid 1 mg PO DAILY #90 tablet 04/04/16 [Rx] Acetaminophen [Tylenol] 650 mg PO Q6HR PRN 05/16/16 [History] Calcium Carbonate/Vitamin D3 [Calcium 500-Vit D3 400 Tablet] 1 tab PO DAILY [History] Magic Mouthwash [Magic Mouthwash BLM] 7.5 ml PO TID PRN 05/16/16 [History] Multivitamin [Multi-Day Vitamins] 1 tab PO DAILY 05/16/16 [History] Azelastine 0.1% Nasal [place] [Astelin] 2 spray NS BID 08/28/16 [History] Petrolatum,White [Aloe [place]] 1 appl TP TID PRN 08/28/16 [History] Ubidecarenone [Coenzyme Q10] 100 mg PO DAILY 08/28/16 [History] Tiotropium [Spiriva] 1 cap IH DAILY 11/16/16 [History] Cholecalciferol (Vitamin D3) [Vitamin D3] 3,000 unit PO HS 12/03/16 [History] Isosorbide MONOnitrate (24 HR) [Imdur] 30 mg PO DAILY 30 Days 12/18/16 [Rx] Metoprolol XL (24 HR) Succ [Toprol Xl] 25 mg PO DAILY #60 tab.er.24h 12/18/16 [ Rx] Venetoclax [Venclexta Starting Pack] 1 each PO AD #1 tab.ds.pk 12/26/16 [Rx] Tamsulosin [Flomax] 0.4 mg PO DAILY 12/28/16 [History] Chlorhexidine Rinse 15 ml MM DAILY 01/06/17 [History] Ciprofloxacin [Cipro] 500 mg PO BID 01/06/17 [History] Allergies flunisolide Adverse Reaction (Verified 01/06/17 16:48) See Comments [facility] naproxen [From Naprosyn] Adverse Reaction (Verified 01/06/17 16:48) See Comments [facility] - Meds/Allergy Pre-op Review Medications Reviewed: Yes Allergies Reviewed: Yes Beta Blockers on Current Med List: Yes (held for low BP) Anesthesia Results - Labs 01/08/17 09:15 01/07/17 04:15 - Imaging EKG: report reviewed (01/06/2017 ST, occasional SPVC's) Additional studies: 12/16/2016 Stress no significant ECG changes with regadenoson LVEF 63% small medium sized, moderate intensity predominantly reversible perfusion defect in basal-mid inferolateral wall findings are c/w moderate reversible ischemia in the basal mid inferolateral wall 12/15/2016 Echo LVEF 50-55% mild LV diastolic dysfunction moderate-severely dilated LA mild MR Anesthesia Exam Vital Signs/O2 Sat/Glucose, Most Recent Temp Pulse Resp BP Pulse Ox 97.6 F 78 18 105/63 96 01/08/17 12:42 01/08/17 12:42 01/08/17 12:42 01/08/17 12:42 01/08/17 12:42 Blood Glucose* 115 Height: 5'6''/1.68 m Weight: 184 lbs/83.809 kg NPO (# of Hours): 8 Pain Scale: 0 Pain Scale Used: Numeric (1 - 10) - HEENT Pupil (Motor): EOMI Mallampati: II Teeth: Edentulous Oral Opening: Greater than 3 - GLASS[employer] SELECTOR LOC: Oriented [employer] SELECTOR Motor: Normal RUE, Normal LUE, Normal RLE, Normal LLE, Normal Face [employer]OR Sensory: Normal: RUE, LUE, RLE, LLE, Face - Cardiac Rhythm: Regular Murmur: None - Pulmonary Breath Sounds: bilateral Rhonchi Respiratory Effort: Symmetrical Anesthesia Assess/Plan ASA Score: 4 Modified [place] Scale for Level of Consciousness: Cooperative, oriented, and tranquil Anesthetic Plan: MAC Monitoring Plan: Standard Monitors
--- NOTE | 2017-01-08 14:18 | Anesthesia Evaluation Post Op ---
Date of Encounter: 01/08/17 Time of Encounter: 14:16 - Vital Signs Vital Signs: Vital Signs/O2 Sat, Most Current 1420 BP 143/76 HR 82 RR 18 SPO2 95 - Lungs Lungs: Clear Ascult./Percussion - Airway Airway: Non-obstructed - Cardiovascular Regular Rate - Mental Status Mental Status: Alert & Oriented, Answers Appropriately - Pain Pain Scale: 0 - Nausea Vomiting Nausea Vomiting: Not Present - Hydration Hydration: NPO, Peterson catheter
--- NOTE | 2017-01-08 16:59 | Oncology Inp Progress Note ---
Date of Encounter: 01/08/17 Time of Encounter: 16:57 (1) CLL (chronic lymphocytic leukemia) Current Visit: Yes Status: Chronic Assessment and plan: Patient is s/p multiple lines of therapy and was recently started on venetoclax. Will recommend holding Ventoclax until his acute condition resolves. His present condition is not related to his therapy with Ventoclax. His labs do not indicate tumor lysis syndrome. As he has CLL he is more prone to infections. Please check immunoglobulin levels. (2) Ascites Current Visit: Yes Status: Acute Assessment and plan: Most likely related to liver cirrhosis. Will recommend paracentesis for symptomatic relief and will also need fluid sent for cytology to r/o malignant ascites, though less likely. Qualifiers: Ascites type: other type Qualified Code(s): R18.8 - Other ascites (3) Healthcare-associated pneumonia Current Visit: Yes Status: Acute Assessment and plan: He is on broad spectrum antibiotics with Vancomycin, zosyn and levaquin. Management as per primary team. Will check immunoglobulin. (4) Anemia Current Visit: Yes Status: Acute Assessment and plan: Multifactorial. Transfuse for HB less than 8 or for symptomatic anemia. Qualifiers: Anemia type: unspecified type Qualified Code(s): D64.9 - Anemia, unspecified (5) Pleural effusion Current Visit: Yes Status: Acute Assessment and plan: ?? secondary to fluid overload. Also has bilateral pneumonia. Recommend thoracocentesis to r/o parapneumoic effusion. (6) Pedal edema Current Visit: Yes Status: Acute Assessment and plan: Most likely secondary to hypoalbuminemia and liver cirrhosis. Obtain Dopplers to r/o DVT. Oncology: Subj Interval history: Patient is feeling miserable. He continues to report cough and shortness of breath. Abd distension persists. - Constitutional Vitals: Vital Signs Temp Pulse Resp BP Pulse Ox 01/08/17 14:47 98.2 F 78 18 97 01/08/17 14:10 77 18 125/69 94 01/08/17 14:05 80 16 143/80 94 01/08/17 13:36 76 22 102/64 95 01/08/17 12:42 97.6 F 78 18 105/63 96 01/08/17 12:25 97.7 F 75 18 99/57 01/08/17 11:10 18 96 01/08/17 10:00 98.3 F 75 16 99/59 96 01/08/17 06:43 98.3 F 69 18 92/56 91 01/08/17 03:22 98.2 F 77 16 93/55 92 01/08/17 01:18 98.4 F 74 17 94/58 97 01/07/17 19:35 98.3 F 80 16 92/61 93 Intake and Output 01/08/17 01/08/17 01/08/17 07:59 15:59 23:59 Intake Total 565 / 565 558 / 558 Output Total 1900 / 1900 1350 / 1350 Balance -1335 / -1335 -792 / -792 Intake: IV Fluids 565 / 565 350 / 350 SandoSTATIN 400 MCG In 0. 115 / 115 9 % Sodium Chloride 100 ML @ 25 MCG/HR 6.5 mls/hr IVC .Q16H [facility] Rx#: [id number] Protonix 40 MG In 0.9 % 100 / 100 100 / 100 Sodium Chloride (Mini-Bag +) 100 ML @ 20 mls/hr IVC .Q5H [facility] Rx#: [id number] Levaquin 750mg/150 mL 750 150 / 150 mg In 150 ml @ 100 mls/ hr IVPB Q24H [facility] Rx#: [id number] Zosyn 3.375 GM In 100 / 100 100 / 100 Dextrose 5% (Minibag+) 100 ML 100 ML @ 25 mls/hr IVPB Q8HR [facility] Rx#: [id number] Vancocin 1,250 MG In 250 / 250 Dextrose 5% 250 ML @ 166. 67 mls/hr IVPB Q12H [facility] Rx#:[id number] Oral 0 / 0 Blood Product 208 / 208 Platelet Pheresis Lp Irr 208 / 208 3rd Unit [id number] Output: Catheter 1900 / 1900 1350 / 1350 Other: Meal npo Weight 83.809 kg Blood Glucose* 123 115 Patient Weight 01/08/17 23:59 Weight 83.809 kg General appearance: average body habitus, no febrile - Head Head exam: Present: atraumatic, normal inspection - Eye Eye exam: Present: normal appearance - ENT ENT exam: Present: mucous membranes moist - Respiratory Respiratory exam: Present: respiratory distress (mild) - Cardiovascular Cardiovascular exam: Present: +S1, +S2 - GI/Abdominal GI/Abdominal exam: Present: distended, organomegaly - Additional comments: carty catheter in place - Extremities Exam Extremities exam: Present: pedal edema Oncology: Obj Data - Labs CBC & Chem 7: 01/08/17 09:15 01/07/17 04:15 Labs: Laboratory Results - last 24 hr 01/06/17 01/08/17 01/08/17 05:08 01:14 05:50 WBC RBC Hgb Hct MCV MCH MCHC RDW Plt Count MPV Immature Plt Fraction POC Glucose 123 H 123 H Blood Type O NEGATIVE Antibody Screen NEGATIVE 01/08/17 01/08/17 09:15 12:18 WBC 6.5 RBC 2.64 L Hgb 8.3 L Hct 25.7 L MCV 97.3 MCH 31.4 MCHC 32.3 RDW 17.5 H Plt Count 44 L MPV 10.2 Immature Plt Fraction 4.1 POC Glucose 115 H Blood Type Antibody Screen - Impressions Impressions Liver Ultrasound 01/07/17 17:00 IMPRESSION: 1. Slight limited due to overlying bowel gas. The left lateral hepatic lobe is not well visualized. The liver is otherwise courses slightly nodular suggestive of cirrhosis. No focal liver lesions identified. 2. Large volume ascites. 3. Small amount of gallbladder sludge. Otherwise no evidence of cholecystitis. D/ / Davide Gutierrez MD / Davide Gutierrez MD Interpreting Provider: Davide Gutierrez MD - ABG Interpretation ABG results: PT/INR, D-dimer PT 11.1 Seconds (9.4-12.1) 01/06/17 01:30 Consult Discharge Plan - Plan [facility]errals: [facility] [Primary Care Provider] -
[2017-01-08] MEDS: VENETOCLAX 10 MG PO SCH (17:20)
--- NOTE | 2017-01-08 18:20 | Internal Med Progress Note ---
Date of Encounter: 01/08/17 Time of Encounter: 15:00 - Assessment and plan (1) Pneumonia Current Visit: Yes Status: Ruled-out Assessment and plan: Patient has been started on broad-spectrum IV antibiotics due to possible pneumonia and underlying immunocompromise. However, review of previous medical records and previous imaging studies show similar pulmonary infiltrates and patient is being followed by pulmonology as an outpatient and is also being referred to pulmonology at [facility] in [place]. He has completed at least 2 courses of IV antibiotics in the recent past. We will discontinue IV antibiotics at this time and continue supplemental oxygen and supportive care. Qualifiers: Pneumonia type: due to unspecified organism Laterality: bilateral Lung location: unspecified part of lung Qualified Code(s): J18.9 - Pneumonia, unspecified organism (2) Cirrhosis of liver Current Visit: Yes Status: Acute Assessment and plan: CT abdomen/pelvis shows cirrhotic liver along with ascites, esophageal varices. Patient and family unaware and this is a new diagnosis for them. GI on board , underwent EGD with banding today. We will start IV diuretics and beta rogerio and monitor closely. Fluid restriction. Plan for large volume paracentesis in a.m. Case has been discussed with GI, recommend outpatient follow-up, other recommendations to follow. Viral hepatitis serologies so far negative. Qualifiers: Hepatic cirrhosis type: unspecified hepatic cirrhosis Ascites presence: with ascites Qualified Code(s): K74.60 - Unspecified cirrhosis of liver (3) Upper GI bleed Current Visit: Yes Status: Acute Assessment and plan: Resolved hematemesis. Status post EGD with variceal banding. Continue to monitor hemoglobin closely. (4) Hypogammaglobulinemia Current Visit: Yes Status: Chronic (5) History of prostate cancer Current Visit: Yes Status: Chronic (6) Chronic bronchitis with productive mucopurulent cough Current Visit: Yes Status: Chronic Assessment and plan: Patient's family at bedside reports that patient has had issues with chronic productive cough with mucus sputum; he underwent bronchoscopy, BAL with no specific diagnosis and is being referred to the [facility] in [place] for higher level of care. Continue when necessary antitussives; (7) Coronary artery disease Current Visit: Yes Status: Chronic Qualifiers: Coronary Disease-Associated Artery/Lesion type: mcgrath artery [place] vs. transplanted heart: mcgrath heart Associated angina: with stable angina Qualified Code(s): I25.118 - Atherosclerotic heart disease of mcgrath coronary artery with other forms of angina pectoris (8) CLL (chronic lymphocytic leukemia) Current Visit: Yes Status: Chronic Assessment and plan: Follows with oncology as outpatient. Recently started on a new medication. - Subjective Interval history: Reports generalized weakness, abdominal distention, leg swelling and shortness of breath. Underwent EGD today and received banding. - Constitutional Vitals: Temp Pulse Resp BP Pulse Ox 98.2 F 78 18 125/69 97 01/08/17 14:47 01/08/17 14:47 01/08/17 14:47 01/08/17 14:10 01/08/17 14:47 General appearance: Present: cooperative, mild distress, A&O X 3, answers questions appropriately - Respiratory Respiratory exam: Present: CTAB (Coarse breath sounds bilaterally). Absent: accessory muscle use, rales, rhonchi, wheezes - Cardiovascular Cardiovascular exam: Present: RRR, +S1, +S2. Absent: diastolic murmur, gallop, rubs, systolic murmur - GI/Abdominal GI/Abdominal exam: Present: distended (Positive fluid thrill, ascites noted), normal bowel sounds, soft, no peritoneal signs. Absent: tenderness - Extremities Exam Extremities exam: Present: full ROM, pedal edema (3+ pitting pedal edema bilaterally), warm, radial pulses palpable and symetrical. Absent: calf tenderness, cyanotic - Neurological Exam Neurological exam: Present: CN II-XII intact, oriented X3, no focal deficits. Absent: pronater drift, facial droop, speech deficit - Skin Skin exam: Present: dry, intact Internal Medicine: Result - Labs CBC & Chem 7: 01/08/17 09:15 01/07/17 04:15 Labs: Short CBC 01/08/17 Range/Units 09:15 WBC 6.5 (4.3-11.1) K/mcL Hgb 8.3 L (12.9-16.9) g/dL Hct 25.7 L (37.5-50.1) % Plt Count 44 L (140-400) K/mcL - ABG Interpretation ABG results: PT/INR, D-dimer PT 11.1 Seconds (9.4-12.1) 01/06/17 01:30 - Impressions Impressions Liver Ultrasound 01/07/17 17:00 IMPRESSION: 1. Slight limited due to overlying bowel gas. The left lateral hepatic lobe is not well visualized. The liver is otherwise courses slightly nodular suggestive of cirrhosis. No focal liver lesions identified. 2. Large volume ascites. 3. Small amount of gallbladder sludge. Otherwise no evidence of cholecystitis. D/ / Davide Gutierrez MD / Davide Gutierrez MD Interpreting Provider: Davide Gutierrez MD - VTE Documentation of Mechanical Device: Intermittent pneumatic compression device Consult Discharge Plan - Plan [facility]errals: [facility] [Primary Care Provider] -
[2017-01-09 03:21] LABS: Basophils % 0.1 %; Eosinophils % 0.2 %; Hemoglobin 8.5 g/dL (12.9-16.9)
[2017-01-09 03:23] LABS: Hematocrit 25.8 % (37.5-50.1); Immature Granulocytes % 0.6 % (0-4); Immature Platelets 4.5 % (1.1-6.1); Lymphocytes # 5.9 K/mcL (0.6-4.6); Mean Corpuscular HGB Conc 32.9 g/dL (31.6-35.5); Mean Corpuscular Hemoglobin 31.7 pg (28.0-33.3); Mean Corpuscular Volume 96.3 fL (83.0-100.0); Mean Platelet Volume 9.7 fL (9.4-12.4); Monocytes # 1.3 K/mcL (0.0-1.3); Monocytes % 15.7 %; Neutrophils # 0.8 K/mcL (1.6-8.9); Red Blood Count 2.68 M/mcL (4.19-5.50); Red Cell Distribution Width 17.4 % (11.5-14.5); Segmented Neutrophils % 10.4 %
[2017-01-09 03:26] LABS: INR 1.1; Prothrombin Time 12.1 Seconds (9.4-12.1)
[2017-01-09 03:32] LABS: BUN/Creatinine Ratio 25 (6-26); Blood Urea Nitrogen 24 mg/dL (8-26); Calcium 8.4 mg/dL (8.6-10.8); Chloride 91 mEq/L (98-109); Glucose 142 mg/dL (70-99); Osmolality,Calculated 288 (280-300); Potassium 3.5 mEq/L (3.5-4.5); Sodium 136 mEq/L (136-145); eGFR For African Americans > 60 (> 60); eGFR For Non-African Americans > 60 (> 60)
[2017-01-09 03:40] LABS: Carbon Dioxide 40 mEq/L (19-29)
[2017-01-09] MEDS ORDERED: 0.9 % Sodium Chloride 1,000 ML IVC ONE (03:56)
[2017-01-09 04:05] LABS: Platelet Count 53 K/mcL (140-400)
[2017-01-09 04:06] LABS: Anisocytosis 1+ (Not Present); Platelet Estimate Decreased (Normal)
[2017-01-09 04:07] LABS: Macrocytosis Present (Not Present); Microcytosis Present (Not Present); Polychromasia 1+ (Not Present)
[2017-01-09 05:05] LABS: ABG HCO3 46.9 mEQ/L (21-27); ABG Oxygen Saturation 93 % (95-98); ABG PCO2 63 mmHg (35-45); ABG PH 7.48 pH Units (7.32-7.45); ABG PO2 63 mmHg (85-104); ABG TCO2 48.8 mEq/L (20-26)
[2017-01-09 05:07] LABS: Blood Gas FiO2 32 %
[2017-01-09 07:56] LABS: AFP Tumor Marker Non-Pregnant 2 ng/mL (0-9); Alpha-1-Antitrypsin 108 mg/dL (90-200); Ceruloplasmin 27 mg/dL (17-54); Myeloperoxidase Ab 3 AU/mL (0-19); Serine Protease-3 Antibody 0 AU/mL (0-19)
[2017-01-09 08:00] LABS: ANA IgG by ELISA NONE DETECTED (None Detected); F-Actin (sm muscle) Ab IgG 3 Units (0-19)
[2017-01-09] MEDS ORDERED: Aminoglycoside Consult 1 EACH MC ONE (08:37)
--- NOTE | 2017-01-09 09:56 | IR Procedure Note ---
Date of procedure: 01/09/17 Consent Obtained: Written consent Timeout: Correct patient and procedure verified, Time out performed, Skin prep completed Local anesthetic: Lidocaine 1% Indications: Ascites Procedure Performed: paracentesis Results/Findings: Sample to path Complications: None; Tolerated procedure well (Monitor on floor)
[2017-01-09] MEDS: Tiotropium 18 MCG inhalation IH SCH (09:58)
--- NOTE | 2017-01-09 10:54 | Venous Imaging Report ---
LE Venous Duplex Patient Name:Bradley Saravia Order Number:[id number] Procedure Date:01/08/2017 Date:1945ge:71 yrs Gender:Male Location:[facility] Room #: 3A12 Lead Technical Architect:Whit Langford Referring MD:Teresa Altamirano lace winder:[facility] Reading MD:Ray Lino MD Primary Indications:Bilateral pitting pedal edema Secondary Indications: Risk Factors Yes/No Anticoagulants Yes Impressions: Bilateral lower extremity: normal superficial and deep exam. Recommendations: After imaging the patient returned to their room. Findings Venous Duplex Results: Right: Venous imaging of the lower extremity reveals full patency and normal vessel compressibility of the right distal iliac, right common femoral, right superficial femoral, right popliteal, right posterior tibial, right peroneal, right great saphenous and right lesser saphenous. Doppler signals in the evaluated veins were normal. Left: Venous imaging of the lower extremity reveals full patency and normal vessel compressibility of the left distal iliac, left common femoral, left superficial femoral, left popliteal, left posterior tibial, left peroneal, left great saphenous and left lesser saphenous. Doppler signals in the evaluated veins were normal. Prior Study: No prior study available for comparison. Lower Extremity Venous Duplex Side Vein Compress Spontaneous Flow Augment Diameter (cm) Depth (cm) Right Distal Iliac Normal Yes Phasic Yes Right Common Femoral Normal Yes Phasic Yes Right Superficial Femoral Normal Yes Phasic Yes Right Popliteal Normal Yes Phasic Yes Right Posterior Tibial Normal Yes Phasic Yes Right Peroneal Normal Yes Phasic Yes Right Great Saphenous Normal Yes Phasic Yes Right Lesser Saphenous Normal Yes Phasic Yes Left Distal Iliac Normal Yes Phasic Yes Left Common Femoral Normal Yes Phasic Yes Left Superficial Femoral Normal Yes Phasic Yes Left Popliteal Normal Yes Phasic Yes Left Posterior Tibial Normal Yes Phasic Yes Left Peroneal Normal Yes Phasic Yes Left Great Saphenous Normal Yes Phasic Yes Left Lesser Saphenous Normal Yes Phasic Yes Updated by Ray Lino MD on 01/09/2017 10:49:39 AM electronically signed on 01/09/2017 10:50:18 AM with status of Final
[2017-01-09] MEDS: Chlorhexidine Rinse 15 ML MOUTHWASH MM SCH (11:41)
[2017-01-09] MEDS: Furosemide 40 MG/4 ML VIAL IVP SCH ×2 (11:42→18:20)
[2017-01-09] MEDS: Folic Acid 1 MG TABLET PO SCH (11:42)
[2017-01-09] MEDS: Thiamine (B-1) 100 MG TABLET PO SCH (11:42)
[2017-01-09] MEDS: Metoprolol XL (24 HR) Succ 25 MG TAB.ER.24H PO SCH (11:42)
[2017-01-09] MEDS: Octreotide 400 MCG in 0.9 % Sodium Chloride 100 ML IVC SCH (15:45)
--- NOTE | 2017-01-09 17:19 | Internal Med Progress Note ---
Date of Encounter: 01/09/17 Time of Encounter: 12:30 - Assessment and plan (1) Pneumonia Current Visit: Yes Status: Ruled-out Qualifiers: Pneumonia type: due to unspecified organism Laterality: bilateral Lung location: unspecified part of lung Qualified Code(s): J18.9 - Pneumonia, unspecified organism (2) Cirrhosis of liver Current Visit: Yes Status: Acute Assessment and plan: CT abdomen/pelvis shows cirrhotic liver along with ascites, esophageal varices. GI on board, underwent EGD with banding. We will change Lasix to oral form and continue beta rogerio. Fluid restriction. Underwent large volume paracentesis today, we will give IV albumin. Viral hepatitis serologies so far negative. Autoimmune panel for cirrhosis negative. Outpatient GI follow-up. Qualifiers: Hepatic cirrhosis type: unspecified hepatic cirrhosis Ascites presence: with ascites Qualified Code(s): K74.60 - Unspecified cirrhosis of liver (3) Upper GI bleed Current Visit: Yes Status: Acute (4) Hypogammaglobulinemia Current Visit: Yes Status: Chronic (5) History of prostate cancer Current Visit: Yes Status: Chronic (6) Chronic bronchitis with productive mucopurulent cough Current Visit: Yes Status: Chronic Assessment and plan: Patient's family at bedside reports that patient has had issues with chronic productive cough with mucus sputum; he underwent bronchoscopy, BAL with no specific diagnosis and is being referred to the [facility] in [place] for higher level of care. Continue when necessary antitussives; CT chest shows trace bilateral pleural effusions, that probably cannot be drained. Less likely parapneumonic effusions, will discuss with pulmonology for further treatment. (7) Coronary artery disease Current Visit: Yes Status: Chronic Qualifiers: Coronary Disease-Associated Artery/Lesion type: [place] artery [place] vs. transplanted heart: [place] heart Associated angina: with stable angina Qualified Code(s): I25.118 - Atherosclerotic heart disease of [place] coronary artery with other forms of angina pectoris (8) CLL (chronic lymphocytic leukemia) Current Visit: Yes Status: Chronic - Subjective Interval history: Feels better today. Improved abdominal distention and shortness of breath, underwent paracentesis. - Constitutional Vitals: Temp Pulse Resp BP Pulse Ox 98.2 F 83 18 110/64 93 01/09/17 14:00 01/09/17 14:00 01/09/17 14:00 01/09/17 14:00 01/09/17 14:00 General appearance: Present: A&O X 3, answers questions appropriately - Respiratory Respiratory exam: Present: rales (Coarse bibasal crackles). Absent: accessory muscle use, rhonchi, wheezes - Cardiovascular Cardiovascular exam: Present: RRR, +S1, +S2. Absent: diastolic murmur, gallop, rubs, systolic murmur - GI/Abdominal GI/Abdominal exam: Present: normal bowel sounds, soft, no peritoneal signs. Absent: distended, tenderness - Extremities Exam Extremities exam: Present: full ROM, pedal edema, warm, radial pulses palpable and symetrical. Absent: calf tenderness, cyanotic Internal Medicine: Result - Labs CBC & Chem 7: 01/09/17 03:15 01/09/17 03:15 Labs: Short CBC 01/09/17 Range/Units 03:15 WBC 8.1 (4.3-11.1) K/mcL Hgb 8.5 L (12.9-16.9) g/dL Hct 25.8 L (37.5-50.1) % Plt Count 53 L (140-400) K/mcL Neutrophils # 0.8 L (1.6-8.9) K/mcL BMP 01/09/17 03:15 Sodium 136 Potassium 3.5 Chloride 91 L Carbon Dioxide 40 H* BUN 24 Creatinine 0.95 Glucose 142 H Calcium 8.4 L - ABG Interpretation ABG results: ABG ABG pH 7.48 pH Units (7.32-7.45) H 01/09/17 04:54 ABG pCO2 63 mmHg (35-45) H 01/09/17 04:54 ABG pO2 63 mmHg (85-104) L 01/09/17 04:54 ABG O2 Saturation 93 % (95-98) L 01/09/17 04:54 PT/INR, D-dimer PT 12.1 Seconds (9.4-12.1) 01/09/17 03:15 - Impressions Impressions Paracentesis Ultrasound 01/09/17 06:53 IMPRESSION: 1. Successful ultrasound guided paracentesis. D/ / Wes Wilde MD / Wes Wilde MD Interpreting Provider: Wes Wilde MD - VTE Documentation of Mechanical Device: Intermittent pneumatic compression device Consult Discharge Plan - Plan [facility] [Primary Care Provider[facility] -
[2017-01-09] MEDS: Albumin 25% 25gram/100mL 25 GM/100 ML IV.SOLN IVPB SCH ×2 (18:21→23:30)
--- NOTE | 2017-01-09 19:00 | Oncology Inp Progress Note ---
Date of Encounter: 01/09/17 Time of Encounter: 21:24 (1) CLL (chronic lymphocytic leukemia) Current Visit: Yes Status: Chronic Assessment and plan: Patient is s/p multiple lines of therapy and was recently started on venetoclax. Will recommend holding Ventoclax until his acute condition resolves. His present condition is not related to his therapy with Ventoclax. His labs do not indicate tumor lysis syndrome. As he has CLL he is more prone to infections. awaiting immunoglobulin levels (2) Ascites Current Visit: Yes Status: Acute Assessment and plan: Most likely related to liver cirrhosis.he underwent paracentesis and is symptomatically improved> awaiting cytology Qualifiers: Ascites type: other type Qualified Code(s): R18.8 - Other ascites (3) Healthcare-associated pneumonia Current Visit: Yes Status: Acute Assessment and plan: antibiotic discontinued> mgt as per primary team (4) Anemia Current Visit: Yes Status: Acute Assessment and plan: Multifactorial. Transfuse for HB less than 8 or for symptomatic anemia. Qualifiers: Anemia type: unspecified type Qualified Code(s): D64.9 - Anemia, unspecified (5) Pedal edema Current Visit: Yes Status: Acute Assessment and plan: Most likely secondary to hypoalbuminemia and liver cirrhosis. Dopplers negative for dvt Oncology: Subj Interval history: Patient is doing better since he underwent paracentesis> His shortness of breath is much improved - Constitutional Vitals: Vital Signs Temp Pulse Resp BP Pulse Ox 01/09/17 14:00 98.2 F 83 18 110/64 93 01/09/17 08:27 97.8 F 78 18 107/60 94 01/09/17 04:00 97.8 F 78 17 121/67 98 01/09/17 00:00 98.2 F 74 17 110/62 90 01/08/17 20:00 98.0 F 87 20 108/66 92 Intake and Output 01/09/17 01/09/17 01/09/17 07:59 15:59 23:59 Intake Total 100 / 100 704 / 704 Output Total 400 / 400 600 / 600 Balance -300 / -300 104 / 104 Intake: IV Fluids 104 / 104 SandoSTATIN 400 MCG In 0. 104 / 104 9 % Sodium Chloride 100 ML @ 25 MCG/HR 6.5 mls/hr IVC .Q16H ELVIRA Rx#: [id number] Oral 100 / 100 600 / 600 Output: Urine 100 / 100 Catheter 400 / 400 500 / 500 Other: Meal Lunch Percent of Meal Consumed 100% Weight 83.7 kg Blood Glucose* 122 Patient Weight 01/09/17 23:59 Weight 83.7 kg General appearance: average body habitus - Head Head exam: Present: normal inspection - Eye Eye exam: Present: EOMI, normal appearance - ENT ENT exam: Present: mucous membranes moist - Respiratory Respiratory exam: Present: CTAB - Cardiovascular Cardiovascular exam: Present: RRR, +S1, +S2 - GI/Abdominal GI/Abdominal exam: Present: soft, tenderness. Absent: rebound, rigid Additional comments: improvement in distension - Neurological Exam Neurological exam: Present: alert, oriented X3 Oncology: Obj Data - Labs CBC & Chem 7: 01/09/17 03:15 01/09/17 03:15 Labs: Laboratory Results - last 24 hr 01/07/17 01/09/17 01/09/17 09:13 01:09 03:15 WBC 8.1 RBC 2.68 L Hgb 8.5 L Hct 25.8 L MCV 96.3 MCH 31.7 MCHC 32.9 RDW 17.4 H Plt Count 53 L MPV 9.7 Immature Gran % 0.6 Seg Neutrophils % 10.4 Lymphocytes % 73.0 Monocytes % 15.7 Eosinophils % 0.2 Basophils % 0.1 Neutrophils # 0.8 L Lymphocytes # 5.9 H Monocytes # 1.3 Eosinophils # 0.0 Basophils # 0.0 Platelet Estimate Decreased L Immature Plt Fraction 4.5 Polychromasia 1+ A Anisocytosis 1+ A Microcytosis Present A Macrocytosis Present A PT INR ABG pH ABG pCO2 ABG pO2 ABG HCO3 ABG Total CO2 ABG O2 Saturation ABG Base Excess Blood Gas Modality Inspired O2 Sodium Potassium Chloride Carbon Dioxide BUN Creatinine Est GFR ( Amer) Est GFR (Non-Af Amer) BUN/Creatinine Ratio Glucose POC Glucose 122 H Calculated Osmolality Calcium Iggof-5-Ewvldipvlkp 108 Ceruloplasmin 27 Tumor Marker AFP 2 TOSIN Screen NONE DETECTED Myeloperoxidase Ab 3 Mitochondria M2 IgG Ab 7.3 F-Actin IgG Antibody 3 Serine Protease 3 Ab 0 01/09/17 01/09/17 01/09/17 03:15 03:15 04:54 WBC RBC Hgb Hct MCV MCH MCHC RDW Plt Count MPV Immature Gran % Seg Neutrophils % Lymphocytes % Monocytes % Eosinophils % Basophils % Neutrophils # Lymphocytes # Monocytes # Eosinophils # Basophils # Platelet Estimate Immature Plt Fraction Polychromasia Anisocytosis Microcytosis Macrocytosis PT 12.1 INR 1.1 ABG pH 7.48 H ABG pCO2 63 H ABG pO2 63 L ABG HCO3 46.9 H ABG Total CO2 48.8 H ABG O2 Saturation 93 L ABG Base Excess 21.0 H Blood Gas Modality NC Inspired O2 32 Sodium 136 Potassium 3.5 Chloride 91 L Carbon Dioxide 40 H* BUN 24 Creatinine 0.95 Est GFR ( Amer) > 60 Est GFR (Non-Af Amer) > 60 BUN/Creatinine Ratio 25 Glucose 142 H POC Glucose Calculated Osmolality 288 Calcium 8.4 L Balpd-0-Rfvsabkmugr Ceruloplasmin Tumor Marker AFP TOSIN Screen Myeloperoxidase Ab Mitochondria M2 IgG Ab F-Actin IgG Antibody Serine Protease 3 Ab - Impressions Impressions Paracentesis Ultrasound 01/09/17 06:53 IMPRESSION: 1. Successful ultrasound guided paracentesis. D/ / Wes Wilde MD / Wes Wilde MD Interpreting Provider: Wes Wilde MD - ABG Interpretation ABG results: ABG ABG pH 7.48 pH Units (7.32-7.45) H 01/09/17 04:54 ABG pCO2 63 mmHg (35-45) H 01/09/17 04:54 ABG pO2 63 mmHg (85-104) L 01/09/17 04:54 ABG O2 Saturation 93 % (95-98) L 01/09/17 04:54 PT/INR, D-dimer PT 12.1 Seconds (9.4-12.1) 01/09/17 03:15 Consult Discharge Plan - Plan [facility]: [facility] [Primary Care Provider[facility] -
[2017-01-09] MEDS: VENETOCLAX 10 MG PO SCH (23:24)
[2017-01-09] MEDS: VENCLEXTA PO SCH (23:24)
[2017-01-10] MEDS: Albumin 25% 25gram/100mL 25 GM/100 ML IV.SOLN IVPB SCH ×2 (05:28→11:55)
[2017-01-10] MEDS: Metoprolol XL (24 HR) Succ 25 MG TAB.ER.24H PO SCH (07:32)
[2017-01-10] MEDS: Furosemide 40 MG/4 ML VIAL IVP SCH (07:36)
[2017-01-10] MEDS: Chlorhexidine Rinse 15 ML MOUTHWASH MM SCH (07:37)
[2017-01-10] MEDS: Thiamine (B-1) 100 MG TABLET PO SCH (07:37)
[2017-01-10] MEDS: Folic Acid 1 MG TABLET PO SCH (07:37)
[2017-01-10] MEDS: VENCLEXTA PO SCH (07:38)
[2017-01-10] MEDS: Tiotropium 18 MCG inhalation IH SCH (08:04)
[2017-01-10] MEDS: Octreotide 400 MCG in 0.9 % Sodium Chloride 100 ML IVC SCH (11:55)
--- NOTE | 2017-01-10 11:59 | Gastroenterology Progress Note ---
<Ajith Salcido - Last Filed: 01/10/17 12:08> Date of Encounter: 01/10/17 Time of Encounter: 10:30 - Assessment and plan (1) Anemia Status: Acute Assessment and plan: Secondary to hematemesis. Hgb stable. Continue to monitor CBC and transfuse PRBC as needed. Qualifiers: Anemia type: unspecified type Qualified Code(s): D64.9 - Anemia, unspecified (2) Ascites Status: Acute Assessment and plan: Paracentesis completed yesterday with 4750 ml removed. Qualifiers: Ascites type: other type Qualified Code(s): R18.8 - Other ascites (3) Hematemesis Status: Acute Assessment and plan: EGD with grade III varices, banded. Follow up with Dr. Chin 2 weeks after discharge. Qualifiers: Nausea presence: with nausea Qualified Code(s): K92.0 - Hematemesis; R11.0 - Nausea (4) Cirrhosis of liver Status: Acute Assessment and plan: Noted on CT with large volume of ascites. No alcohol use. Liver workup negative. AFP 2. EGD with grade III esophageal varices. Liver ultrasound c/w cirrhosis. Qualifiers: Hepatic cirrhosis type: unspecified hepatic cirrhosis Ascites presence: with ascites Qualified Code(s): K74.60 - Unspecified cirrhosis of liver (5) Thrombocytopenia Status: Chronic Assessment and plan: Secondary to cirrhosis. (6) CLL (chronic lymphocytic leukemia) Status: Chronic - Time Spent With Patient Total time spent is greater than 50% in coordination of care (as documented) at patient's floor/unit and/or counseling patient: - Subjective Interval history: Pt is feeling better today. He states his breathing is improved and well as abdominal discomfort following paracentesis yesterday. - Constitutional Vitals: Temp Pulse Resp BP Pulse Ox 98.4 F 76 16 95/53 99 01/10/17 10:14 01/10/17 10:14 01/10/17 10:14 01/10/17 10:14 01/10/17 10:14 General appearance: Present: cooperative, A&O X 3, no acute distress, answers questions appropriately - Head Head exam: Present: atraumatic, normocephalic - Eye Eye exam: Present: normal appearance, sclera anicteric - ENT ENT exam: Present: mucous membranes moist - Neck Neck exam general surgery: Present: normal inspection, trachea midline - Respiratory Respiratory exam: Present: decreased breath sounds, wheezes - Cardiovascular Cardiovascular exam: Present: RRR, +S1, +S2 - GI/Abdominal GI/Abdominal exam: Present: normal bowel sounds, soft, no peritoneal signs - Rectal Rectal exam: Present: deferred - Extremities Exam Extremities exam: Present: warm - Neurological Exam Neurological exam: Present: no focal deficits - Psychiatric Psychiatric exam: Present: normal affect, normal mood - Skin Skin exam: Present: dry, intact, normal color, warm Results - Labs CBC & Chem 7: 01/09/17 03:15 01/09/17 03:15 Labs: Last Result Calcium 8.4 mg/dL (8.6-10.8) L 01/09/17 03:15 Entire Visit Hgb 8.5 g/dL (12.9-16.9) L 01/09/17 03:15 Hct 25.8 % (37.5-50.1) L 01/09/17 03:15 PT 12.1 Seconds (9.4-12.1) 01/09/17 03:15 Total Bilirubin 1.0 mg/dL (0.2-1.2) D 01/07/17 04:15 AST 39 Units/L (5-34) H 01/07/17 04:15 ALT 40 Units/L (0-55) 01/07/17 04:15 Ammonia 48 mcmol/L (18-72) 01/06/17 01:30 Ybnfv-8-Fnlegabrcsd 108 mg/dL (90-200) 01/07/17 09:13 Ceruloplasmin 27 mg/dL (17-54) 01/07/17 09:13 Lipase 29 Units/L (8-78) 01/06/17 01:30 F-Actin IgG Antibody 3 Units (0-19) 01/07/17 09:13 - ABG ABG results: ABG ABG pH 7.48 pH Units (7.32-7.45) H 01/09/17 04:54 ABG pCO2 63 mmHg (35-45) H 01/09/17 04:54 ABG pO2 63 mmHg (85-104) L 01/09/17 04:54 ABG O2 Saturation 93 % (95-98) L 01/09/17 04:54 PT/INR, D-dimer PT 12.1 Seconds (9.4-12.1) 01/09/17 03:15 - VTE Documentation of Mechanical Device: Intermittent pneumatic compression device Consult Discharge Plan - Plan Instructions: Anemia (GEN) Additional Instructions: F/up with /Jennifer DAVIS in 2 weeks [facility]errals: [facility] [Primary Care Provider[facility] - Sarath Chin MD [Partnered Physician] - Prescriptions: Furosemide [Lasix] 40 mg PO DAILY #30 tablet <Sarath Chin - Last Filed: 01/15/17 09:34> Date of Encounter: 01/10/17 Time of Encounter: 14:00 - Time Spent With Patient Total time spent is greater than 50% in coordination of care (as documented) at patient's floor/unit and/or counseling patient: - Constitutional Vitals: Temp Pulse Resp BP Pulse Ox 98.9 F 82 18 100/46 94 01/10/17 13:56 01/10/17 13:56 01/10/17 13:56 01/10/17 13:56 01/10/17 13:56 Results - Labs CBC & Chem 7: 01/09/17 03:15 01/09/17 03:15 Labs: Last Result Calcium 8.4 mg/dL (8.6-10.8) L 01/09/17 03:15 Entire Visit Hgb 8.5 g/dL (12.9-16.9) L 01/09/17 03:15 Hct 25.8 % (37.5-50.1) L 01/09/17 03:15 PT 12.1 Seconds (9.4-12.1) 01/09/17 03:15 Total Bilirubin 1.0 mg/dL (0.2-1.2) D 01/07/17 04:15 AST 39 Units/L (5-34) H 01/07/17 04:15 ALT 40 Units/L (0-55) 01/07/17 04:15 Ammonia 48 mcmol/L (18-72) 01/06/17 01:30 Xmina-6-Jwlesmfdumx 108 mg/dL (90-200) 01/07/17 09:13 Ceruloplasmin 27 mg/dL (17-54) 01/07/17 09:13 Lipase 29 Units/L (8-78) 01/06/17 01:30 F-Actin IgG Antibody 3 Units (0-19) 01/07/17 09:13 - ABG ABG results: ABG ABG pH 7.48 pH Units (7.32-7.45) H 01/09/17 04:54 ABG pCO2 63 mmHg (35-45) H 01/09/17 04:54 ABG pO2 63 mmHg (85-104) L 01/09/17 04:54 ABG O2 Saturation 93 % (95-98) L 01/09/17 04:54 PT/INR, D-dimer PT 12.1 Seconds (9.4-12.1) 01/09/17 03:15 - Attending Attestation I examined this patient and my medical decision-making was reviewed with the CORPORATE STRATEGIST/PA/Advanced Practice Nurse/Resident Physician. I agree with the documented findings, disposition and treatment plan as described except to the extent set forth below.
--- NOTE | 2017-01-10 12:37 | Discharge Summary ---
Date of Encounter: 01/10/17 Time of Encounter: 12:34 - Discharge Diagnosis (1) Cirrhosis of liver Priority: Primary Status: Chronic Qualifiers: Hepatic cirrhosis type: unspecified hepatic cirrhosis Ascites presence: with ascites Qualified Code(s): K74.60 - Unspecified cirrhosis of liver (2) Upper GI bleed Priority: Primary Status: Acute (3) Hypogammaglobulinemia Priority: Secondary Status: Chronic (4) History of prostate cancer Priority: Secondary Status: Chronic (5) Chronic bronchitis with productive mucopurulent cough Priority: Secondary Status: Chronic (6) Coronary artery disease Priority: Secondary Status: Chronic Qualifiers: Coronary Disease-Associated Artery/Lesion type: [place] artery [place] vs. transplanted heart: [place] heart Associated angina: with stable angina Qualified Code(s): I25.118 - Atherosclerotic heart disease of [place] coronary artery with other forms of angina pectoris (7) CLL (chronic lymphocytic leukemia) Priority: Secondary Status: Chronic - Discharge Medications Prescriptions: Furosemide [Lasix] 40 mg PO DAILY #30 tablet Home Medications: Aspirin [Adult Low Dose Aspirin EC] 81 mg PO DAILY 11/28/15 [History] Atorvastatin Calcium [Lipitor] 40 mg PO HS 11/28/15 [History] Lactose-Reduced Food [Ensure High Protein] 237 ml PO TID 02/13/16 [History] Albuterol Sulfate [Albuterol Inhaler] 2 puff IH Q4HR PRN 02/15/16 [History] Ipratropium/Albuterol Neb [Duoneb] 3 ml IH QID 02/15/16 [History] Ranitidine HCl [Zantac] 150 mg PO BID 02/15/16 [History] Folic Acid 1 mg PO DAILY #90 tablet 04/04/16 [Rx] Acetaminophen [Tylenol] 650 mg PO Q6HR PRN 05/16/16 [History] Calcium Carbonate/Vitamin D3 [Calcium 500-Vit D3 400 Tablet] 1 tab PO DAILY [History] Magic Mouthwash [Magic Mouthwash BLM] 7.5 ml PO TID PRN 05/16/16 [History] Multivitamin [Multi-Day Vitamins] 1 tab PO DAILY 05/16/16 [History] Azelastine 0.1% Nasal [place] [Astelin] 2 spray NS BID 08/28/16 [History] Petrolatum,White [Aloe [place]] 1 appl TP TID PRN 08/28/16 [History] Ubidecarenone [Coenzyme Q10] 100 mg PO DAILY 08/28/16 [History] Tiotropium [Spiriva] 1 cap IH DAILY 11/16/16 [History] Cholecalciferol (Vitamin D3) [Vitamin D3] 3,000 unit PO HS 12/03/16 [History] Isosorbide MONOnitrate (24 HR) [Imdur] 30 mg PO DAILY 30 Days 12/18/16 [Rx] Metoprolol XL (24 HR) Succ [Toprol Xl] 25 mg PO DAILY #60 tab.er.24h 12/18/16 [ Rx] Tamsulosin [Flomax] 0.4 mg PO DAILY 12/28/16 [History] Chlorhexidine Rinse 15 ml MM DAILY 01/06/17 [History] Furosemide [Lasix] 40 mg PO DAILY #30 tablet 01/10/17 [Rx] Venetoclax [Venclexta Starting Pack] 1 each PO AD #1 tab.ds.pk 01/10/17 [Rx] Allergies/Adverse Reactions: Allergies flunisolide Adverse Reaction (Verified 01/06/17 16:48) See Comments [facility] list naproxen [From Naprosyn] Adverse Reaction (Verified 01/06/17 16:48) See Comments [facility] list Procedures/tests Complete & Pending: Procedures Performed prior 72 hours Category Date Time Status US liver [US] Routine Exams 01/07/17 17:00 Completed IR paracentesis ultrasound [IR] Routine IR 01/09/17 06:53 Completed EV venous imaging LE BI Stat Y 01/08/17 17:18 Completed Date of admission: 01/06/17 04:02 [facility] care physician[facility] Consults: 01/06/17 06:04 Consult to Do All Operator [CONS] Routine Reason for SW Consult: patient has home health and lives alone 01/06/17 06:56 Consult to Physician [CONS] Routine Consulting Provider: Wilner Ma Reason for Consult: Coffee ground emesis, likely secondary to esophageal varices. Hgb stable 10. Call Completed: Yes 01/06/17 07:20 Consult to Oncology [CONS] Routine Consulting Provider: [facility] Reason for Consult: Admitted for coffee ground emesis. CLL on chemo. Pt of Dr. Bundy Call Completed: Yes 01/07/17 07:37 Consult to Gastroenterology [CONS] Routine Consulting Provider: Reta Rodriguez Reason for Consult: Hematemesis Time Notified: 07:38 Call Completed: Yes 01/07/17 13:46 OT [Consult to Occupational Therapy] [CONS] Routine Comment: Evaluate, develop and implement POC PT [Consult to Physical Therapy] [CONS] Routine Comment: Evaluate, develop and implement POC Discharging clinician: Mary Beth Bartholomew Anticipated date of discharge: 01/10/17 - Patient Status Disposition: Home Health Service Condition: Fair Functional capacity at discharge: independent ambulation Overall status at discharge: patient is progressing back to baseline - Discharge Instructions Instructions: Anemia (GEN) Follow Up With: [facility],PCP [Primary Care Provider] - Sarath Chin MD [Partnered Physician] - Additional Instructions: F/up with /[facility] in 2 weeks - Diet and Activity Activity: resume usual activities as tolerated, wear oxygen at all times Diet: low fat, low cholesterol, low salt diet (fluid restriction to 1.2L/day) Hospital course: Mr. Saravia is a 71 year old male with multiple medical problems including CLL, on chemotherapy currently, who was sent from [facility] with hematemesis. Patient was recently hospitalized here and treated for pneumonia. He was admitted at the [facility] about 4 days back with hematuria, which has since improved and then he developed hematemesis and was transferred to our hospital for GI evaluation. CT abdomen/pelvis showed changes suggestive of cirrhosis and significant ascites. GI was consulted and patient underwent EGD along with banding of esophageal varices. He was noted to have thrombocytopenia and received 1 unit of platelet transfusion prior to this procedure. Patient's hemoglobin and platelet counts remained stable since the procedure. CT chest also showed bibasal infiltrates/atelectasis/trace pleural effusions along with changes in bilateral upper lobes suggestive of infection. He was initially started on broad-spectrum IV antibiotics. However, upon review of his previous medical records and imaging studies, patient has had these changes for quite some time along with chronic productive cough with mucus. He is being evaluated as an outpatient by pulmonology with plan to refer him to pulmonology at [facility] for higher level of care. Patient also underwent multiple bronchoscopies with negative BAL. Blood cultures during this admission remained negative. Patient was also symptomatic due to ascites and underwent IR guided paracentesis after which he was able to breathe much better. He remains hemodynamically stable. I have discussed his plan of care with his son on the phone, who verbalized understanding. Physical therapy evaluation was completed and patient was cleared to be discharged home. He is currently medically stable for discharge with outpatient oncology follow-up. Oncology has seen him during this admission and his current chemotherapy with Venclexta is currently on hold. - Time Spent with Patient Total time spent providing and/or coordinating discharge services: Greater than 30 minutes (50 min) - Constitutional Vitals: Temp Pulse Resp BP Pulse Ox 98.4 F 76 16 95/53 99 01/10/17 10:14 01/10/17 10:14 01/10/17 10:14 01/10/17 10:14 01/10/17 10:14 General appearance: Present: A&O X 3, answers questions appropriately - Respiratory Respiratory exam: Present: rales (bibasal coarse crackles+). Absent: accessory muscle use, rhonchi, wheezes - Cardiovascular Cardiovascular exam: Present: RRR, +S1, +S2. Absent: diastolic murmur, gallop, rubs, systolic murmur - VTE Documentation of Mechanical Device: Intermittent pneumatic compression device
--- NOTE | 2017-01-10 13:59 | Physician Discharge Referral ---
Home Health/Hosp Referral Info Transfer to: Home Health Attending Provider: Mary Beth Bartholomew Provider in Charge Post Discharge: PCP - Diagnosis (1) Pneumonia Priority: Primary Status: Ruled-out (2) Cirrhosis of liver Priority: Primary Status: Chronic (3) Upper GI bleed Priority: Primary Status: Acute (4) Hypogammaglobulinemia Priority: Secondary Status: Chronic (5) History of prostate cancer Priority: Secondary Status: Chronic (6) Chronic bronchitis with productive mucopurulent cough Priority: Secondary Status: Chronic (7) Coronary artery disease Priority: Secondary Status: Chronic (8) CLL (chronic lymphocytic leukemia) Priority: Secondary Status: Chronic - Respiratory Orders Oxygen / L per min (4L/min via [place]) Smoking Cessation: Smoking cessation has been advised. For more information, call the [employer] Quit Line at 3-179-ZNHA-NOW. - Diet/Nutrition Diet/Nutrition Orders: No Added Salt (BHAKTI), Cardiac (fluid restriction to 1.2L/ day) - Activity Activity Orders: Ambulate - Services Needed Following services are medically necessary services: Nursing - Transfer Medications Prescriptions: Furosemide [Lasix] 40 mg PO DAILY #30 tablet Home Medications: Aspirin [Adult Low Dose Aspirin EC] 81 mg PO DAILY 11/28/15 [History] Atorvastatin Calcium [Lipitor] 40 mg PO HS 11/28/15 [History] Lactose-Reduced Food [Ensure High Protein] 237 ml PO TID 02/13/16 [History] Albuterol Sulfate [Albuterol Inhaler] 2 puff IH Q4HR PRN 02/15/16 [History] Ipratropium/Albuterol Neb [Duoneb] 3 ml IH QID 02/15/16 [History] Ranitidine HCl [Zantac] 150 mg PO BID 02/15/16 [History] Folic Acid 1 mg PO DAILY #90 tablet 04/04/16 [Rx] Acetaminophen [Tylenol] 650 mg PO Q6HR PRN 05/16/16 [History] Calcium Carbonate/Vitamin D3 [Calcium 500-Vit D3 400 Tablet] 1 tab PO DAILY [History] Magic Mouthwash [Magic Mouthwash BLM] 7.5 ml PO TID PRN 05/16/16 [History] Multivitamin [Multi-Day Vitamins] 1 tab PO DAILY 05/16/16 [History] Azelastine 0.1% Nasal [place] [Astelin] 2 spray NS BID 08/28/16 [History] Petrolatum,White [Aloe [place]] 1 appl TP TID PRN 08/28/16 [History] Ubidecarenone [Coenzyme Q10] 100 mg PO DAILY 08/28/16 [History] Tiotropium [Spiriva] 1 cap IH DAILY 11/16/16 [History] Cholecalciferol (Vitamin D3) [Vitamin D3] 3,000 unit PO HS 12/03/16 [History] Isosorbide MONOnitrate (24 HR) [Imdur] 30 mg PO DAILY 30 Days 12/18/16 [Rx] Metoprolol XL (24 HR) Succ [Toprol Xl] 25 mg PO DAILY #60 tab.er.24h 12/18/16 [ Rx] Tamsulosin [Flomax] 0.4 mg PO DAILY 12/28/16 [History] Chlorhexidine Rinse 15 ml MM DAILY 01/06/17 [History] Furosemide [Lasix] 40 mg PO DAILY #30 tablet 01/10/17 [Rx] Venetoclax [Venclexta Starting Pack] 1 each PO AD #1 tab.ds.pk 01/10/17 [Rx] Allergies/Adverse Reactions: Allergies flunisolide Adverse Reaction (Verified 01/06/17 16:48) See Comments va list naproxen [From Naprosyn] Adverse Reaction (Verified 01/06/17 16:48) See Comments va list Certification: Further, I certify that my clinical findings support that this patient is homebound (i.e. absences from home require considerable and taxing effort and are for medical reasons or restoration services or infrequently or short duration when for other reasons) because: Homebound Reason: Leaving home requires considerable and taxing effort due to condition Attestation: My signature below is to certify that this patient is under my care and that I, or nurse practitioner, or a physician's assistant professor of anthropology working with me, has a face-to -face encounter with this patient.
[2017-01-10 14:03] VITALS: BP 100/46
[2017-01-11 07:55] LABS: Immunoglobulin A 32 mg/dL (68-408); Immunoglobulin G 446 mg/dL (768-1632); Immunoglobulin M 6 mg/dL (35-263)
--- NOTE | 2017-01-11 10:53 | Oncology Inp Progress Note ---
Date of Encounter: 01/10/17 Time of Encounter: 11:00 (1) CLL (chronic lymphocytic leukemia) Status: Chronic Assessment and plan: Patient is s/p multiple lines of therapy and was recently started on venetoclax. Ventoclax is on hold until his acute condition resolves. His present condition is not related to his therapy with Ventoclax. His labs do not indicate tumor lysis syndrome. As he has CLL he is more prone to infections. awaiting immunoglobulin levels (2) Ascites Status: Acute Assessment and plan: Most likely related to liver cirrhosis. He underwent paracentesis and is symptomatically improved. Awaiting cytology Qualifiers: Ascites type: other type Qualified Code(s): R18.8 - Other ascites (3) Anemia Status: Acute Assessment and plan: Multifactorial. Transfuse for HB less than 8 or for symptomatic anemia. Qualifiers: Anemia type: unspecified type Qualified Code(s): D64.9 - Anemia, unspecified (4) Pedal edema Status: Acute Assessment and plan: Most likely secondary to hypoalbuminemia and liver cirrhosis. Dopplers negative for dvt Oncology: Subj Interval history: Patient is doing so much better. Breathing is much improved. Abd distension has not recurred. - Constitutional Vitals: Vital Signs Temp Pulse Resp BP Pulse Ox 01/10/17 13:56 98.9 F 82 18 100/46 94 General appearance: average body habitus, no no acute distress, no severe distress - Head Head exam: Present: normal inspection - Eye Eye exam: Present: EOMI, normal appearance - ENT ENT exam: Present: mucous membranes moist - Neck Neck exam: Absent: tenderness - Respiratory Respiratory exam: Present: CTAB - Cardiovascular Cardiovascular exam: Present: RRR, +S2 - GI/Abdominal GI/Abdominal exam: Present: soft. Absent: rebound, rigid, tenderness Oncology: Obj Data - Labs CBC & Chem 7: 01/09/17 03:15 01/09/17 03:15 Labs: Laboratory Results - last 24 hr 01/09/17 03:15 IgG 446 L IgA 32 L IgM 6 L - ABG Interpretation ABG results: ABG ABG pH 7.48 pH Units (7.32-7.45) H 01/09/17 04:54 ABG pCO2 63 mmHg (35-45) H 01/09/17 04:54 ABG pO2 63 mmHg (85-104) L 01/09/17 04:54 ABG O2 Saturation 93 % (95-98) L 01/09/17 04:54 PT/INR, D-dimer PT 12.1 Seconds (9.4-12.1) 01/09/17 03:15 Consult Discharge Plan - Plan Instructions: Anemia (GEN) Additional Instructions: F/up with /Jennifer DAVIS in 2 weeks [facility]errals: [facility] [Primary Care Provider] - Sarath Chin MD [Partnered Physician] - Prescriptions: Furosemide [Lasix] 40 mg PO DAILY #30 tablet
== END 2017-01-10 17:25 | disposition home health service (06) | DRG 368 ==
LOC: EMEROO 00:50 → 3ANU 04:02 → SUATTDRO 04:02 → 3ANU 05:33
PROVIDERS: ADMIT Internal Medicine; ATTEND Internal Medicine

== ENCOUNTER 2017-02-24 17:57 | Inpatient (IN) ==
[2017-02-24 18:54] LABS: Hemoglobin 8.6 g/dL (12.9-16.9); Mean Corpuscular Hemoglobin 31.4 pg (28.0-33.3); Red Blood Count 2.74 M/mcL (4.19-5.50)
[2017-02-24 18:56] LABS: Hematocrit 27.2 % (37.5-50.1); Immature Platelets 3.6 % (1.1-6.1); Lymphocytes # 3.1 K/mcL (0.6-4.6); Mean Corpuscular HGB Conc 31.6 g/dL (31.6-35.5); Mean Corpuscular Volume 99.3 fL (83.0-100.0); Mean Platelet Volume 9.6 fL (9.4-12.4); Monocytes # 0.2 K/mcL (0.0-1.3); Red Cell Distribution Width 17.8 % (11.5-14.5)
[2017-02-24 19:04] LABS: Alanine Aminotransferase 22 Units/L (0-55); Albumin 2.7 g/dL (3.5-5.0); Albumin/Globulin Ratio 1.1 (1.1-2.2); Alkaline Phosphatase 68 Units/L (38-126); Aspartate Amino Transferase 58 Units/L (5-34); BUN/Creatinine Ratio 22 (6-26); Bilirubin,Total 0.6 mg/dL (0.2-1.2); Blood Urea Nitrogen 20 mg/dL (8-26); Calcium 10.3 mg/dL (8.6-10.8); Chloride 94 mEq/L (98-109); Globulin 2.5 g/dL (2.4-3.5); Glucose 135 mg/dL (70-99); Osmolality,Calculated 289 (280-300); Potassium 4.5 mEq/L (3.5-4.5); Sodium 137 mEq/L (136-145); Total Protein 5.2 g/dL (6.0-8.3); eGFR For African Americans > 60 (> 60); eGFR For Non-African Americans > 60 (> 60)
[2017-02-24 19:06] LABS: Carbon Dioxide 41 mEq/L (19-29)
[2017-02-24 19:15] LABS: Platelet Count 56 K/mcL (140-400)
[2017-02-24 19:19] LABS: Neutrophils # 0.6 K/mcL (1.6-8.9)
[2017-02-24 19:20] LABS: Platelet Estimate Decreased (Normal)
[2017-02-24 19:21] LABS: Basophilic Stippling 1+ (Not Present); Hypochromasia Present (Not Present); Microcytosis Present (Not Present); Ovalocytes 1+ (Not Present); Tear Drop Cells 1+ (Not Present)
[2017-02-24 19:22] LABS: Anisocytosis 1+ (Not Present); Reactive Lymphocytes Present (Not Present); Smudge Cells Present (Not Present)
[2017-02-24] MEDS ORDERED: Ondansetron 4 MG/2 ML VIAL IVP PRN (21:25)
[2017-02-24] MEDS ORDERED: Naloxone 0.4 MG/ML INJ IVP PRN (21:25)
[2017-02-24] MEDS ORDERED: Acetaminophen 325 MG TABLET PO PRN (21:31)
--- NOTE | 2017-02-24 21:31 | Emergency Department Note ---
Disposition Clinical Impression: Weakness Open abdominal wall wound Qualifiers: Encounter type: initial encounter Qualified Code(s): S31.109A - Unspecified open wound of abdominal wall, unspecified quadrant without penetration into peritoneal cavity, initial encounter Disposition: Admitted As Inpatient [facility]errals: [facility] [Primary Care Provider] - Forms: ED Satisfaction Letter, Work/School Release Abdominal Pain HPI - General Chief Complaint: ED Abdominal Pain Stated Complaint: Fluid leaking from surgical site Source: patient, EMS Nursing Notes Reviewed: Yes Vital Signs Reviewed: Yes - History of Present Illness HPI Narrative: 71-year-old male with a history of metastatic cancer presents with concern for leaking around the area he had recent paracentesis. He has no complaints beyond leaking soaking multiple dressings over the past 2 days. He does not a history of having cancer related to agent orange exposure per his history. He is not currently on chemotherapy but has having trouble with his ADLs at home. He has not established care with palliative resources as of yet. His family is concerned about weakness, fatigue, inability to care for himself along with a leaking abdominal wound which she is unable to care for. He has no fever or chills. His vital signs are stable on arrival. Pain Scale: 0 - Related Data Home Medications Medication Instructions Recorded Confirmed Aspirin [Adult Low Dose Aspirin EC] 81 mg PO DAILY 11/28/15 02/24/17 Atorvastatin Calcium [Lipitor] 40 mg PO HS 11/28/15 02/24/17 Albuterol Sulfate [Albuterol 2 puff IH Q4HR PRN 02/15/16 02/24/17 Inhaler] Ipratropium/Albuterol Neb [Duoneb] 3 ml IH QID 02/15/16 02/24/17 Acetaminophen [Tylenol] 650 mg PO Q6HR PRN 05/16/16 02/24/17 Calcium Carbonate/Vitamin D3 1 tab PO DAILY 05/16/16 02/24/17 [Calcium 500-Vit D3 400 Tablet] Magic Mouthwash [Magic Mouthwash 7.5 ml PO TID PRN 05/16/16 02/24/17 BLM] Multivitamin [Multi-Day Vitamins] 1 tab PO DAILY 05/16/16 02/24/17 Azelastine 0.1% Nasal [place] 2 spray NS BID 08/28/16 02/24/17 [Astelin] Petrolatum,White [Aloe [place]] 1 appl TP TID PRN 08/28/16 02/24/17 Ubidecarenone [Coenzyme Q10] 100 mg PO DAILY 08/28/16 02/24/17 Tiotropium [Spiriva] 1 cap IH DAILY 11/16/16 02/24/17 Cholecalciferol (Vitamin D3) 3,000 unit PO HS 12/03/16 02/24/17 [Vitamin D3] Tamsulosin [Flomax] 0.4 mg PO DAILY 12/28/16 02/24/17 Nut.tx.pulm.disord.soy,Lac-Fr 2 each PO DAILY 01/21/17 02/24/17 [Pulmocare] Previous Rx's Medication Instructions Recorded Folic Acid 1 mg PO DAILY #90 tablet 04/04/16 Isosorbide MONOnitrate (24 HR) 30 mg PO DAILY 30 Days 12/18/16 [Imdur] Metoprolol XL (24 HR) Succ [Toprol 25 mg PO DAILY #60 tab.er.24h 12/18/16 Xl] Furosemide [Lasix] 40 mg PO DAILY #30 tablet 01/10/17 Venetoclax [Venclexta Starting 1 each PO AD #1 tab.ds.pk 01/10/17 Pack] Spironolactone [Aldactone] 25 mg PO DAILY #30 tablet 01/21/17 Spironolactone [Aldactone] 50 mg PO DAILY #30 tablet 02/15/17 Allergies Allergy/AdvReac Type Severity Reaction Status Date / Time flunisolide AdvReac See Verified 02/15/17 10:29 Comments naproxen [From Naprosyn] AdvReac See Verified 02/15/17 10:29 Comments All systems ED: reviewed and negative except as stated. Abdominal Pain PMH - Past Medical History Medical history: Reports: arthritis, cancer, cirrhosis, CHF, COPD, coronary artery disease, DVT, GERD, hyperlipidemia, hypertension, liver disease, malignancy, myocardial infarction, osteoporosis, peripheral artery disease, renal disease, SVT, thyroid disease, other Male Surgical History: Reports: other Psychiatric history: Reports: anxiety, other - Social History Smoking status: Former smoker Alcohol use: Reports: none Drug use: Reports: none Physical Exam Ill-appearing, cachectic, dry mucous membranes Appears in poor overall health Trachea midline Regular rate and rhythm Lungs clear bilaterally Abdomen is distended consistent with underlying ascites and metastatic cancer with fluid leaking from a small area over the left lateral abdomen. Extremities are well-perfused. Pale. Moves all extremities without difficulty. Strength 5/5, sensation normal. Reflexes normal. - General Limitations: no limitations General appearance: alert, in no apparent distress Course Vital Signs Temperature 98.3 F 02/24/17 18:01 Pulse Rate 77 02/24/17 18:01 Respiratory Rate 18 02/24/17 18:01 Blood Pressure 104/60 02/24/17 18:01 O2 Sat by Pulse Oximetry 94 02/24/17 18:01 Temperature 98.3 F 02/24/17 18:01 Pulse Rate 83 02/24/17 18:48 Respiratory Rate 18 02/24/17 18:48 Blood Pressure 105/57 02/24/17 18:48 O2 Sat by Pulse Oximetry 100 02/24/17 18:48 Oxygen Delivery Oxygen Delivery Nasal Cannula Abdominal Pain - MDM Narrative Medical decision making narrative: Patient will be admitted for weakness, leaking abdominal wound, metastatic cancer, failure to thrive. Basic laboratory analyses were obtained including ammonia level. I did attempt to Dermabond the wound to prevent ongoing leaking however the leaking was too brisk and the Dermabond did not seem to hold. The patient will be admitted for ongoing evaluation. Discussed case with hospitalist team. - Lab Data Lab results reviewed: Yes I reviewed the patient's lab results. Result diagrams: 02/24/17 18:44 02/24/17 18:44 Lab Results 02/24/17 02/24/17 02/24/17 Range/Units 18:44 18:44 18:44 WBC 3.9 L (4.3-11.1) K/mcL RBC 2.74 L (4.19-5.50) M/mcL Hgb 8.6 L (12.9-16.9) g/dL Hct 27.2 L (37.5-50.1) % MCV 99.3 (83.0-100.0) fL MCH 31.4 (28.0-33.3) pg MCHC 31.6 (31.6-35.5) g/dL RDW 17.8 H (11.5-14.5) % Plt Count 56 L (140-400) K/mcL MPV 9.6 (9.4-12.4) fL Seg Neutrophils % 16.0 % Lymphocytes % 80.0 % Monocytes % 4.0 % Neutrophils # 0.6 L (1.6-8.9) K/mcL Lymphocytes # 3.1 (0.6-4.6) K/mcL Monocytes # 0.2 (0.0-1.3) K/mcL Reactive Lymphocytes Present A (Not Present) Smudge Cells Present A (Not Present) Platelet Estimate Decreased L (Normal) Immature Plt Fraction 3.6 (1.1-6.1) % Hypochromasia Present A (Not Present) Basophilic Stippling 1+ A (Not Present) Anisocytosis 1+ A (Not Present) Microcytosis Present A (Not Present) Tear Drop Cells 1+ A (Not Present) Ovalocytes 1+ A (Not Present) Sodium 137 (136-145) mEq/L Potassium 4.5 (3.5-4.5) mEq/L Chloride 94 L (98-109) mEq/L Carbon Dioxide 41 H* (19-29) mEq/L BUN 20 (8-26) mg/dL Creatinine 0.91 (0.72-1.25) mg/dL Est GFR ( Amer) > 60 (> 60) Est GFR (Non-Af Amer) > 60 (> 60) BUN/Creatinine Ratio 22 (6-26) Glucose 135 H (70-99) mg/dL Calculated Osmolality 289 (280-300) Calcium 10.3 (8.6-10.8) mg/dL Total Bilirubin 0.6 (0.2-1.2) mg/dL AST 58 H (5-34) Units/L ALT 22 (0-55) Units/L Alkaline Phosphatase 68 (38-126) Units/L Ammonia 69 (18-72) mcmol/L Serum Total Protein 5.2 L (6.0-8.3) g/dL Albumin 2.7 L (3.5-5.0) g/dL Globulin 2.5 (2.4-3.5) g/dL Albumin/Globulin Ratio 1.1 (1.1-2.2)
--- NOTE | 2017-02-24 21:42 | Internal Med History&Physical ---
Date of Encounter: 02/24/17 Time of Encounter: 21:37 Assessment and Plan (1) Failure to thrive in adult Current visit: Yes Status: Acute Patient with progressive weakness, inability to care for self. He appears cachectic. Albumin low at 2.7. Patient with stage 4 CLL. Consult to palliative care for discussion of goals of care and hospice. (2) Open abdominal wall wound Current visit: Yes Status: Acute Patient had paracentesis a few days ago for ascites. Site on left side of abdomen continues to drain serous fluid. Dermabond applied in ED. Apply dry dressing and change PRN. Consider consult to IR for additional ascites drainage. Qualifiers: Encounter type: initial encounter Qualified Code(s): S31.109A - Unspecified open wound of abdominal wall, unspecified quadrant without penetration into peritoneal cavity, initial encounter (3) Ascites Current visit: No Status: Acute Patient with cirrhosis and ascites requiring frequent drainage. He had paracentesis on . Qualifiers: Ascites type: malignant Qualified Code(s): R18.0 - Malignant ascites (4) CLL (chronic lymphocytic leukemia) Current visit: No Status: Chronic Patient with stage 4 CLL, follows with oncology. (5) COPD (chronic obstructive pulmonary disease) Current visit: Yes Status: Chronic Patient with COPD. Not reporting any increased shortness of breath or coughing. Not in exacerbation at this time. Continue home medications titrate oxygen to maintain saturation > 90% Qualifiers: COPD type: chronic bronchitis Chronic bronchitis type: mucopurulent Qualified Code(s): J41.1 - Mucopurulent chronic bronchitis (6) DVT prophylaxis Current visit: No Status: Acute sequential compression devices Arixtra 2.5mg SQ daily. Internal Medicine - H&P: HPI Chief complaint: weakness, leaking from paracentesis site Admitted From: Emergency Dept Plans for Post Hospital Care: Home History of present illness: Mr. Saravia is a 71 year old male with metastatic CLL, coronary artery disease with multiple stent placement, COPD, acid reflux who was brought to the emergency department today with concerns about his progressive weakness, inability to care for himself, and the paracentesis site leaking. Patient reports he is weak all the time, short of breath all the time, denies any chest pain, or palpitations, denies any nausea or vomiting. Reports poor appetite. Evaluation in the emergency department revealed hemoglobin of 8.6, consistent with patient's previous resulting anemia, thrombocytopenia with plt of 56. His CO@ is elevated at 41, but is also consistent with previous results. Albumin is low at 2.7. On exam, patient is pale, cachexic. Heart has regular rate and rhythm, Lungs were clear to auscultation. Patient with soft abdomen with fluid wave consistent with ascites. Left sided paracentesis site was oozing serous fluid. Past Med Surg Social Fam HX - Past Medical History Medical history: arthritis, cancer (CLL), cirrhosis, CHF, COPD, coronary artery disease, DVT, GERD, hyperlipidemia, hypertension, liver disease, malignancy, myocardial infarction, osteoporosis, peripheral artery disease, renal disease, SVT, thyroid disease, other Psychiatric history: anxiety, other - Past Surgical History Surgical History: angioplasty/stent, cancer surgery, cataract, herniorrhaphy, prostatectomy, other - Social History Smoking Status: Former smoker Smokeless Tobacco Status: No Alcohol use: none Drug use: none - Family History Mother Adopted: No Family Member Ethnicity: Non- Living Status: Hx Family Cardiac Disorders: Yes Father Family Member Ethnicity: Non- Living Status: Hx Family Cardiac Disorders: Yes Internal Medicine - H&P: Meds Aspirin [Adult Low Dose Aspirin EC] 81 mg PO DAILY 11/28/15 [History] Atorvastatin Calcium [Lipitor] 40 mg PO HS 11/28/15 [History] Albuterol Sulfate [Albuterol Inhaler] 2 puff IH Q4HR PRN 02/15/16 [History] Ipratropium/Albuterol Neb [Duoneb] 3 ml IH QID 02/15/16 [History] Folic Acid 1 mg PO DAILY #90 tablet 04/04/16 [Rx] Acetaminophen [Tylenol] 650 mg PO Q6HR PRN 05/16/16 [History] Calcium Carbonate/Vitamin D3 [Calcium 500-Vit D3 400 Tablet] 1 tab PO DAILY [History] Magic Mouthwash [Magic Mouthwash BLM] 7.5 ml PO TID PRN 05/16/16 [History] Multivitamin [Multi-Day Vitamins] 1 tab PO DAILY 05/16/16 [History] Azelastine 0.1% Nasal Cocoa [Astelin] 2 spray NS BID 08/28/16 [History] Petrolatum,White [Aloe [place]] 1 appl TP TID PRN 08/28/16 [History] Ubidecarenone [Coenzyme Q10] 100 mg PO DAILY 08/28/16 [History] Tiotropium [Spiriva] 1 cap IH DAILY 11/16/16 [History] Cholecalciferol (Vitamin D3) [Vitamin D3] 3,000 unit PO HS 12/03/16 [History] Isosorbide MONOnitrate (24 HR) [Imdur] 30 mg PO DAILY 30 Days 12/18/16 [Rx] Metoprolol XL (24 HR) Succ [Toprol Xl] 25 mg PO DAILY #60 tab.er.24h 12/18/16 [ Rx] Tamsulosin [Flomax] 0.4 mg PO DAILY 12/28/16 [History] Furosemide [Lasix] 40 mg PO DAILY #30 tablet 01/10/17 [Rx] Venetoclax [Venclexta Starting Pack] 1 each PO AD #1 tab.ds.pk 01/10/17 [Rx] Nut.tx.pulm.disord.soy,Lac-Fr [Pulmocare] 2 each PO DAILY 01/21/17 [History] Spironolactone [Aldactone] 25 mg PO DAILY #30 tablet 01/21/17 [Rx] Spironolactone [Aldactone] 50 mg PO DAILY #30 tablet 02/15/17 [Rx] Allergies flunisolide Adverse Reaction (Verified 02/15/17 10:29) See Comments [facility] naproxen [From Naprosyn] Adverse Reaction (Verified 02/15/17 10:29) See Comments [facility] All Systems PM: A 10-system review of systems was performed and is negative for pertinent findings except as documented above in the HPI. - Constitutional Constitutional: anorexia, fatigue, lethargy, weakness, no chills, no fever(s), no night sweats - EENT Eyes: no change in vision, no discharge, no pain, no photophobia Ears: no ear discharge, no ear pain, no tinnitus Nose, mouth and throat: no dysphagia, no nasal discharge, no neck pain, no sore throat - Cardiovascular Cardiovascular ROS IM: dyspnea, no chest pain, no diaphoresis, no lightheadedness, no palpitations, no syncope - Respiratory Respiratory: dyspnea, no cough, no wheezing, no excessive phlegm production - Gastrointestinal Gastrointestinal: no abdominal pain, no diarrhea, no hematemesis, no hematochezia, no melena, no nausea, no vomiting - Musculoskeletal Musculoskeletal ROS IM: no numbness, no tingling - Integumentary Integumentary IM: no rash, no unusual bruising - Neurological Neurological ROS: no confusion, no convulsions, no focal weakness, no numbness, no tingling, no tremor(s) - Hematologic/Lymphatic Hematologic/Lymphatic: no easy bruising - Constitutional Vitals: Temp Pulse Resp BP Pulse Ox 98.3 F 83 18 105/57 100 02/24/17 18:01 02/24/17 18:48 02/24/17 18:48 02/24/17 18:48 02/24/17 18:48 General appearance: Present: A&O X 3, pleasant, no acute distress - Head Head exam: Present: atraumatic, normocephalic - Eye Eye exam: Present: PERRL, conjuntiva pink, sclera anicteric Pupils: Present: PERRL - Neck Neck exam general surgery: Present: supple, trachea midline. Absent: lymphadenopathy - Respiratory Respiratory exam: Present: CTAB. Absent: accessory muscle use, rales, rhonchi, wheezes - Cardiovascular Cardiovascular exam: Present: RRR, +S1, +S2. Absent: diastolic murmur, gallop, rubs, systolic murmur - GI/Abdominal GI/Abdominal exam: Present: normal bowel sounds, soft, no peritoneal signs. Absent: distended, tenderness Additional comments: paracentesis site on left side oozing serous fluid. Site is not erythematous or tender. - Extremities Exam Extremities exam: Present: pedal edema (+2), warm, radial pulses palpable and symetrical. Absent: calf tenderness, cyanotic - Neurological Exam Neurological exam: Present: CN II-XII intact, oriented X3, no focal deficits. Absent: facial droop, speech deficit - Skin Skin exam: Present: dry, intact Internal Med - H&P Results - Labs CBC & Chem 7: 02/24/17 18:44 02/24/17 18:44 Labs: All Lab Results (24 Hours) 02/24/17 02/24/17 02/24/17 Range/Units 18:44 18:44 18:44 WBC 3.9 L (4.3-11.1) K/mcL RBC 2.74 L (4.19-5.50) M/mcL Hgb 8.6 L (12.9-16.9) g/dL Hct 27.2 L (37.5-50.1) % MCV 99.3 (83.0-100.0) fL MCH 31.4 (28.0-33.3) pg MCHC 31.6 (31.6-35.5) g/dL RDW 17.8 H (11.5-14.5) % Plt Count 56 L (140-400) K/mcL MPV 9.6 (9.4-12.4) fL Seg Neutrophils % 16.0 % Lymphocytes % 80.0 % Monocytes % 4.0 % Neutrophils # 0.6 L (1.6-8.9) K/mcL Lymphocytes # 3.1 (0.6-4.6) K/mcL Monocytes # 0.2 (0.0-1.3) K/mcL Reactive Lymphocytes Present A (Not Present) Smudge Cells Present A (Not Present) Platelet Estimate Decreased L (Normal) Immature Plt Fraction 3.6 (1.1-6.1) % Hypochromasia Present A (Not Present) Basophilic Stippling 1+ A (Not Present) Anisocytosis 1+ A (Not Present) Microcytosis Present A (Not Present) Tear Drop Cells 1+ A (Not Present) Ovalocytes 1+ A (Not Present) Sodium 137 (136-145) mEq/L Potassium 4.5 (3.5-4.5) mEq/L Chloride 94 L (98-109) mEq/L Carbon Dioxide 41 H* (19-29) mEq/L BUN 20 (8-26) mg/dL Creatinine 0.91 (0.72-1.25) mg/dL Est GFR ( Amer) > 60 (> 60) Est GFR (Non-Af Amer) > 60 (> 60) BUN/Creatinine Ratio 22 (6-26) Glucose 135 H (70-99) mg/dL Calculated Osmolality 289 (280-300) Calcium 10.3 (8.6-10.8) mg/dL Total Bilirubin 0.6 (0.2-1.2) mg/dL AST 58 H (5-34) Units/L ALT 22 (0-55) Units/L Alkaline Phosphatase 68 (38-126) Units/L Ammonia 69 (18-72) mcmol/L Serum Total Protein 5.2 L (6.0-8.3) g/dL Albumin 2.7 L (3.5-5.0) g/dL Globulin 2.5 (2.4-3.5) g/dL Albumin/Globulin Ratio 1.1 (1.1-2.2)
[2017-02-25] MEDS: Ipratropium/Albuterol Neb 3 ML IH SCH ×5 (00:09→23:13)
[2017-02-25 01:49] LABS: Bilirubin,Urine Negative (Negative); Blood,Urine Negative (Negative); Clarity,Urine Clear (Clear); Color,Urine Yellow (Yellow); Glucose,Urine (UA) Normal (Normal); Ketones,Urine Negative (Negative); Leukocyte Esterase,Urine Negative (Negative); Nitrite,Urine Negative (Negative); Protein,Urine Negative (Neg-Trace); Specific Gravity,Urine 1.017 (1.010-1.025); Urobilinogen,Urine Normal (Normal)
[2017-02-25] MEDS: *HR* Fondaparinux 2.5 MG/0.5 ML SYRINGE SQ SCH (05:45)
[2017-02-25 06:27] LABS: Hematocrit 25.1 % (37.5-50.1); Immature Platelets 3.8 % (1.1-6.1); Mean Corpuscular HGB Conc 31.9 g/dL (31.6-35.5); Mean Corpuscular Volume 97.3 fL (83.0-100.0); Mean Platelet Volume 10.1 fL (9.4-12.4); Red Blood Count 2.58 M/mcL (4.19-5.50); Red Cell Distribution Width 17.5 % (11.5-14.5)
[2017-02-25 06:39] LABS: Platelet Count 54 K/mcL (140-400)
[2017-02-25 06:53] LABS: BUN/Creatinine Ratio 23 (6-26); Blood Urea Nitrogen 18 mg/dL (8-26); Calcium 10.2 mg/dL (8.6-10.8); Chloride 94 mEq/L (98-109); Glucose 86 mg/dL (70-99); Osmolality,Calculated 283 (280-300); Potassium 4.4 mEq/L (3.5-4.5); Sodium 136 mEq/L (136-145); eGFR For African Americans > 60 (> 60); eGFR For Non-African Americans > 60 (> 60)
[2017-02-25 06:57] LABS: Carbon Dioxide 40 mEq/L (19-29)
[2017-02-25 07:47] LABS: Eosinophils # 0.1 K/mcL (0.0-0.6); Neutrophils # 0.7 K/mcL (1.6-8.9); Platelet Estimate Decreased (Normal)
[2017-02-25 07:48] LABS: Anisocytosis 1+ (Not Present); Microcytosis Present (Not Present)
[2017-02-25] MEDS ORDERED: Tiotropium 18 MCG inhalation IH SCH (09:00)
[2017-02-25] MEDS ORDERED: Calcium 500-Vit D3 PO SCH (09:00)
[2017-02-25] MEDS: Spironolactone 25 MG TABLET PO SCH (09:49)
[2017-02-25] MEDS: Aspirin Enteric Coated 81 MG Tablet PO SCH (09:49)
[2017-02-25] MEDS: Isosorbide MONOnitrate (24 HR) 30 MG TAB.ER.24H PO SCH (09:49)
[2017-02-25] MEDS: Multivit/Ca/Min/Fe/FA 1 TAB TABLET PO SCH (09:49)
[2017-02-25] MEDS: Furosemide 40 MG TABLET PO SCH (09:50)
[2017-02-25] MEDS: Folic Acid 1 MG TABLET PO SCH (09:50)
[2017-02-25 10:19] LABS: ABG Base Excess 21.6 mEq/L (-2.0 to 3.0); ABG Oxygen Saturation 91 % (95-98); ABG PCO2 69 mmHg (35-45); ABG PH 7.45 pH Units (7.32-7.45); ABG PO2 58 mmHg (85-104); ABG TCO2 50.1 mEq/L (20-26)
[2017-02-25 10:20] LABS: Blood Gas FiO2 28 %; Blood Gas Liter Flow 2 L/MIN
--- NOTE | 2017-02-25 10:31 | Internal Med Progress Note ---
Date of Encounter: 02/25/17 Time of Encounter: 10:28 - Subjective Interval history: Patient seen and examined with family present at bedside. Patient is AAO x 3 and reports of having a chronic cough and feels short of breath despite his O2 saturations being within acceptable range. I had a detailed discussion with patient's son (Adal Valdez), he states that the patient wishes to be DNR but if for respiratory distress needs to be intubated, he is fine with being intubated. Palliative care team is to discuss goals of care with the patient and family. Assessment and Plan (1) Shortness of breath/Chronic respiratory failure with hypercapnia Current visit: Yes Status: Acute Given history and clinical exam, concern for PE will obtain CTA to r/o PE O2 supplementation Guaifenesin/Dextromorphan prn cough hx of COPD, continue bronchodilator support ABG consistent with chronic compensated respirator failure with hypercapnia will closely monitor At this time, as per patient and son, patient is to be DNR only, if his respiratory status worsens, patient can be intubated (2) Failure to thrive in adult Current visit: Yes Status: Acute Secondary to underlying malignancy will obtain palliative care consultation for goals of care and possible hospice placement Nutrition consult (3) Open abdominal wall wound Current visit: Yes Status: Acute Dermabond applied No recurrent drainage noted Qualifiers: Encounter type: initial encounter Qualified Code(s): S31.109A - Unspecified open wound of abdominal wall, unspecified quadrant without penetration into peritoneal cavity, initial encounter (4) Ascites Current visit: No Status: Acute Patient with cirrhosis and ascites requiring frequent drainage. s/p Paracentesis on (02/21/17) Qualifiers: Ascites type: malignant Qualified Code(s): R18.0 - Malignant ascites (5) CLL (chronic lymphocytic leukemia) Current visit: No Status: Chronic Patient with stage 4 CLL, follows with oncology. outpatient follow up after discharge Palliative care team to discuss retirement goals of care (6) COPD (chronic obstructive pulmonary disease) Current visit: Yes Status: Chronic Will continue O2 supplementation and bronchodilator support if respiratory status decompensates, will start steroid therapy Qualifiers: COPD type: chronic bronchitis Chronic bronchitis type: mucopurulent Qualified Code(s): J41.1 - Mucopurulent chronic bronchitis (7) DVT prophylaxis Current visit: No Status: Acute sequential compression devices Arixtra 2.5mg SQ daily (history of thrombocytopenia-closely monitor) - Constitutional Vitals: Temp Pulse Resp BP Pulse Ox 97.5 F L 92 16 91/50 92 02/25/17 07:27 02/25/17 07:27 02/25/17 07:27 02/25/17 07:27 02/25/17 07:27 General appearance: Present: cachectic, A&O X 3, no acute distress - Head Head exam: Present: atraumatic, normocephalic - Eye Eye exam: Present: conjuntiva pink, sclera anicteric - Respiratory Respiratory exam: Present: decreased breath sounds (coarse breath sounds bilaterally) - Cardiovascular Cardiovascular exam: Present: +S1, +S2, tachycardia - GI/Abdominal GI/Abdominal exam: Present: distended (ascites with a positive fluid ), normal bowel sounds, soft - Extremities Exam Extremities exam: Present: pedal edema, warm, radial pulses palpable and symetrical. Absent: calf tenderness - Neurological Exam Neurological exam: Present: alert, oriented X3 Internal Medicine: Result - Labs CBC & Chem 7: 02/25/17 06:00 02/25/17 06:00 Labs: Short CBC 02/25/17 Range/Units 06:00 WBC 3.7 L (4.3-11.1) K/mcL Hgb 8.0 L (12.9-16.9) g/dL Hct 25.1 L (37.5-50.1) % Plt Count 54 L (140-400) K/mcL Neutrophils # 0.7 L (1.6-8.9) K/mcL BMP 02/25/17 06:00 Sodium 136 Potassium 4.4 Chloride 94 L Carbon Dioxide 40 H* BUN 18 Creatinine 0.78 Glucose 86 Calcium 10.2 Urine 02/25/17 Range/Units 01:35 Urine Color Yellow (Yellow) Urine Clarity Clear (Clear) Urine pH 6.0 (5.0-8.0) pH Units Ur Specific [place] 1.017 (1.010-1.025) Urine Protein Negative (Neg-Trace) mg/dL Urine Glucose (UA) Normal (Normal) mg/dL - ABG Interpretation ABG results: ABG ABG pH 7.45 pH Units (7.32-7.45) 02/25/17 10:05 ABG pCO2 69 mmHg (35-45) H 02/25/17 10:05 ABG pO2 58 mmHg (85-104) L 02/25/17 10:05 ABG O2 Saturation 91 % (95-98) L 02/25/17 10:05 - VTE Documentation of Mechanical Device: Intermittent pneumatic compression device Consult Discharge Plan - Plan [facility]errals: [facility] [Primary Care Provider[facility] -
[2017-02-25] MEDS ORDERED: methylPREDNISolone 125 MG/2 ML VIAL IVP ONE (12:12)
[2017-02-25] MEDS: Levofloxacin 750 MG/150 ML 750 MG/150 ML BAG IVPB SCH (13:43)
--- NOTE | 2017-02-25 15:03 | Palliative Progress Note ---
Date of Encounter: 02/25/17 - Time Spent With Patient Total time spent is greater than 50% in coordination of care (as documented) at patient's floor/unit and/or counseling patient: - Constitutional Vitals: Abnormal lab results WBC 3.7 K/mcL (4.3-11.1) L 02/25/17 06:00 RBC 2.58 M/mcL (4.19-5.50) L 02/25/17 06:00 Hgb 8.0 g/dL (12.9-16.9) L 02/25/17 06:00 Hct 25.1 % (37.5-50.1) L 02/25/17 06:00 RDW 17.5 % (11.5-14.5) H 02/25/17 06:00 Plt Count 54 K/mcL (140-400) L 02/25/17 06:00 Neutrophils # 0.7 K/mcL (1.6-8.9) L 02/25/17 06:00 Reactive Lymphocytes Present (Not Present) A 02/24/17 18:44 Smudge Cells Present (Not Present) A 02/24/17 18:44 Platelet Estimate Decreased (Normal) L 02/25/17 06:00 Hypochromasia Present (Not Present) A 02/24/17 18:44 Basophilic Stippling 1+ (Not Present) A 02/24/17 18:44 Anisocytosis 1+ (Not Present) A 02/25/17 06:00 Microcytosis Present (Not Present) A 02/25/17 06:00 Tear Drop Cells 1+ (Not Present) A 02/24/17 18:44 Ovalocytes 1+ (Not Present) A 02/24/17 18:44 ABG pCO2 69 mmHg (35-45) H 02/25/17 10:05 ABG pO2 58 mmHg (85-104) L 02/25/17 10:05 ABG HCO3 48.0 mEQ/L (21-27) H 02/25/17 10:05 ABG Total CO2 50.1 mEq/L (20-26) H 02/25/17 10:05 ABG O2 Saturation 91 % (95-98) L 02/25/17 10:05 ABG Base Excess 21.6 mEq/L (-2.0 to 3.0) H 02/25/17 10:05 Chloride 94 mEq/L (98-109) L 02/25/17 06:00 Carbon Dioxide 40 mEq/L (19-29) H* 02/25/17 06:00 AST 58 Units/L (5-34) H 02/24/17 18:44 Serum Total Protein 5.2 g/dL (6.0-8.3) L 02/24/17 18:44 Albumin 2.7 g/dL (3.5-5.0) L 02/24/17 18:44 Nasal Screen MRSA (PCR) Positive (Negative) A 02/25/17 10:00 Palliative Quality Code Status: 02/25/17 10:26 Resuscitation Status: Active [RES] Routine Comment: Resuscitation Status: DNR-Comfort Care - Labs CBC & Chem 7: 02/25/17 06:00 02/25/17 06:00 Labs: Laboratory Results - last 24 hr 02/25/17 02/25/17 02/25/17 01:35 06:00 06:00 WBC 3.7 L RBC 2.58 L Hgb 8.0 L Hct 25.1 L MCV 97.3 MCH 31.0 MCHC 31.9 RDW 17.5 H Plt Count 54 L MPV 10.1 Seg Neutrophils % 18.0 Lymphocytes % 80.0 Eosinophils % 2.0 Neutrophils # 0.7 L Lymphocytes # 3.0 Eosinophils # 0.1 Platelet Estimate Decreased L Immature Plt Fraction 3.8 Anisocytosis 1+ A Microcytosis Present A ABG pH ABG pCO2 ABG pO2 ABG HCO3 ABG Total CO2 ABG O2 Saturation ABG Base Excess Liter Flow Blood Gas Modality Inspired O2 Sodium 136 Potassium 4.4 Chloride 94 L Carbon Dioxide 40 H* BUN 18 Creatinine 0.78 Est GFR ( Amer) > 60 Est GFR (Non-Af Amer) > 60 BUN/Creatinine Ratio 23 Glucose 86 Calculated Osmolality 283 Calcium 10.2 Urine Color Yellow Urine Clarity Clear Urine pH 6.0 Ur Specific [place] 1.017 Urine Protein Negative Urine Glucose (UA) Normal Urine Ketones Negative Urine Blood Negative Urine Nitrite Negative Urine Bilirubin Negative Urine Urobilinogen Normal Ur Leukocyte Esterase Negative Ur Culture Indicated? NO Nasal Screen MRSA (PCR) 02/25/17 02/25/17 10:00 10:05 WBC RBC Hgb Hct MCV MCH MCHC RDW Plt Count MPV Seg Neutrophils % Lymphocytes % Eosinophils % Neutrophils # Lymphocytes # Eosinophils # Platelet Estimate Immature Plt Fraction Anisocytosis Microcytosis ABG pH 7.45 ABG pCO2 69 H ABG pO2 58 L ABG HCO3 48.0 H ABG Total CO2 50.1 H ABG O2 Saturation 91 L ABG Base Excess 21.6 H Liter Flow 2 Blood Gas Modality [place] Inspired O2 28 Sodium Potassium Chloride Carbon Dioxide BUN Creatinine Est GFR ( Amer) Est GFR (Non-Af Amer) BUN/Creatinine Ratio Glucose Calculated Osmolality Calcium Urine Color Urine Clarity Urine pH Ur Specific [place] Urine Protein Urine Glucose (UA) Urine Ketones Urine Blood Urine Nitrite Urine Bilirubin Urine Urobilinogen Ur Leukocyte Esterase Ur Culture Indicated? Nasal Screen MRSA (PCR) Positive A - Impressions Impressions Chest CTA 02/25/17 10:32 IMPRESSION: 1. No acute pulmonary emboli. Mild interval progression of basilar predominant reticular nodular densities which could represent acute infectious/inflammatory process. 2. Stable mediastinal and hilar lymphadenopathy consistent with history of CLL. 3. Stable asymmetric infrahilar peribronchial masslike consolidations more prominent on the right. 4. Stable bilateral lower lobe consolidation and effusions. D/ / 02/25/2017 11:42:05 Davon Cabral MD / [facility] Interpreting Provider: Davon Cabral MD - ABG Interpretation ABG results: ABG ABG pH 7.45 pH Units (7.32-7.45) 02/25/17 10:05 ABG pCO2 69 mmHg (35-45) H 02/25/17 10:05 ABG pO2 58 mmHg (85-104) L 02/25/17 10:05 ABG O2 Saturation 91 % (95-98) L 02/25/17 10:05 Consult Discharge Plan - Plan [facility]errals: [facility] [Primary Care Provider] -
--- NOTE | 2017-02-25 15:06 | Palliative - Consult Note ---
Date of Encounter: 02/25/17 Time of Encounter: 15:00 - Assessment and Plan (1) Dyspnea Current Visit: No Status: Acute Assessment and plan: Continue with diuretics, Aldactone, Duonebs, Steroids, supportive oxygen. Monitor Qualifiers: Dyspnea type: unspecified Qualified Code(s): R06.00 - Dyspnea, unspecified (2) Weakness Current Visit: Yes Status: Acute Assessment and plan: PT/OT consult. May need rehab (3) Counseling regarding advanced care planning and goals of care Current Visit: Yes Status: Acute Assessment and plan: Patient is slightly confused - he is alert and oriented to name and place, but needs reoriented to time and situation. States lives alone with caregiver provided through [facility] home based program over 20 hrs per week. Otherwise, alone and states he is too weak to be home alone at this point. He makes inappropriate statements at times. His 2 daughters reside in [place], and his is there in nursing facility from [facility]. His son, Kirit, who is his medical POA resides in [place]. He will be traveling to [place] today. Thomas Godinez, expresses concern over family living situation and states house is deplorable and their is raw sewage in the basement. States he is "funny" about letting anyone in the house except caregiver, and describes him as a "hoarder". She is tearful during conversation desiring him out of that environment. Meeting arranged with POA and daughter tomorrow at 1100 to review code status, goals of care and discharge planning options. (4) COPD (chronic obstructive pulmonary disease) Current Visit: Yes Status: Chronic Qualifiers: COPD type: chronic bronchitis Chronic bronchitis type: mucopurulent Qualified Code(s): J41.1 - Mucopurulent chronic bronchitis (5) Acute and chronic respiratory failure with hypoxia Current Visit: No Status: Acute (6) Ascites Current Visit: No Status: Acute Qualifiers: Ascites type: malignant Qualified Code(s): R18.0 - Malignant ascites (7) CLL (chronic lymphocytic leukemia) Current Visit: No Status: Chronic Palliative-CN HPI - Data of Consult Patient: known to practice within the last 3 years Consult date: 02/25/17 Requesting Physician: Darshana Resendiz MD [facility] - Consult Narrative History of present illness: Mr. Saravia is a 71 year old male with history of CLL, CAD, COPD, MARTE cirrhosis, who presented to ER after he continued to drain from previous paracentesis site , weakness, and inability to care for self. He had paracentesis on 02/22 with 4700ml removed, and has continued to drain from site. Dr. Chin follows pt as well as Dr. Moore at [facility]. Patient continues on treatment for his CLL with daily Venetoclax and has been receiving IVIG treatments monthly. He has home based care arranged through the [place] and is 100% service connected. Upon my visit, pt appears very weak. He has difficulty speaking in whole sentences, and takes a while for him to communicate. He also makes inappropriate statements at times. He denies any pain at present. C/O weakness and difficulty breathing with any exertion. States he lives alone, but "not able to do that well anymore". States he previously needed a cane, however, now uses a walker. apparently is in nursing facility near [facility]. CC: Darshana Resendiz MD Past Med Surg Social Fam HX - Past Medical History Medical history: arthritis, cancer, cirrhosis, CHF, COPD, coronary artery disease, DVT, GERD, hyperlipidemia, hypertension, liver disease, malignancy, myocardial infarction, osteoporosis, peripheral artery disease, renal disease, SVT, thyroid disease, other Psychiatric history: anxiety, other - Past Surgical History Surgical History: angioplasty/stent, cancer surgery, cataract, herniorrhaphy, prostatectomy, other - Social History Smoking Status: Former smoker Smokeless Tobacco Status: No Alcohol use: none Drug use: none - Family History Mother Adopted: No Family Member Ethnicity: Non- Living Status: Hx Family Cardiac Disorders: Yes Father Family Member Ethnicity: Non- Living Status: Hx Family Cardiac Disorders: Yes Medications and Allergies Aspirin [Adult Low Dose Aspirin EC] 81 mg PO DAILY 11/28/15 [History] Atorvastatin Calcium [Lipitor] 40 mg PO HS 11/28/15 [History] Albuterol Sulfate [Albuterol Inhaler] 2 puff IH Q4HR PRN 02/15/16 [History] Ipratropium/Albuterol Neb [Duoneb] 3 ml IH QID 02/15/16 [History] Folic Acid 1 mg PO DAILY #90 tablet 04/04/16 [Rx] Acetaminophen [Tylenol] 650 mg PO Q6HR PRN 05/16/16 [History] Calcium Carbonate/Vitamin D3 [Calcium 500-Vit D3 400 Tablet] 1 tab PO DAILY [History] Magic Mouthwash [Magic Mouthwash BLM] 7.5 ml PO TID PRN 05/16/16 [History] Multivitamin [Multi-Day Vitamins] 1 tab PO DAILY 05/16/16 [History] Azelastine 0.1% Nasal [place] [Astelin] 2 spray NS BID 08/28/16 [History] Petrolatum,White [Aloe [place]] 1 appl TP TID PRN 08/28/16 [History] Ubidecarenone [Coenzyme Q10] 100 mg PO DAILY 08/28/16 [History] Tiotropium [Spiriva] 1 cap IH DAILY 11/16/16 [History] Cholecalciferol (Vitamin D3) [Vitamin D3] 3,000 unit PO HS 12/03/16 [History] Isosorbide MONOnitrate (24 HR) [Imdur] 30 mg PO DAILY 30 Days 12/18/16 [Rx] Metoprolol XL (24 HR) Succ [Toprol Xl] 25 mg PO DAILY #60 tab.er.24h 12/18/16 [ Rx] Tamsulosin [Flomax] 0.4 mg PO DAILY 12/28/16 [History] Furosemide [Lasix] 40 mg PO DAILY #30 tablet 01/10/17 [Rx] Venetoclax [Venclexta Starting Pack] 1 each PO AD #1 tab.ds.pk 01/10/17 [Rx] Nut.tx.pulm.disord.soy,Lac-Fr [Pulmocare] 2 each PO DAILY 01/21/17 [History] Spironolactone [Aldactone] 25 mg PO DAILY #30 tablet 01/21/17 [Rx] Sodium Chloride [[place]] 1 spray NS QID 02/25/17 [History] predniSONE [PredniSONE] See Taper PO TAPER 02/25/17 [History] Allergies flunisolide Adverse Reaction (Verified 02/25/17 11:43) See Comments [facility] list naproxen [From Naprosyn] Adverse Reaction (Verified 02/25/17 11:43) See Comments [facility] list ROS unobtainable: due to mental status Palliative Care-Exam - Constitutional Vitals: Temp Pulse Resp BP Pulse Ox 98.2 F 99 17 112/65 91 02/25/17 14:53 02/25/17 14:53 02/25/17 14:53 02/25/17 14:53 02/25/17 14:53 General appearance: Present: mild distress - Head Head Exam: Present: normal inspection, normocephalic - Eye Eye exam: Present: normal appearance, PERRL - Respiratory Additional comments: Crackles bilaterally lower lobes - Cardiovascular Cardiovascular exam: Present: +S1, +S2, systolic murmur - GI/Abdominal Exam GI/Abdominal exam: Present: distended, firm, normal bowel sounds - Neurological Exam Neurological exam: Present: alert Additional comments: Oriented to person and place, reoriented to time and situation. Speaks in short sentences r/t shortness of breath. Inappropriate statements at times. - Skin Skin exam: Present: dry, pallor, warm Internal Medicine - CN: Reslt - Labs CBC & Chem 7: 02/25/17 06:00 02/25/17 06:00 Labs: Short CBC 02/25/17 Range/Units 06:00 WBC 3.7 L (4.3-11.1) K/mcL Hgb 8.0 L (12.9-16.9) g/dL Hct 25.1 L (37.5-50.1) % Plt Count 54 L (140-400) K/mcL Neutrophils # 0.7 L (1.6-8.9) K/mcL BMP 02/25/17 06:00 Sodium 136 Potassium 4.4 Chloride 94 L Carbon Dioxide 40 H* BUN 18 Creatinine 0.78 Glucose 86 Calcium 10.2 Urine 02/25/17 Range/Units 01:35 Urine Color Yellow (Yellow) Urine Clarity Clear (Clear) Urine pH 6.0 (5.0-8.0) pH Units Ur Specific [place] 1.017 (1.010-1.025) Urine Protein Negative (Neg-Trace) mg/dL Urine Glucose (UA) Normal (Normal) mg/dL - ABG Interpretation ABG results: ABG ABG pH 7.45 pH Units (7.32-7.45) 02/25/17 10:05 ABG pCO2 69 mmHg (35-45) H 02/25/17 10:05 ABG pO2 58 mmHg (85-104) L 02/25/17 10:05 ABG O2 Saturation 91 % (95-98) L 02/25/17 10:05 - Impressions Impressions Chest CTA 02/25/17 10:32 IMPRESSION: 1. No acute pulmonary emboli. Mild interval progression of basilar predominant reticular nodular densities which could represent acute infectious/inflammatory process. 2. Stable mediastinal and hilar lymphadenopathy consistent with history of CLL. 3. Stable asymmetric infrahilar peribronchial masslike consolidations more prominent on the right. 4. Stable bilateral lower lobe consolidation and effusions. D/ / 02/25/2017 11:42:05 Davon Cabral MD / [email or web address] Interpreting Provider: Davon Cabral MD Consult Discharge Plan - Plan [facility]errals: [facility] [Primary Care Provider] - Palliative Quality Palliative Quality: Screen for Code Status: NA (pt confused, awaiting family meeting), Screen for Goals of Care: NA, Screen for Pain: Yes, If Pain Regimen Started, Initiate Bowel Regimen: NA, Screen for Nausea/Vomitting: Yes Code Status: 02/25/17 10:26 Resuscitation Status: Active [RES] Routine Comment: Resuscitation Status: DNR-Comfort Care
[2017-02-26 04:42] LABS: Hemoglobin 8.1 g/dL (12.9-16.9); Red Cell Distribution Width 17.3 % (11.5-14.5)
[2017-02-26 04:44] LABS: Basophils % 0.4 %; Eosinophils % 0.2 %; Hematocrit 25.3 % (37.5-50.1); Immature Platelets 4.1 % (1.1-6.1); Lymphocytes # 3.1 K/mcL (0.6-4.6); Lymphocytes % 61.6 %; Mean Corpuscular Hemoglobin 31.3 pg (28.0-33.3); Mean Corpuscular Volume 97.7 fL (83.0-100.0); Mean Platelet Volume 10.6 fL (9.4-12.4); Monocytes % 19.9 %; Neutrophils # 0.9 K/mcL (1.6-8.9); Red Blood Count 2.59 M/mcL (4.19-5.50); Segmented Neutrophils % 16.9 %
[2017-02-26 04:51] LABS: BUN/Creatinine Ratio 26 (6-26); Blood Urea Nitrogen 23 mg/dL (8-26); Calcium 10.1 mg/dL (8.6-10.8); Carbon Dioxide 39 mEq/L (19-29); Chloride 94 mEq/L (98-109); Glucose 135 mg/dL (70-99); Magnesium 1.8 mg/dL (1.6-2.6); Osmolality,Calculated 290 (280-300); Phosphorous 3.7 mg/dL (2.3-4.7); Potassium 4.7 mEq/L (3.5-4.5); Sodium 137 mEq/L (136-145); eGFR For African Americans > 60 (> 60); eGFR For Non-African Americans > 60 (> 60)
[2017-02-26 05:12] LABS: Platelet Count 52 K/mcL (140-400)
[2017-02-26 05:13] LABS: Anisocytosis 1+ (Not Present); Platelet Estimate Decreased (Normal); Reactive Lymphocytes Present (Not Present)
[2017-02-26 05:14] LABS: Macrocytosis Present (Not Present); Microcytosis Present (Not Present); Poikilocytosis 1+ (Not Present); Tear Drop Cells 1+ (Not Present)
[2017-02-26] MEDS: Ipratropium/Albuterol Neb 3 ML IH SCH ×4 (05:55→22:54)
[2017-02-26] MEDS: *HR* Fondaparinux 2.5 MG/0.5 ML SYRINGE SQ SCH (06:17)
[2017-02-26] MEDS: Cholecalciferol (D-3) 1,000 UNIT TABLET PO SCH (08:01)
[2017-02-26] MEDS: predniSONE 20 MG TABLET PO SCH (08:01)
[2017-02-26] MEDS: Furosemide 40 MG TABLET PO SCH (08:01)
[2017-02-26] MEDS: Folic Acid 1 MG TABLET PO SCH (08:01)
[2017-02-26] MEDS: Aspirin Enteric Coated 81 MG Tablet PO SCH (08:01)
[2017-02-26] MEDS: Multivit/Ca/Min/Fe/FA 1 TAB TABLET PO SCH (08:01)
[2017-02-26] MEDS: Isosorbide MONOnitrate (24 HR) 30 MG TAB.ER.24H PO SCH (08:02)
--- NOTE | 2017-02-26 11:58 | Palliative Progress Note ---
Date of Encounter: 02/26/17 Time of Encounter: 11:45 - Assessment and plan (1) Dyspnea Current Visit: No Status: Acute Assessment and plan: Continues with diuretics/bronchidilators/steroids/oxygen. Qualifiers: Dyspnea type: unspecified Qualified Code(s): R06.00 - Dyspnea, unspecified (2) Weakness Current Visit: Yes Status: Acute Assessment and plan: Continue PT/OT eval and consult (3) Counseling regarding advanced care planning and goals of care Current Visit: Yes Status: Acute Assessment and plan: Long meeting with daughter, Melisa and pt son, Kirit REDMOND, and pt , Ankita, joined by Alonzo from the [facility] in [place]. linen worker Robert Joseph and I also spoke with pt this am. He has no 24 hour caregiver, and is too weak to be left alone at home. All were in agreement he needs placed for rehab. [facility]. Discussed code status - Patient previously signed a DNRCCA state form, and they want to continue this as he still desires short term intubation for respiratory distress. Code status changed to DNRCCA per pt/family request. We had end of life discussion as well. We gave them some information re: hospice as well. They are not ready for this at this time, but appreciative of information. D/W Dr. Chau d/c plan. Will continue to follow. (4) COPD (chronic obstructive pulmonary disease) Current Visit: Yes Status: Chronic Qualifiers: COPD type: chronic bronchitis Chronic bronchitis type: mucopurulent Qualified Code(s): J41.1 - Mucopurulent chronic bronchitis (5) Acute and chronic respiratory failure with hypoxia Current Visit: No Status: Acute (6) Ascites Current Visit: No Status: Acute Qualifiers: Ascites type: malignant Qualified Code(s): R18.0 - Malignant ascites (7) CLL (chronic lymphocytic leukemia) Current Visit: No Status: Chronic - Time Spent With Patient Total time spent is greater than 50% in coordination of care (as documented) at patient's floor/unit and/or counseling patient: 25 - 35 minutes - Subjective Interval history: Patient is alert and oriented. Denies pain or discomfort. Appears short of breath with conversation. C/o extreme weakness to lower extremities. Patient inquiring about his clinical issues and cirrhosis. + BM yesterday - Constitutional Vitals: Abnormal lab results RBC 2.59 M/mcL (4.19-5.50) L 02/26/17 04:17 Hgb 8.1 g/dL (12.9-16.9) L 02/26/17 04:17 Hct 25.3 % (37.5-50.1) L 02/26/17 04:17 RDW 17.3 % (11.5-14.5) H 02/26/17 04:17 Plt Count 52 K/mcL (140-400) L 02/26/17 04:17 Neutrophils # 0.9 K/mcL (1.6-8.9) L 02/26/17 04:17 Reactive Lymphocytes Present (Not Present) A 02/26/17 04:17 Smudge Cells Present (Not Present) A 02/24/17 18:44 Platelet Estimate Decreased (Normal) L 02/26/17 04:17 Hypochromasia Present (Not Present) A 02/24/17 18:44 Poikilocytosis 1+ (Not Present) A 02/26/17 04:17 Basophilic Stippling 1+ (Not Present) A 02/24/17 18:44 Anisocytosis 1+ (Not Present) A 02/26/17 04:17 Microcytosis Present (Not Present) A 02/26/17 04:17 Macrocytosis Present (Not Present) A 02/26/17 04:17 Tear Drop Cells 1+ (Not Present) A 02/26/17 04:17 Ovalocytes 1+ (Not Present) A 02/24/17 18:44 ABG pCO2 69 mmHg (35-45) H 02/25/17 10:05 ABG pO2 58 mmHg (85-104) L 02/25/17 10:05 ABG HCO3 48.0 mEQ/L (21-27) H 02/25/17 10:05 ABG Total CO2 50.1 mEq/L (20-26) H 02/25/17 10:05 ABG O2 Saturation 91 % (95-98) L 02/25/17 10:05 ABG Base Excess 21.6 mEq/L (-2.0 to 3.0) H 02/25/17 10:05 Potassium 4.7 mEq/L (3.5-4.5) H 02/26/17 04:17 Chloride 94 mEq/L (98-109) L 02/26/17 04:17 Carbon Dioxide 39 mEq/L (19-29) H 02/26/17 04:17 Glucose 135 mg/dL (70-99) H 02/26/17 04:17 AST 58 Units/L (5-34) H 02/24/17 18:44 Serum Total Protein 5.2 g/dL (6.0-8.3) L 02/24/17 18:44 Albumin 2.7 g/dL (3.5-5.0) L 02/24/17 18:44 Nasal Screen MRSA (PCR) Positive (Negative) A 02/25/17 10:00 General appearance: Present: mild distress - Respiratory Respiratory exam: Present: decreased breath sounds, CTAB Additional comments: Crackles bilateral to lower lobes - Cardiovascular Cardiovascular exam: Present: +S1, +S2, systolic murmur - GI/Abdominal GI/Abdominal exam: Present: distended, normal bowel sounds, soft - Additional comments: Incontinent - attends on - Extremities Exam Additional comments: 1+ edema lower extremities - Neurological Exam Neurological exam: Present: alert, oriented X3, strengths equal and symetr throughout - Skin Skin exam: Present: dry, pallor, warm Palliative Quality Palliative Quality: Screen for Code Status: NA (pt confused, awaiting family meeting), Screen for Goals of Care: NA, Screen for Pain: Yes, If Pain Regimen Started, Initiate Bowel Regimen: NA, Screen for Nausea/Vomitting: Yes Code Status: 02/25/17 10:26 Resuscitation Status: Active [RES] Routine Comment: Resuscitation Status: DNR-Comfort Care - Labs CBC & Chem 7: 02/26/17 04:17 02/26/17 04:17 Labs: Laboratory Results - last 24 hr 02/25/17 02/26/17 02/26/17 10:00 04:17 04:17 WBC 5.0 RBC 2.59 L Hgb 8.1 L Hct 25.3 L MCV 97.7 MCH 31.3 MCHC 32.0 RDW 17.3 H Plt Count 52 L MPV 10.6 Immature Gran % 1.0 Seg Neutrophils % 16.9 Lymphocytes % 61.6 Monocytes % 19.9 Eosinophils % 0.2 Basophils % 0.4 Neutrophils # 0.9 L Lymphocytes # 3.1 Monocytes # 1.0 Eosinophils # 0.0 Basophils # 0.0 Reactive Lymphocytes Present A Platelet Estimate Decreased L Immature Plt Fraction 4.1 Poikilocytosis 1+ A Anisocytosis 1+ A Microcytosis Present A Macrocytosis Present A Tear Drop Cells 1+ A Sodium 137 Potassium 4.7 H Chloride 94 L Carbon Dioxide 39 H BUN 23 Creatinine 0.88 Est GFR ( Amer) > 60 Est GFR (Non-Af Amer) > 60 BUN/Creatinine Ratio 26 Glucose 135 H Calculated Osmolality 290 Calcium 10.1 Phosphorus 3.7 Magnesium 1.8 Nasal Screen MRSA (PCR) Positive A - Impressions Impressions Chest CTA 02/25/17 10:32 IMPRESSION: 1. No acute pulmonary emboli. Mild interval progression of basilar predominant reticular nodular densities which could represent acute infectious/inflammatory process. 2. Stable mediastinal and hilar lymphadenopathy consistent with history of CLL. 3. Stable asymmetric infrahilar peribronchial masslike consolidations more prominent on the right. 4. Stable bilateral lower lobe consolidation and effusions. D/ / 02/25/2017 11:42:05 Davon Cabral MD / bcasheree Interpreting Provider: Davon Cabral MD - ABG Interpretation ABG results: ABG ABG pH 7.45 pH Units (7.32-7.45) 02/25/17 10:05 ABG pCO2 69 mmHg (35-45) H 02/25/17 10:05 ABG pO2 58 mmHg (85-104) L 02/25/17 10:05 ABG O2 Saturation 91 % (95-98) L 02/25/17 10:05 Consult Discharge Plan - Plan [facility]errals: [facility] [Primary Care Provider] -
[2017-02-26] MEDS: Levofloxacin 750 MG/150 ML 750 MG/150 ML BAG IVPB SCH (12:32)
--- NOTE | 2017-02-26 17:18 | Internal Med Progress Note ---
Date of Encounter: 02/26/17 Time of Encounter: 10:15 - Assessment and plan (1) Acute on chronic respiratory failure Current Visit: Yes Status: Acute Assessment and plan: Improving. Patient on 2 L nasal cannula currently. Saturating at 94%. CT angiogram did not show any PE. Currently being treated for COPD. Moderate risk for complications. Qualifiers: Respiratory failure complication: hypoxia and hypercapnia Qualified Code(s) : J96.21 - Acute and chronic respiratory failure with hypoxia; J96.22 - Acute and chronic respiratory failure with hypercapnia (2) Ascites Current Visit: No Status: Acute Assessment and plan: Continue supportive care and paracentesis as needed. Qualifiers: Ascites type: malignant Qualified Code(s): R18.0 - Malignant ascites (3) CLL (chronic lymphocytic leukemia) Current Visit: No Status: Chronic Assessment and plan: Continue follow-up with oncology. We will resume Venetoclax. (4) COPD (chronic obstructive pulmonary disease) Current Visit: Yes Status: Acute Assessment and plan: With acute exacerbation. Treat with bronchodilators, steroids and levofloxacin along with O2 supplementation Qualifiers: COPD type: chronic bronchitis Chronic bronchitis type: mucopurulent Qualified Code(s): J41.1 - Mucopurulent chronic bronchitis (5) DVT prophylaxis Current Visit: No Status: Acute Assessment and plan: On Arixtra. platelet counts are stable. We will continue to follow (6) Failure to thrive in adult Current Visit: Yes Status: Acute (7) Open abdominal wall wound Current Visit: Yes Status: Acute Assessment and plan: Continue with local wound care Qualifiers: Encounter type: initial encounter Qualified Code(s): S31.109A - Unspecified open wound of abdominal wall, unspecified quadrant without penetration into peritoneal cavity, initial encounter (8) Weakness Current Visit: Yes Status: Chronic Assessment and plan: Due to malignancy. Palliative care has been consulted. After family meeting, patient willing to go to rehabilitation. [facility] (9) Sacral decubitus ulcer Current Visit: Yes Status: Chronic Assessment and plan: Continue local wound care. Minimize pressure. Qualifiers: Pressure ulcer stage: stage 2 Qualified Code(s): L89.152 - Pressure ulcer of sacral region, stage 2 - Subjective Interval history: Patient is sitting up in bed. Feels tired and weak. Shortness of breath is somewhat better. He is concerned that he is getting weaker with each day. His son and daughter arriving today for a family meeting related to be done with palliative care team. Denies any pain at this time. Does have continued cough. He says he feels very and is unable to motivate himself to start walking but once he gets up he is able to ambulate with his walker although he gets very tired easily. - Constitutional Vitals: Temp Pulse Resp BP Pulse Ox 98.1 F 94 18 97/52 94 02/26/17 15:19 02/26/17 15:19 02/26/17 16:12 02/26/17 15:19 02/26/17 16:12 General appearance: Present: cachectic, cooperative, mild distress, A&O X 3, answers questions appropriately - Neck Neck exam general surgery: Present: supple, trachea midline. Absent: lymphadenopathy - Respiratory Respiratory exam: Present: CTAB. Absent: accessory muscle use, rales, rhonchi, wheezes - GI/Abdominal GI/Abdominal exam: Present: normal bowel sounds, soft, no peritoneal signs. Absent: distended, tenderness - Extremities Exam Extremities exam: Present: pedal edema, warm, radial pulses palpable and symetrical. Absent: calf tenderness, cyanotic - Neurological Exam Neurological exam: Present: oriented X3, no focal deficits. Absent: facial droop, speech deficit - Skin Skin exam: Present: dry, intact, pallor Internal Medicine: Result - Labs CBC & Chem 7: 02/26/17 04:17 02/26/17 04:17 Labs: Short CBC 02/26/17 Range/Units 04:17 WBC 5.0 (4.3-11.1) K/mcL Hgb 8.1 L (12.9-16.9) g/dL Hct 25.3 L (37.5-50.1) % Plt Count 52 L (140-400) K/mcL Neutrophils # 0.9 L (1.6-8.9) K/mcL BMP 02/26/17 04:17 Sodium 137 Potassium 4.7 H Chloride 94 L Carbon Dioxide 39 H BUN 23 Creatinine 0.88 Glucose 135 H Calcium 10.1 - ABG Interpretation ABG results: ABG ABG pH 7.45 pH Units (7.32-7.45) 02/25/17 10:05 ABG pCO2 69 mmHg (35-45) H 02/25/17 10:05 ABG pO2 58 mmHg (85-104) L 02/25/17 10:05 ABG O2 Saturation 91 % (95-98) L 02/25/17 10:05 - VTE Documentation of Mechanical Device: Intermittent pneumatic compression device Consult Discharge Plan - Plan Referrals: [facility] [Primary Care Provider] - - Attending Attestation This document has been at least partially created by [employer]ine recognition technology by Dr. Chau. Errors in grammar, wording or other phrases may exist. If errors are found after the documentation is signed, they will be addressed individually in the addendum section of this document when appropriate.
[2017-02-26] MEDS: Spironolactone 25 MG TABLET PO SCH (17:35)
[2017-02-26] MEDS: VENETOCLAX PO SCH (19:09)
[2017-02-27] MEDS: Ipratropium/Albuterol Neb 3 ML IH SCH ×4 (03:41→23:44)
[2017-02-27 06:11] LABS: Basophils % 0.2 %; Hemoglobin 8.1 g/dL (12.9-16.9); Red Cell Distribution Width 17.4 % (11.5-14.5)
[2017-02-27 06:13] LABS: Eosinophils % 0.2 %; Immature Granulocytes % 0.2 % (0-4); Immature Platelets 3.6 % (1.1-6.1); Lymphocytes # 2.6 K/mcL (0.6-4.6); Lymphocytes % 65.1 %; Mean Corpuscular HGB Conc 31.2 g/dL (31.6-35.5); Mean Corpuscular Hemoglobin 30.5 pg (28.0-33.3); Mean Corpuscular Volume 97.7 fL (83.0-100.0); Mean Platelet Volume 10.4 fL (9.4-12.4); Monocytes # 0.7 K/mcL (0.0-1.3); Monocytes % 17.2 %; Neutrophils # 0.7 K/mcL (1.6-8.9); Red Blood Count 2.66 M/mcL (4.19-5.50); Segmented Neutrophils % 17.1 %
[2017-02-27 06:22] LABS: BUN/Creatinine Ratio 30 (6-26); Blood Urea Nitrogen 24 mg/dL (8-26); Calcium 9.8 mg/dL (8.6-10.8); Carbon Dioxide 36 mEq/L (19-29); Chloride 95 mEq/L (98-109); Glucose 115 mg/dL (70-99); Osmolality,Calculated 287 (280-300); Potassium 4.1 mEq/L (3.5-4.5); Sodium 136 mEq/L (136-145); eGFR For African Americans > 60 (> 60); eGFR For Non-African Americans > 60 (> 60)
[2017-02-27] MEDS: *HR* Fondaparinux 2.5 MG/0.5 ML SYRINGE SQ SCH (06:26)
[2017-02-27 06:32] LABS: Platelet Count 55 K/mcL (140-400)
[2017-02-27 06:57] LABS: Anisocytosis 1+ (Not Present); Poikilocytosis 1+ (Not Present)
[2017-02-27 06:58] LABS: Platelet Estimate Marked Decrease (Normal); Reactive Lymphocytes Present (Not Present)
[2017-02-27] MEDS: Cholecalciferol (D-3) 1,000 UNIT TABLET PO SCH (09:30)
[2017-02-27] MEDS: Isosorbide MONOnitrate (24 HR) 30 MG TAB.ER.24H PO SCH (09:30)
[2017-02-27] MEDS: Multivit/Ca/Min/Fe/FA 1 TAB TABLET PO SCH (09:30)
[2017-02-27] MEDS: Furosemide 40 MG TABLET PO SCH (09:30)
[2017-02-27] MEDS: Aspirin Enteric Coated 81 MG Tablet PO SCH (09:30)
[2017-02-27] MEDS: Folic Acid 1 MG TABLET PO SCH (09:30)
[2017-02-27] MEDS: predniSONE 20 MG TABLET PO SCH (09:31)
[2017-02-27] MEDS: Spironolactone 25 MG TABLET PO SCH (09:31)
--- NOTE | 2017-02-27 09:57 | Event Note ---
Date of Encounter: 02/27/17 Time of Encounter: 09:50 Patient awake and alert. C/o abd discomfort and states "fluid is building up again". States Dr. Chau already in and may arrange for another paracentesis tomorrow. Still with weakness and shortness of breath. Continue with treatment for pneumonia. [facility] is [facility]. Continue to follow.
[2017-02-27] MEDS: Levofloxacin 750 MG/150 ML 750 MG/150 ML BAG IVPB SCH (12:54)
--- NOTE | 2017-02-27 17:45 | Internal Med Progress Note ---
Date of Encounter: 02/27/17 Time of Encounter: 11:20 - Assessment and plan (1) Acute on chronic respiratory failure Current Visit: Yes Status: Acute Assessment and plan: Continue O2 supplementation and treat underlying COPD. no significant overall improvement compared to yesterday. On 4L nasal cannula. High risk for complications Qualifiers: Respiratory failure complication: hypoxia and hypercapnia Qualified Code(s) : J96.21 - Acute and chronic respiratory failure with hypoxia; J96.22 - Acute and chronic respiratory failure with hypercapnia (2) Ascites Current Visit: No Status: Acute Assessment and plan: plan for paracentesis tomorrow for palliation as this could be contributing to shortness of breath Qualifiers: Ascites type: malignant Qualified Code(s): R18.0 - Malignant ascites (3) CLL (chronic lymphocytic leukemia) Current Visit: No Status: Chronic Assessment and plan: Resumed Venetoclax. (4) COPD (chronic obstructive pulmonary disease) Current Visit: Yes Status: Acute Assessment and plan: on bronchodilators and prednisone. Qualifiers: COPD type: chronic bronchitis Chronic bronchitis type: mucopurulent Qualified Code(s): J41.1 - Mucopurulent chronic bronchitis (5) DVT prophylaxis Current Visit: No Status: Acute (6) Failure to thrive in adult Current Visit: Yes Status: Acute Assessment and plan: evaluated by physical therapy and recommended rehab placement. Palliative care also on board. (7) Open abdominal wall wound Current Visit: Yes Status: Resolved Assessment and plan: healing well Qualifiers: Encounter type: initial encounter Qualified Code(s): S31.109A - Unspecified open wound of abdominal wall, unspecified quadrant without penetration into peritoneal cavity, initial encounter (8) Weakness Current Visit: Yes Status: Chronic Assessment and plan: continue physical therapy (9) Sacral decubitus ulcer Current Visit: Yes Status: Chronic Assessment and plan: stage II decub ulcer. Continue local wound care Qualifiers: Pressure ulcer stage: stage 2 Qualified Code(s): L89.152 - Pressure ulcer of sacral region, stage 2 (10) Congestive heart failure Current Visit: No Status: Chronic Assessment and plan: continue Lasix Qualifiers: Congestive heart failure type: diastolic Congestive heart failure chronicity: chronic Qualified Code(s): I50.32 - Chronic diastolic (congestive ) heart failure - Subjective Interval history: Patient is sitting up in bed. Feels tired and weak. Shortness of breath is somewhat better. He is concerned that he is getting weaker with each day. His son and daughter arriving today for a family meeting related to be done with palliative care team. Denies any pain at this time. Does have continued cough. He says he feels very and is unable to motivate himself to start walking but once he gets up he is able to ambulate with his walker although he gets very tired easily. - Constitutional Vitals: Temp Pulse Resp BP Pulse Ox 97.9 F 95 22 101/56 96 02/27/17 16:16 02/27/17 16:16 02/27/17 16:24 02/27/17 16:16 02/27/17 16:24 General appearance: Present: cachectic, cooperative, mild distress, A&O X 3, answers questions appropriately - Eye Eye exam: Present: EOMI, PERRL, conjuntiva pink, sclera anicteric - Neck Neck exam general surgery: Present: supple, trachea midline. Absent: lymphadenopathy - Respiratory Respiratory exam: Present: accessory muscle use, decreased breath sounds, prolonged expiratory phase. Absent: rales, rhonchi, wheezes - Cardiovascular Cardiovascular exam: Present: RRR, +S1, +S2. Absent: diastolic murmur, gallop, rubs, systolic murmur - GI/Abdominal GI/Abdominal exam: Present: distended, normal bowel sounds, soft, no peritoneal signs. Absent: tenderness - Extremities Exam Extremities exam: Present: pedal edema, warm, radial pulses palpable and symetrical. Absent: calf tenderness, cyanotic - Neurological Exam Neurological exam: Present: alert, oriented X3, no focal deficits. Absent: facial droop, speech deficit - Skin Skin exam: Present: dry, intact Internal Medicine: Result - Labs CBC & Chem 7: 02/27/17 05:32 02/27/17 05:32 Labs: Short CBC 02/27/17 Range/Units 05:32 WBC 4.0 L (4.3-11.1) K/mcL Hgb 8.1 L (12.9-16.9) g/dL Hct 26.0 L (37.5-50.1) % Plt Count 55 L (140-400) K/mcL Neutrophils # 0.7 L (1.6-8.9) K/mcL BMP 02/27/17 05:32 Sodium 136 Potassium 4.1 Chloride 95 L Carbon Dioxide 36 H BUN 24 Creatinine 0.80 Glucose 115 H Calcium 9.8 - ABG Interpretation ABG results: ABG ABG pH 7.45 pH Units (7.32-7.45) 02/25/17 10:05 ABG pCO2 69 mmHg (35-45) H 02/25/17 10:05 ABG pO2 58 mmHg (85-104) L 02/25/17 10:05 ABG O2 Saturation 91 % (95-98) L 02/25/17 10:05 - VTE Documentation of Mechanical Device: Intermittent pneumatic compression device Consult Discharge Plan - Plan [facility]errals: [facility] [Primary Care Provider] - - Attending Attestation This document has been at least partially created by [employer] recognition technology by Dr. Chau. Errors in grammar, wording or other phrases may exist. If errors are found after the documentation is signed, they will be addressed individually in the addendum section of this document when appropriate.
[2017-02-27] MEDS: VENETOCLAX PO SCH (17:58)
[2017-02-28] MEDS: Ipratropium/Albuterol Neb 3 ML IH SCH ×4 (03:08→22:43)
[2017-02-28] MEDS: *HR* Fondaparinux 2.5 MG/0.5 ML SYRINGE SQ SCH (05:15)
[2017-02-28 05:53] LABS: Prothrombin Time 10.6 Seconds (9.4-12.1)
--- NOTE | 2017-02-28 09:00 | Palliative Progress Note ---
Date of Encounter: 02/28/17 Time of Encounter: 08:50 - Assessment and plan (1) Dyspnea Current Visit: No Status: Acute Assessment and plan: Per the patient no real change overnight, begetting a paracentesis today which may improve his oxygenation quite a bit. Deal of abdominal distention noted. Otherwise continue diuretics bronchodilator steroids and oxygen. Per hospitalist team. Qualifiers: Dyspnea type: unspecified Qualified Code(s): R06.00 - Dyspnea, unspecified (2) Goals of care, counseling/discussion Current Visit: No Status: Acute Assessment and plan: Patient is DNR [facility] per previous discussions with palliative care. Patient is transferred to the [place] either today or tomorrow. To continue getting chemotherapy and then appropriate transition to hospice care. (3) Ascites Current Visit: No Status: Acute Assessment and plan: For paracentesis today. Qualifiers: Ascites type: malignant Qualified Code(s): R18.0 - Malignant ascites (4) CLL (chronic lymphocytic leukemia) Current Visit: No Status: Chronic Assessment and plan: The patient has repeatedly is desire to continue treatment for this as long as the treatment is working for him. Be transferred to the [facility] and continue follow- up with oncology. (5) COPD (chronic obstructive pulmonary disease) Current Visit: Yes Status: Acute Assessment and plan: Plan per hospitalist team, continue current medications. Qualifiers: COPD type: chronic bronchitis Chronic bronchitis type: mucopurulent Qualified Code(s): J41.1 - Mucopurulent chronic bronchitis - Time Spent With Patient Total time spent is greater than 50% in coordination of care (as documented) at patient's floor/unit and/or counseling patient: - Subjective Interval history: The patient just underwent T OT evaluation, and is somewhat winded. He states no change in his breathing, no pain and states his bowels are moving. Per the patient and confirmed by physician he will be getting a paracentesis this morning. - Constitutional Vitals: Abnormal lab results WBC 4.0 K/mcL (4.3-11.1) L 02/27/17 05:32 RBC 2.66 M/mcL (4.19-5.50) L 02/27/17 05:32 Hgb 8.1 g/dL (12.9-16.9) L 02/27/17 05:32 Hct 26.0 % (37.5-50.1) L 02/27/17 05:32 MCHC 31.2 g/dL (31.6-35.5) L 02/27/17 05:32 RDW 17.4 % (11.5-14.5) H 02/27/17 05:32 Plt Count 55 K/mcL (140-400) L 02/27/17 05:32 Neutrophils # 0.7 K/mcL (1.6-8.9) L 02/27/17 05:32 Reactive Lymphocytes Present (Not Present) A 02/27/17 05:32 Smudge Cells Present (Not Present) A 02/24/17 18:44 Platelet Estimate Marked Decrease (Normal) L 02/27/17 05:32 Hypochromasia Present (Not Present) A 02/24/17 18:44 Poikilocytosis 1+ (Not Present) A 02/27/17 05:32 Basophilic Stippling 1+ (Not Present) A 02/24/17 18:44 Anisocytosis 1+ (Not Present) A 02/27/17 05:32 Microcytosis Present (Not Present) A 02/26/17 04:17 Macrocytosis Present (Not Present) A 02/26/17 04:17 Tear Drop Cells 1+ (Not Present) A 02/26/17 04:17 Ovalocytes 1+ (Not Present) A 02/24/17 18:44 ABG pCO2 69 mmHg (35-45) H 02/25/17 10:05 ABG pO2 58 mmHg (85-104) L 02/25/17 10:05 ABG HCO3 48.0 mEQ/L (21-27) H 02/25/17 10:05 ABG Total CO2 50.1 mEq/L (20-26) H 02/25/17 10:05 ABG O2 Saturation 91 % (95-98) L 02/25/17 10:05 ABG Base Excess 21.6 mEq/L (-2.0 to 3.0) H 02/25/17 10:05 Chloride 95 mEq/L (98-109) L 02/27/17 05:32 Carbon Dioxide 36 mEq/L (19-29) H 02/27/17 05:32 BUN/Creatinine Ratio 30 (6-26) H 02/27/17 05:32 Glucose 115 mg/dL (70-99) H 02/27/17 05:32 AST 58 Units/L (5-34) H 02/24/17 18:44 Serum Total Protein 5.2 g/dL (6.0-8.3) L 02/24/17 18:44 Albumin 2.7 g/dL (3.5-5.0) L 02/24/17 18:44 Nasal Screen MRSA (PCR) Positive (Negative) A 02/25/17 10:00 General appearance: Present: no acute distress - Head Head exam: Present: atraumatic, normal inspection - Eye Eye exam: Present: normal appearance - ENT ENT exam: Present: mucous membranes moist - Respiratory Respiratory exam: Present: decreased breath sounds, prolonged expiratory phase - Cardiovascular Cardiovascular exam: Present: RRR - GI/Abdominal GI/Abdominal exam: Present: distended, firm, normal bowel sounds. Absent: soft - Extremities Exam Extremities exam: Present: pedal edema. Absent: tenderness - Neurological Exam Neurological exam: Present: alert - Psychiatric Psychiatric exam: Absent: agitated, anxious - Skin Skin exam: Present: dry, warm Palliative Quality Palliative Quality: Screen for Code Status: NA (pt confused, awaiting family meeting), Screen for Goals of Care: NA, Screen for Pain: Yes, If Pain Regimen Started, Initiate Bowel Regimen: NA, Screen for Nausea/Vomitting: Yes Code Status: 02/25/17 10:26 Resuscitation Status: Active [RES] Routine Comment: Resuscitation Status: DNR-Comfort Care 02/26/17 11:58 DNR [Resuscitation Status: Active] [RES] Routine Comment: Resuscitation Status: DNR-Comfort Care-Arrest - Labs CBC & Chem 7: 02/27/17 05:32 02/27/17 05:32 Labs: Laboratory Results - last 24 hr 02/28/17 05:12 PT 10.6 INR 1.0 - ABG Interpretation ABG results: ABG ABG pH 7.45 pH Units (7.32-7.45) 02/25/17 10:05 ABG pCO2 69 mmHg (35-45) H 02/25/17 10:05 ABG pO2 58 mmHg (85-104) L 02/25/17 10:05 ABG O2 Saturation 91 % (95-98) L 02/25/17 10:05 PT/INR, D-dimer PT 10.6 Seconds (9.4-12.1) 02/28/17 05:12 Consult Discharge Plan - Plan [facility]errals: [facility] [Primary Care Provider] -
[2017-02-28] MEDS: Folic Acid 1 MG TABLET PO SCH (09:11)
[2017-02-28] MEDS: Cholecalciferol (D-3) 1,000 UNIT TABLET PO SCH (09:11)
[2017-02-28] MEDS: Aspirin Enteric Coated 81 MG Tablet PO SCH (09:11)
[2017-02-28] MEDS: Furosemide 40 MG TABLET PO SCH (09:11)
[2017-02-28] MEDS: Isosorbide MONOnitrate (24 HR) 30 MG TAB.ER.24H PO SCH (09:11)
[2017-02-28] MEDS: Multivit/Ca/Min/Fe/FA 1 TAB TABLET PO SCH (09:11)
[2017-02-28] MEDS: Spironolactone 25 MG TABLET PO SCH (09:12)
[2017-02-28] MEDS: predniSONE 20 MG TABLET PO SCH (09:13)
[2017-02-28] MEDS: Levofloxacin 750 MG/150 ML 750 MG/150 ML BAG IVPB SCH (13:35)
--- NOTE | 2017-02-28 14:50 | IR Procedure Note ---
Date of procedure: 02/28/17 Consent Obtained: Verbal consent Timeout: Correct patient and procedure verified, Correct site verified, Time out performed, Skin prep completed Local anesthetic: Lidocaine 1% Indications: Ascites Procedure Performed: Paracentesis Site/Technique: Paracentesis performed Results/Findings: Moderate ascites Estimated blood loss (cc): 1 Complications: None; Tolerated procedure well Post Procedure Treatment Plan: Continue inpatient care
--- NOTE | 2017-02-28 15:06 | Discharge Summary ---
Date of Encounter: 02/28/17 Time of Encounter: 09:25 - Discharge Diagnosis (1) Acute on chronic respiratory failure Priority: Primary Status: Acute Qualifiers: Respiratory failure complication: hypoxia and hypercapnia Qualified Code(s) : J96.21 - Acute and chronic respiratory failure with hypoxia; J96.22 - Acute and chronic respiratory failure with hypercapnia (2) Ascites Priority: Secondary Status: Acute Qualifiers: Ascites type: malignant Qualified Code(s): R18.0 - Malignant ascites (3) CLL (chronic lymphocytic leukemia) Priority: Secondary Status: Chronic (4) COPD (chronic obstructive pulmonary disease) Priority: Secondary Status: Acute Qualifiers: COPD type: chronic bronchitis Chronic bronchitis type: mucopurulent Qualified Code(s): J41.1 - Mucopurulent chronic bronchitis (5) DVT prophylaxis Priority: Secondary Status: Acute (6) Failure to thrive in adult Priority: Secondary Status: Chronic (7) Open abdominal wall wound Priority: Secondary Status: Resolved Qualifiers: Encounter type: initial encounter Qualified Code(s): S31.109A - Unspecified open wound of abdominal wall, unspecified quadrant without penetration into peritoneal cavity, initial encounter (8) Weakness Priority: Secondary Status: Chronic (9) Sacral decubitus ulcer Priority: Secondary Status: Chronic Qualifiers: Pressure ulcer stage: stage 2 Qualified Code(s): L89.152 - Pressure ulcer of sacral region, stage 2 (10) Congestive heart failure Priority: Secondary Status: Chronic Qualifiers: Congestive heart failure type: diastolic Congestive heart failure chronicity: chronic Qualified Code(s): I50.32 - Chronic diastolic (congestive ) heart failure - Discharge Medications Prescriptions: levoFLOXacin [Levofloxacin] 500 mg PO DAILY #7 tablet Metoprolol XL (24 HR) Succ [Toprol Xl] 12.5 mg PO DAILY #30 tab.er.24h Home Medications: Aspirin [Adult Low Dose Aspirin EC] 81 mg PO DAILY 11/28/15 [History] Atorvastatin Calcium [Lipitor] 40 mg PO HS 11/28/15 [History] Albuterol Sulfate [Albuterol Inhaler] 2 puff IH Q4HR PRN 02/15/16 [History] Ipratropium/Albuterol Neb [Duoneb] 3 ml IH QID 02/15/16 [History] Folic Acid 1 mg PO DAILY #90 tablet 04/04/16 [Rx] Acetaminophen [Tylenol] 650 mg PO Q6HR PRN 05/16/16 [History] Calcium Carbonate/Vitamin D3 [Calcium 500-Vit D3 400 Tablet] 1 tab PO DAILY [History] Magic Mouthwash [Magic Mouthwash BLM] 7.5 ml PO TID PRN 05/16/16 [History] Multivitamin [Multi-Day Vitamins] 1 tab PO DAILY 05/16/16 [History] Azelastine 0.1% Nasal [place] [Astelin] 2 spray NS BID 08/28/16 [History] Petrolatum,White [Aloe [place]] 1 appl TP TID PRN 08/28/16 [History] Ubidecarenone [Coenzyme Q10] 100 mg PO DAILY 08/28/16 [History] Tiotropium [Spiriva] 1 cap IH DAILY 11/16/16 [History] Cholecalciferol (Vitamin D3) [Vitamin D3] 3,000 unit PO HS 12/03/16 [History] Tamsulosin [Flomax] 0.4 mg PO DAILY 12/28/16 [History] Furosemide [Lasix] 40 mg PO DAILY #30 tablet 01/10/17 [Rx] Venetoclax [Venclexta Starting Pack] 1 each PO AD #1 tab.ds.pk 01/10/17 [Rx] Nut.tx.pulm.disord.soy,Lac-Fr [Pulmocare] 2 each PO DAILY 01/21/17 [History] Spironolactone [Aldactone] 25 mg PO DAILY #30 tablet 01/21/17 [Rx] Sodium Chloride [[place]] 1 spray NS QID 02/25/17 [History] Metoprolol XL (24 HR) Succ [Toprol Xl] 12.5 mg PO DAILY #30 tab.er.24h 02/28/17 [Rx] levoFLOXacin [Levofloxacin] 500 mg PO DAILY #7 tablet 02/28/17 [Rx] predniSONE [PredniSONE] See Taper PO TAPER #0 02/28/17 [Rx] Lactobacillus [Culturelle] 1 each PO BID cap.sprink 03/01/17 [Rx] Allergies/Adverse Reactions: Allergies flunisolide Adverse Reaction (Verified 02/25/17 11:43) See Comments [facility] list naproxen [From Naprosyn] Adverse Reaction (Verified 02/25/17 11:43) See Comments pr list Procedures/tests Complete & Pending: Procedures Performed prior 72 hours Category Date Time Status IR paracentesis ultrasound [IR] Routine IR 02/28/17 07:00 Taken Date of admission: 02/24/17 22:21 [facility] care physician: [facility] Consults: 02/24/17 23:51 Consult to Nutrition [CONS] Routine Comment: Consulting Provider: NUTRITION Reason for Dietary Consult: MST Score Other:: FTT Consult to Social Welfare Research Worker [CONS] Routine Reason for SW Consult: LIVES ALONE/RETIRED -HAS [facility] AIDE 86H PER MONTH 02/25/17 00:46 Consult to Wound Care [CONS] Routine Reason for Consult: STAGE 2 COCCYX Call Completed: No Discharging clinician: Frantz Chau Anticipated date of discharge: 03/01/17 - Patient Status Disposition: Transfer SNF Condition: Fair Functional capacity at discharge: uses cane/walker Overall status at discharge: patient is not back to baseline - Discharge Instructions Instructions: Acute Respiratory Distress Syndrome (DC), Chronic Obstructive Pulmonary Disease (DC) Follow Up With: [facility] [Primary Care Provider] - (Patient is home [facility] P[facility] with the [facility] . Please call [facility] at discharge or have patient call once home to follow up with [facility] PCP) - Diet and Activity Activity: wear oxygen at all times Diet: low fat, low cholesterol, low salt diet Hospital course: Mr. Saravia is a 71 year old male patient with a history of metastatic CLL, prostate cancer, coronary artery disease, and cardiomyopathy, COPD and chronic respiratory failure presented to the ER with complaints of progressive weakness , shortness of breath, cough and leaking from recent paracentesis site that resolved with the use of dermabond here. On initial evaluation in the ER, patient was found to be hypoxic and pancytopenic as usual. He was also weak and lethargic. He was therefore admitted for further evaluation and treatment. His respiratory status continued to deteriorate and was started on treatment for possible COPD exacerbation with prednisone, bronchodilators and levofloxacin. His abdominal distention and ascites continued to worsen and so he underwent large volume paracentesis today. Since then his been feeling better. Physical therapy was consulted and palliative care was also consulted. After several discussions with family and patient, patient has agreed to go to [facility] for short-term rehabilitation. His CODE STATUS is DNR CC arrest but what he would like to be intubated if needed for procedures or short- term. His family and patient are also considering hospice but they are not ready for it yet. Patient does have a chronic stage II decubitus ulcer which was present on admission and received local wound care for this. For his chronic congestive heart failure, he was treated with oral Lasix. At this time, patient is stable from a clinical standpoint discharged to rehabilitation and will complete a prednisone taper and short course of antibiotics. His blood and sputum cultures have been negative. - Time Spent with Patient Total time spent providing and/or coordinating discharge services: Greater than 30 minutes (45 min) - Constitutional Vitals: Temp Pulse Resp BP Pulse Ox 97.7 F 84 18 97/62 98 02/28/17 11:20 02/28/17 11:20 02/28/17 11:20 02/28/17 11:20 02/28/17 11:20 General appearance: Present: cachectic, cooperative, mild distress, A&O X 3, answers questions appropriately - Neck Neck exam general surgery: Present: supple, trachea midline. Absent: lymphadenopathy - Respiratory Respiratory exam: Present: rales, rhonchi, wheezes. Absent: accessory muscle use - GI/Abdominal GI/Abdominal exam: Present: normal bowel sounds, soft, no peritoneal signs. Absent: distended, tenderness - Extremities Exam Extremities exam: Present: pedal edema, warm, radial pulses palpable and symetrical. Absent: calf tenderness, cyanotic - Neurological Exam Neurological exam: Present: alert, oriented X3, no focal deficits. Absent: facial droop, speech deficit - Skin Skin exam: Present: dry, intact - VTE Documentation of Mechanical Device: Intermittent pneumatic compression device - Attending Attestation This document has been at least partially created by [employer] recognition technology by Dr. Chau. Errors in grammar, wording or other phrases may exist. If errors are found after the documentation is signed, they will be addressed individually in the addendum section of this document when appropriate.
--- NOTE | 2017-02-28 15:25 | Physician Discharge Referral ---
ExtendedCare Referral Info Transfer To: [facility] Institutional Level of Care: Skilled - Diagnosis (1) Acute on chronic respiratory failure Priority: Primary Status: Acute (2) Ascites Priority: Secondary Status: Acute (3) CLL (chronic lymphocytic leukemia) Priority: Secondary Status: Chronic (4) COPD (chronic obstructive pulmonary disease) Priority: Secondary Status: Acute (5) DVT prophylaxis Priority: Secondary Status: Acute (6) Failure to thrive in adult Priority: Secondary Status: Chronic (7) Open abdominal wall wound Status: Resolved (8) Weakness Priority: Secondary Status: Chronic (9) Sacral decubitus ulcer Priority: Secondary Status: Chronic (10) Congestive heart failure Priority: Secondary Status: Chronic Prognosis: Poor Aware of Diagnosis: Patient, Family Aware of Prognosis: Patient, Family - Transfer Medications Prescriptions: levoFLOXacin [Levofloxacin] 500 mg PO DAILY #7 tablet Metoprolol XL (24 HR) Succ [Toprol Xl] 12.5 mg PO DAILY #30 tab.er.24h Home Medications: Aspirin [Adult Low Dose Aspirin EC] 81 mg PO DAILY 11/28/15 [History] Atorvastatin Calcium [Lipitor] 40 mg PO HS 11/28/15 [History] Albuterol Sulfate [Albuterol Inhaler] 2 puff IH Q4HR PRN 02/15/16 [History] Ipratropium/Albuterol Neb [Duoneb] 3 ml IH QID 02/15/16 [History] Folic Acid 1 mg PO DAILY #90 tablet 04/04/16 [Rx] Acetaminophen [Tylenol] 650 mg PO Q6HR PRN 05/16/16 [History] Calcium Carbonate/Vitamin D3 [Calcium 500-Vit D3 400 Tablet] 1 tab PO DAILY [History] Magic Mouthwash [Magic Mouthwash BLM] 7.5 ml PO TID PRN 05/16/16 [History] Multivitamin [Multi-Day Vitamins] 1 tab PO DAILY 05/16/16 [History] Azelastine 0.1% Nasal [place] [Astelin] 2 spray NS BID 08/28/16 [History] Petrolatum,White [Aloe [place]] 1 appl TP TID PRN 08/28/16 [History] Ubidecarenone [Coenzyme Q10] 100 mg PO DAILY 08/28/16 [History] Tiotropium [Spiriva] 1 cap IH DAILY 11/16/16 [History] Cholecalciferol (Vitamin D3) [Vitamin D3] 3,000 unit PO HS 12/03/16 [History] Tamsulosin [Flomax] 0.4 mg PO DAILY 12/28/16 [History] Furosemide [Lasix] 40 mg PO DAILY #30 tablet 01/10/17 [Rx] Venetoclax [Venclexta Starting Pack] 1 each PO AD #1 tab.ds.pk 01/10/17 [Rx] Nut.tx.pulm.disord.soy,Lac-Fr [Pulmocare] 2 each PO DAILY 01/21/17 [History] Spironolactone [Aldactone] 25 mg PO DAILY #30 tablet 01/21/17 [Rx] Sodium Chloride [[place]] 1 spray NS QID 02/25/17 [History] Metoprolol XL (24 HR) Succ [Toprol Xl] 12.5 mg PO DAILY #30 tab.er.24h 02/28/17 [Rx] levoFLOXacin [Levofloxacin] 500 mg PO DAILY #7 tablet 02/28/17 [Rx] predniSONE [PredniSONE] See Taper PO TAPER #0 02/28/17 [Rx] Lactobacillus [Culturelle] 1 each PO BID cap.sprink 03/01/17 [Rx] Allergies/Adverse Reactions: Allergies flunisolide Adverse Reaction (Verified 02/25/17 11:43) See Comments [facility] list naproxen [From Naprosyn] Adverse Reaction (Verified 02/25/17 11:43) See Comments [facility] list - Respiratory Orders Oxygen / L per min (Keep sats >88%) Smoking Cessation: Smoking cessation has been advised. For more information, call the [place] Tobacco Quit Line at 7-327-HPQL-NOW. - Ancillary Orders May use pressure relief devices daily prn, May consult with Dentist, Director Of Neurology, Maintenance Worker Municipal PRN - Advance Directives Code Status: DNR-Arrest (Ok to intubate short term) - Mobility Orders Ambulate (with walker) - Rehabiliation Orders Rehab Potential: Fair Rehab Orders: Evaluation for Physical Therapy, Evaluation for Occupational Therapy - Diet Orders Cardiac CERTIFICATION: I certify that the transfer of the above named patient to an Extended Care Facility is necessary for the continuing treatment of the diagnosis listed. The above information is true and accurate reflection of patient's current condition. Confidential - Redisclosure prohibited without a patient's written consent.
[2017-02-28] MEDS: VENETOCLAX PO SCH (17:38)
[2017-03-01 03:40] VITALS: BP 100/60
[2017-03-01] MEDS: Ipratropium/Albuterol Neb 3 ML IH SCH ×2 (04:27→11:13)
[2017-03-01] MEDS: *HR* Fondaparinux 2.5 MG/0.5 ML SYRINGE SQ SCH (05:42)
[2017-03-01] MEDS: Aspirin Enteric Coated 81 MG Tablet PO SCH (08:11)
[2017-03-01] MEDS: Multivit/Ca/Min/Fe/FA 1 TAB TABLET PO SCH (08:11)
[2017-03-01] MEDS: Isosorbide MONOnitrate (24 HR) 30 MG TAB.ER.24H PO SCH (08:12)
[2017-03-01] MEDS: Folic Acid 1 MG TABLET PO SCH (08:12)
[2017-03-01] MEDS: Spironolactone 25 MG TABLET PO SCH (08:12)
[2017-03-01] MEDS: predniSONE 20 MG TABLET PO SCH (08:12)
[2017-03-01] MEDS: Furosemide 40 MG TABLET PO SCH (08:12)
[2017-03-01] MEDS: Cholecalciferol (D-3) 1,000 UNIT TABLET PO SCH (08:12)
--- NOTE | 2017-03-01 10:07 | Internal Med Progress Note ---
Date of Encounter: 03/01/17 Time of Encounter: 09:35 - Assessment and plan (1) Acute on chronic respiratory failure Current Visit: Yes Status: Acute Assessment and plan: Stable overall. Continue O2 supplementation via nasal cannula. Awaiting placement to skilled rehabilitation. Complete antibiotic course. Most likely due to COPD exacerbation and bronchitis Qualifiers: Respiratory failure complication: hypoxia and hypercapnia Qualified Code(s) : J96.21 - Acute and chronic respiratory failure with hypoxia; J96.22 - Acute and chronic respiratory failure with hypercapnia (2) Ascites Current Visit: Yes Status: Acute Assessment and plan: Treated with abdominal paracentesis for palliation. Qualifiers: Ascites type: malignant Qualified Code(s): R18.0 - Malignant ascites (3) CLL (chronic lymphocytic leukemia) Current Visit: No Status: Chronic Assessment and plan: Continue management per oncology recommendations (4) COPD (chronic obstructive pulmonary disease) Current Visit: Yes Status: Acute Assessment and plan: Continue bronchodilator and complete steroid taper. Clinically improving. Also complete short course of levofloxacin Qualifiers: COPD type: chronic bronchitis Chronic bronchitis type: mucopurulent Qualified Code(s): J41.1 - Mucopurulent chronic bronchitis (5) DVT prophylaxis Current Visit: No Status: Acute (6) Failure to thrive in adult Current Visit: Yes Status: Chronic Assessment and plan: Awaiting placement to skilled rehabilitation per patient and family wishes (7) Open abdominal wall wound Current Visit: Yes Status: Resolved Qualifiers: Encounter type: initial encounter Qualified Code(s): S31.109A - Unspecified open wound of abdominal wall, unspecified quadrant without penetration into peritoneal cavity, initial encounter (8) Weakness Current Visit: Yes Status: Chronic Assessment and plan: Continue physical therapy (9) Sacral decubitus ulcer Current Visit: Yes Status: Chronic Assessment and plan: Continue local wound care Qualifiers: Pressure ulcer stage: stage 2 Qualified Code(s): L89.152 - Pressure ulcer of sacral region, stage 2 (10) Congestive heart failure Current Visit: No Status: Chronic Assessment and plan: Continue oral Lasix Qualifiers: Congestive heart failure type: diastolic Congestive heart failure chronicity: chronic Qualified Code(s): I50.32 - Chronic diastolic (congestive ) heart failure - Subjective Interval history: Patient is feeling somewhat better today. Tolerated abdominal paracentesis well yesterday. Is awaiting placement to skilled rehabilitation. Denies any new complaints at this time. - Constitutional Vitals: Temp Pulse Resp BP Pulse Ox 98.2 F 104 16 100/60 93 03/01/17 03:27 03/01/17 03:27 03/01/17 04:27 03/01/17 03:27 03/01/17 04:27 General appearance: Present: cachectic, cooperative, mild distress, A&O X 3, answers questions appropriately - Respiratory Respiratory exam: Present: decreased breath sounds (At both bases), prolonged expiratory phase. Absent: accessory muscle use, rales, rhonchi, wheezes - Cardiovascular Cardiovascular exam: Present: RRR, +S1, +S2. Absent: diastolic murmur, gallop, rubs, systolic murmur - GI/Abdominal GI/Abdominal exam: Present: normal bowel sounds, soft, no peritoneal signs. Absent: distended, tenderness Internal Medicine: Result - Labs CBC & Chem 7: 02/27/17 05:32 02/27/17 05:32 - ABG Interpretation ABG results: ABG ABG pH 7.45 pH Units (7.32-7.45) 02/25/17 10:05 ABG pCO2 69 mmHg (35-45) H 02/25/17 10:05 ABG pO2 58 mmHg (85-104) L 02/25/17 10:05 ABG O2 Saturation 91 % (95-98) L 02/25/17 10:05 PT/INR, D-dimer PT 10.6 Seconds (9.4-12.1) 02/28/17 05:12 - Impressions Impressions Paracentesis Ultrasound 02/28/17 07:00 IMPRESSION: Successful ultrasound guided paracentesis. D/ / Kirit Luevano MD / Kirit Luevano MD Interpreting Provider: Kirit Luevano MD - [facility] Documentation of Mechanical Device: Intermittent pneumatic compression device Consult Discharge Plan - Plan Instructions: Acute Respiratory Distress Syndrome (DC), Chronic Obstructive Pulmonary Disease (DC) [facility]errals: [facility]Primary [facility] Provider[facility] - (Patient is home [facility] P[facility] with the [place] . Please call [facility] at [facility] or have patient call once home to follow [facility] with [facility]) Prescriptions: levoFLOXacin [Levofloxacin] 500 mg PO DAILY #7 tablet Metoprolol XL (24 HR) Succ [Toprol Xl] 12.5 mg PO DAILY #30 tab.er.[id number] - Attending Attestation This document has been at least partially created by [employer] recognition technology by Dr. Chau. Errors in grammar, wording or other phrases may exist. If errors are found after the documentation is signed, they will be addressed individually in the addendum section of this document when appropriate.
[2017-03-01] MEDS ORDERED: Lactobacillus 1 EACH CAP.SPRINK PO SCH (21:00)
== END 2017-03-01 11:10 | DRG 190 ==
LOC: EMEROO 17:57 → SUATTDRO 22:21 → 2ANU 22:21
PROVIDERS: ADMIT Internal Medicine; ATTEND Internal Medicine